=== PATIENT | male | born 1935 | race Caucasian/White ===

== ENCOUNTER 2017-08-12 14:07 | Emergency (ER) | payer MEDICARE, SELFPAY ==
[2017-08-12 14:07] VITALS: BP 151/83; PULSE 57; RESP 18; TEMP 36.5; O2SAT 100; BMI 24.4
[2017-08-12 14:20] VITALS: BP 122/84; PULSE 67; RESP 16; O2SAT 100
--- NOTE | 2017-08-12 14:23 | EKG12_ITS ---
Test Reason : SOB Blood Pressure : / mmHG Vent. Rate : 056 BPM Atrial Rate : 056 BPM P-R Int : 210 ms QRS Dur : 110 ms QT Int : 436 ms P-R-T Axes : 041 015 030 degrees QTc Int : 420 ms Sinus bradycardia with 1st degree A-V block Inferior infarct , age undetermined Abnormal ECG Confirmed by AGUSTIN RIGGS, YENNY ([id number]), website/blog editor NIKKO POPE ([id number]) on 08/15/2017 1:21:00 PM Referred By: Yenny Jamison Confirmed By:YENNY JAMISON MD
[2017-08-12 14:45] LABS: Absolute Lymphocyte Count 2.41 X10^3/ul (0.83-4.51); Absolute Neutrophil Count 4.1 X10^3/uL (2.0-7.7); Basophil# 0.03 X10^3/uL; Basophil% 0.4 % (0-1); Eosinophil# 0.06 X10^3/uL; Eosinophils% 0.8 % (0-5); Hematocrit 40.7 % (40-54); Hemoglobin 14.4 g/dl (13.0-16.5); Lymphocyte # 2.41 X10^3/ul (4.0); Lymphocyte % 33.8 % (19-41); Mean Corp Hgb Conc 35.4 g/gl (32-36); Mean Corpuscular Hgb 30.6 pg (27.0-32.0); Mean Corpuscular Volume 86.6 fL (80-94); Mean Platelet Vol. 10.8 fl (6.2-12.0); Monocyte# 0.57 X10^3/uL; Neutrophil # 4.05 X10^3/uL (2.7-7.7); Neutrophil % 56.9 % (47-70); POSITIVE COUNT NO; POSITIVE DIFFERENTIAL NO; POSITIVE MORPHOLOGY NO; Platelet Count 190 K/mm3 (150-450); RBC Distribution Width CV 12.8 % (11.6-14.6); RBC Distribution Width SD 40.8 fl (35.1-43.9); White Blood Count 7.1 K/mm3 (4.4-11.0)
[2017-08-12 15:04] LABS: Anion Gap 8 (5-15); BUN 16 mg/dL (7-18); BUN/Creat Ratio 14.4 RATIO (10-20); Calcium,Total 8.5 mg/dL (8.5-10.1); Chloride 104 mmol/L (98-107); Creatinine, Serum 1.11 mg/dL (0.70-1.30); EST Glomerular Filtration Rate 68 mL/min (>60); Est Glom Filt Rate - Afr Amer 82 mL/min (>60); Estimated Creatinine Clearance 60.98 ml/min; Glucose 112 mg/dL (74-106); Potassium 3.5 mmol/L (3.5-5.1); Sodium Level 140 mmol/L (136-145)
--- NOTE | 2017-08-12 15:36 | ED.VISSUMM ---
- ER Visit Summary Date of Service: 08/12/17 Chief Complaint: Shortness of breath, weakness, palpitations and lightheadedness History of Present Illness: The patient is a 81 M was recently admitted for similar symptoms and found to have dehydration. He presently has no symptoms. He had no other symptoms other than what his chief complaint was. He denied fever, chills night sweats. He denied change in vision, blurred vision or double vision. He denies loss of vision. He denied runny nose, postnasal drainage, sore throat or earache. He denied chest pain or discomfort. He denied cough, dyspnea on exertion, orthopnea or PND. He denied abdominal pain, vomiting, diarrhea or black or maroon stool. He denies any urologic symptoms. He denied myalgias arthralgias back pain. He denied headache, paresthesia, anesthesia motor weeks. He denies any allergic problems. Denies problems with bleeding or bruising easily. He is on no anticoagulant. Physical Examination: Vital signs micromelic blood pressure 141/83 and heart rate is 57. He has history of bradycardia. He is a thin gentleman. He appears in no distress. Insert HEENT exam Heart is regular without murmur, gallop or rub. S1 and S2 are normal. Lungs are clear to auscultation with good movement of air bilaterally. Abdomen is soft and nontender. There is no guarding or peritoneal findings. There is no palpable pulsatile mass. There is no abdominal bruit. Spencer sign is negative. Negative Rovsing sign. There is no evidence of inguinal or umbilical hernia. There is no asymmetry, swelling, discoloration, leg vein distention, palpable cords or tenderness along the distribution of the deep venous system. Patient is alert and oriented ?3. Motor is 5 over 5. Sensory is intact. DTRs are symmetric with no clonus or Babinski sign. Cranial 2 through 12 are intact. Cerebellar testing is normal. Test Results: EKG revealed a sinus bradycardia rate 57 with first-degree AV block. CBC and BMP are unremarkable. Emergency Department Course and Treatment: Weight is vague symptoms EKG and CBC and BMP were obtained assessing for anemia, cardiac dysrhythmia or ischemia, electrolyte abnormality. Treatment Plan: Patient was informed no cause was found. states no one finds a cause. Disposition: Discharged home with Impression: 1. Intermittent dyspnea and lightheadedness of unknown etiology 2. History of hypothyroidism status post thyroidectomy 3. History of hypertension This note was generated with [employer] dictation software. It may contain incorrect words, spelling, and punctuation that were not noted in review of the chart prior to signing ED Disposition - Plan for ED Patient: Disposition: Home or Assisted Living Chief Complaint: Shortness of Breath Instructions: ED Stress React Referrals: Juan Hairston MD [Primary Care Provider] - As Needed
[2017-08-12 16:04] VITALS: BP 141/91; PULSE 67; RESP 18; O2SAT 95
== END 2017-08-12 16:05 | disposition home or self-care (01) ==
PROVIDERS: Emergency Provider Emergency Medicine; Family Provider Family Medicine; PCP Family Medicine
DX: R06.00 Dyspnea, unspecified (principal); R42 Dizziness and giddiness; E89.0 Postprocedural hypothyroidism; I10 Essential (primary) hypertension; F41.9 Anxiety disorder, unspecified; R00.1 Bradycardia, unspecified; I44.0 Atrioventricular block, first degree; I48.91 Unspecified atrial fibrillation; Z86.73 Personal history of transient ischemic attack (TIA), and cerebral infarction without residual deficits; Z79.01 Long term (current) use of anticoagulants; Z79.899 Other long term (current) drug therapy
CPT/HCPCS: 80048; 85025; 93005; 99284; A4216

== ENCOUNTER 2017-09-01 06:15 | Day surgery (SDC) | payer MEDICARE, SELFPAY ==
[2017-09-01] VITALS (7 sets, daily range): BP systolic 107–147; BP diastolic 60–75; PULSE 51–56; RESP 16; TEMP 36.2–36.6; O2SAT 95–100; BMI 24.8
--- NOTE | 2017-09-01 | COLBX_PTH ---
PATIENT: LEO ROMAN LOC: EN U#:[id number] AGE/SX: 81/M ROOM: RE09/01/[address]: Dr. Cesar Johnson MD : [id number] BED: DIS: 09/01/2017 SPEC #: [id number] RECD: 09/01/17 13:34 STATUS: NIKKI ESTHER #: [id number] FABIAN: 09/01/17 00:[address]: Cesar Johnson DEPT: SURGICAL PATHOLOGY RECD BY: Benjamín Rhodes ENTERED: 09/01/17 13:42 SP TYPE: COLON BX OTHR DR: Dr. Juan Hairston MD Tissues: Rectum, NOS Procedures: Surgery Specimen Level IV HEADER OPERATION: Colonoscopy PRE-OP DIAGNOSIS: History colon polyps TISSUE SUBMITTED: Rectal polyp biopsy MICROSCOPIC DIAGNOSIS Rectal polyp, biopsy: Tubular adenoma. SJ:adonis 09/04/17 MICROSCOPIC DESCRIPTION Slides are reviewed. GROSS DESCRIPTION Received in fixative is one container labeled with the patient's name and designated rectal polyp biopsy. The specimen consists of one irregular fragment of light lazar soft tissue that measures 0.4 x 0.3 x 0.1 cm. The specimen is totally submitted in one cassette. / SJ:adonis 09/01/17 TC:1 CPT: 29473
--- NOTE | 2017-09-01 08:13 | PCM.OPRPT ---
Problem List (1) Personal history of colonic polyps Status: Acute Report of Operation Date of Procedure: 09/01/17 Pre-Operative Diagnosis: Personal history of colon polyps Post-Operative Diagnosis: 5 mm sessile polyp of the rectum Surgery/Procedure Performed:: Colonoscopy with cold forcep biopsy/polypectomy Description of Surgical Findings:: Timeout and informed consent was obtained. 81-year-old gent was taken to the endoscopy suite. He was placed in a left lateral decubitus position. Throughout the procedure he received a total of 75 mg of Demerol and 3.5 mg of Versed is intravenous sedation. Digital rectal exam performed. Normal anal tone. 2+ smooth prostate. No mass lesions. Flexible colonoscope with the amplified device was inserted advanced quite readily through the colon. Patient has a rather elongated colon. Transabdominal pressure was required to get the scope to go to the cecum. The cecum ileocecal valve area was nicely achieved. Bowel prep was good. The scope was retroflexed within the ascending colon without abnormality identified. Then the scope was carefully withdrawn from the ascending transverse descending and sigmoid colon. Within the rectum and a 5 mm sessile polyp was identified. Cold forceps were used to sample and eradicate this lesion. Scope was retroflexed hemorrhoidal changes noted. No mass lesions. Excess fluid and air was aspirated free. The procedure was completed with the patient tolerating it well. Impression Diminutive sessile polyp of the rectum. The patient will be notified of pathology results as they become available. Previous colonoscopy was September 29, 2011. Next colonoscopy anticipated in 5 years pending pathology. Cc: Dr. Juan Hairston Medications were given at 0745. Scope was inserted 0747. The cecum was reached at 0754. The procedure was completed at 0807. Cesar Johnson M.D., F.A.C.S. Type of Anesthesia:: IV Sedation
== END 2017-09-01 09:05 | disposition home or self-care (01) ==
LOC: EN 06:22 → AC 06:51
PROVIDERS: Family Provider Family Medicine; PCP Family Medicine; Visit Provider Surgery
PROC: 0DJD8ZZ Inspection of Lower Intestinal Tract, Via Natural or Artificial Opening Endoscopic (ICD-10-PCS; CPT 45378; principal; 2017-09-01 07:25)
DX: D12.8 Benign neoplasm of rectum (principal); Q43.8 Other specified congenital malformations of intestine; K64.9 Unspecified hemorrhoids; I10 Essential (primary) hypertension; I48.2 Chronic atrial fibrillation; E03.9 Hypothyroidism, unspecified; R00.1 Bradycardia, unspecified; C61 Malignant neoplasm of prostate; Z86.010 Personal history of colon polyps; Z79.01 Long term (current) use of anticoagulants; Z79.899 Other long term (current) drug therapy; Z86.73 Personal history of transient ischemic attack (TIA), and cerebral infarction without residual deficits
CPT/HCPCS: 45380; 88305; 99152; 99153; J7120

== ENCOUNTER → 2017-09-04 08:07 | Outpatient (CLI) | payer MEDICARE, SELFPAY ==
--- NOTE | 2017-09-04 08:25 | RAD_ITS ---
STUDY: CONTRAST UPPER GI SERIES AND SMALL BOWEL FOLLOW-THROUGH EXAMINATION. REASON FOR EXAM: Male, 81 years old. Intermittent chest pain and shortness of breath. FLUOROSCOPY TIME (if supplied): (0:55) minutes/seconds TECHNIQUE: The patient ingested barium. Multiple images of the esophagus stomach and duodenum were obtained. Following this, a small bowel follow-through examination was obtained. COMPARISON: None. FINDINGS: The esophagus is unremarkable. There is no evidence of esophageal obstruction. No mass lesion is seen. No evidence of gastroesophageal reflux. The stomach and duodenum are unremarkable. There is no evidence of ulceration. A small bowel follow-through examination was then obtained. Normal transit. No evidence of intrinsic or extrinsic small bowel disease. The terminal ileum is unremarkable. RAD/Upper GI/w Small Bowel IMPRESSION: Unremarkable examination. Electronically Signed: Iain De Santiago MD at 15:13 EDT Tel [phone], Service support ,
== END ==
PROVIDERS: Family Provider Family Medicine; PCP Family Medicine; Visit Provider Family Medicine
DX: R13.10 Dysphagia, unspecified (principal)
CPT/HCPCS: 74249

== ENCOUNTER → 2017-09-07 08:42 | Outpatient (CLI) | payer MEDICARE, SELFPAY ==
[2017-09-07 10:18] LABS: Cholesterol 158 mg/dL (200); High Density Lipoprotein 45 mg/dL; PSA,Total- Diagnostic < 0.01 ng/mL (0.0-4.0); Thyroid Stim Hormone (TSH) 0.21 uIU/mL (0.358-3.74); Triglycerides 89 mg/dL; Very Low Density Lipoprotein 18 mg/dL (5-40)
== END ==
PROVIDERS: Family Provider Family Medicine; PCP Family Medicine; Visit Provider Family Medicine
DX: E03.9 Hypothyroidism, unspecified (principal); I48.91 Unspecified atrial fibrillation; Z85.46 Personal history of malignant neoplasm of prostate
CPT/HCPCS: 36415; 80061; 84153; 84443

== ENCOUNTER → 2017-09-25 07:36 | Outpatient (CLI) | payer MEDICARE, SELFPAY ==
--- NOTE | 2017-09-25 14:41 | PFT ---
INTRODUCTION: The patient is a 81-year-old male currently under the care of Dr. Hairston the presents for pulmonary function testing secondary to a diagnosis of shortness of breath. Respiratory therapy reports good patient effort and reports no other concerns. Bronchodilators were used during testing. INTERPRETATION: Forced expiration spirometry demonstrates no evidence of a large airways obstructive ventilatory defect. There was no significant response to aerosolized bronchodilators, based upon strict ATS criteria. Spirograms are of fair quality and plateau gradually indicating slow emptying of the lungs. Body plethysmography was performed and reveals lung volumes to be within normal limits. Diffusing capacity by single breath CO is also within normal limits. IMPRESSION: These pulmonary function studies are essentially within normal limits. There are no previous pulmonary function studies available for comparison.
== END ==
PROVIDERS: Family Provider Family Medicine; PCP Family Medicine; Visit Provider Family Medicine
DX: R06.02 Shortness of breath (principal)
CPT/HCPCS: 94060; 94726; 94729

== ENCOUNTER → 2018-02-22 14:58 | Outpatient (CLI) | payer MEDICARE, SELFPAY ==
[2018-02-22 18:22] LABS: Absolute Lymphocyte Count 1.42 X10^3/ul (0.83-4.51); Basophil# 0.02 X10^3/uL; Basophil% 0.3 % (0-1); Eosinophil# 0.08 X10^3/uL; Eosinophils% 1.3 % (0-5); Lymphocyte # 1.42 X10^3/ul (4.0); Lymphocyte % 23.2 % (19-41); Mean Corp Hgb Conc 35.1 g/gl (32-36); Mean Corpuscular Hgb 31.2 pg (27.0-32.0); Mean Corpuscular Volume 88.7 fL (80-94); Mean Platelet Vol. 10.8 fl (6.2-12.0); Monocyte# 0.61 X10^3/uL; Neutrophil # 3.99 X10^3/uL (2.7-7.7); Neutrophil % 65.2 % (47-70); Platelet Count 186 K/mm3 (150-450); RBC Distribution Width CV 12.9 % (11.6-14.6); RBC Distribution Width SD 41.1 fl (35.1-43.9); Red Blood Count 4.17 M/mm3 (4.6-6.2); White Blood Count 6.1 K/mm3 (4.4-11.0)
[2018-02-22 18:37] LABS: Anion Gap 6 (5-15); BUN 12 mg/dL (7-18); Calcium,Total 8.6 mg/dL (8.5-10.1); Chloride 103 mmol/L (98-107); Creatinine, Serum 1.09 mg/dL (0.70-1.30); EST Glomerular Filtration Rate 69 mL/min (>60); Est Glom Filt Rate - Afr Amer 84 mL/min (>60); Free T3 3.4 pg/mL (2.18-3.98); Glucose 81 mg/dL (74-106); Sodium Level 137 mmol/L (136-145); Thyroid Stim Hormone (TSH) 0.21 uIU/mL (0.358-3.74)
[2018-02-22 18:51] LABS: POSITIVE COUNT NO; POSITIVE DIFFERENTIAL NO; POSITIVE MORPHOLOGY NO
== END ==
PROVIDERS: Family Provider Family Medicine; PCP Family Medicine; Referring Provider Family Medicine; Visit Provider Family Medicine
DX: E03.9 Hypothyroidism, unspecified (principal); R06.02 Shortness of breath
CPT/HCPCS: 36415; 80048; 84439; 84443; 84481; 85025

== ENCOUNTER → 2018-12-07 | Outpatient (CLI) | payer MEDICARE, SELFPAY ==
[2018-09-25 07:39] VITALS: BMI 25.0
[2018-12-07 14:17] LABS: Microalbumin,Random Urine < 5.0 mg/L (NO RANGE EST.)
[2018-12-07 14:40] LABS: Anion Gap 7 (5-15); BUN 14 mg/dL (7-18); BUN/Creat Ratio 14.1 RATIO (10-20); Calcium,Total 8.3 mg/dL (8.5-10.1); Chloride 103 mmol/L (98-107); Creatinine, Serum 0.99 mg/dL (0.70-1.30); EST Glomerular Filtration Rate 77 mL/min (>60); Est Glom Filt Rate - Afr Amer 93 mL/min (>60); Ferritin 97 ng/mL (26-388); Glucose 91 mg/dL (74-106); PSA,Total- Diagnostic < 0.01 ng/mL (0.0-4.0); Potassium 3.8 mmol/L (3.5-5.1); Sodium Level 137 mmol/L (136-145); Thyroid Stim Hormone (TSH) 0.13 uIU/mL (0.358-3.74)
[2018-12-07 15:36] LABS: Absolute Lymphocyte Count 1.81 X10^3/uL (0.83-4.51); Absolute Neutrophil Count 3.5 X10^3/uL (2.0-7.7); Basophil# 0.03 X10^3/uL; Basophil% 0.5 % (0-1); Eosinophil# 0.05 X10^3/uL; Eosinophils% 0.8 % (0-5); Hematocrit 37.5 % (40-54); Hemoglobin 13.1 g/dL (13.0-16.5); Lymphocyte # 1.81 X10^3/ul (4.0); Lymphocyte % 30.5 % (19-41); Mean Corp Hgb Conc 34.9 g/dL (32-36); Mean Corpuscular Hgb 30.5 pg (27.0-32.0); Mean Corpuscular Volume 87.2 fL (80-94); Mean Platelet Vol. 11.2 fl (6.2-12.0); Monocyte# 0.52 X10^3/uL; Monocyte% 8.8 % (0-10); NRBC Flagged by Analyzer 0 % (0-5); Neutrophil % 59.1 % (47-70); Platelet Count 164 K/mm3 (150-450); RBC Distribution Width CV 12.9 % (11.6-14.6); RBC Distribution Width SD 40.4 fl (35.1-43.9); White Blood Count 5.9 K/mm3 (4.4-11.0)
== END | disposition home or self-care (01) ==
PROVIDERS: Family Provider Family Medicine; PCP Family Medicine; Referring Provider Family Medicine; Visit Provider Family Medicine
DX: E03.9 Hypothyroidism, unspecified (principal); I48.91 Unspecified atrial fibrillation; I10 Essential (primary) hypertension; Z85.46 Personal history of malignant neoplasm of prostate
CPT/HCPCS: 36415; 80048; 82043; 82570; 82728; 84153; 84443; 85025

== ENCOUNTER → 2019-04-22 09:41 | Outpatient (CLI) | payer MEDICARE, SELFPAY ==
[2018-09-25 07:39] VITALS: BMI 25.0
[2019-04-22 12:41] LABS: Anion Gap 8 (5-15); BUN 13 mg/dL (7-18); BUN/Creat Ratio 11.3 RATIO (10-20); Calcium,Total 8.6 mg/dL (8.5-10.1); Chloride 104 mmol/L (98-107); Creatinine, Serum 1.15 mg/dL (0.70-1.30); EST Glomerular Filtration Rate 65 mL/min (>60); Est Glom Filt Rate - Afr Amer 78 mL/min (>60); Glucose 93 mg/dL (74-106); Sodium Level 137 mmol/L (136-145); T4 Free Direct 1.02 ng/dL (0.76-1.46); Thyroid Stim Hormone (TSH) 1.71 uIU/mL (0.358-3.74)
== END ==
PROVIDERS: Family Provider Family Medicine; PCP Family Medicine; Referring Provider Family Medicine; Visit Provider Family Medicine
DX: E03.9 Hypothyroidism, unspecified (principal); I10 Essential (primary) hypertension
CPT/HCPCS: 36415; 80048; 84439; 84443

== ENCOUNTER → 2019-12-24 08:01 | Outpatient (CLI) | payer MEDICARE, SELFPAY ==
[2018-09-25 07:39] VITALS: BMI 25.0
[2019-12-24 09:59] LABS: Absolute Lymphocyte Count 2.29 X10^3/uL (0.83-4.51); Absolute Neutrophil Count 3.5 X10^3/uL (2.0-7.7); Basophil# 0.04 X10^3/uL; Basophil% 0.6 % (0-1); Eosinophil# 0.07 X10^3/uL; Eosinophils% 1.1 % (0-5); Hematocrit 40.9 % (40-54); Hemoglobin 14.4 g/dL (13.0-16.5); Lymphocyte # 2.29 X10^3/ul (4.0); Lymphocyte % 35.5 % (19-41); Mean Corp Hgb Conc 35.2 g/dL (32-36); Mean Corpuscular Hgb 31.4 pg (27.0-32.0); Mean Corpuscular Volume 89.1 fL (80-94); Mean Platelet Vol. 11.6 fl (6.2-12.0); Monocyte# 0.58 X10^3/uL; NRBC Flagged by Analyzer 0 % (0-5); Neutrophil # 3.46 X10^3/uL (2.7-7.7); Neutrophil % 53.6 % (47-70); Platelet Count 166 K/mm3 (150-450); RBC Distribution Width CV 12.7 % (11.6-14.6); RBC Distribution Width SD 40.8 fl (35.1-43.9); Red Blood Count 4.59 M/mm3 (4.6-6.2); White Blood Count 6.5 K/mm3 (4.4-11.0)
[2019-12-24 10:18] LABS: Anion Gap 4 (5-15); BUN 15 mg/dL (7-18); BUN/Creat Ratio 14.2 RATIO (10-20); Calcium,Total 8.6 mg/dL (8.5-10.1); Chloride 104 mmol/L (98-107); Creatinine, Serum 1.06 mg/dL (0.70-1.30); EST Glomerular Filtration Rate 71 mL/min (>60); Est Glom Filt Rate - Afr Amer 86 mL/min (>60); Glucose 92 mg/dL (74-106); PSA,Total- Diagnostic < 0.01 ng/mL (0.0-4.0); Potassium 3.9 mmol/L (3.5-5.1); Sodium Level 136 mmol/L (136-145)
[2019-12-24 10:23] LABS: Microalbumin,Random Urine 9.6 mg/L (NO RANGE EST.); Microalbumin:Creatinine Ratio 5.5 mg/g CRE (<30 mg/g CRE)
[2019-12-24 10:59] LABS: Cholesterol 150 mg/dL (200); High Density Lipoprotein 38 mg/dL; Triglycerides 106 mg/dL; Very Low Density Lipoprotein 21 mg/dL (5-40)
== END ==
PROVIDERS: PCP Family Medicine; Referring Provider Family Medicine; Visit Provider Family Medicine
DX: I10 Essential (primary) hypertension (principal); Z85.46 Personal history of malignant neoplasm of prostate; E03.9 Hypothyroidism, unspecified; I48.91 Unspecified atrial fibrillation
CPT/HCPCS: 36415; 80048; 80061; 82043; 82570; 84153; 84443; 85025

== ENCOUNTER → 2020-03-19 14:10 | Outpatient (CLI) | payer MEDICARE, SELFPAY ==
[2020-01-10 10:41] VITALS: BMI 24.7
[2020-03-19 18:05] LABS: T4 Free Direct 1.26 ng/dL (0.76-1.46)
== END ==
PROVIDERS: PCP Family Medicine; Referring Provider Family Medicine; Visit Provider Family Medicine
DX: E03.9 Hypothyroidism, unspecified (principal)
CPT/HCPCS: 36415; 84439; 84443

== ENCOUNTER → 2020-12-01 07:40 | Outpatient (CLI) | payer MEDICARE, SELFPAY ==
[2020-11-19 11:27] VITALS: BMI 24.7
[2020-12-01 10:24] LABS: Absolute Lymphocyte Count 2.11 X10^3/uL (0.83-4.51); Absolute Neutrophil Count 3.1 X10^3/uL (2.0-7.7); Basophil# 0.04 X10^3/uL; Basophil% 0.7 % (0-1); Eosinophil# 0.07 X10^3/uL; Eosinophils% 1.2 % (0-5); Hematocrit 38.9 % (40-54); Lymphocyte # 2.11 X10^3/ul (0.83-4.51); Lymphocyte % 35.5 % (19-41); Mean Corpuscular Volume 86.3 fL (80-94); Mean Platelet Vol. 11.4 fl (6.2-12.0); Monocyte% 10.1 % (0-10); NRBC Flagged by Analyzer 0 % (0-5); Neutrophil % 52.2 % (47-70); Platelet Count 176 K/mm3 (150-450); RBC Distribution Width CV 12.6 % (11.6-14.6); RBC Distribution Width SD 39.5 fl (35.1-43.9); Red Blood Count 4.51 M/mm3 (4.6-6.2); White Blood Count 5.9 K/mm3 (4.4-11.0)
[2020-12-01 11:07] LABS: Microalbumin,Random Urine 8.4 mg/L (NO RANGE EST.); Microalbumin:Creatinine Ratio 10.4 mg/g CRE (<30 mg/g CRE)
[2020-12-01 11:09] LABS: ALB/GLOB Ratio 1.2 RATIO (0.9-2.4); AST(SGOT) 23 U/L (15-37); Alanine Aminotransfer ALT/SGPT 35 U/L (16-61); Albumin, Serum 3.9 g/dL (3.2-5.0); Alkaline Phosphatase 69 U/L (45-117); Anion Gap 6 (5-15); BUN 13 mg/dL (7-18); BUN/Creat Ratio 13.1 RATIO (10-20); Calcium,Total 8.7 mg/dL (8.5-10.1); Chloride 95 mmol/L (98-107); Cholesterol 148 mg/dL (200); Creatinine, Serum 0.99 mg/dL (0.70-1.30); EST Glomerular Filtration Rate 76 mL/min (>60); Est Glom Filt Rate - Afr Amer 92 mL/min (>60); Globulin 3.3 g/dL (2.2-4.2); Glucose 90 mg/dL (74-106); High Density Lipoprotein 44 mg/dL; Potassium 3.4 mmol/L (3.5-5.1); Protein, Total 7.2 g/dL (6.4-8.2); Sodium Level 129 mmol/L (136-145); T4 Free Direct 1.11 ng/dL (0.76-1.46); Triglycerides 125 mg/dL; Very Low Density Lipoprotein 25 mg/dL (5-40)
== END ==
PROVIDERS: PCP Family Medicine; Referring Provider Family Medicine; Visit Provider Family Medicine
DX: I10 Essential (primary) hypertension (principal); E03.9 Hypothyroidism, unspecified
CPT/HCPCS: 36415; 80053; 80061; 82043; 82570; 84439; 84443; 85025

== ENCOUNTER → 2021-03-04 09:04 | Outpatient (CLI) | payer MEDICARE, SELFPAY ==
[2021-03-04 11:36] LABS: Anion Gap 9 (5-15); BUN 11 mg/dL (7-18); BUN/Creat Ratio 11.1 RATIO (10-20); Calcium,Total 8.3 mg/dL (8.5-10.1); Chloride 104 mmol/L (98-107); Creatinine, Serum 0.99 mg/dL (0.70-1.30); EST Glomerular Filtration Rate 77 mL/min (>60); Est Glom Filt Rate - Afr Amer 93 mL/min (>60); Glucose 77 mg/dL (74-106); PSA,Total - Annual Screen < 0.01 ng/mL (0.00-4.00); Potassium 3.4 mmol/L (3.5-5.1); Sodium Level 139 mmol/L (136-145); T4 Free Direct 1.02 ng/dL (0.76-1.46); Thyroid Stim Hormone (TSH) 0.88 uIU/mL (0.358-3.74)
== END ==
PROVIDERS: PCP Family Medicine; Referring Provider Family Medicine; Visit Provider Family Medicine
DX: E03.9 Hypothyroidism, unspecified (principal); Z12.5 Encounter for screening for malignant neoplasm of prostate
CPT/HCPCS: 36415; 80048; 84153; 84439; 84443; G0103

== ENCOUNTER 2021-04-24 09:09 | Emergency (ER) | payer MEDICARE, SELFPAY ==
[2021-04-24 09:09] VITALS: BP 141/91; PULSE 60; RESP 14; TEMP 36.1; O2SAT 97; BMI 24.5
--- NOTE | 2021-04-24 09:25 | EX.ED.DYSGE1 ---
HPI History of Present Illness Chief Complaint: Constipation Informant: patient Onset/Context/Timing Onset: Days (3) Context: Gradual Onset Timing: Continuous Quality: constipated Location: rectum Current Severity: Moderate Maximum Severity: Moderate Worsened by: nothing Relieved by: nothing - tried gloved finger, suppository Associated Symptoms Associated Symptoms: none Narrative Narrative: Last bowel movement 3 days ago patient has a hard stool in the rectal vault and he is able to feel it and unable to get it out and go although he feels the need to. He is on Xarelto, no recent bleeding. He has had no perianal or rectal pain. No abdominal pain, nausea, vomiting. 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 No recent diet changes that he can recall would be related to this. No history of any abdominal surgeries. [facility] Medical History (Updated 04/24/21 @ 12:[address] Titus Thompson MD) Bradycardia Essential (primary) hypertension Hypothyroidism Nonrheumatic aortic (valve) insufficiency Orthostatic syncope Palpitations Paroxysmal atrial fibrillation Personal history of colonic polyps Prostate cancer TIA (transient ischemic attack) Home Medications levothyroxine 150 mcg capsule 100 mcg PO DAILY 09/25/18 [History Last Taken Unknown] losartan 100 mg tablet 100 mg PO DAILY #90 tab 11/19/20 [Rx Last Taken Unknown] rivaroxaban 20 mg tablet 20 mg PO DAILY #90 tab 11/19/20 [Rx Last Taken Unknown] Allergy/AdvReac Type Severity Reaction Status Date / Time amlodipine [From [facility]] AdvReac ankle edema Verified 04/24/21 09:12 Family History Brother Colon cancer Hypertension Father Hypertension Cancer leukemia Mother Hypertension Brother Hypertension Cancer lung cancer Sister Breast cancer Sister Cancer ovarian cancer Surgical History History of colonoscopy History of prostatectomy History of thyroidectomy Social History Smoking Status: Never smoker alcohol intake: never substance use type: does not use caffeine: Yes Type: coffee what type of physical activity do you participate in: walking frequency: daily duration: 30-45 minutes/day seatbelt use: always do you feel safe at home: Yes ROS ROS ED Constitutional Constitutional ED: Denies chills or fever(s) Eyes Eyes: Denies change in vision or diplopia ENT ENT ED: Denies rhinorrhea or sore throat Cardiovascular Cardiovascular: Denies chest pain or palpitations Respiratory/Chest Respiratory/Chest: Denies cough or dyspnea Gastrointestinal Gastrointestinal: Reports as per HPI and constipation; Denies abdominal pain, diarrhea, nausea, rectal bleeding or vomiting Genitourinary Genitourinary ED: Denies dysuria or hematuria Musculoskeletal Musculoskeletal: Denies back pain or neck pain Integumentary Denies abscess or rash Neurologic Neurologic: Denies headache(s), paresthesias or weakness Psychiatric Psychiatric: Denies anxiety or suicidal thoughts EXAM Physical Exam Const Vital Signs: 04/24/21 09:09 Temperature 97.0 F L Temperature Source Temporal Pulse Rate 60 Respiratory Rate 14 Blood Pressure 141/91 H Blood Pressure Mean 107 Pulse Ox 97 Oxygen Delivery Method Room Air Positive well nourished and well developed General Appearance ED: well developed and NAD HEENT Reports moist mucous membranes normocephalic and atraumatic Eyes PERRL and EOMs intact bilaterally Neck full ROM and supple Resp normal respiratory effort and clear to auscultation bilaterally Cardio regular rate, regular rhythm and no murmurs GI non-tender and non-distended Auscultation: normoactive bowel sounds Palpation: soft Rectal Exam: visual inspection normal, fecal impaction and other Other Details: No tenderness. Palpable hard stool in the rectal vault by the tip of the finger, able to swoop the end of my finger around it. Back/Spine no CVA tenderness General Back: other FROM Extremity normal to inspection General Extremety ED: Negative for edema, pulses abnormal or tenderness General Extremity: Negative for edema or pulses abnormal Neuro oriented x3, CN's II-XII intact bilaterally, no sensory deficits noted and gait normal Sensorium / Orientation: awake and alert Motor Exam: strength 5/5 throughout Skin no rashes or lesions noted and no wounds MDM MDM MDM Narrative Medical decision making narrative: I attempted to manually disimpact the patient, however all he could do would loosen up the hard stool that was there, was not able to did get out with my fingers. I gave the patient a fleets enema after we discussed options, he had a small productive bowel movement, and later declined a soapsuds enema and felt better enough to go home. Recommend MiraLAX and/your magnesium citrate. Discharge Plan Triage Chief Complaint: Constipation ED Provider: Titus Thompson Dx/Rx/DC Orders Clinical Impression: Constipation Instructions: ED Constipation (Adult) Prescriptions: No Action levothyroxine 150 mcg capsule 150 mcg capsule 100 mcg PO DAILY RF: 0 losartan 100 mg tablet 100 mg PO DAILY Qty: 90 RF: 4 rivaroxaban 20 mg tablet 20 mg PO DAILY Qty: 90 RF: 3 Primary Care Provider: Juan Hairston Referrals: Juan Hairston MD [Primary Care Provider] - 3-5 Days if not improving Activity Restrictions/Additional Instructions: If you are still having issues you may do a; flush with magnesium citrate, half of the bottle which is 150 cc, followed by plenty of fluids. Alternatively you may do a couple capfuls of MiraLAX dissolved in a glass or 2 of water and states that with several glasses of fluid, and then do 1 capful of MiraLAX dissolved daily in order to keep your stool soft. Disposition Disposition: Home, Self Care
[2021-04-24] MEDS: Fleet Enema 1 ML RC (10:21)
[2021-04-24 12:17] VITALS: BP 122/59; PULSE 62; RESP 16; O2SAT 98
== END 2021-04-24 12:18 | disposition home or self-care (01) ==
PROVIDERS: Emergency Provider Emergency Medicine; PCP Family Medicine
DX: K59.00 Constipation, unspecified (principal); I10 Essential (primary) hypertension; I35.1 Nonrheumatic aortic (valve) insufficiency; E03.9 Hypothyroidism, unspecified; I48.0 Paroxysmal atrial fibrillation; Z85.46 Personal history of malignant neoplasm of prostate; Z86.73 Personal history of transient ischemic attack (TIA), and cerebral infarction without residual deficits; Z86.010 Personal history of colon polyps; Z79.01 Long term (current) use of anticoagulants; Z79.899 Other long term (current) drug therapy
CPT/HCPCS: 99282

== ENCOUNTER → 2021-05-06 14:58 | Outpatient (CLI) | payer MEDICARE, SELFPAY ==
--- NOTE | 2021-05-06 15:02 | RAD_ITS ---
STUDY: X-RAY - ABDOMEN/PELVIS REASON FOR EXAM: Male, 85 years old. Abdominal pain, distention TECHNIQUE: 3 AP films COMPARISON: None. FINDINGS: Normal visualized lung bases. There is an abundance of fecal material throughout the colon. There is no demonstrated free abdominal air. The visualized liver, spleen and kidneys are grossly normal in size and morphology. Normal soft tissue structures. Normal visualized osseous structures. Multiple surgical clips in the pelvis likely from previous cystectomy RAD/Abdomen Single View IMPRESSION: No acute findings, retained stool Electronically Signed: James Gatica MD at 16:56 EST , Service support ,
== END ==
PROVIDERS: PCP Family Medicine; Referring Provider Family Medicine; Visit Provider Family Medicine
DX: K59.00 Constipation, unspecified (principal)
CPT/HCPCS: 74018

== ENCOUNTER → 2021-09-14 | Outpatient (CLI) | payer MEDICARE, SELFPAY ==
[2021-09-14 12:33] LABS: AST(SGOT) 15 U/L (15-37); Alanine Aminotransfer ALT/SGPT 20 U/L (16-61); Albumin, Serum 3.6 g/dL (3.2-5.0); Alkaline Phosphatase 68 U/L (45-117); Anion Gap 4 (5-15); BUN 15 mg/dL (7-18); BUN/Creat Ratio 14.6 RATIO (10-20); Calcium,Total 8.5 mg/dL (8.5-10.1); Chloride 105 mmol/L (98-107); Creatinine, Serum 1.03 mg/dL (0.70-1.30); EST Glomerular Filtration Rate 73 mL/min (>60); Est Glom Filt Rate - Afr Amer 89 mL/min (>60); Globulin 3.5 g/dL (2.2-4.2); Glucose 79 mg/dL (74-106); Magnesium 2.2 mg/dL (1.6-2.6); Potassium 3.9 mmol/L (3.5-5.1); Protein, Total 7.1 g/dL (6.4-8.2); Sodium Level 137 mmol/L (136-145); Thyroid Stim Hormone (TSH) 0.18 uIU/mL (0.358-3.74)
== END | disposition home or self-care (01) ==
LOC: MTLAB 09:36
PROVIDERS: PCP Family Medicine; Referring Provider Family Medicine; Visit Provider Family Medicine
DX: I10 Essential (primary) hypertension (principal); I48.91 Unspecified atrial fibrillation; E03.9 Hypothyroidism, unspecified
CPT/HCPCS: 36415; 80053; 83735; 84439; 84443

== ENCOUNTER → 2021-10-20 | Outpatient (CLI) | payer MEDICARE, SELFPAY | END | disposition home or self-care (01) | LOC: PSN 08:20 | PROVIDERS: PCP Family Medicine; Referring Provider Physician Assistant Medical; Visit Provider Physician Assistant Medical | DX: I48.0 Paroxysmal atrial fibrillation (principal); R01.1 Cardiac murmur, unspecified | CPT/HCPCS: 93225; 93226 ==

== ENCOUNTER → 2021-11-09 | Outpatient (CLI) | payer MEDICARE, SELFPAY ==
--- NOTE | 2021-11-09 12:43 | ECHOD_ITS ---
Reason For Study: ATRIAL FIB-FLUTTER Procedure This was a 2D Doppler, Color Flow transthoracic echocardiogram. Exam performed in department. Left Ventricle Normal LV size. Left ventricular systolic function is normal. The estimated ejection fraction is 60 %. Stage 1 diastolic dysfunction. No regional wall motion abnormalities noted. Right Ventricle Normal RV size. Normal systolic function. Atria Normal left atrium. Normal right atrium. Mitral Valve Normal mitral valve. Tricuspid Valve Normal tricuspid valve. Aortic Valve Trisinus/trileaflet aortic valve. Mild (1+) aortic valve insufficiency. Pulmonic Valve Normal pulmonic valve. Great Vessels Normal aortic root. The pulmonary artery is normal size. Normal inferior vena cava. Pericardium/Pleural No pericardial effusion. MMode/2D Measurements & Calculations RVDd: 3.6 cm Ao root diam: 3.3 cm LAV(MOD-bp): 52.0 ml LAV(MOD-bp) Indexed: 25.4 ml/m2 LAV(MOD-sp2): 53.2 ml LAV(MOD-sp4): 47.5 ml SV(MOD-sp4): 100.0 ml SV(sp4-el): 108.2 ml LVAd ap4: 40.5 cm2 LVLd ap4: 9.4 cm EDV(MOD-sp4): 139.1 ml EDV(sp4-el): 148.1 ml LVAs ap4: 19.2 cm2 LVLs ap4: 7.8 cm ESV(MOD-sp4): 39.1 ml ESV(sp4-el): 39.9 ml EF(MOD-sp4): 71.9 % EF(sp4-el): 73.1 % LA A4 area: 18.7 cm2 LA dimension(2D): 3.1 cm RA A4 area: 15.8 cm2 Time Measurements MV dec time: 0.38 sec Doppler Measurements & Calculations MV E max lg: 51.7 cm/sec Lat Peak E' Lg: 10.4 cm/sec Med Peak E' Lg: 5.6 cm/sec MV A max lg: 92.8 cm/sec E/E' lat: 5.0 E/E' med: 9.3 MV E/A: 0.56 Ao V2 max: 161.5 cm/sec AI max lg: 491.0 cm/sec LV V1 max: 152.8 cm/sec Ao max P.4 mmHg AI max P.4 mmHg LV V1 max P.3 mmHg AI dec slope: 238.9 cm/sec2 AI P1/2t: 601.9 msec PA V2 max: 113.4 cm/sec TR max lg: 221.1 cm/sec TR max P.6 mmHg ECHO/Echo Complete Interpretation Summary Normal LV size. Left ventricular systolic function is normal. The estimated ejection fraction is 60 %. Mild (1+) aortic valve insufficiency. Stage 1 diastolic dysfunction. Ordering Physician: Faustina Rudolph/Navid Jamison Referring Physician: FILI RODARTE Performed By: Vandana Cullen RDCS
== END | disposition home or self-care (01) ==
PROVIDERS: PCP Family Medicine; Referring Provider Physician Assistant Medical; Visit Provider Physician Assistant Medical
DX: I48.0 Paroxysmal atrial fibrillation (principal); R01.1 Cardiac murmur, unspecified
CPT/HCPCS: 93306

== ENCOUNTER → 2021-11-12 | Outpatient (CLI) | payer MEDICARE, SELFPAY ==
[2021-11-12 10:29] LABS: T4 Free Direct 0.86 ng/dL (0.76-1.46); Thyroid Stim Hormone (TSH) 5.74 uIU/mL (0.358-3.74)
== END | disposition home or self-care (01) ==
PROVIDERS: PCP Family Medicine; Referring Provider Family Medicine; Visit Provider Family Medicine
DX: E03.9 Hypothyroidism, unspecified (principal)
CPT/HCPCS: 36415; 84439; 84443

== ENCOUNTER → 2022-02-08 | Outpatient (CLI) | payer MEDICARE, SELFPAY ==
[2022-02-08 18:46] LABS: T4 Free Direct 0.93 ng/dL (0.76-1.46); Thyroid Stim Hormone (TSH) 3.83 uIU/mL (0.358-3.74)
== END | disposition home or self-care (01) ==
LOC: MTLAB 14:35
PROVIDERS: PCP Family Medicine; Referring Provider Family Medicine; Visit Provider Family Medicine
DX: E03.9 Hypothyroidism, unspecified (principal)
CPT/HCPCS: 36415; 84439; 84443

== ENCOUNTER 2022-04-08 08:21 | Outpatient (CLI) | payer MEDICARE, SELFPAY ==
[2022-04-08 10:36] LABS: PSA,Total - Annual Screen < 0.01 ng/mL (0.00-4.00)
[2022-04-08 12:37] LABS: T4 Free Direct 1.03 ng/dL (0.76-1.46); Thyroid Stim Hormone (TSH) 1.73 uIU/mL (0.358-3.74)
== END 2022-04-08 23:59 | disposition home or self-care (01) ==
PROVIDERS: Nurse Practitioner Family; PCP Family Medicine; Referring Provider Family Medicine; Visit Provider Family Medicine
DX: E03.9 Hypothyroidism, unspecified (principal); Z85.46 Personal history of malignant neoplasm of prostate; Z12.5 Encounter for screening for malignant neoplasm of prostate
CPT/HCPCS: 36415; 84153; 84439; 84443; G0103

== ENCOUNTER → 2022-09-09 | Outpatient (CLI) | payer MEDICARE, SELFPAY ==
[2022-09-09 12:45] LABS: Microalbumin,Random Urine 6.2 mg/L (NO RANGE EST.)
[2022-09-09 12:47] LABS: ALB/GLOB Ratio 1.1 RATIO (0.9-2.4); AST(SGOT) 19 U/L (15-37); Alanine Aminotransfer ALT/SGPT 17 U/L (16-61); Albumin, Serum 3.6 g/dL (3.2-5.0); Alkaline Phosphatase 68 U/L (45-117); Anion Gap 4 (5-15); BUN 15 mg/dL (7-18); BUN/Creat Ratio 13.5 RATIO (10-20); Calcium,Total 8.7 mg/dL (8.5-10.1); Chloride 105 mmol/L (98-107); Creatinine, Serum 1.11 mg/dL (0.70-1.30); EST Glomerular Filtration Rate 67 mL/min (>60); Est Glom Filt Rate - Afr Amer 81 mL/min (>60); Free T3 2.8 pg/mL (2.18-3.98); Globulin 3.4 g/dL (2.2-4.2); Glucose 88 mg/dL (74-106); Magnesium 2.2 mg/dL (1.6-2.6); Potassium 3.9 mmol/L (3.5-5.1); Sodium Level 134 mmol/L (136-145); T4 Free Direct 1.18 ng/dL (0.76-1.46); Thyroid Stim Hormone (TSH) 0.32 uIU/mL (0.358-3.74)
== END | disposition home or self-care (01) ==
LOC: MFPLAB 11:24
PROVIDERS: PCP Family Medicine; Visit Provider Family Medicine
DX: I48.91 Unspecified atrial fibrillation (principal); E03.9 Hypothyroidism, unspecified; I10 Essential (primary) hypertension
CPT/HCPCS: 36415; 80053; 82043; 83735; 84439; 84443; 84481

== ENCOUNTER 2022-10-08 02:14 | Emergency (ER) | payer MEDICARE, SELFPAY ==
[2022-10-08 02:14] VITALS: BP 192/83; PULSE 50; RESP 15; TEMP 36.2; O2SAT 99; BMI 25.3
--- NOTE | 2022-10-08 02:23 | EKG12_ITS ---
Test Reason : DYSRHYTHMIA Blood Pressure : / mmHG Vent. Rate : 049 BPM Atrial Rate : 049 BPM P-R Int : 224 ms QRS Dur : 148 ms QT Int : 476 ms P-R-T Axes : 044 041 005 degrees QTc Int : 429 ms Sinus bradycardia with 1st degree A-V block Right bundle branch block Inferior infarct , age undetermined Abnormal ECG Confirmed by AGUSTIN RIGGS, YENNY ([id number]), editorial project manager SARA GALINDO ([id number]) on 10/10/2022 11:20:38 AM Referred By: ALAYNA Confirmed By:YENNY VELEZ MD
--- NOTE | 2022-10-08 02:33 | EX.ED.DYSGE1 ---
HPI History of Present Illness Chief Complaint: Complaint Informant: patient Narrative Narrative: Patient presents with hematuria. Patient states that yesterday about 24 hours ago his urine was a little bit pink. He is did have some dysuria with this. But he feels like he is emptying. He does not feel distended. He is not having pain. No fevers chills nausea or vomiting. He came in this morning because when he urinated his urine was more just red blood. No clots. He still feels like he is able to urinate. He has no bleeding from any other areas. Patient is on Xarelto for history of atrial fibrillation. He was just started on metoprolol recently. I noted his heart rate is slow but he has no symptoms of this. He has also had prior prostatectomy a long time ago. This was for prostate cancer. He is not actively seeing a urologist at this time. [facility] Medical History (Updated 10/08/22 @ 03:[address] Raymundo Myles MD) Bradycardia Essential (primary) hypertension Hypothyroidism Nonrheumatic aortic (valve) insufficiency Orthostatic syncope Palpitations Paroxysmal atrial fibrillation Personal history of colonic polyps Prostate cancer TIA (transient ischemic attack) Home Medications diltiazem HCl 30 mg tablet 30 mg PO ONCE PRN palpitations 10/11/21 [History Last Taken Unknown] losartan 100 mg tablet 100 mg PO DAILY #90 tabs 11/18/21 [Rx Last Taken Unknown] rivaroxaban 20 mg tablet 20 mg PO DAILY #90 tabs 12/01/21 [Rx Last Taken Unknown] levothyroxine 125 mcg tablet 125 mcg PO DAILY 12/27/21 [History Last Taken Unknown] cephalexin 250 mg capsule 250 mg PO Q6 #40 CAPSULES 10/08/22 [Rx Last Taken Unknown] Allergy/AdvReac Type Severity Reaction Status Date / Time amlodipine [From Norvasc] AdvReac ankle edema Verified 10/08/22 02:18 Family History Brother Colon cancer Hypertension Father Hypertension Cancer leukemia Mother Hypertension Brother Hypertension Cancer lung cancer Sister Breast cancer Sister Cancer ovarian cancer Surgical History History of colonoscopy History of prostatectomy History of thyroidectomy Social History Smoking Status: Never smoker alcohol intake: never substance use type: does not use caffeine: Yes Type: coffee what type of physical activity do you participate in: walking frequency: daily duration: 30-45 minutes/day seatbelt use: always do you feel safe at home: Yes ROS ROS ED ROS Narrative A complete review of systems was performed and is negative except as documented in the history of present illness. Some specific details below. Constitutional: No recent fevers or chills. No malaise. EYE: No subconjunctival hemorrhage. ENT: No difficulty swallowing. No swelling. No pain. CV: No chest pain or palpitations. Although his heart rate slow he does not feel this or feel ill from this. Respiratory: No dyspnea. No hemoptysis. No difficulty taking breaths. GI: No nausea vomiting diarrhea or blood in the stool. Able to eat and drink normally. : Please see history of present illness Musculoskeletal: No recent trauma. No pains. Skin: No rash. Nondiaphoretic. No abnormal bruising or bleeding. Neuro: No weakness or numbness. Endocrine: No polyuria or polydipsia. EXAM Physical Exam Narrative Exam Narrative: CONSTITUTIONAL: Patient is nontoxic in appearance. The patient looks comfortable. HEENT: No notable trauma. Mucous membranes moist. No intraoral petechiae or dental bleeding EYES: No conjunctival injection. No proptosis. CARDIOVASCULAR: Mildly bradycardic rate. It sounds like his rhythm is regular despite the history of intermittent A-fib. No notable murmur. No JVD. RESPIRATORY: No respiratory distress. Breathing is unlabored. No wheezes. No rhonchi. No rales. No pain with a deep breath. GASTROINTESTINAL: Not distended. Bowel sounds are normal. No tenderness. No guarding. No rebound. No palpable mass or bladder. No bruit. GENITOURINARY: No tenderness or fullness noted over the bladder. No CVA tenderness. MUSCULOSKELETAL: Atraumatic. No peripheral edema. NEUROLOGICAL: Patient is alert and appropriate. SKIN: No noted rashes. No diaphoresis. No pallor petechiae or purpura. PSYCHIATRIC: Patient is calm. Mood is appropriate. Const Vital Signs: 10/08/22 02:14 10/08/22 03:44 10/08/22 04:17 Temperature 97.2 F L Temperature Source Tympanic Pulse Rate 50 L 40 L 47 L Respiratory Rate 15 24 H 13 Blood Pressure 192/83 H 70/43 L 119/79 Blood Pressure Mean 119 52 92 Pulse Ox 99 97 99 Oxygen Delivery Method Room Air Room Air Room Air MDM MDM MDM Narrative Medical decision making narrative: Patient CBC shows minimal anemia at 12.4. Platelets are normal. Electrolytes show no acute abnormality other than minimal drop with calcium at 8.4. INR and PTT are mildly elevated as could be expected on Xarelto although these are not followed for treatment. Urine is greater than 100 red cells and white cells. It is turbid. He does have increased leukocyte Estrace. He also has 4+ bacteria. With this urine and the 4+ bacteria and his dysuria we will treat for potential UTI and send cultures. Although his white count is normal it is higher than his baseline. Patient states he is very prone to fainting. We placed the catheter and got decompression. After this he got a little lightheaded. He got mild diaphoresis on his forehead and dropped his pressure slightly. He is being given IV fluids and being observed. He is not having chest pain or dyspnea. Of note the urine that is coming out of the [place] now is actually already clearer than what we sent down to the lab. But we have not started irrigation. Patient blood pressures come up to 125/74. He is got a slight shake intermittently. But he states he has had all this happen before. No focal deficit. No chest pain shortness of breath. No diaphoresis now. Urine is looking better with just initiation of irrigation. Patient would like to go home now. But we are still running antibiotics. No sign of reaction. I would like to see if we get his urine a little bit clearer first. Patient's urine is really coming out clear. He would like to go home. We discussed leaving the catheter in versus taking it out. He does not have a prostate and he did not have urinary retention. Therefore I think he is less likely to need the catheter. We explained that he can have a blood clot blocked the catheter or he can have a blood clot block exit to the bladder. In either case he would have to come back. He would prefer having the catheter out which is a reasonable option. Although he has some risks of strokes and we discussed this, we will have him hold Xarelto for couple days because acutely this bleeding is likely higher problem for him. And he is currently not in atrial fibrillation. We will have him follow-up with urology. We discussed reasons to return that include pain, trouble urinating, fevers confusion or any other concerns Lab Data Attestation: I reviewed the patient's lab results. Labs: Laboratory Results - last 24 hr 10/08/22 10/08/22 10/08/22 02:40 02:40 02:40 WBC 10.0 RBC 3.96 L Hgb 12.4 L Hct 36.3 L MCV 91.7 MCH 31.3 MCHC 34.2 RDW Std Deviation 43.0 RDW Coeff of [place] 13.0 Plt Count 185 MPV 10.6 Immature Gran % (Auto) 0.400 Neut % (Auto) 72.2 H Lymph % (Auto) 18.7 L Victoria % (Auto) 7.5 Eos % (Auto) 0.8 Baso % (Auto) 0.4 Absolute Neuts (auto) 7.2 Absolute Lymphs (auto) 1.88 Nucleated RBC % 0 PT 20.1 H INR 1.7 APTT 39.2 H Sodium 137 Potassium 3.7 Chloride 103 Carbon Dioxide 28.0 Anion Gap 6 BUN 17 Creatinine 1.15 Estim Creat Clear Calc 52.48 Est GFR (MDRD) Af Amer 78 Est GFR (MDRD) Non-Af 64 BUN/Creatinine Ratio 14.8 Glucose 95 Calcium 8.4 L Urine Color Urine Clarity Urine pH Ur Specific [place] Urine Protein Urine Glucose (UA) Urine Ketones Urine Occult Blood Urine Nitrite Urine Bilirubin Urine Urobilinogen Ur Leukocyte Esterase Urine RBC Urine WBC Ur Squamous Epith Cells Urine Bacteria Urine Mucus 10/08/22 02:40 WBC RBC Hgb Hct MCV MCH MCHC RDW Std Deviation RDW Coeff of [place] Plt Count MPV Immature Gran % (Auto) Neut % (Auto) Lymph % (Auto) Victoria % (Auto) Eos % (Auto) Baso % (Auto) Absolute Neuts (auto) Absolute Lymphs (auto) Nucleated RBC % PT INR APTT Sodium Potassium Chloride Carbon Dioxide Anion Gap BUN Creatinine Estim Creat Clear Calc Est GFR (MDRD) Af Amer Est GFR (MDRD) Non-Af BUN/Creatinine Ratio Glucose Calcium Urine Color Red Urine Clarity Turbid Urine pH 7.0 Ur Specific [place] 1.010 Urine Protein 500 H Urine Glucose (UA) Normal Urine Ketones 5 H Urine Occult Blood 250 H Urine Nitrite Negative Urine Bilirubin Negative Urine Urobilinogen Normal Ur Leukocyte Esterase 100 H Urine RBC > 100 SEEN Urine WBC >100 SEEN Ur Squamous Epith Cells 0 SEEN Urine Bacteria 4+ Urine Mucus 0 SEEN EKG Initial EKG: Comments: My independent interpretation the patient's EKG done for bradycardia and history of atrial fibrillation shows sinus bradycardia with first-degree AV block. Overall rate of 49. No ventricular ectopy. Right bundle branch block with secondary ST changes but no sign of acute infarct or ischemia noted. NV interval, QRS duration are both long. QTc is normal. Discharge Plan Triage Chief Complaint: Complaint ED Provider: Raymundo Myles Dx/Rx/DC Orders Clinical Impression: Hematuria, Urinary tract infection, Coagulopathy Instructions: Urinary Tract Infections in Men, ED Hematuria Prescriptions: New cephalexin [cephalexin] 250 mg capsule 250 mg PO Q6 Qty: 40 0RF No Action diltiazem HCl 30 mg tablet 30 mg PO ONCE PRN (Reason: palpitations) levothyroxine 125 mcg tablet 125 mcg PO DAILY losartan 100 mg tablet 100 mg PO DAILY Qty: 90 4RF rivaroxaban 20 mg tablet 20 mg PO DAILY Qty: 90 3RF Primary Care Provider: Juan Hairston Referrals: Juan Hairston MD [Primary Care Provider] - Nnamdi Sellers MD [Med Staff - Active Staff] - As soon as possible Disposition Disposition: Home, Self Care
[2022-10-08 02:51] LABS: Mucous, Urine 0 SEEN /hpf (<or=2+); Squamous Epithelial Cells - UA 0 SEEN /hpf (0-5)
[2022-10-08 02:52] LABS: Absolute Lymphocyte Count 1.88 X10^3/uL (0.83-4.51); Absolute Neutrophil Count 7.2 X10^3/uL (2.0-7.7); Basophil# 0.04 X10^3/uL; Basophil% 0.4 % (0-1); Eosinophil# 0.08 X10^3/uL; Eosinophils% 0.8 % (0-5); Hematocrit 36.3 % (40-54); Hemoglobin 12.4 g/dL (13.0-16.5); Lymphocyte # 1.88 X10^3/ul (0.83-4.51); Lymphocyte % 18.7 % (19-41); Mean Corp Hgb Conc 34.2 g/dL (32-36); Mean Corpuscular Hgb 31.3 pg (27.0-32.0); Mean Corpuscular Volume 91.7 fL (80-94); Mean Platelet Vol. 10.6 fl (6.2-12.0); Monocyte# 0.75 X10^3/uL; Monocyte% 7.5 % (0-10); NRBC Flagged by Analyzer 0 % (0-5); Neutrophil # 7.24 X10^3/uL (2.7-7.7); Neutrophil % 72.2 % (47-70); Platelet Count 185 K/mm3 (150-450); Red Blood Count 3.96 M/mm3 (4.6-6.2)
[2022-10-08 02:54] LABS: Color, Urine Red (Yellow); Glucose, Dipstick Normal (Normal); Ketone-Dipstick 5 mg/dl (Negative); Leukocyte Esterase-Dipstick 100 /ul (Negative); Nitrite-Dipstick Negative (Negative); Occult Blood-Urine 250 /ul (Negative); Protein-Dipstick 500 mg/dl (Negative); Urine Bilirubin Dipstick Negative (Negative); Urine Clarity Turbid (Clear); Urine Urobilinogen Normal (Normal)
[2022-10-08 03:04] LABS: Bacteria 4+ /hpf (None Seen); Red Blood Cells-Urine > 100 SEEN /hpf (0-5); White Blood Cells >100 SEEN /hpf (0-5)
[2022-10-08 03:07] LABS: Anion Gap 6 (5-15); BUN 17 mg/dL (7-18); BUN/Creat Ratio 14.8 RATIO (10-20); Calcium,Total 8.4 mg/dL (8.5-10.1); Chloride 103 mmol/L (98-107); Creatinine, Serum 1.15 mg/dL (0.70-1.30); EST Glomerular Filtration Rate 64 mL/min (>60); Est Glom Filt Rate - Afr Amer 78 mL/min (>60); Estimated Creatinine Clearance 52.48 ml/min; Glucose 95 mg/dL (74-106); Potassium 3.7 mmol/L (3.5-5.1); Sodium Level 137 mmol/L (136-145)
[2022-10-08 03:26] LABS: International Normalized Ratio 1.7; Prothrombin Time (Protime)PT. 20.1 SECONDS (11.7-14.9)
[2022-10-08 03:27] LABS: Partial Thromboplast Time 39.2 Seconds (24.1-36.2)
[2022-10-08 03:44] VITALS: BP 70/43; PULSE 40; RESP 24; O2SAT 97
[2022-10-08] MEDS: Ceftriaxone 1 GM/50 ML BAG IV (03:48)
[2022-10-08 04:17] VITALS: BP 119/79; PULSE 47; RESP 13; O2SAT 99
[2022-10-08 06:00] VITALS: BP 143/71; PULSE 54; RESP 18; O2SAT 98
[2022-10-08 06:21] VITALS: BP 143/71; PULSE 55; RESP 15; O2SAT 98
== END 2022-10-08 06:39 | disposition home or self-care (01) ==
PROVIDERS: Emergency Provider Emergency Medicine; PCP Family Medicine; Visit Provider Emergency Medicine
DX: N39.0 Urinary tract infection, site not specified (principal); I48.0 Paroxysmal atrial fibrillation; D68.9 Coagulation defect, unspecified; I10 Essential (primary) hypertension; Z79.01 Long term (current) use of anticoagulants; Z90.79 Acquired absence of other genital organ(s); Z85.46 Personal history of malignant neoplasm of prostate; R00.2 Palpitations; Z79.899 Other long term (current) drug therapy; E03.9 Hypothyroidism, unspecified; Z86.73 Personal history of transient ischemic attack (TIA), and cerebral infarction without residual deficits; R31.9 Hematuria, unspecified
CPT/HCPCS: 51702; 80048; 81001; 85025; 85610; 85730; 87077; 87086; 87088; 87186; 93005; 96365; 99283; J7040; A4216

== ENCOUNTER → 2022-11-23 | Outpatient (CLI) | payer MEDICARE, SELFPAY ==
--- NOTE | 2022-11-23 08:16 | CT_ITS ---
STUDY: CT ABDOMEN AND PELVIS WITH AND WITHOUT CONTRAST REASON FOR EXAM: Male, 87 years old. GROSS HEMATURIA. Prior prostatectomy for prostate cancer. RADIATION DOSAGE (If Supplied By Facility): CTDIvol = ( 15.40 ) mGy, DLP = ( 2025.47 ) mGycm TECHNIQUE: Transaxial images were obtained from the dome of the diaphragm to the symphysis pubis without oral contrast. IV 100mL Isovue-300 was administered. Sagittal and coronal images were reconstructed. Individualized dose optimization techniques were used for this CT. COMPARISON: None. FINDINGS: Increased markings at the lung bases suggestive of either dependent atelectasis and/or mild scarring. The visualized portions of the heart are within normal limits. There is a 1.7 cm by 1.4 cm cyst in the anterior aspect of the right lobe of the liver. A subcentimeter cyst is seen adjacent to this. There is also evidence of a subcentimeter cyst in the peripheral lateral aspect of the midportion of the right lobe of the liver. Normal gallbladder and extrahepatic biliary system. There are multiple benign calcified granulomata of the spleen. Normal pancreas. Normal bilateral adrenal glands. 8 mm cyst in the anterior midportion of the right kidney. Normal left kidney. Normal visualized stomach. Normal small intestine. Moderate amount of fecal material is seen in the colon. The appendix is visualized and appears normal. There is scattered atherosclerotic calcification of the abdominal aorta, without a demonstrated aneurysm. Normal inferior vena cava. Normal retroperitoneum. The urinary bladder is only partially filled. The patient is status post prostatectomy. Normal abdominal wall. Normal osseous structures. CT/CT Abd/Pelvis W/WO Contrast IMPRESSION: Status post prostatectomy. Small hepatic cysts. Electronically Signed: Iain De Santiago MD at 15:46 EDT ,
[2022-11-23 09:10] LABS: CREATININE FINGERSTICK < 0.9 mg/dL (0.70-1.30); EGFR FINGERSTICK > 60.0000 mL/min (>60)
[2022-11-23 18:20] LABS: T4 Free Direct 0.96 ng/dL (0.76-1.46); Thyroid Stim Hormone (TSH) 1.72 uIU/mL (0.358-3.74)
== END | disposition home or self-care (01) ==
PROVIDERS: PCP Family Medicine; Referring Provider Urology; Visit Provider Urology
DX: R31.0 Gross hematuria (principal); E03.9 Hypothyroidism, unspecified
CPT/HCPCS: 36415; 74178; 84439; 84443; Q9967

== ENCOUNTER → 2023-03-03 | Outpatient (CLI) | payer MEDICARE, SELFPAY ==
[2023-03-03 12:52] LABS: T4 Free Direct 1.02 ng/dL (0.76-1.46); Thyroid Stim Hormone (TSH) 3.02 uIU/mL (0.358-3.74)
== END | disposition home or self-care (01) ==
LOC: MFPLAB 10:16
PROVIDERS: PCP Family Medicine; Visit Provider Family Medicine
DX: E03.9 Hypothyroidism, unspecified (principal); R31.9 Hematuria, unspecified
CPT/HCPCS: 36415; 84439; 84443; 87077; 87086; 87088; 87186

== ENCOUNTER 2023-09-07 13:53 | Emergency (ER) | payer MEDICARE, SELFPAY ==
[2023-09-07] VITALS (9 sets, daily range): BP systolic 147–185; BP diastolic 84–97; PULSE 49–59; RESP 14–16; TEMP 36.1–36.4; O2SAT 97–99; BMI 25.0
--- NOTE | 2023-09-07 14:26 | CT_ITS ---
STUDY: CT BRAIN WITHOUT CONTRAST REASON FOR EXAM: Male, 87 years old. Dizziness RADIATION DOSAGE (If Supplied By Facility): CTDIvol = ( 44.99 ) mGy, DLP = ( 880.47 ) mGycm TECHNIQUE: Transaxial CT imaging of the brain was performed without administration of intravenous contrast material. Individualized dose optimization techniques were used for this CT. COMPARISON: Comparison is made with prior study dated February 14, 2017. FINDINGS: Normal soft tissue structures. Normal calvarium. There is mild cerebral atrophy with widening of the extra-axial spaces and ventricular dilatation. There are areas of decreased attenuation within the white matter tracts of the supratentorial brain, consistent with microvascular disease changes. Normal basal ganglia and thalami. Normal brainstem. Normal cerebellum. There is no intracranial hemorrhage. There are no findings of an acute ischemic infarction. Atherosclerotic calcification of the cavernous portions of the internal carotid arteries bilaterally. There is dolichoectasia of the basilar tip Normal visualized paranasal sinuses. CT/Brain/Head without Contrast IMPRESSION: Chronic involutional changes of the brain. Electronically Signed: Iain De Santiago MD at 14:54 EDT ,
--- NOTE | 2023-09-07 14:26 | EKG12_ITS ---
Test Reason : SOB Blood Pressure : / mmHG Vent. 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
--- NOTE | 2023-09-07 14:26 | EX.ED.DYSGE1 ---
HPI <Sofia Zuñiga RN - Last Filed: 09/07/23 16:24> History of Present Illness Chief Complaint: Shortness of Breath Detail of Chief Complaint: Shortness of breath and hypertension Onset/Context/Timing Context: Gradual Onset Current Severity: Mild Maximum Severity: Mild Narrative Narrative: Patient is a 87-year-old male with past medical history significant for bradycardia, hypertension, hypothyroidism, nonrheumatic aortic valve insufficiency, orthostatic syncope, and paroxysmal A-fib who presents to the ED with his for shortness of breath with exertion and hypertension. Patient reports he has been short of breath for quite a while although it has gotten worse over the past few weeks since traveling home from [place]. He does report he is able to walk approximately 1 mile prior to becoming short of breath he reports hypertension for the past few days. He also reports dizziness, head pressure, and intermittent blurred vision in the lateral right eye. He was seen by Dr. Hairston earlier this week and placed on digoxin. He reports taking a dose on Monday and today. He did not take any digoxin yesterday as he was busy. He does report he had similar symptoms last week for which she had his drive him to the ER. Symptoms resolved before coming into the ER and patient decided to leave without being seen. Patient is currently on Xarelto and taking as prescribed. Patient denies prior history of DVT and PE. He denies recent hospitalizations. Prior similar symptoms: No Recent Illness/Hospitalization: No PFSH <Sofia Zuñiga RN - Last Filed: 09/07/23 16:24> [facility] Medical History (Updated 09/07/23 @ 16:21 by Sofia Zuñiga RN) Bradycardia Essential (primary) hypertension Hypothyroidism Nonrheumatic aortic (valve) insufficiency Orthostatic syncope Palpitations Paroxysmal atrial fibrillation Personal history of colonic polyps Prostate cancer TIA (transient ischemic attack) Home Medications diltiazem HCl 30 mg tablet 30 mg PO ONCE PRN palpitations 10/11/21 [History Last Taken Unknown] rivaroxaban 20 mg tablet 20 mg PO DAILY #90 tabs 12/01/21 [Rx Last Taken Unknown] levothyroxine 125 mcg tablet 125 mcg PO DAILY 12/27/21 [History Last Taken Unknown] cephalexin 250 mg capsule 250 mg PO Q6 #40 CAPSULES 10/08/22 [Rx Last Taken Unknown] losartan 100 mg tablet 100 mg PO DAILY #90 tabs 11/17/22 [Rx Last Taken Unknown] amlodipine 5 mg tablet 5 mg PO DAILY #30 tabs 09/07/23 [Rx Last Taken Unknown] Allergy/AdvReac Type Severity Reaction Status Date / Time amlodipine [From [facility]] AdvReac ankle edema Verified 09/07/23 13:58 Family History Brother Colon cancer Hypertension Father Hypertension Cancer leukemia Mother Hypertension Brother Hypertension Cancer lung cancer Sister Breast cancer Sister Cancer ovarian cancer Surgical History History of colonoscopy History of prostatectomy History of thyroidectomy Social History Smoking Status: Never smoker alcohol intake: never substance use type: does not use caffeine: Yes Type: coffee what type of physical activity do you participate in: walking frequency: daily duration: 30-45 minutes/day seatbelt use: always do you feel safe at home: Yes ROS <Sofia Zuñiga RN - Last Filed: 09/07/23 16:24> ROS ED Constitutional Constitutional ED: Denies chills, fever(s) or sweats Eyes Eyes: Reports blurry vision right (Intermittent right lateral) ENT ENT ED: Denies ear pain or rhinorrhea Cardiovascular Cardiovascular: Denies chest pain, orthopnea, palpitations or racing heartbeat Respiratory/Chest Respiratory/Chest: Reports dyspnea on exertion; Denies cough or orthopnea Gastrointestinal Gastrointestinal: Denies abdominal pain, diarrhea, nausea or vomiting Genitourinary Genitourinary ED: Denies dysuria, hematuria or urinary frequency Musculoskeletal Musculoskeletal: Denies arthralgias or myalgias Integumentary Denies rash Neurologic Neurologic: Reports other Details: Head pressure ; Denies headache(s) Hematologic/Lymphatic Hematologic/Lymphatic: Reports systems reviewed and no addt'l complaints, except as documented EXAM <Sofia Zuñiga RN - Last Filed: 09/07/23 16:24> Physical Exam Narrative Exam Narrative: Patient is awake, alert, talkative, good historian. Const Vital Signs: 09/07/23 13:55 09/07/23 13:53 09/07/23 13:53 Temperature 96.9 F L Temperature Source Temporal Pulse Rate 57 L 59 L Respiratory Rate 16 14 Respiratory Effort Short of Breath Respiratory Depth Normal Respiratory Pattern Normal Blood Pressure 150/86 H 183/97 H Blood Pressure Mean 107 125 Pulse Ox 98 97 Oxygen Delivery Method Room Air Room Air Room Air 09/07/23 14:53 09/07/23 15:00 09/07/23 15:25 Temperature Temperature Source Pulse Rate 55 L 51 L 54 L Respiratory Rate 16 16 14 Respiratory Effort Respiratory Depth Respiratory Pattern Blood Pressure 185/89 H 164/84 H 175/85 H Blood Pressure Mean 121 110 110 Pulse Ox 98 97 97 Oxygen Delivery Method Room Air Room Air 09/07/23 15:30 09/07/23 15:45 09/07/23 16:00 Temperature Temperature Source Pulse Rate 50 L 49 L 54 L Respiratory Rate 16 15 16 Respiratory Effort Respiratory Depth Respiratory Pattern Blood Pressure 164/84 H 182/84 H 179/85 H Blood Pressure Mean 108 114 111 Pulse Ox 97 99 97 Oxygen Delivery Method Room Air Room Air Positive well nourished and well developed General Appearance ED: well developed and NAD HEENT Reports moist mucous membranes Eyes PERRL and EOMs intact bilaterally Neck no JVD Chest Wall inspection of chest normal and palpation of chest normal Resp normal respiratory effort and clear to auscultation bilaterally Auscultation: Negative for rales, rhonchi or wheezes Cardio regular rate, regular rhythm, S1 normal heart sound and S2 normal heart sound GI normal to inspection, nondistended, normoactive bowel sounds and non-tender Palpation: soft Extremity normal to inspection General Extremety ED: Negative for edema General Extremity: Negative for edema Neuro oriented x3 Sensorium / Orientation: alert Motor Exam: strength 5/5 throughout Psych mental status grossly normal Skin no rashes or lesions noted, no wounds and skin turgor normal <Dr. Saida Ochoa MD - Last Filed: 09/07/23 16:36> Physical Exam Const Vital Signs: 09/07/23 13:55 09/07/23 13:53 09/07/23 13:53 Temperature 96.9 F L Temperature Source Temporal Pulse Rate 57 L 59 L Respiratory Rate 16 14 Respiratory Effort Short of Breath Respiratory Depth Normal Respiratory Pattern Normal Blood Pressure 150/86 H 183/97 H Blood Pressure Mean 107 125 Pulse Ox 98 97 Oxygen Delivery Method Room Air Room Air Room Air 09/07/23 14:53 04/18/24 15:00 09/07/23 15:25 Temperature Temperature Source Pulse Rate 55 L 51 L 54 L Respiratory Rate 16 16 14 Respiratory Effort Respiratory Depth Respiratory Pattern Blood Pressure 185/89 H 164/84 H 175/85 H Blood Pressure Mean 121 110 110 Pulse Ox 98 97 97 Oxygen Delivery Method Room Air Room Air 09/07/23 15:30 09/07/23 15:45 09/07/23 16:00 Temperature Temperature Source Pulse Rate 50 L 49 L 54 L Respiratory Rate 16 15 16 Respiratory Effort Respiratory Depth Respiratory Pattern Blood Pressure 164/84 H 182/84 H 179/85 H Blood Pressure Mean 108 114 111 Pulse Ox 97 99 97 Oxygen Delivery Method Room Air Room Air MDM <Sofia Zuñiga RN - Last Filed: 09/07/23 16:24> MDM MDM Narrative Medical decision making narrative: Patient placed on security monitor. IV line initiated. Labwork obtained to evaluate for leukocytosis, anemia, and electrolyte derangement. EKG obtained to evaluate for cardiac arrhythmia/ischemia. Urinalysis obtained to evaluate for infection/hematuria. CT head obtained to evaluate weight for acute intracranial process. History & Record Review Discussion w/independent historian: Patient and Significant other Lab Data Attestation: I reviewed the patient's lab results. Labs: Laboratory Results - last 24 hr 09/07/23 09/07/23 14:10 15:22 WBC 7.0 RBC 4.00 L Hgb 12.3 L Hct 35.5 L MCV 88.8 MCH 30.8 MCHC 34.6 RDW Std Deviation 43.1 RDW Coeff of Lasha[place] 13.2 Plt Count 190 MPV 11.5 Immature Gran % (Auto) 0.100 Neut % (Auto) 58.6 Lymph % (Auto) 31.4 [place] % (Auto) 8.3 Eos % (Auto) 0.7 Baso % (Auto) 0.9 Absolute Neuts (auto) 4.1 Absolute Lymphs (auto) 2.18 Nucleated RBC % 0 Sodium 134 L Potassium 3.8 Chloride 103 Carbon Dioxide 27.0 Anion Gap 4 L BUN 17 Creatinine 1.15 Estim Creat Clear Calc 51.55 Est GFR (MDRD) Af Amer 78 Est GFR (MDRD) Non-Af 64 BUN/Creatinine Ratio 14.8 Glucose 105 Calcium 8.4 L Urine Color Yellow Urine Clarity Clear Urine pH 7.0 Ur Specific Ackley 1.010 Urine Protein Negative Urine Glucose (UA) Normal Urine Ketones Negative Urine Occult Blood 10 H Urine Nitrite Negative Urine Bilirubin Negative Urine Urobilinogen Normal Ur Leukocyte Esterase Negative Urine RBC 0 SEEN Urine WBC 0 SEEN Ur Squamous Epith Cells 0 SEEN Urine Bacteria 0 SEEN Urine Mucus 0 SEEN Radiography Diagnostic Testing: Clinical Impression(s) from Imaging Studies Brain CT 09/07/23 14:26 IMPRESSION: Chronic involutional changes of the brain. Electronically Signed: Iain De Santiago MD at 14:54 EDT , EKG Initial EKG: Attestation: I personally reviewed and interpreted this EKG as follows: Interpretation: Sinus Bradycardia Comments: Sinus bradycardia with right bundle janusz block with heart rate 57. No dysrhythmia or ischemia noted. Management Discussion w/another healthcare provider: Other (Dr. Ochoa, ED provider) Treatment and Re-Evaluation :: Lab work and imaging reviewed. CBC shows normal white blood cell count 7.0, neutrophils 58.6%, hemoglobin 12.3, platelets 198. Chemistry shows sodium 134, potassium 3.8, BUN 17, creatinine 1.15, glucose 105. Urinalysis is negative for protein, negative for nitrates, negative for bacteria. EKG shows sinus bradycardia with right bundle janusz block. No ischemia or dysrhythmia noted. CT of the brain shows chronic involutional changes. No intracranial hemorrhage or acute ischemic infarct. Dr. Ochoa spoke with Dr. Juan Hairston who recommended patient be started on amlodipine [address] Hairston would also like patient to continue with his losartan and digoxin. Upon reevaluation, patient awake and alert with at bedside. No acute distress noted. Lab work and imaging reviewed with patient. Discussed starting on amlodipine 5 mg daily and taking 100 mg of losartan instead of 150 mg. Patient will also follow-up with Dr. Hairston in 1 to 2 weeks. Patient agreeable to plan and patient to be discharged. <Dr. Saida Ochoa MD - Last Filed: 09/07/23 16:36> [facility] Lab Data Labs: Laboratory Results - last 24 hr 09/07/23 09/07/23 14:10 15:22 WBC 7.0 RBC 4.00 L Hgb 12.3 L Hct 35.5 L MCV 88.8 MCH 30.8 MCHC 34.6 RDW Std Deviation 43.1 RDW Coeff of Lashaun 13.2 Plt Count 190 MPV 11.5 Immature Gran % (Auto) 0.100 Neut % (Auto) 58.6 Lymph % (Auto) 31.4 [place] % (Auto) 8.3 Eos % (Auto) 0.7 Baso % (Auto) 0.9 Absolute Neuts (auto) 4.1 Absolute Lymphs (auto) 2.18 Nucleated RBC % 0 Sodium 134 L Potassium 3.8 Chloride 103 Carbon Dioxide 27.0 Anion Gap 4 L BUN 17 Creatinine 1.15 Estim Creat Clear Calc 51.55 Est GFR (MDRD) Af Amer 78 Est GFR (MDRD) Non-Af 64 BUN/Creatinine Ratio 14.8 Glucose 105 Calcium 8.4 L Urine Color Yellow Urine Clarity Clear Urine pH 7.0 Ur Specific Ackley 1.010 Urine Protein Negative Urine Glucose (UA) Normal Urine Ketones Negative Urine Occult Blood 10 H Urine Nitrite Negative Urine Bilirubin Negative Urine Urobilinogen Normal Ur Leukocyte Esterase Negative Urine RBC 0 SEEN Urine WBC 0 SEEN Ur Squamous Epith Cells 0 SEEN Urine Bacteria 0 SEEN Urine Mucus 0 SEEN Radiography Diagnostic Testing: Clinical Impression(s) from Imaging Studies Brain CT 09/07/23 14:26 IMPRESSION: Chronic involutional changes of the brain. Electronically Signed: Iain De Santiago MD at 14:54 EDT , Treatment and Re-Evaluation :: Lab work and imaging reviewed. CBC shows normal white blood cell count 7.0, neutrophils 58.6%, hemoglobin 12.3, platelets 198. Chemistry shows sodium 134, potassium 3.8, BUN 17, creatinine 1.15, glucose 105. Urinalysis is negative for protein, negative for nitrates, negative for bacteria. EKG shows sinus bradycardia with right bundle janusz block. No ischemia or dysrhythmia noted. CT of the brain shows chronic involutional changes. No intracranial hemorrhage or acute ischemic infarct. Dr. Ochoa spoke with Dr. Juan Hairston who recommended patient be started on amlodipine [address] Hairston would also like patient to continue with his losartan and digoxin. Upon reevaluation, patient awake and alert with at bedside. No acute distress noted. Lab work and imaging reviewed with patient. Discussed starting on amlodipine 5 mg daily and taking 100 mg of losartan instead of 150 mg. Patient will also follow-up with Dr. Hairston in 1 to 2 weeks. Patient agreeable to plan and patient to be discharged. Patient seen and evaluated with XI student. I personally interviewed and examined the patient. I was involved in all aspects of patient's orders, interpretation of results, and treatment. Patient presents secondary to shortness of breath and hypertension. He states that he has been short of breath for quite some time, but has been worse over the past several weeks since getting home from [place]. He does not have any chest pain but does have intermittent palpitations with a history of paroxysmal A-fib. He is on Xarelto. Patient states that he has been getting pressure in his head and he saw his PCP several days ago for this. He was told it was because his blood pressure has been too high. He was just started on digoxin 3 days ago. He admits to taking only 2 of the last 3 days. He was doing yard work today and felt well. He states he came inside and sat down and felt the pressure sensation in his head again. He checked his blood pressure and his systolic pressure was in the 180s so he presents for evaluation. Patient sitting upright in bed no acute distress. Alert and talkative. Head and neck examination unremarkable. Heart is bradycardic and regular. Lung sounds are clear. Abdomen is soft and nontender. Neuro exam is normal. EKG is sinus bradycardia with a right bundle branch block. CBC reveals a white count of 7.0 with normal differential. Hemoglobin is 12.3. Chemistry studies reveal a BUN of 17 and a creatinine 1.15. Glucose is 105. Urinalysis is unremarkable with no protein noted in the urine. CT scan of the head obtained and reveals no acute findings. Sitting at rest systolic pressure came down to 150 but then went back up to 164 systolic. I did speak with patient's primary care physician, Dr. Juan Hairston. He asked that the patient remain on digoxin and his losartan, but add 5 mg of amlodipine daily. This prescription will be sent to the pharmacy for him. He is to follow-up with Dr. Hairston in 1 to 2 weeks and keep a journal of his blood pressure readings. Discharge Plan Triage Chief Complaint: Shortness of Breath ED Provider: Saida Ochoa Dx/Rx/DC Orders Clinical Impression: Hypertension, History of bradycardia, History of atrial fibrillation Instructions: ED Hypertension, Established Prescriptions: New amlodipine 5 mg tablet 5 mg PO DAILY Qty: 30 0RF No Action diltiazem HCl 30 mg tablet 30 mg PO ONCE PRN (Reason: palpitations) levothyroxine 125 mcg tablet 125 mcg PO DAILY cephalexin [cephalexin] 250 mg capsule 250 mg PO Q6 Qty: 40 0RF rivaroxaban 20 mg tablet 20 mg PO DAILY Qty: 90 3RF losartan 100 mg tablet 100 mg PO DAILY Qty: 90 4RF Primary Care Provider: Juan Hairston Referrals: Juan Hairston MD [Primary Care Provider] - Activity Restrictions/Additional Instructions: Your lab work and CAT scan were normal. Start amlodipine 5 mg daily. Continue losartan and digoxin. Monitor your blood pressure at home and keep a log to take to your next appointment with Dr. Hairston. Follow-up with Dr. Hairston in 1 to 2 weeks. Return to ED for worsening or concerning symptoms. Disposition Disposition: Home, Self Care
[2023-09-07 14:46] LABS: Absolute Lymphocyte Count 2.18 X10^3/uL (0.83-4.51); Absolute Neutrophil Count 4.1 X10^3/uL (2.0-7.7); Basophil# 0.06 X10^3/uL; Basophil% 0.9 % (0-1); Eosinophil# 0.05 X10^3/uL; Eosinophils% 0.7 % (0-5); Hematocrit 35.5 % (40-54); Hemoglobin 12.3 g/dL (13.0-16.5); Lymphocyte # 2.18 X10^3/ul (0.83-4.51); Lymphocyte % 31.4 % (19-41); Mean Corp Hgb Conc 34.6 g/dL (32-36); Mean Corpuscular Hgb 30.8 pg (27.0-32.0); Mean Corpuscular Volume 88.8 fL (80-94); Mean Platelet Vol. 11.5 fl (6.2-12.0); Monocyte# 0.58 X10^3/uL; Monocyte% 8.3 % (0-10); NRBC Flagged by Analyzer 0 % (0-5); Neutrophil # 4.07 X10^3/uL (2.7-7.7); Neutrophil % 58.6 % (47-70); Platelet Count 190 K/mm3 (150-450); RBC Distribution Width CV 13.2 % (11.6-14.6); RBC Distribution Width SD 43.1 fl (35.1-43.9)
[2023-09-07 15:00] LABS: Anion Gap 4 (5-15); BUN 17 mg/dL (7-18); BUN/Creat Ratio 14.8 RATIO (10-20); Calcium,Total 8.4 mg/dL (8.5-10.1); Chloride 103 mmol/L (98-107); Creatinine, Serum 1.15 mg/dL (0.70-1.30); EST Glomerular Filtration Rate 64 mL/min (>60); Est Glom Filt Rate - Afr Amer 78 mL/min (>60); Estimated Creatinine Clearance 51.55 ml/min; Glucose 105 mg/dL (74-106); Potassium 3.8 mmol/L (3.5-5.1); Sodium Level 134 mmol/L (136-145)
[2023-09-07 15:28] LABS: Bacteria 0 SEEN /hpf (None Seen); Mucous, Urine 0 SEEN /hpf (<or=2+); Red Blood Cells-Urine 0 SEEN /hpf (0-5); Squamous Epithelial Cells - UA 0 SEEN /hpf (0-5); White Blood Cells 0 SEEN /hpf (0-5)
[2023-09-07 15:30] LABS: Color, Urine Yellow (Yellow); Glucose, Dipstick Normal (Normal); Ketone-Dipstick Negative (Negative); Leukocyte Esterase-Dipstick Negative /ul (Negative); Nitrite-Dipstick Negative (Negative); Occult Blood-Urine 10 /ul (Negative); Protein-Dipstick Negative (Negative); Urine Bilirubin Dipstick Negative (Negative); Urine Clarity Clear (Clear); Urine Urobilinogen Normal (Normal)
== END 2023-09-07 16:53 | disposition home or self-care (01) ==
PROVIDERS: Emergency Provider Emergency Medicine; PCP Family Medicine; Visit Provider Emergency Medicine
DX: R06.02 Shortness of breath (principal); I48.0 Paroxysmal atrial fibrillation; I10 Essential (primary) hypertension; Z79.01 Long term (current) use of anticoagulants; Z86.73 Personal history of transient ischemic attack (TIA), and cerebral infarction without residual deficits; Z85.46 Personal history of malignant neoplasm of prostate; Z79.899 Other long term (current) drug therapy; E03.9 Hypothyroidism, unspecified; Z90.79 Acquired absence of other genital organ(s); R00.1 Bradycardia, unspecified
CPT/HCPCS: 70450; 80048; 81001; 85025; 93005; 99284; A4216

== ENCOUNTER → 2023-09-15 | Outpatient (CLI) | payer MEDICARE, SELFPAY ==
[2023-09-15 13:05] LABS: AST(SGOT) 16 U/L (15-37); Alanine Aminotransfer ALT/SGPT 15 U/L (16-61); Albumin, Serum 3.7 g/dL (3.2-5.0); Alkaline Phosphatase 95 U/L (45-117); Anion Gap 5 (5-15); BUN 19 mg/dL (7-18); BUN/Creat Ratio 15.7 RATIO (10-20); Calcium,Total 8.9 mg/dL (8.5-10.1); Chloride 102 mmol/L (98-107); Creatinine, Serum 1.21 mg/dL (0.70-1.30); EST Glomerular Filtration Rate 61 mL/min (>60); Est Glom Filt Rate - Afr Amer 73 mL/min (>60); Globulin 3.6 g/dL (2.2-4.2); Glucose 103 mg/dL (74-106); Potassium 4.2 mmol/L (3.5-5.1); Protein, Total 7.3 g/dL (6.4-8.2); Sodium Level 136 mmol/L (136-145); T4 Free Direct 1.03 ng/dL (0.76-1.46)
== END | disposition home or self-care (01) ==
LOC: MTLAB 10:13
PROVIDERS: PCP Family Medicine; Referring Provider Family Medicine; Visit Provider Family Medicine
DX: I48.91 Unspecified atrial fibrillation (principal); E03.9 Hypothyroidism, unspecified; I10 Essential (primary) hypertension
CPT/HCPCS: 36415; 80053; 80162; 84439; 84443

== ENCOUNTER → 2024-01-24 | Outpatient (CLI) | payer MEDICARE, SELFPAY | END | disposition home or self-care (01) | LOC: LABSPEC 15:53 | PROVIDERS: PCP Family Medicine; Visit Provider Family Medicine | DX: R39.9 Unspecified symptoms and signs involving the genitourinary system (principal) | CPT/HCPCS: 87086; 87088; 87186 ==

== ENCOUNTER → 2024-02-15 | Outpatient (CLI) | payer MEDICARE, SELFPAY ==
[2023-10-09 05:51] VITALS: BP 166/79; PULSE 52; RESP 16; TEMP 36.1; O2SAT 100; BMI 24.3
--- NOTE | 2023-10-09 05:55 | HP.PCM_ITS ---
History and Physical Date of Admission: 10/09/23 Visit Reasons: C-SCOPE Chief Complaint: c-scope Conference Interpreter Required: No Is patient in pain?: No Allergies amlodipine [From [facility]] Adverse Reaction (Verified 09/11/23 13:21) ankle edema Medications rivaroxaban 20 mg tablet 20 mg PO DAILY #90 tabs 12/01/21 [Rx Confirmed 12/27/21] levothyroxine 125 mcg tablet 125 mcg PO DAILY 12/27/21 [History Confirmed 09/11/23] losartan 100 mg tablet 100 mg PO DAILY #90 tabs 11/17/22 [Rx Confirmed 09/11/23] amlodipine 5 mg tablet 5 mg PO DAILY #30 tabs 09/07/23 [Rx Confirmed 09/11/23] digoxin 125 mcg (0.125 mg) tablet 125 mcg PO QDAY 09/11/23 [History Confirmed 09/11/23] docusate sodium 100 mg capsule (Colace) 100 mg PO BID 09/11/23 [History Confirmed 09/11/23] PFSH Medical History Bradycardia Essential (primary) hypertension Hypothyroidism Nonrheumatic aortic (valve) insufficiency Orthostatic syncope Palpitations Paroxysmal atrial fibrillation Personal history of colonic polyps Prostate cancer TIA (transient ischemic attack) Surgical History History of colonoscopy History of prostatectomy History of thyroidectomy Family History Brother Colon cancer HypertensionFather Hypertension Cancer leukemiaMother HypertensionBrother Hypertension Cancer lung cancerSister Breast cancerSister Cancer ovarian cancer Social History Smoking Status: Never smoker alcohol intake: never substance use type: does not use caffeine: Yes Type: coffee what type of physical activity do you participate in: walking frequency: daily duration: 30-45 minutes/day seatbelt use: always do you feel safe at home: Yes HPI HPI HPI: 87-year-old gentleman returns to discuss potential for follow-up colonoscopy. I have assisted him previously September 01, 2017 because he has a personal history of colon polyps. I performed a colonoscopy with a cold forcep polypectomy of a 5 mm polyp of the rectum. Pathology demonstrated tubular adenoma. The patient had a previous tubulovillous adenoma in 2004. He has a family history of 2 brothers who had colon cancer as well as his father. Mom's other medical history is atrial fibrillation and history of TIA and among his other medications he is on rivaroxaban. The patient has not noticed any bright red blood per rectum or melena. No abdominal pain. He does remain active. He does enjoy walking the path up at [place]. He states recently has had slightly more palpitations. Also has had some hypertension was seen in the emergency room last week. Otherwise however he enjoys very good health. He reminisces about [facility] General General: Yes fatigue; No weight change, appetite, colon cancer, breast cancer or weakness HEENT HEENT: No difficulty swallowing, eye injury, eye surgery, swollen glands or hoarseness Endo Endocrine: Yes thyroid disease and thyroid cancer; No diabetes mellitus, Hair loss, heat intolerance or cold intolerance Skin Skin: No rash or changing moles Breast Breast: No left breast lump, right breast lump, nipple discharge, breast pain, abnormal mammogram, abnormal US or breast enlargement Musc Musculoskeletal: No back problems, arthritis, rheumatoid arthritis, gout or joint pain Cardio Cardiovascular: Yes murmur, heart disease, atrial fibrillation and high blood pressure; No pacemaker, heart attack, heart stent, palpitations, shortness of breat with exertion or chest pain Psych Psychiatric: No depression, anxiety or hearing voices Resp Respiratory: Yes shortness of breath, No sleep apnea, No cough, No COPD, No asthma, No emphysema and No wheezing Gastro Gastrointestinal: No abdominal pain, No nausea or vomiting, No diarrhea, No constipation, No blood in stool, No acid reflux, No hemorrhoids, No ulcers, No gallbladder problem and No black,tarry stools Lucien Hematologic: Yes blood thinners, No blood disorders, No bleeding, No anemia and Yes blood clots Neuro Neurologic: No system reviewed and no additional complaints, except as documented, No as per HPI, No abnormal gait, No abnormal hearing, No abnormal movements, No abnormal speech, No behavioral changes, No burning sensations, No confusion, No convulsions, No disequilibrium, No dizziness, No localized weaknes s, No frequent falls, No headache(s), No lack of coordination, No loss of vision, No memory loss, No numbness, No other visual disturbances, No radicular pain, No restless legs, No sensory deficit, No syncope, No tingling, No tremor(s), No weakness and No other Exam Const General: cooperative, healthy appearing, comfortable and no acute distress Orientation: alert and awake [facility] Head: normal to inspection Eyes General: appearance normal, both eyes and all related structures Neck Neck: normal visual inspection Chest Chest palpation & inspection: normal inspection of the chest Resp Effort & Inspection: normal respiratory effort Auscultation: clear to auscultation bilaterally Cardio Rate: regular rate Rhythm: regular rhythm GI Palpation: soft and no hepatosplenomegaly Musc Cervical Spine: normal cervical lordosis Skin General: no rashes or lesions noted Neuro General: patient alert, patient awake and patient oriented x3 Extrem General: no calf tenderness Psych Appearance: grossly normal Assessment and Plan Assessment and Plan (1) Personal history of colonic polyps: Status: Acute Plan: 87-year-old gentleman who is enjoying a very high quality of life. I do believe that the risk-benefit ratio particularly in light of his personal history of colon polyps and a remote history of tubulovillous adenoma and his family history of colon cancer warrants a follow-up colonoscopy. As noted August 2017 was his most recent 1. We have discussed technique benefit risk complications alternatives. We will have him hold his rivaroxaban for 2 days preprocedure. The patient does have an upcoming appointment with Dr. Juan Hairston regarding his palpitations and medication changes and hypertension. We will push the scheduling of his colonoscopy out for approximately 4 weeks allowing for medical evaluation and clearance. Patient's had an opportunity to ask and have questions answered. I appreciate the ongoing option of assisting with the surgical care. On today's presentation for colonoscopy the patient still noted to have non see- through stools. We will initiate enemas. Copy: Dr. Juan Johnson M.D., F.A.C.S
[2023-10-09] MEDS: Lactated Ringers 1,000 ML 15 ML IV (06:00)
--- NOTE | 2023-10-09 06:35 | NURSING ---
THIS RN WENT TO CHECK ON PATIENT IN BATHROOM AFTER ENEMA, PT WAS ON TOILET, PALE, SLOW TO RESPOND, AND DIAPHORETIC. PT ASSISTED INTO WHEELCHAIR AND PLACED BACK IN BED. VITAL SIGNS BP 112/52, HR 45, O2 98%. AFTER PLACED IN BED, PATIENTS COLOR IS BACK TO NORMAL AND CONVERSING. DR BUSBY MADE AWARE.
[2023-10-09 07:53] VITALS: BP 148/77; PULSE 50
== END | disposition home or self-care (01) ==
PROVIDERS: PCP Family Medicine; Referring Provider Family Medicine; Visit Provider Surgery
DX: Z12.11 Encounter for screening for malignant neoplasm of colon (principal); I48.0 Paroxysmal atrial fibrillation; Z86.010 Personal history of colon polyps; I10 Essential (primary) hypertension; E03.9 Hypothyroidism, unspecified; Z79.899 Other long term (current) drug therapy; Z79.890 Hormone replacement therapy; Z80.0 Family history of malignant neoplasm of digestive organs; Z79.01 Long term (current) use of anticoagulants; R06.02 Shortness of breath; Z53.09 Procedure and treatment not carried out because of other contraindication; R55 Syncope and collapse
CPT/HCPCS: G0105; J7120; J2405

== ENCOUNTER 2024-03-27 08:30 | Outpatient (RCR) | payer MEDICARE, SELFPAY ==
--- NOTE | 2024-02-27 09:28 | HP.PTEVAL_ITS ---
Patient's Visit Information Visit Information Visit Information: LEO ROMAN is a 88 year old M referred to Physical Therapy by Dr. Juan Hairston MD with a diagnosis of CERVICALGIA. Date of Evaluation: 02/27/24 Physical Therapist: Umer Islas PT, Cert MDT, OCS Visit Plan Frequency: 2x /Week Duration: 4 Weeks Plan: PT INTERVENTIONS Subjective Subjective: This 88 y/o male present to physical therapy with cervical pain. Patient has had cervical stiffness for ~ [address] ramirez PT. Patient has decline in posture with forward . Aggravated stress. Alleviating factors rest. Patient had no imaging. Patient denies dizziness /nausea/tinnitus. Patient sleeping good. Patient denies paresthesia/tingling. Patient has no trauma. Patient condition affects QOL and function. Patient goals decrease symptoms . SOCAIL: VOCATION: retired Objective Objective: POSTURE: mild forward posture mod thoracic kyphosis NEURO: denies paresthesia/tingling ,reflexes C5-6-7 1/3 BUE: AROM FLE MMT: BUE grossly 4/5 ,shoulders 4-/5 CERVICAL ROM: flexion min loss ,extension mod loss ,rotation mod loss ,lateral flexion mod loss Special Tests C/S Radiculapathy - Left Upper limb tension test: Negative C/S Radiculapathy - Right Upper limb tension test: Negative C/S Radiculapathy - Left Spurlings: Negative C/S Radiculapathy - Right Spurlings: Negative C/S Radiculapathy - Left Cervical distraction: Negative C/S Radiculapathy - Right Cervical distraction: Negative C/S Radiculapathy - Left Relief test: Negative C/S Radiculapathy - Right Relief test: Negative Sharp Wilmer: Negative Vertebral Artery Test: Negative Alar Ligament Test: Negative Balance/Special Test Scores Oswestry Neck Score: 10 Goals Goal 1:: Patient to be I with HEP for cervical spine Goal Time Frame: 4-6 Weeks Goal 2:: Patient to improve cervical ROM for function of recovery to drive Goal Time Frame: 4-6 Weeks Goal 3:: Patient to demonstrate 50% improvement with less pain and improved function Goal Time Frame: 4-6 Weeks Goal 4:: Patient to improve neck oswestry score by 5 points to improve function. Goal Time Frame: 4-6 Weeks Rehabilitation Potential Physical Therapy Diagnosis: This patient has stiffness in neck with decrease cervical ROM ,decrease posture thus benefit from PT Rehabilitation Potential: Good Anticipated Interventions Patient/Client Instruction: Educate patient on: Condition and Plan of Care For the Purpose of:: To decrease pain, To increase ROM, To improve muscle performance and motor function, To improve ability to perform ADL's, To increase tolerance to activity/condition/position, To improve ability of physical actions for home/community/work/leisure, To improve health of tissue, To decrease soft tissue restriction, To increase flexibility/ROM and To improve tolerance to ADL's Therapeutic Exercise to Include: Strength training, Postural training, Flexibilty training and Active ROM For the Purpose of:: To decrease pain, To increase ROM, To improve muscle performance and motor function, To improve ability to perform ADL's, To increase tolerance to activity/condition/position, To improve ability of physical actions for home/community/work/leisure, To improve health of tissue, To decrease soft tissue restriction and To increase flexibility/ROM Text: Thank you for the opportunity to evaluate your patient. For Medicare and Medicare HMO plans, please review the plan of care and approve it. It will need to be FAXED BACK to us at [phone] for Medicare purposes. For Medicare only, by signing this I certify the plan of care. Please let me know if there are questions or concerns regarding this plan of care. Physician Signature: Date:
--- NOTE | 2024-03-06 09:23 | HP.PTEVAL ---
Patient's Visit Information Visit Information Visit Information: LEO ROMAN is a 88 year old M referred to Physical Therapy by Dr. Juan Hairston MD with a diagnosis of CERVICALGIA. Date of Evaluation: 02/27/24 Physical Therapist: Umer Islas PT, Cert MDT, OCS Visit Plan Frequency: 2x /Week Duration: 4 Weeks Plan: PT INTERVENTIONS POSTURAL EX'S ,CERVICAL ROM ,FLEXABILITY AND STRENGTHENING Subjective Subjective: This 88 y/o male present to physical therapy with cervical pain. Patient has had cervical stiffness for ~ [address] ramirez PT. Patient has decline in posture with forward . Aggravated stress. Alleviating factors rest. Patient had no imaging. Patient denies dizziness /nausea/tinnitus. Patient sleeping good. Patient denies paresthesia/tingling. Patient has no trauma. Patient condition affects QOL and function. Patient goals decrease symptoms . SOCAIL: VOCATION: retired Objective Objective: POSTURE: mild forward posture mod thoracic kyphosis NEURO: denies paresthesia/tingling ,reflexes C5-6-7 1/3 BUE: AROM FLE MMT: BUE grossly 4/5 ,shoulders 4-/5 CERVICAL ROM: flexion min loss ,extension mod loss ,rotation mod loss ,lateral flexion mod loss Special Tests C/S Radiculapathy - Left Upper limb tension test: Negative C/S Radiculapathy - Right Upper limb tension test: Negative C/S Radiculapathy - Left Spurlings: Negative C/S Radiculapathy - Right Spurlings: Negative C/S Radiculapathy - Left Cervical distraction: Negative C/S Radiculapathy - Right Cervical distraction: Negative C/S Radiculapathy - Left Relief test: Negative C/S Radiculapathy - Right Relief test: Negative Sharp Wilmer: Negative Vertebral Artery Test: Negative Alar Ligament Test: Negative Balance/Special Test Scores Oswestry Neck Score: 10 Goals Goal 1:: Patient to be I with HEP for cervical spine Goal Time Frame: 4-6 Weeks Goal 2:: Patient to improve cervical ROM for function of recovery to drive Goal Time Frame: 4-6 Weeks Goal 3:: Patient to demonstrate 50% improvement with less pain and improved function Goal Time Frame: 4-6 Weeks Goal 4:: Patient to improve neck oswestry score by 5 points to improve function. Goal Time Frame: 4-6 Weeks Rehabilitation Potential Physical Therapy Diagnosis: This patient has stiffness in neck with decrease cervical ROM ,decrease posture thus benefit from PT Rehabilitation Potential: Good Anticipated Interventions Patient/Client Instruction: Educate patient on: Condition and Plan of Care For the Purpose of:: To decrease pain, To increase ROM, To improve muscle performance and motor function, To improve ability to perform ADL's, To increase tolerance to activity/condition/position, To improve ability of physical actions for home/community/work/leisure, To improve health of tissue, To decrease soft tissue restriction, To increase flexibility/ROM and To improve tolerance to ADL's Therapeutic Exercise to Include: Strength training, Postural training, Flexibilty training and Active ROM For the Purpose of:: To decrease pain, To increase ROM, To improve muscle performance and motor function, To improve ability to perform ADL's, To increase tolerance to activity/condition/position, To improve ability of physical actions for home/community/work/leisure, To improve health of tissue, To decrease soft tissue restriction and To increase flexibility/ROM Text: Thank you for the opportunity to evaluate your patient. For Medicare and Medicare HMO plans, please review the plan of care and approve it. It will need to be FAXED BACK to us at [phone] for Medicare purposes. For Medicare only, by signing this I certify the plan of care. Please let me know if there are questions or concerns regarding this plan of care. Physician Signature: Date:
--- NOTE | 2024-03-27 08:56 | HP.PTDCSUM_ITS ---
Discharge Summary D/C summary: It has been my pleasure to treat LEO ROMAN referred by Dr. Juan Hairston MD, with the diagnosis of CERVICALGIA for a total of 8 visit(s). Discharge Date: 03/27/24 Please see the following information for a summary of their discharge status. Subjective Subjective: Patient doing well ,patient has more mpbility Overall Improvement % Improvement: 80 Objective Objective/Function: pOSTURE: mild forward posture mod thoracic kyphosis NEURO: denies paresthesia/tingling ,reflexes C5-6-7 1/3 BUE: AROM FLE MMT: BUE grossly 4/5 ,shoulders 4-/5 CERVICAL ROM: flexion min loss ,extension mod loss ,rotation mod loss ,lateral flexion mod loss Goals Goal 1:: Patient to be I with HEP for cervical spine Goal Progress: Goal Met Goal 2:: Patient to improve cervical ROM for function of recovery to drive Goal Progress: Goal Met Goal 3:: Patient to demonstrate 50% improvement with less pain and improved function Goal Progress: Goal Met Goal 4:: Patient to improve neck oswestry score by 5 points to improve function. Goal Progress: Goal Met Plan Plan: D/C D/C Information Discharge Comments: HEP d/c sentence: If there are questions or concerns regarding this patient's physical therapy, raiza pérez feel free to call me at [phone]. Thank you for the referral of this patient. Sincerely, Umer Islas, PT, Cert MDT, OCS Balance/Gait/Functional tests Balance/Special Test Scores Oswestry Neck Score: 3 Improvement % Improvement: 80
== END 2024-03-27 10:44 | disposition home or self-care (01) ==
LOC: PT 08:30
PROVIDERS: PCP Family Medicine; Visit Provider Family Medicine
DX: M54.2 Cervicalgia (principal)
CPT/HCPCS: 97110; 97162; 97530

== ENCOUNTER → 2024-12-19 | Outpatient (CLI) | payer MEDICARE, SELFPAY ==
[2024-12-19 10:24] LABS: Hematocrit 33.9 % (40-54); Hemoglobin 11.3 g/dL (13.0-16.5); Immature Granulocytes Count 0.020 X10^3/uL (0.0-0.0); Mean Corp Hgb Conc 33.3 g/dL (32-36); Mean Corpuscular Volume 89.4 fL (80-94); Mean Platelet Vol. 12.3 fl (6.2-12.0); NRBC Flagged by Analyzer 0 % (0-5); Platelet Count 225 K/mm3 (150-450); RBC Distribution Width CV 14.6 % (11.6-14.6); RBC Distribution Width SD 46.9 fl (35.1-43.9); Red Blood Count 3.79 M/mm3 (4.6-6.2); White Blood Count 6.4 K/mm3 (4.4-11.0)
[2024-12-19 11:13] LABS: Anion Gap 10 (5-15); BUN 16 mg/dL (4-19); BUN/Creat Ratio 15.1 RATIO (10-20); Calcium,Total 9.1 mg/dL (7.6-11.0); Carbon Dioxide 25.4 mmol/L (21.0-32.0); Chloride 100 mmol/L (98-108); Glucose 93 mg/dL (70-99); Potassium 3.9 mmol/L (3.3-5.1)
== END | disposition home or self-care (01) ==
LOC: MTLAB 07:52
PROVIDERS: PCP Family Medicine; Referring Provider Family Medicine; Visit Provider Family Medicine
DX: I48.91 Unspecified atrial fibrillation (principal); R63.4 Abnormal weight loss
CPT/HCPCS: 36415; 80048; 80162; 84443; 85025

== ENCOUNTER → 2025-02-19 | Outpatient (CLI) | payer MEDICARE, SELFPAY ==
[2025-02-19 11:59] LABS: Mucous, Urine 0 SEEN /hpf (<or=2+); Squamous Epithelial Cells - UA 0 SEEN /hpf (0-5)
[2025-02-19 16:15] LABS: AST(SGOT) 18 U/L (<=37); Alanine Aminotransfer ALT/SGPT 10 U/L (<=46); Albumin, Serum 3.8 g/dL (3.4-4.8); Alkaline Phosphatase 97 U/L (40-129); Anion Gap 12 (5-15); BUN 17 mg/dL (4-19); BUN/Creat Ratio 17.8 RATIO (10-20); Calcium,Total 8.8 mg/dL (7.6-11.0); Carbon Dioxide 23.4 mmol/L (21.0-32.0); Chloride 101 mmol/L (98-108); Globulin 2.6 g/dL (2.2-4.2); Glucose 76 mg/dL (70-99); Potassium 4.0 mmol/L (3.3-5.1)
[2025-02-19 16:52] LABS: Hematocrit 34.1 % (40-54); Hemoglobin 11.2 g/dL (13.0-16.5); Immature Granulocytes Count 0.070 X10^3/uL (0.0-0.0); Mean Corp Hgb Conc 32.8 g/dL (32-36); Mean Corpuscular Volume 90.0 fL (80-94); Mean Platelet Vol. 11.3 fl (6.2-12.0); NRBC Flagged by Analyzer 0 % (0-5); Platelet Count 250 K/mm3 (150-450); RBC Distribution Width CV 14.6 % (11.6-14.6); RBC Distribution Width SD 48.5 fl (35.1-43.9); Red Blood Count 3.79 M/mm3 (4.6-6.2); White Blood Count 9.2 K/mm3 (4.4-11.0)
[2025-02-19 21:28] LABS: Color, Urine Yellow (Yellow); Glucose, Dipstick Normal (Normal); Ketone-Dipstick Negative (Negative); Leukocyte Esterase-Dipstick Negative /ul (Negative); Nitrite-Dipstick Negative (Negative); Occult Blood-Urine 150 /ul (Negative); Protein-Dipstick 30 mg/dl (Negative); Specific Gravity, Urine 1.010 (1.002-1.030); Urine Bilirubin Dipstick Negative (Negative)
[2025-02-19 23:30] LABS: Red Blood Cells-Urine 0-5 SEEN /hpf (0-5)
== END | disposition home or self-care (01) ==
LOC: MFPLAB 11:50
PROVIDERS: PCP Family Medicine; Visit Provider Family Medicine
DX: I48.91 Unspecified atrial fibrillation (principal); E03.9 Hypothyroidism, unspecified
CPT/HCPCS: 36415; 80053; 80162; 81001; 84439; 84443; 85025; 85652

== ENCOUNTER 2025-02-21 03:35 | Emergency (ER) | payer MEDICARE, SELFPAY ==
[2025-02-21 03:36] VITALS: BP 137/88; PULSE 92; RESP 18; TEMP 36.6; O2SAT 99; BMI 22.2
[2025-02-21 03:55] LABS: Hematocrit 33.0 % (40-54); Hemoglobin 10.9 g/dL (13.0-16.5); Immature Granulocytes Count 0.050 X10^3/uL (0.0-0.0); Mean Corp Hgb Conc 33.0 g/dL (32-36); Mean Corpuscular Volume 88.9 fL (80-94); Mean Platelet Vol. 11.0 fl (6.2-12.0); NRBC Flagged by Analyzer 0 % (0-5); Platelet Count 259 K/mm3 (150-450); RBC Distribution Width CV 14.5 % (11.6-14.6); RBC Distribution Width SD 46.2 fl (35.1-43.9); Red Blood Count 3.71 M/mm3 (4.6-6.2); White Blood Count 8.8 K/mm3 (4.4-11.0)
--- NOTE | 2025-02-21 03:56 | CT_ITS ---
PROCEDURE: BRAIN/HEAD WITHOUT CONTRAST 02/21/2025 REASON FOR EXAM: CONFUSION TECHNIQUE: Procedure Code: CTBR Modality: CT Procedure: BRAIN/HEAD WITHOUT CONTRAST Coronal and Sagittal reconstruction series were provided. One or more dose reduction techniques were used (e.g., Automated exposure control, adjustment of the mA and/or kV according to patient size, use of iterative reconstruction technique. RADIATION DOSE SUMMARY: CTDI Vol 44.99 mGy DLP :846.73 mGycm COMPARISON: 07-Sep-2023 FINDINGS: Accentuated bilateral cerebral periventricular deep white matter hypodensities denoting hypoperfusion with bilateral cerebral periventricular and subcortical hypodense foci and patches. Marshall-white matter differentiation is maintained. Normal CT appearance of the posterior fossa structures. No intracerebral or extra axial hemorrhage. Dilated ventricular system, cortical sulci and extra-axial CSF spaces. No definite calvarial fractures. No midline shifts or deformity. The osseous structures in the skull base are unremarkable. Paranasal sinuses are unremarkable. Vascular atheromatous calcifications. CT/Brain/Head without Contrast IMPRESSION: No acute cerebrovascular abnormalities. If clinical symptoms persist, further e valuation with MRI may be considered as clinically warranted. No intra or extra-axial acute hemorrhage. 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 Stable. Reading [facility]
--- OUTSIDE RECORDS SUMMARY | 2025-02-21 03:57 | XMS RPT_ITS | CCD ---
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 Juan Hairston Primary Care Provider [phone] Juan Hairston Referring Provider [phone] Klaudia CABRERA PA Faustina Cameron Attending Provider Dr. Navid Jamison Attending Provider Dr. Juan Hairston Primary Care Provider [phone] Juan Hairston Referring Provider [phone] Klaudia CABRERA, PA Faustina Cameron Attending Provider Dr. Juan Hairston Primary Care Provider [phone] Juan Hairston Referring Provider [phone] Klaudia CABRERA, DEBORAH Cameron Attending Provider Dr. Juan Hairston Primary Care Provider [phone] Juan Hairston Referring Provider [phone] Dr. Cesar Johnson Attending Provider Dr. Juan Hairston MD Primary Care Provider Dr. Juan Hairston MD Attending Provider Dr. Juan Hairston MD Referring Provider Gregorio Back Attending Unavailable Juan Hairston Primary Care Unavailable Cesar Johnson Attending Unavailable Juan Hairston Referring Unavailable Juan Hairston Primary Care Unavailable Juan Hairston Attending Unavailable Juan Hairston Primary Care Unavailable Juan Hairston Attending Unavailable Juan Hairston Referring Unavailable Juan Hairston Primary Care Unavailable Allergies Allergy Classification Reported Allergen(s) Allergy Type Date of Onset Reaction(s) Facility (1 source) amLODIPine Drug Allergy 08-28-2015 ankle edema [facility] Work Phone: (2 sources) NKDA; Translations: [NKDA] propensity to adverse reactions 04-09-2013 [place] [facility] Work Phone: (11 sources) amLODIPine Drug Allergy 04-24-2021 ankle edema [facility] Medications Current Medications Medication Drug Class(es) Dates Sig (Normalized) Sig (Original) amLODIPine 5 mg oral tablet (3 sources) Dihydropyridine Calcium Channel Ramesh Start: 09-07-2023 take 1 tablet by mouth once daily Amlodipine 5 mg tablet Active 5 mg PO DAILY 30 0 September 07, 2023 12:00am digoxin 0.125 mg oral tablet (2 sources) Cardiac Glycoside Start: 09-11-2023 take 1 tablet by mouth once daily Digoxin 125 mcg (0.125 mg) tablet Active 125 ug PO daily September 11, 2023 12:00am docusate sodium 100 mg oral capsule (2 sources) Start: 09-11-2023 take 1 capsule by mouth twice daily as needed for constipation Docusate Sodium (Colace) 100 mg capsule Active 100 mg PO TWICE A DAY as needed for constipation September 11, 2023 12:00am levothyroxine sodium 0.137 mg oral tablet (20 sources) l-Thyroxine Start: 10-04-2023 take 1 tablet by mouth every other day Levothyroxine 137 mcg tablet Active 137 ug PO EVERY OTHER DAY October 04, 2023 12:00am Start: 12-27-2021 take 1 tablet by hallie th once daily Levothyroxine 125 mcg tablet Active 125 ug PO .COMPLEX December 27, 2021 12:00am 125 mcg orally ON EVEN DAYS; Start: 09-25-2018 End: 12-27-2021 Levothyroxine 150 mcg capsul e Discontinued 100 ug PO DAILY September 25, 2018 12:00am December 27, 2021 10:28am Start: 09-05-2013 End: 09-25-2018 take 1 tablet by mouth once daily Levothyroxine 50 MCG tablet Discontinued 50 ug PO DAILY March 09, 2014 12:00am September 25, 2018 10:19am Start: 09-05-2013 take 1 tablet by hallie th once daily LEVOTHYROXINE SODIUM 150 MCG TABS One tablet by mouth daily LEVOTHYROXINE SODIUM [id number] Navid Jamison MD Start: 10-26-2011 SYNTHROID 175 MCG TABS LEVOTHYROXINE SODIUM [id number] Janie Washburn RN LEVOTHYROXINE SO DIUM (SYNTHROID ORAL) Take by mouth. 0 Active Comment on above: Take by mouth. Completed/Discontinued Medications Medication Drug Class(es) Dates Sig (Normalized) Sig (Original) aspirin 81 mg oral tablet (3 sources) Nonsteroidal Anti-inflammatory Drug Start: 10-26-2011 End: 09-05-2013 take 1 tablet by mouth once daily ASPIRIN 81 MG TABS One tablet by mouth daily ASPIRIN [id number] Navid Jamison MD Comment on above: Take 81 mg by mouth. BLOOD PRESSURE TEST KIT (BLOOD PRESSURE MISC) (1 source) BLOOD PRESSURE T EST KIT (BLOOD PRESSURE MISC) cephalexin 250 mg oral capsule (5 sources) Cephalosporin Antibacterial Start: 10-08-2022 End: 09-11-2023 take 1 capsule by mouth every six hours Cephalexin 250 mg capsule Discontinued 250 mg PO EVERY 6 HOURS 40 0 October 08, 2022 12:00am September 11, 2023 1:21pm chlorthalidone 25 mg oral tablet (2 sources) Thiazide-like Diuretic Start: 10-26-2011 End: 04-09-2013 take 0.5 tablet by mouth once daily CHLORTHALIDONE 25 MG TABS One-half tablet by mouth daily CHLORTHALIDONE [id number] Navid Jamison MD COENZYME Q10 (4 sources) Start: 07-09-2013 take 1 tablet by mouth once daily CO Q-10 100 MG CAPS One tablet by mouth daily COENZYME Q10 [id number] Navid Jamison MD Start: 07-09-2013 End: 09-05-2013 take 1 tablet by mouth once daily CO Q-10 100 MG CAPS One tablet by mouth daily COENZYME Q10 [id number] Navid Jamison MD Start: 10-26-2011 End: 2011 take 1 tablet by mouth once daily CO Q-10 100 MG CAPS One tablet by mouth daily COENZYME Q10 [id number] Navid Jamison MD Start: 10-26-2011 take 1 tablet by hallie once daily CO Q-10 100 MG CAPS One tablet by mouth daily COENZYME Q10 [id number] Janie Washburn RN dilTIAZem hydrochloride 30 mg oral tablet (20 sources) Calcium Channel Ramesh Start: 10-11-2021 End: 09-11-2023 take 1 tablet by mouth once as needed Diltiazem Hcl 30 mg tablet Discontinued 30 mg PO ONCE as needed for palpitations October 11, 2021 10:06am September 11, 2023 1:21pm Start: 10-11-2021 End: 10-11-2021 take 0.5 tablet by mouth once as needed Diltiazem Hcl 30 mg tablet Discontinued 30 mg PO ONCE October 11, 2021 12:00am October 11, 2021 10:07am take 1/2 tab as needed ibuprofen 200 mg oral tablet (2 sources) Nonsteroidal Anti-inflammatory Drug Start: 2011 End: 08-28-2015 IBUPROFEN 200 MG TABS as needed IBUPROFEN [id number] Navid Jamison MD lisinopril 20 mg oral tablet (2 sources) Angiotensin Converting Enzyme Inhibitor Start: 04-09-2013 End: 07-09-2013 take 1 tablet by mouth once daily LISINOPRIL 20 MG TABS One tablet by mouth daily LISINOPRIL [id number] Navid Jamison MD losartan potassium 100 mg oral tablet (20 sources) Angiotensin 2 Receptor Ramesh Start: 09-25-2018 End: 11-17-2022 take 1 tablet by mouth once daily Losartan 100 mg tablet Discontinued 100 mg PO DAILY 90 4 November 18, 2021 8:32am November 17, 2022 10:34am Start: 07-09-2013 End: 09-25-2018 take 1 tablet by mouth once daily Losartan 50 MG tablet Discontinued 50 mg PO DAILY February 14, 2017 12:00am September 25, 2018 10:20am Start: 07-09-2013 take 1 tablet by hallie once daily LOSARTAN POTASSIUM 100 MG TABS One tablet by mouth daily LOSARTAN POTASSIUM [id number] Navid Jamison MD melatonin 3 mg oral tablet (2 sources) Start: 10-26-2011 End: 2011 take 1 tablet by mouth at bedtime as needed MELATONIN 3 MG TABS One tablet by mouth at bedtime. As needed MELATONIN [id number] Navid Jamison MD metoprolol tartrate 50 mg oral tablet (2 sources) beta-Adrenergic Ramesh Start: 10-26-2011 End: 2011 take 0.5 tablet by mouth twice daily LOPRESSOR 50 MG TABS 1/2 tablet by mouth twice daily METOPROLOL TARTRATE [id number] Janie Washburn RN rivaroxaban 20 mg oral tablet (20 sources) Factor Xa Inhibitor Start: 04-09-2013 End: 12-01-2021 take 1 tablet by mouth once daily Rivaroxaban 20 mg tablet Discontinued 20 mg PO DAILY 90 3 July 23, 2019 6:48pm January 10, 2020 10:45am Problems Active Problems Problem Classification Problem Date Documented Da te Episodic/Chronic Cancer of prostate (12 sources) Malignant tumor of prostate; Translations: [Malignant neoplasm of prostate] 09-01-2017 Chronic Cardiac dysrhythmias (20 sources) Paroxysmal atrial fibrillation; Translations: [Atrial fibrillation] Onset: 04-09-2013 08-27-2015 Chronic Cardiac dysrhythmias (20 sources) Palpitations; Translations: [Palpitations] Onset: 10-26-2011 10-26-2011 Episodic Coagulation and hemorrhagic disorders (5 sources) Blood coagulation disorder; Translations: [Coagulation defect, unspecified] 10-16-2022 Chronic Essential hypertension (20 sources) Hypertensive disorder; Translations: [Essential hypertension] Onset: 04-09-2013 04-09-2013 Chronic Fluid and electrolyte disorders (12 sources) Dehydration; Translations: [Dehydration] 09-13-2018 Episodic Heart valve disorders (14 sources) Nonrheumatic aortic (valve) insufficiency; Translations: [Aortic valve disorder] Onset: 04-09-2013 08-27-2015 Chronic Heart valve disorders (4 sources) Cardiac murmur, unspecified; Translations: [Undiagnosed cardiac murmurs] Episodic Other and unspecified benign neoplasm (2 sources) History of polyp of colon; Translations: [Personal history of colonic polyps] 09-11-2023 Episodic Other circulatory disease (12 sources) Syncope due to orthostatic hypotension; Translations: [Orthostatic hypotension] 09-13-2018 Episodic Other circulatory disease (3 sources) H/O: atrial fibrillation; Translations: [Personal history of other diseases of the circulatory system] 09-07-2023 Episodic Other gastrointestinal disorders (12 sources) Constipation; Translations: [Constipation, unspecified] 05-02-2021 Episodic Residual codes; unclassified (3 sources) History of bradycardia; Translations: [Personal history of other specified conditions] 09-07-2023 Episodic Syncope (12 sources) Near syncope; Translations: [Syncope and collapse] 09-13-2018 Episodic Transient cerebral ischemia (12 sources) Cerebral ischemia; Translations: [Transient cerebral ischemic attack, unspecified] 09-13-2018 Chronic Urinary tract infections (5 sources) Urinary tract infectious disease; Translations: [Urinary tract infection, site not specified] 10-16-2022 Episodic Past or Other Problems Problem Classification Problem Date Documented Date Episodic/Chronic Conditions associated with dizziness or vertigo (2 sources) Dizziness; Translations: [Dizziness and giddiness] Onset: 08-28-2015 03-25-2016 Episodic Genitourinary symptoms and ill-defined conditions (6 sources) Blood in urine; Translations: [Hematuria, unspecified] Onset: 02-13-2024 10-16-2022 Episodic Other and unspecified benign neoplasm (2 sources) Personal history of colonic polyps; Translations: [Personal history of colonic polyps] Onset: 03-18-2024 09-11-2023 Episodic Residual codes; unclassified (1 source) Family history of malignant neoplasm of gastrointestinal tract; Translations: [Family history of malignant neoplasm of digestive organs] Onset: 08-04-2011 08-04-2011 Episodic Unclassified (1 source) Body mass index (BMI) 26.0-26.9, adult; Translations: [Body mass index (BMI) 26.0-26.9, adult] Onset: 07-09-2013 07-09-2013 Episodic Results Test Name Value Interpretation Reference Range Facility Absolute lymphocyte countOrd ered By: Juan Hairston on 12-19-2024 Lymphocytes Auto (Unsp spec) [#/Vol] 1.51 10*3/uL 0.83-4.51 [facility] Absolute neutrophil countOrd ered By: Juan Hairston on 12-19-2024 Neutrophils (Bld) [#/Vol] 4.2 10*3/uL 2.0-7.7 [facility] Anion gap in Serum or Plasma Ordered By: Juan Hairston on 12-19-2024 Anion gap [Moles/Vol] 10 mmol/L 5- [facility] Automated lymphocyte count a s percentage of total leukocytesOrdered By: Juan Hairston on 12-19-2024 Lymphocytes/100 WBC Auto (Unsp spec) 23.7 % [facility] BUN/creatinine ratioOrdered By: Juan Hairston on 12-19-2024 Urea nitrogen/Creatinine [Mass ratio] 15.1 mg/mg - [facility] Basic Metabolic Profile (BMP )on 12-19-2024 BUN/CRE 15.1 RATIO Normal 03-10 [facility] Comment on above: Order Comment: Order Date: 12/17/24 Order Info: 0667-1 - BMP Order Info: 301-3 - TSH DigoxinDigoxin level Performed By: #### L 500.2500, L100.0100, L501.9520 #### [facility] [address] [place], [address] Calcium [Mass/Vol] 9.1 mg/dL Normal 7.6-11.0 [facility] Comment on above: Order Comment: Order Date: 12/17/24 Order Info: 0667-1 - BMP Order Info: 3016-3 - TSH DigoxinDigoxin level Performed By: #### L 500.2500, L100.0100, [id number] #### [facility] [address] [place], [address] Chloride [Moles/Vol] 100 mmol/L Normal 98-108 [facility] Comment on above: Order Comment: Order Date: 12/17/24 Order Info: 0667-1 - BMP Order Info: 3016-3 - TSH DigoxinDigoxin level Performed By: #### L 500.2500, L100.0100, [id number] #### [facility] [address] [place], [address] CO2 [Moles/Vol] 25.4 mmol/L Normal 21.0-32.0 [facility] Comment on above: Order Comment: Order Date: 12/17/24 Order Info: 0667-1 - BMP Order Info: 3016-3 - TSH DigoxinDigoxin level Performed By: #### L 500.2500, L100.0100, [id number] #### [facility] [address] [place], [address] Creatinine [Mass/Vol] 1.05 mg/dL Normal 0.70-1.20 [facility] Comment on above: Order Comment: Order Date: 12/17/24 Order Info: 0667-1 - BMP Order Info: 3013 - TSH DigoxinDigoxin level Performed By: #### L 500.2500, L100.0100, [id number] #### [facility] [address] [place], [address] GAP 10 Normal 5-15 [facility] Comment on above: Order Comment: Order Date: 12/17/24 Order Info: 0667-1 - [facility] Order Info: 3013 - TSH DigoxinDigoxin level Performed By: #### L 500.2500, L100.0100, [id number] #### [facility] [address] [place], [address] GFR/1.73 sq M.predicted among non-blacks MDRD (S/P/Bld) [Vol rate/Area] 69 mL/min/{1.73_m2} Normal >60 [facility] Comment on above: Order Comment: Order Date: 12/17/24 Order Info: 0667-1 - BMP Order Info: 3016-3 - TSH DigoxinDigoxin level Result Comment: mL/m in/1.73m2 CKD-EPI Creatinine Equation (2020) Performed By: #### L 500.2500, L100.0100, [id number] #### [facility] [address] [place], [address] Glucose [Mass/Vol] 93 mg/dL Normal 70-99 [facility] Comment on above: Order Comment: Order Date: 12/17/24 Order Info: 0667-1 - BMP Order Info: 3016-3 - TSH DigoxinDigoxin level Performed By: #### L 500.2500, L100.0100, [id number] #### [facility] [address] [place], [address] Potassium [Moles/Vol] 3.9 mmol/L Normal 3.3-5.1 [facility] Comment on above: Order Comment: Order Date: 12/17/24 Order Info: 0667-1 - BMP Order Info: 3016-3 - TSH DigoxinDigoxin level Performed By: #### L 500.2500, L100.0100, [id number] #### [facility] [address] [place], [address] Sodium [Moles/Vol] 136 mmol/L Normal 133-145 [facility] Comment on above: Order Comment: Order Date: 12/17/24 Order Info: 0667-1 - BMP Order Info: 3016-3 - TSH DigoxinDigoxin level Performed By: #### L 500.2500, L100.0100, [id number] #### [facility] [address] [place], [address] Urea nitrogen [Mass/Vol] 16 mg/dL Normal 4-19 [facility] Comment on above: Order Comment: Order Date: 12/17/24 Order Info: 0667-1 - BMP Order Info: 3016-3 - TSH DigoxinDigoxin level Performed By: #### L 500.2500, L100.0100, [id number] #### [facility] [address] [place], [address] Basophil percentageOrdered B y: Juan Hairston on 12-19-2024 Basophils/100 WBC (Bld) 0.5 % 0-1 [facility] CBC W/Diff, Automatedon 07-3 -2024 Absolute Lymph 1.51 X10 3/uL Normal 0.83-4.51 [facility] Comment on above: Order Comment: Order Date: 12/17/24 Order Info: 018-1 - CBCD Performed By: #### L 500.2500, L100.0100, [id number] #### [facility] [address] [place], [address] Absolute Neut 4.2 X10 3/uL Normal 2.0-7.7 [facility] Comment on above: Order Comment: Order Date: 12/17/24 Order Info: 018- - CBCD Performed By: #### L 500.2500, L100.0100, [id number] #### [facility] [address] [place], [address] Basophils/100 WBC (Bld) 0.5 % Normal 0-1 [facility] Comment on above: Order Comment: Order Date: 12/17/24 Order Info: 018- - CBCD Performed By: #### L 500.2500, L100.0100, [id number] #### [facility] [address] [place], [address] Eosinophils/100 WBC (Bld) 1.3 % Normal 0-5 [facility] Comment on above: Order Comment: Order Date: 12/17/24 Order Info: 018- - CBCD Performed By: #### L 500.2500, L100.0100, [id number] #### [facility] [address] [place], [address] Erythrocyte distribution width (RBC) [Ratio] 14.6 % Normal 11.6-14.6 [facility] Comment on above: Order Comment: Order Date: 12/17/24 Order Info: 018- - CBCD Performed By: #### L 500.2500, L100.0100, [id number] #### [facility] [address] [place], [address] Hematocrit (Bld) [Volume fraction] 33.9 % Low 40-54 [facility] Comment on above: Order Comment: Order Date: 12/17/24 Order Info: 0184-1 - CBCD Performed By: #### L 500.2500, L100.0100, [id number] #### [facility] [address] [place], [address] Hemoglobin (Bld) [Mass/Vol] 11.3 g/dL Low 13.0-16.5 [facility] Comment on above: Order Comment: Order Date: 12/17/24 Order Info: 0184- - CBCD Performed By: #### L 500.2500, L100.0100, [id number] #### [facility] [address] [place], [address] IG% 0.300 Normal 0.0-0.9 [facility] Comment on above: Order Comment: Order Date: 12/17/24 Order Info: 0184- - CBCD Result Comment: IG% - Immature Granulocytes (promyelocytes, myelocytes and metamyelocytes) > 1% indicates that a LEFT SHIFT is Present. Performed By: #### L 500.2500, L100.0100, [id number] #### [facility] [address] [place], [address] Lymphocytes/100 WBC (Bld) 23.7 % Normal 19-41 [facility] Comment on above: Order Comment: Order Date: 12/17/24 Order Info: 0184- - CBCD Performed By: #### L 500.2500, L100.0100, [id number] #### [facility] [address] [place], [address] MCH (RBC) [Entitic mass] 29.8 pg Normal 27.0-32.0 [facility] Comment on above: Order Comment: Order Date: 12/17/24 Order Info: 0184-1 - CBCD Performed By: #### L 500.2500, L100.0100, [id number] #### [facility] [address] [place], [address] MCHC (RBC) [Mass/Vol] 33.3 g/dL Normal 32-36 [facility] Comment on above: Order Comment: Order Date: 12/17/24 Order Info: 0184-1 - CBCD Performed By: #### L 500.2500, L100.0100, [id number] #### [facility] [address] [place], [address] MCV (RBC) [Entitic vol] 89.4 fL Normal 80-94 [facility] Comment on above: Order Comment: Order Date: 12/17/24 Order Info: 018- - CBCD Performed By: #### L 500.2500, L100.0100, [id number] #### [facility] [address] [place], [address] Monocytes/100 WBC (Bld) 9.1 % Normal 0-10 [facility] Comment on above: Order Comment: Order Date: 12/17/24 Order Info: 018- - CBCD Performed By: #### L 500.2500, L100.0100, [id number] #### [facility] [address] [place], [address] Neutrophils/100 WBC (Bld) 65.1 % Normal 47-70 [facility] Comment on above: Order Comment: Order Date: 12/17/24 Order Info: 0184-1 - CBCD Performed By: #### L 500.2500, L100.0100, [id number] #### [facility] [address] [place], [address] Nucleated RBC (Bld) [#/Vol] 0 10*3/uL Normal 0-5 [facility] Comment on above: Order Comment: Order Date: 12/17/24 Order Info: 0184-1 - CBCD Performed By: #### L 500.2500, L100.0100, [id number] #### [facility] [address] [place], [address] Platelet mean volume (Bld) [Entitic vol] 12.3 fL High 6.2-12.0 [facility] Comment on above: Order Comment: Order Date: 12/17/24 Order Info: 0184-1 - CBCD Performed By: #### L 500.2500, L100.0100, [id number] #### [facility] [address] [place], [address] Platelets (Bld) [#/Vol] 225 10*3/uL Normal 150-450 [facility] Comment on above: Order Comment: Order Date: 12/17/24 Order Info: 0184-1 - CBCD Performed By: #### L 500.2500, L100.0100, [id number] #### [facility] [address] [place], [address] RBC (Bld) [#/Vol] 3.79 10*6/uL Low 4.6-6.2 [facility] Comment on above: Order Comment: Order Date: 12/17/24 Order Info: 0184-1 - CBCD Performed By: #### L 500.2500, L100.0100, [id number] #### [facility] [address] [place], [address] RDW SD 46.9 fl High 35.1-43.9 [facility] Comment on above: Order Comment: Order Date: 12/17/24 Order Info: 0184-1 - CBCD Performed By: #### L 500.2500, L100.0100, [id number] #### [facility] [address] [place], [address] WBC (Bld) [#/Vol] 6.4 10*3/uL Normal 4.4-11.0 [facility] Comment on above: Order Comment: Order Date: 12/17/24 Order Info: 0184-1 - CBCD Performed By: #### L 500.2500, L100.0100, [id number] #### [facility] [address] [place], [place], [id number] Carbon dioxide, total [Moles /volume] in Central venous bloodOrdered By: Juan Hairston on 12-19-2024 CO2 [Moles/Vol] 25.4 mmol/L 21.0-32.0 [facility] Chloride assayOrdered By: Enrique Hairston on 12-19-2024 Chloride [Moles/Vol] 100 mmol/L 98-108 [facility] Digoxin Levelon 12-19-2024 DIG 0.67 ng/mL Normal 0.00-2.00 [facility] Comment on above: Order Comment: ORDER ABLE Performed By: #### L 501.7510 #### [facility] [address] [place], [place], [id number] Eosinophil percentageOrdered By: Juan Hairston on 12-19-2024 Eosinophils/100 WBC (Bld) 1.3 % 0-5 [facility] Erythrocyte distribution wid th ratioOrdered By: Juan Hairston on 12-19-2024 Erythrocyte distribution width (RBC) [Ratio] 14.6 % 11.6-14.6 [facility] Erythrocyte distribution wid th standard deviationOrdered By: Juan Hairston on 12-19-2024 Erythrocyte distribution width (RBC) [Ratio] 46.9 fl High 35.1-43.9 [facility] Glomerular filtration rate ( GFR) estimation/1.73 sq m using serum, plasma, or whole bOrdered By: Juan Hairston on 12-19-2024 GFR/1.73 sq M.predicted among non-blacks MDRD (S/P/Bld) [Vol rate/Area] 69 mL/min/{1.73_m2} >60 [facility] Comment on above: mL/min/1.73m2 CKD-EP I Creatinine Equation (2020) Hematocrit Auto (Bld) [Volum e fraction]Ordered By: Juan Hairston on 12-19-2024 Hematocrit (Bld) [Volume fraction] 33.9 % Low 40-54 [facility] Hemoglobin measurementOrdere d By: Juan Hairston on 12-19-2024 Hemoglobin (Bld) [Mass/Vol] 11.3 g/dL Low 13.0-16.5 [facility] Immature granulocytes/100 WB C Auto (Bld)Ordered By: Juan Hairston on 12-19-2024 Immature granulocytes/100 WBC (Bld) 0.300 % 0.0-0.9 [facility] Comment on above: IG% - Immature Granu locytes (promyelocytes, myelocytes and metamyelocytes) > 1% indicates that a LEFT SHIFT is Present. MCV (mean corpuscular volume ) determinationOrdered By: Juan Hairston on 12-19-2024 MCV (RBC) [Entitic vol] 89.4 fL 80-94 [facility] Mean corpuscular hemoglobin (MCH) determinationOrdered By: Juan Hairston on 12-19-2024 MCH (RBC) [Entitic mass] 29.8 pg 27.0-32.0 [facility] Mean corpuscular hemoglobin concentration (MCHC) determinationOrdered By: Juan Hairston on 12-19-2024 MCHC (RBC) [Mass/Vol] 33.3 g/dL 32-36 [facility] [place] Mean platelet volume determi nationOrdered By: Juan Hairston on 12-19-2024 Platelet mean volume (Bld) [Entitic vol] 12.3 fL High 6.2-12.0 [facility] Monocyte percentageOrdered B y: Juan Hairston on 12-19-2024 Monocytes/100 WBC (Bld) 9.1 % 0-10 [facility] Neutrophil percentageOrdered By: Juan Hairston on 12-19-2024 Neutrophils/100 WBC (Bld) 65.1 % 47-70 [facility] Nucleated red blood cell per centageOrdered By: Juan Hairston on 12-19-2024 Nucleated RBC/100 WBC (Bld) [Ratio] 0 % 0-5 [facility] Platelet countOrdered By: Enrique Hairston on 12-19-2024 Platelets (Bld) [#/Vol] 225 10*3/uL 150-450 [facility] Potassium measurement (mass/ volume)Ordered By: Juan Hairston on 12-19-2024 Potassium (Unsp spec) [Mass/Vol] 3.9 mmol/L 3.3-5.1 [facility] RBC Auto (Bld) [#/Vol]Ordere d By: Juan Hairston on 12-19-2024 RBC (Bld) [#/Vol] 3.79 10*6/uL Low 4.6-6.2 [facility] Serum creatinine measurement (mass/volume)Ordered By: Juan Hairston on 12-19-2024 Creatinine [Mass/Vol] 1.05 mg/dL 0.70-1.20 [facility] Serum glucose measurement (m ass/volume)Ordered By: Juan Hairston on 12-19-2024 Glucose [Mass/Vol] 93 mg/dL 70-99 [facility] Serum or plasma calcium mago urement (mass/volume)Ordered By: Juan Hairston on 12-19-2024 Calcium [Mass/Vol] 9.1 mg/dL 7.6-11.0 [facility] Serum or plasma digoxin mago urement (mass/volume)Ordered By: Juan Hairston on 12-19-2024 Digoxin [Mass/Vol] 0.67 ng/mL 0.00-2.00 [facility] Serum or plasma urea nitroge n measurement (mass/volume)Ordered By: Juan Hairston on 12-19-2024 Urea nitrogen [Mass/Vol] 16 mg/dL 4-19 [facility] Sodium levelOrdered By: Juan Hairston on 12-19-2024 Sodium [Moles/Vol] 136 mmol/L 133-145 [facility] TSH DL <= 0.005 mIU/L QnOrde red By: Juan Hairston on 12-19-2024 TSH Qn 0.092 uIU/mL Low 0.300-4.200 [facility] Thyroid Stim Hormone (TSH)on 12-19-2024 TSH 0.092 uIU/mL Low 0.300-4.200 [facility] Comment on above: Order Comment: Order Date: 12/17/24 Order Info: [id number] - BMP Order Info: [id number] - TSH Performed By: #### L 500.2500, L100.0100, L501.9520 #### [facility] Laboratory [address] [place], [place], [address] White blood cell (WBC) count Ordered By: Juan Hairston on 12-19-2024 WBC (Bld) [#/Vol] 6.4 10*3/uL 4.4-11.0 [facility] PT D/C Summary (1)on 024 PT D/C Summary (1) [facility] Physical Therapy [facility] [address] [place] [address] / REHABILITATION SERVICES DISCHARGE SUMMARY MR#: [id number] Acct: [id number] Name: LEO ROMAN Rep #: [id number] : 1935 88 From: Umer Islas PT, Cert. T, OCS Referring Dr.: Dr. Juan Hairston MD Status: REG R CR Insurance: [facility] [employer] Discharge Summary D/C summary: It has been my pleasure to treat LEO ROMAN referred by Dr. Juan Hairston MD, with the diagnosis of CERVICALGIA for a total of 8 visit(s). Discharge Date: 03/27/24 Please see the following information for a summary of their discharge status. Subjective Subjective: Patient doing well ,patient has more mpbility Overall Improvement % Improvement: 80 Objective Objective/Function : pOSTURE: mild forward posture mod thoracic kyphosis NEURO: denies paresthesia/tingli ng ,reflexes C5-6-7 1/3 BUE: AROM FLE MMT: BUE grossly 4/5 ,shoulders 4-/5 CERVICAL ROM: flexion min loss ,extension mod loss ,rotation mod loss ,lateral flexion mod loss Goals Goal 1:: Patient to be I with HEP for cervical spine Goal Progress: Goal Met Goal 2:: Patient to improve cervical ROM for function of recovery to drive Goal Progress: Goal Met Goal 3:: Patient to demonstrate 50% improvement with less pain and improved function Goal Progress: Goal Met Goal 4:: Patient to improve neck oswestry score by 5 points to improve function. Goal Progress: Goal Met Plan Plan: D/C D/C Information Discharge Comments: HEP d/c sentence: If there are questions or concerns regarding this patient's physical therapy, please feel free to call me at [phone]. Thank you for the referral of this patient. Sincerely, Umer Islas PT, Srinivasa RIGGST, OCS Balance/Gait/Funct ional tests Balance/Special Test Scores Oswestry Neck Score: 3 Improvement % Improvement: 80 03/27/24 1032 CC: Dr. Juan Hairston MD JLDinah Signed Normal [facility] Inital Evaluation (1) - PTon 03-06-2024 Inital Evaluation (1) - PT [facility] Physical Therapy [facility] [address] [place] [address] / REHABILITATION SERVICES INITIAL EVALUATION MR#: [id number] Acct: [id number] Name: LEO ROMAN Rep #: [id number] : 1935 88 From: Srinivasa Contreras PT. T, OCS Referring Dr.: Dr. Juan Hairston MD Status: REG R CR Insurance: [facility] [employer] Patient's Visit Information Visit Information Visit Information: LEO ROMAN is a 88 year old M referred to Physical Therapy by Dr. Juan Hairston MD with a diagnosis of CERVICALGIA. Date of Evaluation: 02/27/24 Physical Therapist: Umer Islas PT, Srinivasa RIGGST, OCS Visit Plan Frequency: 2x /Week Duration: 4 Weeks Plan: PT INTERVENTIONS POSTURAL EX'S ,CERVICAL ROM ,FLEXABILITY AND STRENGTHENING Subjective Subjective: This 88 y/o male present to physical therapy with cervical pain. Patient has had cervical stiffness for [address] ashley MCLEOD. Patient has decline in posture with forward . Aggravated stress. Alleviating factors rest. Patient had no imaging. Patient denies dizziness /nausea/tinnitus. Patient sleeping good. Patient denies paresthesia/tingli ng. Patient has no trauma. Patient condition affects QOL and function. Patient goals decrease symptoms . SOCAIL: VOCATION: retired Objective Objective: POSTURE: mild forward posture mod thoracic kyphosis NEURO: denies paresthesia/tingli ng ,reflexes C5-6-7 1/3 BUE: AROM FLE MMT: BUE grossly 4/5 ,shoulders 4-/5 CERVICAL ROM: flexion min loss ,extension mod loss ,rotation mod loss ,lateral flexion mod loss Special Tests C/S Radiculapathy - Left Upper limb tension test: Negative C/S Radiculapathy - Right Upper limb tension test: Negative C/S Radiculapathy - Left Spurlings: Negative C/S Radiculapathy - Right Spurlings: Negative C/S Radiculapathy - Left Cervical distraction: Negative C/S Radiculapathy - Right Cervical distraction: Negative C/S Radiculapathy - Left Relief test: Negative C/S Radiculapathy - Right Relief test: Negative Sharp Wilmer: Negative Vertebral Artery Test: Negative Alar Ligament Test: Negative Balance/Special Test Scores Oswestry Neck Score: 10 Goals Goal 1:: Patient to be I with HEP for cervical spine Goal Time Frame: 4-6 Weeks Goal 2:: Patient to improve cervical ROM for function of recovery to drive Goal Time Frame: 4-6 Weeks Goal 3:: Patient to demonstrate 50% improvement with less pain and improved function Goal Time Frame: 4-6 Weeks Goal 4:: Patient to improve neck oswestry score by 5 points to improve function. Goal Time Frame: 4-6 Weeks Rehabilitation Potential Physical Therapy Diagnosis: This patient has stiffness in neck with decrease cervical ROM ,decrease posture thus benefit from PT Rehabilitation Potential: Good Anticipated Interventions Patient/Client Instruction: Educate patient on: Condition and Plan of Care For the Purpose of:: To decrease pain, To increase ROM, To improve muscle performance and motor function, To improve ability to perform ADL's, To increase tolerance to activity/condition /position, To improve ability of physical actions for home/community/wor k/leisure, To improve health of tissue, To decrease soft tissue restriction, To increase flexibility/ROM and To improve tolerance to ADL's Therapeutic Exercise to Include: Strength training, Postural training, Flexibilty training and Active ROM For the Purpose of:: To decrease pain, To increase ROM, To improve muscle performance and motor function, To improve ability to perform ADL's, To increase tolerance to activity/condition /position, To improve ability of physical actions for home/community/wor k/leisure, To improve health of tissue, To decrease soft tissue restriction and To increase flexibility/ROM Text: Thank you for the opportunity to evaluate your patient. For Medicare and Medicare HMO plans, please review the plan of care and approve it. It will need to be FAXED BACK to us at [phone] for Medicare purposes. For Medicare only, by signing this I certify the plan of care. Please let me know if there are questions or concerns regarding this plan of care. Physician Signature: Date: ____ 03/06/24 0925 CC: Dr. Juan Hairston MD JLA Signed Normal [facility] Inital Evaluation (1) - PTon 02-27-2024 Inital Evaluation (1) - PT [facility] Physical Therapy [facility] [address] [place] [address] [address] [place] [address] / REHABILITATION SERVICES INITIAL EVALUATION MR#: [id number] Acct: [id number] Name: LEO ROMAN Rep #: [id number] : 1935 88 From: Srinivasa Contreras PT. T, OCS Referring Dr.: Dr. Juan Hairston MD Status: REG R CR Insurance: [employer] [facility] Patient's Visit Information Visit Information Visit Information: LEO ROMAN is a 88 year old M referred to Physical Therapy by Dr. Juan Hairston MD with a diagnosis of CERVICALGIA. Date of Evaluation: 02/27/24 Physical Therapist: Umer Islas PT, Cert T, OCS Visit Plan Frequency: 2x /Week Duration: 4 Weeks Plan: PT INTERVENTIONS Subjective Subjective: This 88 y/o male present to physical therapy with cervical pain. Patient has had cervical stiffness for [address] ashley MCLEOD. Patient has decline in posture with forward . Aggravated stress. Alleviating factors rest. Patient had no imaging. Patient denies dizziness /nausea/tinnitus. Patient sleeping good. Patient denies paresthesia/tingli ng. Patient has no trauma. Patient condition affects QOL and function. Patient goals decrease symptoms . SOCAIL: VOCATION: retired Objective Objective: POSTURE: mild forward posture mod thoracic kyphosis NEURO: denies paresthesia/tingli ng ,reflexes C5-6-7 1/3 BUE: AROM FLE MMT: BUE grossly 4/5 ,shoulders 4-/5 CERVICAL ROM: flexion min loss ,extension mod loss ,rotation mod loss ,lateral flexion mod loss Special Tests C/S Radiculapathy - Left Upper limb tension test: Negative C/S Radiculapathy - Right Upper limb tension test: Negative C/S Radiculapathy - Left Spurlings: Negative C/S Radiculapathy - Right Spurlings: Negative C/S Radiculapathy - Left Cervical distraction: Negative C/S Radiculapathy - Right Cervical distraction: Negative C/S Radiculapathy - Left Relief test: Negative C/S Radiculapathy - Right Relief test: Negative Sharp Wilmer: Negative Vertebral Artery Test: Negative Alar Ligament Test: Negative Balance/Special Test Scores Oswestry Neck Score: 10 Goals Goal 1:: Patient to be I with HEP for cervical spine Goal Time Frame: 4-6 Weeks Goal 2:: Patient to improve cervical ROM for function of recovery to drive Goal Time Frame: 4-6 Weeks Goal 3:: Patient to demonstrate 50% improvement with less pain and improved function Goal Time Frame: 4-6 Weeks Goal 4:: Patient to improve neck oswestry score by 5 points to improve function. Goal Time Frame: 4-6 Weeks Rehabilitation Potential Physical Therapy Diagnosis: This patient has stiffness in neck with decrease cervical ROM ,decrease posture thus benefit from PT Rehabilitation Potential: Good Anticipated Interventions Patient/Client Instruction: Educate patient on: Condition and Plan of Care For the Purpose of:: To decrease pain, To increase ROM, To improve muscle performance and motor function, To improve ability to perform ADL's, To increase tolerance to activity/condition /position, To improve ability of physical actions for home/community/wor k/leisure, To improve health of tissue, To decrease soft tissue restriction, To increase flexibility/ROM and To improve tolerance to ADL's Therapeutic Exercise to Include: Strength training, Postural training, Flexibilty training and Active ROM For the Purpose of:: To decrease pain, To increase ROM, To improve muscle performance and motor function, To improve ability to perform ADL's, To increase tolerance to activity/condition /position, To improve ability of physical actions for home/community/wor k/leisure, To improve health of tissue, To decrease soft tissue restriction and To increase flexibility/ROM Text: Thank you for the opportunity to evaluate your patient. For Medicare and Medicare HMO plans, please review the plan of care and approve it. It will need to be FAXED BACK to us at [phone] for Medicare purposes. For Medicare only, by signing this I certify the plan of care. Please let me know if there are questions or concerns regarding this plan of care. Physician Signature: Date: ____ 02/27/24 1604 CC: Dr. Juan Hairston MD THELMA Signed Normal [facility] Urine Cultureon 01-26-2024 [facility] Presumptive E. coli [place] Count >100,000 Presumptive E. coli: REACTION Ampicillin Islt CORY 8 S Ampicillin+Sulbac Islt CORY <=2 S ceFAZolin Islt CORY <=4 S Cefepime Islt CORY <=0.12 S cefTRIAXone Islt CORY <=0.25 S Ciprofloxacin Islt CORY <=0.25 S Ertapenem Islt CORY <=0.12 S B-Lactamase Extended Susc Islt NEG Gentamicin Islt CORY <=1 S Imipenem Islt CORY <=0.25 S levoFLOXacin Islt CORY <=0.12 S Nitrofurantoin Islt CORY <=16 S Pip+Tazo Islt CORY <=4 S Tobramycin Islt CORY <=1 S TMP SMX Islt CORY <=20 S Normal [facility] Comment on above: Performed By: #### M 100.1764 #### [facility] [address] [place], [address] Basophil percentageOrdered B y: Juan Hairston on 09-15-2023 Bilirubin [Mass/Vol] 0.50 mg/dL 0.20-1.00 [facility] Comment on above: For patients on eltr ombopag therapy, use of Dimension [place] TBIL is not recommended. Chloride [Moles/Vol] 102 mmol/L 98-107 [facility] Glucose [Mass/Vol] 103 mg/dL 74-106 [facility] Comment on above: Fasting Glucose resu lt from 100 to 125 mg/dL suggests IMPAIRED HOMEOSTASIS per A.D.A. criteria. Potassium [Moles/Vol] 4.2 mmol/L 3.5-5.1 [facility] Protein [Mass/Vol] 7.3 g/dL 6.4-8.2 [facility] Sodium [Moles/Vol] 136 mmol/L 136-145 [facility] - Chemistry and C hemistry - challengeOrdered By: Juan Hairston on 09-15-2023 Albumin/Globulin [Mass ratio] 1.0 {ratio} 0.9-2.4 [facility] ALP [Catalytic activity/Vol] 95 U/L 45-117 [facility] ALT [Catalytic activity/Vol] 15 U/L 16-61 [facility] CO2 [Moles/Vol] 29.0 mmol/L 21.0-32.0 [facility] Globulin (S) [Mass/Vol] 3.6 g/dL 2.2-4.2 [facility] Urea nitrogen/Creatinine [Mass ratio] 15.7 mg/mg 10-20 [facility] No Panel InformationOrdered By: Juan Hairston on 09-15-2023 Digoxin Level 0.40 ng/mL 0.80-2.00 [facility] Estimated GFR (MDRD) Amer 73 mL/min >60 [facility] Comment on above: GFR Calc Estimated GFR (MDRD) Non-Af Amer 61 mL/min >60 [facility] Comment on above: Non- GFR Calc Serum or plasma calcium mago urement (mass/volume)Ordered By: Juan Hairston on 09-15-2023 Calcium [Mass/Vol] 8.9 mg/dL 8.5-10.1 [facility] Serum or plasma creatinine m easurement (mass/volume)Ordered By: Juan Hairston on 09-15-2023 Creatinine [Mass/Vol] 1.21 mg/dL 0.70-1.30 [facility] Comment on above: The validity of the calculated GFR & GFRAA in patients over 70 years has not been determined. Clinical correlation is essential. Serum or plasma thyroid stim ulating hormone (TSH) measurement (units/volume)Ordered By: Juan Hairston on 09-15-2023 TSH Qn 3.00 uIU/mL 0.358-3.74 [facility] Serum or plasma urea nitroge n measurement (mass/volume)Ordered By: Juan Hairston on 09-15-2023 Urea nitrogen [Mass/Vol] 19 mg/dL 7-18 [facility] Thin prep Papanicolaou smear with manual screeningOrdered By: Juan Hairston on 09-15-2023 Thin prep Papanicolaou smear with manual screening 3.7 g/dL 3.2-5.0 [facility] Thin prep Papanicolaou smear with manual screening 16 U/L 15-37 [facility] Thin prep Papanicolaou smear with manual screening 5 5-15 [facility] Thin prep Papanicolaou smear with manual screening 1.03 ng/dL 0.76-1.46 [facility] Absolute lymphocyte countOrd ered By: Saida Ochoa on 09-07-2023 Lymphocytes Auto (Unsp spec) [#/Vol] 2.18 10*3/uL 0.83-4.51 [facility] Automated lymphocyte count a s percentage of total leukocytesOrdered By: Saida Ochoa on 09-07-2023 Lymphocytes/100 WBC Auto (Unsp spec) 31.4 % 19-41 [facility] Basophil percentageOrdered B y: Saida Ochoa on 09-07-2023 Basophil percentage 0 SEEN /hpf 0-5 [facility] Basophils/100 WBC (Bld) 0.9 % 0-1 [facility] Chloride [Moles/Vol] 103 mmol/L 98-107 [facility] Eosinophils/100 WBC (Bld) 0.7 % 0-5 [facility] Glucose [Mass/Vol] 105 mg/dL 74-106 [facility] Comment on above: Fasting Glucose resu lt from 100 to 125 mg/dL suggests IMPAIRED HOMEOSTASIS per A.D.A. criteria. Hemoglobin (Bld) [Mass/Vol] 12.3 g/dL 13.0-16.5 [facility] Monocytes/100 WBC (Bld) 8.3 % 0-10 [facility] Neutrophils (Bld) [#/Vol] 4.1 10*3/uL 2.0-7.7 [facility] Neutrophils/100 WBC (Bld) 58.6 % 47-70 [facility] Potassium [Moles/Vol] 3.8 mmol/L 3.5-5.1 [facility] Sodium [Moles/Vol] 134 mmol/L 136-145 [facility] WBC (Bld) [#/Vol] 7.0 10*3/uL 4.4-11.0 [facility] Bilirubin Test strip Ql (U)O rdered By: Saida Ochoa on 09-07-2023 Bilirubin Ql (U) Negative Negative [facility] Determination of erythrocyte mean corpuscular volume (MCV)Ordered By: Saida Ochoa on 09-07-2023 MCV (RBC) [Entitic vol] 88.8 fL 80-94 [facility] Erythrocyte distribution wid th ratioOrdered By: Saida Ochoa on 09-07-2023 Erythrocyte distribution width (RBC) [Ratio] 13.2 % 11.6-14.6 [facility] Erythrocyte distribution wid th standard deviationOrdered By: Saida Ochoa on 09-07-2023 Erythrocyte distribution width (RBC) [Entitic vol] 43.1 fL 35.1-43.9 [facility] Hematocrit Auto (Bld) [Volum e fraction]Ordered By: Saida Ochoa on 09-07-2023 Hematocrit (Bld) [Volume fraction] 35.5 % 40-54 [facility] Immature granulocytes/100 WB C Auto (Bld)Ordered By: Saida Ochoa on 09-07-2023 Immature granulocytes/100 WBC (Bld) 0.100 % 0.0-0.9 [facility] Comment on above: IG% - Immature Granu locytes (promyelocytes, myelocytes and metamyelocytes) > 1% indicates that a LEFT SHIFT is Present. Ketones Test strip Ql (U)Ord ered By: Saida Ochoa on 09-07-2023 Ketones Ql (U) Negative Negative [facility] - Chemistry and C hemistry - challengeOrdered By: Saida Ochoa on 09-07-2023 CO2 [Moles/Vol] 27.0 mmol/L 21.0-32.0 [facility] Urea nitrogen/Creatinine [Mass ratio] 14.8 mg/mg 10-20 [facility] Laboratory - Hematology and Cell countsOrdered By: Saida Ochoa on 09-07-2023 MCH (RBC) [Entitic mass] 30.8 pg 27.0-32.0 [facility] MCHC (RBC) [Mass/Vol] 34.6 g/dL 32-36 [facility] Nucleated RBC/100 WBC (Bld) [Ratio] 0 % 0-5 [facility] Platelet mean volume (Bld) [Entitic vol] 11.5 fL 6.2-12.0 [facility] Platelets (Bld) [#/Vol] 190 10*3/uL 150-450 [facility] Mucus LM Ql (Urine sed)Order ed By: Saida Ochoa on 09-07-2023 Mucus Ql (Urine sed) 0 SEEN /hpf [facility] Nitrite Test strip Ql (U)Ord ered By: Saida Ochoa on 09-07-2023 Nitrite Ql (U) Negative Negative [facility] No Panel InformationOrdered By: Saida Ochoa on 09-07-2023 Urine RBC 0 SEEN /hpf 0-5 [facility] Estimated Creatinine Clearance Calc 51.55 ml/min [facility] Estimated GFR (MDRD) Amer 78 mL/min >60 [facility] Comment on above: GFR Calc Estimated GFR (MDRD) Non-Af Amer 64 mL/min >60 [facility] Comment on above: Non- GFR Calc Protein Test strip Ql (U)Ord ered By: Saida Ochoa on 09-07-2023 Protein Ql (U) Negative Negative [facility] RBC Auto (Bld) [#/Vol]Ordere d By: Saida Ochoa on 09-07-2023 RBC (Bld) [#/Vol] 4.00 10*6/uL 4.6-6.2 [facility] Serum or plasma calcium mago urement (mass/volume)Ordered By: Saida Ochoa on 09-07-2023 Calcium [Mass/Vol] 8.4 mg/dL 8.5-10.1 [facility] Serum or plasma creatinine m easurement (mass/volume)Ordered By: Saida Ochoa on 09-07-2023 Creatinine [Mass/Vol] 1.15 mg/dL 0.70-1.30 [facility] Comment on above: The validity of the calculated GFR & GFRAA in patients over 70 years has not been determined. Clinical correlation is essential. Serum or plasma urea nitroge n measurement (mass/volume)Ordered By: Saida Ochoa on 09-07-2023 Urea nitrogen [Mass/Vol] 17 mg/dL 7- [facility] Squamous epithelial cells de tection in urine sediment by light microscopyOrdered By: Saida Ochoa on 09-07-2023 Epithelial cells.squamous LM Ql (Urine sed) 0 SEEN /hpf 0-5 [facility] Thin prep Papanicolaou smear with manual screeningOrdered By: Saida Ochoa on 09-07-2023 Thin prep Papanicolaou smear with manual screening 4 5-15 [facility] Urine blood detectionOrdered By: Saida Ochoa on 09-07-2023 RBC Ql (U) 10 /ul Negative [facility] Urine clarityOrdered By: Kaylan Ochoa on 09-07-2023 Clarity (U) Clear Clear [facility] Urine color determinationOrd ered By: Saida Ochoa on 09-07-2023 Color (U) Yellow Yellow [facility] Urine glucose detectionOrder ed By: Saida Ochoa on 09-07-2023 Glucose Ql (U) Normal mg/dl Normal [facility] Urine leukocyte esterase det ection by dipstickOrdered By: Saida Ochoa on 09-07-2023 Leukocyte esterase Test strip Ql (U) Negative Negative [facility] Urine pHOrdered By: Saida Ochoa on 09-07-2023 pH (U) 7.0 [pH] 5.0 - 8.0 [facility] Urine sediment bacteria coun t by microscopy (number/high power field)Ordered By: Saida Ochoa on 09-07-2023 Bacteria LM.HPF (Urine sed) [#/Area] 0 /[HPF] None Seen [facility] Urine specific gravity measu rementOrdered By: Saida Ochoa on 09-07-2023 Specific gravity (U) [Rel density] 1.010 1.002-1.030 [facility] Urine urobilinogen measureme ntOrdered By: Saida Ochoa on 09-07-2023 Urobilinogen Ql (U) Normal mg/dl Normal [facility] Culture, urineOrdered By: Aaron Hayes on 03-03-2023 Bacteria identified Cx Nom (U) Escherichia coli [facility] - Chemistry and C hemistry - challengeOrdered By: Juan Hairston on 03-03-2023 Free T4 [Mass/Vol] 1.02 ng/dL 0.76-1.46 [facility] No Panel InformationOrdered By: Juan Hairston on 03-03-2023 Thyroid Stimulating Hormone (TSH) 3.02 uIU/mL 0.358-3.74 [facility] Basophil percentageOrdered B y: Nnamdi Sellers on 11-23-2022 Basophil percentage < 0.9 mg/dL 0.70-1.30 [facility] - Chemistry and C hemistry - challengeOrdered By: Juan Hairston on 11-23-2022 Free T4 [Mass/Vol] 0.96 ng/dL 0.76-1.46 [facility] No Panel InformationOrdered By: Juan Hairston on 11-23-2022 Thyroid Stimulating Hormone (TSH) 1.72 uIU/mL 0.358-3.74 [facility] No Panel InformationOrdered By: Nnamdi Sellers on 11-23-2022 Bedside Estimated GFR (eGFR) > 60.0000 mL/min >60 [facility] Absolute lymphocyte countOrd ered By: Raymundo Myles on 10-08-2022 Lymphocytes Auto (Unsp spec) [#/Vol] 1.88 10*3/uL 0.83-4.51 [facility] Basophil percentageOrdered B y: Raymundo Myles on 10-08-2022 Basophil percentage >100 SEEN /hpf 0-5 [facility] Basophils/100 WBC (Bld) 0.4 % 0-1 [facility] Chloride [Moles/Vol] 103 mmol/L 98-107 [facility] Eosinophils/100 WBC (Bld) 0.8 % 0-5 [facility] Glucose [Mass/Vol] 95 mg/dL 74-106 [facility] Neutrophils (Bld) [#/Vol] 7.2 10*3/uL 2.0-7.7 [facility] Neutrophils/100 WBC (Bld) 72.2 % 47-70 [facility] Potassium [Moles/Vol] 3.7 mmol/L 3.5-5.1 [facility] Sodium [Moles/Vol] 137 mmol/L 136-145 [facility] WBC (Bld) [#/Vol] 10.0 10*3/uL 4.4-11.0 [facility] Bilirubin Test strip Ql (U)O rdered By: Raymundo Myles on 10-08-2022 Bilirubin Ql (U) Negative Negative [facility] Blood erythrocytes count (nu mber/volume)Ordered By: Raymundo Myles on 10-08-2022 RBC (Bld) [#/Vol] 3.96 10*6/uL 4.6-6.2 [facility] Blood hemoglobin measurement (mass/volume)Ordered By: Raymundo Myles on 10-08-2022 Hemoglobin (Bld) [Mass/Vol] 12.4 g/dL 13.0-16.5 [facility] Blood lymphocytes/100 leukoc ytesOrdered By: Raymundo Myles on 10-08-2022 Lymphocytes/100 WBC (Bld) 18.7 % 19-41 [facility] Blood monocytes/100 leukocyt esOrdered By: Raymundo Myles on 10-08-2022 Monocytes/100 WBC (Bld) 7.5 % 0-10 [facility] Blood platelet mean volumeOr dered By: Raymundo Myles on 10-08-2022 Platelet mean volume (Bld) [Entitic vol] 10.6 fL 6.2-12.0 [facility] Culture, urineOrdered By: Ralph Omer on 10-08-2022 Bacteria identified Cx Nom (U) Klebsiella pneumoniae sp pneum [facility] Determination of erythrocyte mean corpuscular volume (MCV)Ordered By: Raymundo Myles on 10-08-2022 MCV (RBC) [Entitic vol] 91.7 fL 80-94 [facility] Hematocrit Auto (Bld) [Volum e fraction]Ordered By: Raymundo Myles on 10-08-2022 Hematocrit (Bld) [Volume fraction] 36.3 % 40-54 [facility] INR in Blood by Coagulation assayOrdered By: Raymundo Myles on 10-08-2022 INR Coag (Bld) [Relative time] 1.7 {INR} [facility] Ketones Test strip Ql (U)Ord ered By: Raymundo Myles on 10-08-2022 Ketones Ql (U) 5 mg/dl Negative [facility] Laboratory - Chemistry and C hemistry - challengeOrdered By: Raymundo Myles on 10-08-2022 CO2 [Moles/Vol] 28.0 mmol/L 21.0-32.0 [facility] Urea nitrogen/Creatinine [Mass ratio] 14.8 mg/mg 10- [facility] Laboratory - CoagulationOrde red By: Raymundo Myles on 10-08-2022 aPTT Coag (Bld) [Time] 39.2 s 24.1-36.2 [facility] PT Coag (PPP) [Time] 20.1 s 11.7-14.9 [facility] Laboratory - Hematology and Cell countsOrdered By: Raymundo Myles on 10-08-2022 Erythrocyte distribution width (RBC) [Entitic vol] 43.0 fL 35.1-43.9 [facility] Erythrocyte distribution width (RBC) [Ratio] 13.0 % 11.6-14.6 [facility] Immature granulocytes/100 WBC (Bld) 0.400 % 0.0-0.9 [facility] Comment on above: IG% - Immature Granu locytes (promyelocytes, myelocytes and metamyelocytes) > 1% indicates that a LEFT SHIFT is Present. MCH (RBC) [Entitic mass] 31.3 pg 27.0-32.0 [facility] Nucleated RBC/100 WBC (Bld) [Ratio] 0 % 0-5 [facility] MCHC Auto (RBC) [Mass/Vol]Or dered By: Raymundo Myles on 10-08-2022 MCHC (RBC) [Mass/Vol] 34.2 g/dL 32-36 [facility] Mucus LM Ql (Urine sed)Order ed By: Raymundo Myles on 10-08-2022 Mucus Ql (Urine sed) 0 SEEN /hpf [facility] Nitrite Test strip Ql (U)Ord ered By: Raymundo Myles on 10-08-2022 Nitrite Ql (U) Negative Negative [facility] No Panel InformationOrdered By: Raymundo Myles on 10-08-2022 Estimated Creatinine Clearance Calc 52.48 ml/min [facility] Estimated GFR (MDRD) Amer 78 mL/min >60 [facility] Comment on above: GFR Calc Estimated GFR (MDRD) Non-Af Amer 64 mL/min >60 [facility] Comment on above: Non- GFR Calc Platelets bldOrdered By: Rito Myles on 10-08-2022 Platelets (Bld) [#/Vol] 185 10*3/uL 150-450 [facility] Protein Test strip Ql (U)Ord ered By: Raymundo Myles on 10-08-2022 Protein Ql (U) 500 mg/dl Negative [facility] Serum or plasma calcium mago urement (mass/volume)Ordered By: Raymundo Myles on 10-08-2022 Calcium [Mass/Vol] 8.4 mg/dL 8.5-10.1 [facility] Serum or plasma creatinine m easurement (mass/volume)Ordered By: Raymundo Myles on 10-08-2022 Creatinine [Mass/Vol] 1.15 mg/dL 0.70-1.30 [facility] Comment on above: The validity of the calculated GFR & GFRAA in patients over 70 years has not been determined. Clinical correlation is essential. Serum or plasma urea nitroge n measurement (mass/volume)Ordered By: Raymundo Myles on 10-08-2022 Urea nitrogen [Mass/Vol] 17 mg/dL 7-18 [facility] Squamous epithelial cells de tection in urine sediment by light microscopyOrdered By: Raymundo Myles on 10-08-2022 Epithelial cells.squamous LM Ql (Urine sed) 0 SEEN /hpf 0-5 [facility] Thin prep Papanicolaou smear with manual screeningOrdered By: Raymundo Myles on 10-08-2022 Thin prep Papanicolaou smear with manual screening 6 5-15 [facility] Urine blood detectionOrdered By: Raymundo Myles on 10-08-2022 RBC Ql (U) 250 /ul Negative [facility] RBC Ql (U) > 100 SEEN /hpf 0-5 [facility] Comment on above: Microscopic field is filled. Other elements may be obscured. Urine clarityOrdered By: Rito Myles on 10-08-2022 Clarity (U) Turbid Clear [facility] Urine color determinationOrd ered By: Raymundo Myles on 10-08-2022 Color (U) Red Yellow [facility] Urine glucose detectionOrder ed By: Raymundo Myles on 10-08-2022 Glucose Ql (U) Normal mg/dl Normal [facility] Urine leukocyte esterase det ection by dipstickOrdered By: Raymundo Myles on 10-08-2022 Leukocyte esterase Test strip Ql (U) 100 /ul Negative [facility] Urine pHOrdered By: Raymundo lechuga on 10-08-2022 pH (U) 7.0 [pH] 5.0 - 8.0 [facility] Urine sediment bacteria coun t by microscopy (number/high power field)Ordered By: Raymundo yMles on 10-08-2022 Bacteria LM.HPF (Urine sed) [#/Area] 4 /[HPF] None Seen [facility] Urine specific gravity measu rementOrdered By: Raymundo Myles on 10-08-2022 Specific gravity (U) [Rel density] 1.010 1.002-1.030 [facility] Urobilinogen Auto test strip Ql (U)Ordered By: Raymundo Myles on 10-08-2022 Urobilinogen Ql (U) Normal mg/dl Normal [facility] Basophil percentageOrdered B y: Dr. Hairston on 09-09-2022 Bilirubin [Mass/Vol] 0.50 mg/dL 0.20-1.00 [facility] Comment on above: For patients on eltr ombopag therapy, use of Dimension [place] TBIL is not recommended. Chloride [Moles/Vol] 105 mmol/L 98-107 [facility] Glucose [Mass/Vol] 88 mg/dL 74-106 [facility] Potassium [Moles/Vol] 3.9 mmol/L 3.5-5.1 [facility] Protein [Mass/Vol] 7.0 g/dL 6.4-8.2 [facility] Sodium [Moles/Vol] 134 mmol/L 136-145 [facility] Laboratory - Chemistry and C hemistry - challengeOrdered By: Dr. Hairston on 09-09-2022 ALP [Catalytic activity/Vol] 68 U/L 45-117 [facility] ALT [Catalytic activity/Vol] 17 U/L 16-61 [facility] CO2 [Moles/Vol] 25.0 mmol/L 21.0-32.0 [facility] Free T4 [Mass/Vol] 1.18 ng/dL 0.76-1.46 [facility] Globulin (S) [Mass/Vol] 3.4 g/dL 2.2-4.2 [facility] Magnesium [Mass/Vol] 2.2 mg/dL 1.6-2.6 [facility] Urea nitrogen/Creatinine [Mass ratio] 13.5 mg/mg 10-20 [facility] No Panel InformationOrdered By: Dr. Hairston on 09-09-2022 Estimated GFR (MDRD) Amer 81 mL/min >60 [facility] Comment on above: GFR Calc Estimated GFR (MDRD) Non-Af Amer 67 mL/min >60 [facility] Comment on above: Non- GFR Calc Free Triiodothyronine (T3) pg/dL 2.8 pg/mL 2.18-3.98 [facility] Thyroid Stimulating Hormone (TSH) 0.32 uIU/mL 0.358-3.74 [facility] Serum or plasma albumin mago urement (mass/volume)Ordered By: Dr. Hairston on 09-09-2022 Albumin [Mass/Vol] 3.6 g/dL 3.2-5.0 [facility] Serum or plasma albumin/glob ulin mass ratioOrdered By: Dr. Hairston on 09-09-2022 Albumin/Globulin [Mass ratio] 1.1 {ratio} 0.9-2.4 [facility] Serum or plasma calcium mago urement (mass/volume)Ordered By: Dr. Hairston on 09-09-2022 Calcium [Mass/Vol] 8.7 mg/dL 8.5-10.1 [facility] Serum or plasma creatinine m easurement (mass/volume)Ordered By: Dr. Hairston on 09-09-2022 Creatinine [Mass/Vol] 1.11 mg/dL 0.70-1.30 [facility] Comment on above: The validity of the calculated GFR & GFRAA in patients over 70 years has not been determined. Clinical correlation is essential. Serum or plasma urea nitroge n measurement (mass/volume)Ordered By: Dr. Hairston on 09-09-2022 Urea nitrogen [Mass/Vol] 15 mg/dL 7-18 [facility] Thin prep Papanicolaou smear with manual screeningOrdered By: Dr. Hairston on 09-09-2022 Thin prep Papanicolaou smear with manual screening 19 U/L 15-37 [facility] Thin prep Papanicolaou smear with manual screening 4 5-15 [facility] Thin prep Papanicolaou smear with manual screening 6.2 mg/L NO RANGE EST. [facility] Laboratory - Chemistry and C hemistry - challengeon 04-08-2022 Free T4 [Mass/Vol] 1.03 ng/dL 0.76-1.46 [facility] Work Phone: No Panel Informationon 04-08 Prostate Specific Antigen Screen < 0.01 ng/mL 0.00-4.00 [facility] Work Phone: Comment on above: This test was perfor med using the TPSA assay method for [employer] [employer] chemistry system. Values obtained with differentassay methods cannot be used interchangably.When changing PSA assays in the course of monitoring apatient, additional sequential testing should be carriedout to confirm baseline values. Thyroid Stimulating Hormone (TSH) 1.73 uIU/mL 0.358-3.74 [facility] Work Phone: Laboratory - Chemistry and C hemistry - challengeon 02-08-2022 Free T4 [Mass/Vol] 0.93 ng/dL 0.76-1.46 [facility] Work Phone: No Panel Informationon 02-08 Thyroid Stimulating Hormone (TSH) 3.83 uIU/mL 0.358-3.74 [facility] Work Phone: Laboratory - Chemistry and C hemistry - challengeon 11-12-2021 Free T4 [Mass/Vol] 0.86 ng/dL 0.76-1.46 [facility] Work Phone: No Panel Informationon 11-12 Thyroid Stimulating Hormone (TSH) 5.74 uIU/mL 0.358-3.74 [facility] Work Phone: Basophil percentageon 2021 Bilirubin [Mass/Vol] 0.70 mg/dL 0.20-1.00 [facility] Work Phone: Comment on above: For patients on eltr ombopag therapy, use of Dimension [place] TBIL is not recommended. Chloride [Moles/Vol] 105 mmol/L 98-107 [facility] Work Phone: Glucose [Mass/Vol] 79 mg/dL 74-106 [facility] Work Phone: Potassium [Moles/Vol] 3.9 mmol/L 3.5-5.1 [facility] Work Phone: [phone] Protein [Mass/Vol] 7.1 g/dL 6.4-8.2 [facility] Work Phone: Sodium [Moles/Vol] 137 mmol/L 136-145 [facility] Work Phone: [phone] Laboratory - Chemistry and C hemistry - challengeon 09-14-2021 ALP [Catalytic activity/Vol] 68 U/L 45-117 [facility] Work Phone: ALT [Catalytic activity/Vol] 20 U/L 16-61 [facility] Work Phone: CO2 [Moles/Vol] 28.0 mmol/L 21.0-32.0 [facility] Work Phone: Free T4 [Mass/Vol] 1.20 ng/dL 0.76-1.46 [facility] Work Phone: Globulin (S) [Mass/Vol] 3.5 g/dL 2.2-4.2 [facility] Work Phone: Magnesium [Mass/Vol] 2.2 mg/dL 1.6-2.6 [facility] Work Phone: Urea nitrogen/Creatinine [Mass ratio] 14.6 mg/mg 10-20 [facility] Work Phone: No Panel Informationon 09-14 Estimated GFR (MDRD) Amer 89 mL/min >60 [facility] Work Phone: Comment on above: GFR Calc Estimated GFR (MDRD) Non-Af Amer 73 mL/min >60 [facility] Work Phone: Comment on above: Non- GFR Calc Thyroid Stimulating Hormone (TSH) 0.18 uIU/mL 0.358-3.74 [facility] Work Phone: Serum or plasma albumin mago urement (mass/volume)on 09-14-2021 Albumin [Mass/Vol] 3.6 g/dL 3.2-5.0 [facility] Work Phone: Serum or plasma albumin/glob ulin mass ratioon 09-14-2021 Albumin/Globulin [Mass ratio] 1.0 {ratio} 0.9-2.4 [facility] Work Phone: Serum or plasma calcium mago urement (mass/volume)on 09-14-2021 Calcium [Mass/Vol] 8.5 mg/dL 8.5-10.1 [facility] Work Phone: Serum or plasma creatinine m easurement (mass/volume)on 09-14-2021 Creatinine [Mass/Vol] 1.03 mg/dL 0.70-1.30 [facility] Work Phone: Comment on above: The validity of the calculated GFR & GFRAA in patients over 70 years has not been determined. Clinical correlation is essential. 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 03-24-2017 Left ventricular Ejection fraction 65 % Invalid Interpretation Code [employer] [facility]: Office Visiton 04-01-2016 Documentation of current medications (procedure) Done Invalid Interpretation Code [employer]: [phone] Tobacco use CPHS Never smoker Invalid Interpretation Code [employer] Work Phone: [phone] Replaced Document: [place] E CG Observationson 08-28-2015 EKG QRS axis 2 deg Invalid Interpretation Code [employer] [facility]: [phone] Interpretation Sinus Bradycardia WITHIN NORMAL LIMITS Invalid Interpretation Code [employer] [facility]: [phone] P Weems 29 deg Invalid Interpretation Code [employer] Phone: [phone] WV Interval 192 ms Invalid Interpretation Code [employer] Phone: [phone] Pulse (Heart Rate) 56 /min Invalid Interpretation Code [employer] [facility]: [phone] QRS Duration 100 ms Invalid Interpretation Code [employer] Phone: [phone] QT Interval new path ms Invalid Interpretation Code [employer] Phone: [phone] QTc Weinberg 411 ms Invalid Interpretation Code [employer] Phone: [phone] T Weems 27 deg Invalid Interpretation Code [employer] Phone: [phone] Lab Report: CBC W/Diff, Auto matedon 09-04-2014 Absolute Neut 3.1 X10 3/UL Invalid Interpretation Code 2.0-7.7 [employer] Phone: [phone] Basophils/100 WBC Auto (Bld) 0.3 % Invalid Interpretation Code 0-1 [employer] Work Phone: [phone] Eosinophils/100 leukocytes 1.2 % Invalid Interpretation Code 0-5 [employer] Phone: [phone] Erythrocytes (RBC) 4.56 10*6/uL Critically low 4.6-6.2 [employer] Phone: [phone] Hematocrit (HCT) 40.6 % Invalid Interpretation Code 40-54 [employer] Phone: [phone] Hemoglobin mass conc (Bld) 13.9 g/dL Invalid Interpretation Code 13.0-16.5 [employer] Phone: [phone] Lymphocytes 2.10 X10 3/UL Invalid Interpretation Code 0.83-4.51 [employer] Phone: [phone] Lymphocytes/100 leukocytes 36.1 % Invalid Interpretation Code 19-41 [employer] Phone: [phone] MCH 30.5 pg Invalid Interpretation Code 27.0-32.0 [employer] Phone: [phone] MCHC mass conc (RBC) 34.2 G/GL Invalid Interpretation Code 32-36 [employer] Phone: [phone] MCV 89.0 fL Invalid Interpretation Code 80-94 [employer] Phone: [phone] Monocytes/100 leukocytes 8.4 % Invalid Interpretation Code 0-10 [employer] Phone: [phone] Neutrophils/100 WBC Auto (Bld) 53.8 % Invalid Interpretation Code 47-70 [employer] Phone: [phone] Platelets 186 10*3/mm3 Invalid Interpretation Code 150-450 [employer] Phone: [phone] PMV by Bev 11.1 fL Invalid Interpretation Code 6.2-12.0 [employer] Phone: [phone] WBC (Leukocytes) 5.8 10*3/uL Invalid Interpretation Code 4.4-11.0 [employer] Phone: [phone] Office Visiton 09-04-2014 cardiac risk group B Invalid Interpretation Code [employer] Phone: [phone] Dietary management education, guidance, and counseling (procedure) yes Invalid Interpretation Code [employer] Phone: [phone] General cardiovascular disease 10Y risk [#] Grant 33 % Invalid Interpretation Code [employer] Phone: [phone] Lab Report: BMP - copyon Calcium 8.4 mg/dL Low 8.5-10.1 [facility] [facility] Work Phone: [phone] Chloride 104 mmol/L Normal 98-107 [facility] [employer] Work Phone: [phone] Creatinine 1.1 mg/dL Normal 0.8-1.3 [facility] [employer] Work Phone: [phone] Glucose mass conc 85 mg/dL Normal 70-110 [place] [employer] Work Phone: [phone] Potassium molar conc 3.9 mmol/L Normal 3.5-5.1 [employer] Work Phone: [phone] Sodium 137 mmol/L Normal 136-145 [employer] Work Phone: [phone] Urea nitrogen 16 mg/dL Normal 7-18 [place] [employer] Work Phone: [phone] Lab Report: MG - copyon 03-22 Magnesium 1.8 mg/dL Normal 1.8-2.4 [facility] Work Phone: [phone]) Lab Report: MIACRE- copyon 1 06-08-2012 Urine, creatinine 66.2 mg/dL Normal NO RANGE EST. [employer] [employer] Work Phone: [phone] Lab Report: TSH - copyon Thyroid stimulating hormone (TSH) 0.60 u[iU]/mL Normal 0.358-3.74 [facility] Work Phone: [phone] Lab Reporton 08-18-2011 Anion gap 8 mmol/L Invalid Interpretation Code [employer] Work Phone: [phone] BUN/Creatinine Ratio 13.6 mg/mg Invalid Interpretation Code [employer] Work Phone: [phone] CO2 28.0 mmol/L Invalid Interpretation Code [employer] Work Phone: [phone] Lab Reporton 01-25-2011 Cholesterol 171 mg/dL Invalid Interpretation Code [facility] Work Phone: [phone] HDL Cholesterol 30 mg/dL Invalid Interpretation Code [facility] Work Phone: [phone] LDL Cholesterol 109 mg/dL Invalid Interpretation Code [employer] Work Phone: Triglyceride 161 mg/dL Invalid Interpretation Code [facility] Work Phone: [phone] very low density lipoproteins 32 mg/dL Invalid Interpretation Code [facility] Work Phone: [phone] Lab Reporton 01-24-2011 basophils as percent of blood leukocytes, manual count 0.5 % Invalid Interpretation Code [facility] Work Phone: [phone] eosinophils as percent of blood leukocytes, manual count 1.5 % Invalid Interpretation Code [facility] Work Phone: [phone] neutrophils, band form as percent of blood leukocytes, manual count 67.2 % Invalid Interpretation Code [facility] Work Phone: [phone] Vital Signs Date Time Vital Sign Value Performing Clinician [facility] 09-11-2023 13:20-0400 Body height 182.[address] Juan Hairston Work Phone: [facility] 09-11-2023 13:20-0400 Body mass index (BMI) [Ratio] 24.8 kg/m2 Dr. Juan Hairston Work Phone: [facility] 09-11-2023 13:20-0400 Body weight [address] Juan Hairston Work Phone: [facility] 09-11-2023 13:20-0400 Diastolic blood pressure 83 mm[Hg] Dr. Juan Hairston Work Phone: [facility] 09-11-2023 13:20-0400 Heart rate 63 /min Dr. Juan Hairston Work Phone: [facility] 09-11-2023 13:20-0400 Respiratory rate 16 /min Dr. Juan Hairston Work Phone: [facility] 09-11-2023 13:20-0400 Systolic blood pressure 143 mm[Hg] Dr. Juan Hairston Work Phone: [facility] 09-07-2023 16:52-0400 Body temperature 97.6 [degF] [facility] 09-07-2023 16:52-0400 Diastolic blood pressure 86 mm[Hg] [facility] 09-07-2023 16:52-0400 Heart rate 54 /min [facility] 09-07-2023 16:52-0400 Respiratory rate 14 /min [facility] 09-07-2023 16:52-0400 SaO2% (BldA) [Mass fraction] 99 % [facility] 09-07-2023 16:52-0400 Systolic blood pressure 147 mm[Hg] [facility] 09-07-2023 13:55-0400 Body height 182.88 cm [facility] 09-07-2023 13:55-0400 Body mass index (BMI) [Ratio] 25 kg/m2 [facility] 09-07-2023 13:55-0400 Body weight 83.63 kg [facility] 10-08-2022 06:21-0400 Diastolic blood pressure 71 mm[Hg] [facility] 10-08-2022 06:21-0400 Heart rate 55 /min [facility] 10-08-2022 06:21-0400 Respiratory rate 15 /min [facility] 10-08-2022 06:21-0400 SaO2% (BldA) [Mass fraction] 98 % [facility] 10-08-2022 06:21-0400 Systolic blood pressure 143 mm[Hg] [facility] 10-08-2022 02:14-0400 Body height 182.88 cm [facility] 10-08-2022 02:14-0400 Body mass index (BMI) [Ratio] 25.3 kg/m2 [facility] 10-08-2022 02:14-0400 Body temperature 97.2 [degF] [facility] 10-08-2022 02:14-0400 Body weight 84.7 kg [facility] 12-27-2021 10:17-0400 Body height 182.[address] Juan Hairston Work Phone: [facility] Work Phone: 12-27-2021 10:17-0400 Body mass index (BMI) [Ratio] 25.2 kg/m2 Dr. Juan Hairston Work Phone: [facility] Work Phone: 12-27-2021 10:17-0400 Body weight 84.[address] Juan Hairston Work Phone: [facility] Work Phone: 12-27-2021 10:17-0400 Diastolic blood pressure 72 mm[Hg] Dr. Juan Hairston Work Phone: [facility] Work Phone: 12-27-2021 10:17-0400 Heart rate 58 /min Dr. Juan Hairston Work Phone: [facility] Work Phone: 12-27-2021 10:17-0400 Respiratory rate 16 /min Dr. Juan Hairston Work Phone: [facility] Work Phone: 12-27-2021 10:17-0400 Systolic blood pressure 138 mm[Hg] Dr. Juan Hairston Work Phone: [facility] Work Phone: 10-11-2021 09:43-0400 Body height 182.[address] Juan Hairston Work Phone: [facility] Work Phone: 10-11-2021 09:43-0400 Body mass index (BMI) [Ratio] 25.2 kg/m2 Dr. Juan Hairston Work Phone: [facility] Work Phone: 10-11-2021 09:43-0400 Body weight 84.[address] Juan Hairston Work Phone: [facility] Work Phone: 10-11-2021 09:43-0400 Diastolic blood pressure 75 mm[Hg] Dr. Juan Hairston Work Phone: [facility] Work Phone: 10-11-2021 09:43-0400 Heart rate 61 /min Dr. Juan Hairston Work Phone: [facility] Work Phone: 10-11-2021 09:43-0400 Respiratory rate 18 /min Dr. Juan Hairston Work Phone: [facility] Work Phone: 10-11-2021 09:43-0400 SaO2% (BldA) [Mass fraction] 97 % Dr. Juan Hairston Work Phone: [facility] Work Phone: 10-11-2021 09:43-0400 Systolic blood pressure 137 mm[Hg] Dr. Juan Hairston Work Phone: [facility] Work Phone: 10-11-2021 09:43-0400 Body height 182.[address] Juan Hairston Work Phone: [facility] Work Phone: 10-11-2021 09:43-0400 Body mass index (BMI) [Ratio] 25.2 kg/m2 Dr. Juan Hairston Work Phone: [facility] Work Phone: 10-11-2021 09:43-0400 Body weight 84.[address] Juan Hairston Work Phone: [facility] Work Phone: 10-11-2021 09:43-0400 Diastolic blood pressure 75 mm[Hg] Dr. Juan Hairston Work Phone: [facility] Work Phone: 10-11-2021 09:43-0400 Heart rate 61 /min Dr. Juan Hairston Work Phone: [facility] Work Phone: 10-11-2021 09:43-0400 Respiratory rate 18 /min Dr. Juan Hairston Work Phone: [facility] Work Phone: 10-11-2021 09:43-0400 SaO2% (BldA) [Mass fraction] 97 % Dr. uJan Hairston Work Phone: [facility] Work Phone: 10-11-2021 09:43-0400 Systolic blood pressure 137 mm[Hg] Dr. Juan Hairston Work Phone: [facility] Work Phone: 04-01-2016 14:33-0500 BMI (Body Mass Index) 24.27 kg/m2 [facility] Work Phone: 04-01-2016 14:33-0500 BP Diastolic 80 mm[Hg] Faustina Vaz RN [facility] Work Phone: 04-01-2016 14:33-0500 BP Systolic 140 mm[Hg] Faustina Vaz RN [facility] Work Phone: 04-01-2016 14:33-0500 BSA (Body Surface Area) 2.08 m2 Faustina Vaz RN [facility] Work Phone: 04-01-2016 14:33-0500 Height 185.42 cm Faustina Vaz RN [facility] Work Phone: 04-01-2016 14:33-0500 Pulse (Heart Rate) 58 /min [facility] Work Phone: 04-01-2016 14:33-0500 Respiratory Rate 16 /min [facility] Work Phone: 04-01-2016 14:33-0500 Weight 83.46 kg Faustina Vaz RN [facility] Work Phone: Encounters Encounter Date Encounter Type Care Provider Facility Start: 12-19-2024 End: 12-19-[address] Juan Hairston MD Work Phone: -[facility] Start: 12-19-2024 End: 12-19-[address] Juan Hairston MD -[facility] Work Phone: Start: 12-19-2024 End: 12-19-2024 ambulatory Juan Hairston Facility:[facility] Start: 03-27-2024 End: 03-27-2024 ambulatory Juan Hairston Facility:[facility] Start: 02-15-2024 End: 02-15-2024 ambulatory Cesar Johnson Facility:[facility] Start: 01-24-2024 End: 01-24-2024 ambulatory Gregorio Back Facility:[facility] Start: 09-15-2023 End: 09-15-[address] Juan Hairston Work Phone: [facility] Work Phone: Start: 09-15-2023 End: 09-15-[address] Juan Hairston Work Phone: [facility] Work Phone: Start: 09-11-2023 End: 09-11-[address] Juan Hairston Work Phone: [facility] Work Phone: Start: 09-07-2023 End: 09-07-2023 Emergency department patient visit [facility] Work Phone: Start: 03-03-2023 End: 03-03-2023 ambulatory [facility] Work Phone: Start: 03-03-2023 End: 03-03-2023 Patient encounter procedure [facility] Start: 11-23-2022 End: 11-23-2022 ambulatory [facility] Work Phone: Start: 11-23-2022 End: 11-23-2022 Patient encounter procedure [facility] Work Phone: Start: 10-08-2022 End: 10-08-2022 Emergency department patient visit [facility]Emergency Department Work Phone: Start: 09-09-2022 End: 09-09-2022 ambulatory [facility] Work Phone: Start: 09-09-2022 End: 09-09-2022 Patient encounter procedure [facility] Start: 04-08-2022 End: 04-08-[address] Juan Hairston Work Phone: [facility] Work Phone: Start: 04-08-2022 End: 04-08-[address] Juan Hairston Work Phone: [facility] Start: 02-08-2022 End: 02-08-[address] Juan Hairston Work Phone: [facility] Work Phone: Start: 02-08-2022 End: 02-08-[address] Juan Hairston Work Phone: [facility] Start: 12-27-2021 End: 12-27-[address] Juan Hairston Work Phone: [facility] Start: 11-12-2021 End: 11-12-[address] Juan Hairston Work Phone: [facility] Start: 11-09-2021 Non-patient / Non-visit Dr. Enrique Hairston Work Phone: [facility] Start: 11-09-2021 End: 11-09-[address] Juan Hairston Work Phone: [facility]-Cardiovascular Services Start: 10-20-2021 End: 10-20-[address] Juan Hairston Work Phone: [facility]-Pulmonary Services/Neurology Start: 10-11-2021 End: 10-11-[address] Juan Hairston Work Phone: [facility] Start: 09-14-2021 End: 09-14-2021 Patient encounter procedure [facility] Start: 10-22-2015 End: 10-22-2015 Telephone encounter Jerrica HAQ Work Phone: Audiology Comment on above: Patient Update Procedures Date Procedure Procedure Detail Performing Clinician Start: 09-07-2023 CT of head without contrast Start: 03-03-2023 Urine culture Start: 11-23-2022 Computed tomography of abdomen and pelvis with contrast Start: 10-08-2022 Urine culture Start: 04-01-2016 End: 04-01-2016 BRANDON Jamison MD Start: 04-01-2016 End: 04-01-2016 Follow Up Appt 6 months Nisha Fu Start: 08-28-2015 End: 08-28-2015 BRANDON Jamison MD Start: 08-28-2015 End: 08-28-2015 Ecg routine ecg w/least 12 lds w/i&r Navid Jamison MD Start: 08-28-2015 End: 08-28-2015 Follow Up Appt 6 months Nisha Fu Start: 09-04-2014 End: 09-04-2014 *CBC with Differential Navid Jamison MD Start: 09-04-2014 End: 09-05-2014 Documentation of current medications Navid Jamison MD Start: 03-18-2014 End: 03-18-2014 BRANDON Jamison MD Start: 03-18-2014 End: 03-24-2014 Obdulia Jamison MD Start: 03-18-2014 End: 03-18-2014 Follow Up Appt 6 months Nisha Fu Start: 09-05-2013 End: 09-12-2013 Ambulatory BP Monitor 24 HR Navid Chavis i, MD Start: 09-05-2013 End: 09-05-2013 BRANDON Jamison MD Start: 09-05-2013 End: 09-05-2013 Follow Up Appt 6 months Nisha Fu Start: 07-09-2013 End: 07-09-2013 BRANDON Jamison MD Start: 07-09-2013 End: 07-09-2013 Follow Up Appt 6 months Nisha Fu Start: 04-09-2013 End: 05-16-2013 24 hour holter monitor Navid Jamison MD Start: 04-09-2013 End: 04-09-2013 BRANDON Jamison MD Start: 04-09-2013 End: 04-09-2013 Ecg routine ecg w/least 12 lds w/i&r Navid Jamison MD Start: 04-09-2013 End: 04-12-2013 Echocardiography Navid Jamison MD Start: 04-09-2013 End: 04-09-2013 Follow Up Appt 3 months Nisha Fu Start: 01-31-2012 End: 01-31-2012 Follow Up Appt 1 year Navid Jamison MD Start: 2011 End: 11-15-2011 24 hour holter monitor Navid Jamison MD Start: 2011 End: 2011 Follow Up Appt 3 months Nisha Fu Start: 2011 End: 11-08-2011 Stress Echocardiogram (treadmill) Navid Jamison MD Plan of Treatment Date Care Activity Detail Author Start: 09-07-2023 [facility] Start: 10-08-2022 Removal of urinary catheter [facility] Start: 01-20-2021 Influenza vaccination INFLUENZA (Season Ended) Wesley Jennings karen Start: 03-28-2017 End: 03-28-2017 Appointment Appointment [facility] Work Phone: Start: 04-01-2016 End: 04-01-2016 [employer] Work Phone: Start: 04-01-2016 End: 04-01-2016 Follow Up Appt 6 months Follow Up Appt 6 months [facility] Work Phone: Start: 08-28-2015 End: 08-28-2015 Carotid duplex Carotid duplex [facility] Work Phone: Start: 08-28-2015 End: 08-28-2015 ROUGE PRESSER R[employer] PR[employer]ER [facility] Work Phone: Start: 08-28-2015 End: 08-28-2015 Ecg routine ecg w/least 12 lds w/i&r EKG (In office) [facility] Work Phone: Start: 08-28-2015 End: 08-28-2015 Follow Up Appt 6 months Follow Up Appt 6 months [facility] Work Phone: Start: 09-04-2014 End: 09-04-2014 *CBC with Differential *CBC with Differential [facility] Work Phone: Start: 09-04-2014 End: 09-04-2014 ROUGE PRESSER ROUGE PRESSER [facility] Work Phone: Start: 09-04-2014 End: 09-04-2014 Follow Up Appt 1 year Follow Up Appt 1 year [facility] Work Phone: Start: 03-18-2014 End: 03-18-2014 ROUGE PRESSER ROUGE PRESSER [facility] Work Phone: Start: 03-18-2014 End: 03-18-2014 Echocardiography Echocardiogram (complete) [facility] Work Phone: Start: 03-18-2014 End: 03-18-2014 Follow Up Appt 6 months Follow Up Appt 6 months [facility] Work Phone: Start: 09-05-2013 End: 09-05-2013 Ambulatory BP Monitor 24 HR Ambulatory BP Monitor 24 HR [facility] Work Phone: Start: 09-05-2013 End: 09-05-2013 ROUGE PRESSER R[employer] PR[employer]ER [facility] Work Phone: Start: 09-05-2013 End: 09-05-2013 Follow Up Appt 6 months Follow Up Appt 6 months [facility] Work Phone: Start: 07-09-2013 End: 07-09-2013 ROUGE PRESSER R[employer]GE PRESSER [facility] Work Phone: Start: 07-09-2013 End: 07-09-2013 Follow Up Appt 6 months Follow Up Appt 6 months [facility] Work Phone: Start: 04-09-2013 End: 04-09-2013 24 hour holter monitor 24 hour holter monitor [facility] Work Phone: Start: 04-09-2013 End: 04-09-2013 ROUGE PRESSER R[employer] PR[employer]ER [facility] Work Phone: Start: 04-09-2013 End: 04-09-2013 Ecg routine ecg w/least 12 lds w/i&r EKG (In office) [facility] Work Phone: Start: 04-09-2013 End: 04-09-2013 Echocardiography Echocardiogram (complete) [facility] Work Phone: Start: 04-09-2013 End: 04-09-2013 Follow Up Appt 3 months Follow Up Appt 3 months [facility] Work Phone: Start: 01-31-2012 End: 01-31-2012 Follow Up Appt 1 year Follow Up Appt 1 year [facility] Work Phone: Start: 2011 End: 2011 24 hour holter monitor 24 hour holter monitor [facility] Work Phone: Start: 2011 End: 2011 Follow Up Appt 3 months Follow Up Appt 3 months [facility] Work Phone: Start: 2011 End: 2011 Stress Echocardiogram (treadmill) Stress Echocardiogram (treadmill) [facility] Work Phone: Start: 2002 ADVANCE DIRECTIVE DISCUSSION ADVANCE DIRECTIVE DISCUSSION [facility] Start: 2002 PNEUMOVAX AGE 65 AND OVER WITH 5YR LOOKBACK (#1) PNEUMOVAX AGE 65 AND OVER WITH 5YR LOOKBACK (#1) [facility] Start: 10-29-1987 SHINGRIX VACCINE (1 of 2) SHINGRIX VACCINE (1 of 2) [facility] Start: 1982 DIABETES SCREEN DIABETES SCREEN [facility] Start: 1956 Urine microalbumin profile DTAP,TDAP,TD (1 - Tdap) [facility] Colonoscopy [facility] Patient Education [facility] Work Phone: Patient referral [facility] Work Phone: Payers Date Payer Category Payer Self-pay [id number] 2023 Private Health Insurance [id number] 2015 Medicare [employer] MEDICARE MELVI CHOICE PPO [id number] 2015-2018 PPO [id number] 2014 Medicare [id number] Unknown [id number] Unknown [id number] Unknown [id number] Unknown [id number] Social History Date Type Detail Facility Start: 09-29-2011 [facility] Start: 09-29-2011 Alcohol intake Current drinke r of alcohol (finding) [facility] Start: 1935 Sex Assigned At Not on file [facility] Start: 04-24-2021 End: 09-07-2023 Tobacco smoking status ORIS Unknown if ever smoked [facility] Start: 11-19-2020 None [facility] Start: 11-19-2020 Non-smoker [facility] Start: 1935 Sex Assigned At Male [facility] Start: 10-04-2023 Tobacco smoking stat [facility] Never smoked tobacco (finding) [facility] Discharge instructions 09-07-2023 Note Date & Type Note Facility 09-07-2023 Hospital Discharg e instructions Additional Instructions Your lab work and CAT scan were normal. Start amlodipine 5 mg daily. Continue losartan and digoxin. Monitor your blood pressure at home and keep a log to take to your next appointment with Dr. Hairston. Follow-up with Dr. Hairston in 1 to 2 weeks. Return to ED for worsening or concerning symptoms. [facility] Work Phone: Note 10-22-2015 Telephone Encounter - Kristi Burger - 10/22/2015 9:52 AM EDT Note Date & Type Note Facility 10-22-2015 Miscellaneous Notes Patient calling to let you know that he is rethinking his options and is looking at [employer] hearing aids. He has cancelled his appointment until he rethinks his options. He is asking if you have any input on the [employer] hearing aids he would appreciate you calling him at [phone]. Thank you documented in this encounter [facility] Evaluation note Note Date & Type Note Facility Evaluation note No assessment information availa ble [facility] Work Phone: Evaluation note Note Date & Type Note Facility Evaluation note Diagnosis Onset Date Essential (primary) hypertension chronic Paroxysmal atrial fibrillation chronic [facility] Work Phone: Evaluation note Note Date & Type Note Facility Evaluation note Diagnosis Onset Date Essential (primary) hypertension chronic Paroxysmal atrial fibrillation chronic Cardiac murmur noneactive [facility] Work Phone: Evaluation note Note Date & Type Note Facility Evaluation note Diagnosis Onset Date Personal history of colonic polyps acute [facility] Work Phone: Reason for referral (narrative) Note Date & Type Note Facility Reason for referral (narrative) No reason for referral information available [facility] Work Phone: Advance Directives No Advanced Directives Records FoundDocuments on File Type Date 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 Advance Directive(s) 10/03/2011 4:33 PM Advance Directive Response Recorded Date/ Time Living Will No April 24 10:26am Power of Wood Lathe Operator No April 24, 2021 10:26am Advance Directive Response Recorded Date/ Time Living Will No April 24 9:26am Power of Wood Lathe Operator No April 24, 2021 9:26am Advance Directive Response Recorded Date/ Time Name of Medical Power of Wood Lathe Operator NICHOLE TELLEZ October 08, 2022 2:17am Living Will Yes October 08, 2022 2 :17am Power of Wood Lathe Operator Yes October 08, 2022 2:17am Advance Directive Response Recorded Date/ Time Living Will Yes October 08, 2022 2 :17am Power of Wood Lathe Operator Yes October 08, 2022 2:17am Advance Directive Response Recorded Date/ Time Living Will No September 07, 2023 1:53pm Power of Wood Lathe Operator No September 06 1:53pm Chief Complaint and Reason for Visit Chief Complaint EORDER Chief Complaint EORDER 6-9 M FU/WE RS FROM ROUGE PRESSER 4/7 MURMUR Reason for Visit Essential (primary) hypertension Paroxysmal atrial fibrillation Chief Complaint EORDER 6-9 M FU/WE RS FROM ROUGE PRESSER 4/7 MURMUR AFIB E ORDER Reason for Visit Essential (primary) hypertension Paroxysmal atrial fibrillation Cardiac murmur Chief Complaint MURMUR AFIB E ORDER 3 M FU EORDER Reason for Visit Essential (primary) hypertension Paroxysmal atrial fibrillation Cardiac murmur Chief Complaint 3 M FU EORDER EORDERS- THYROID-CAYDEN/ PSA-LANEY Reason for Visit Essential (primary) hypertension Paroxysmal atrial fibrillation Cardiac murmur Chief Complaint hematuria GROSS HEMATURIA Chief Complaint GROSS HEMATURIA Chief Complaint sob Chief Complaint sob C-SCOPE Reason for Visit Personal history of colonic polyps Family History No Family History Records Found Relationship Condition Age at Onset Recorded Date/T lorena brother Malignant neoplasm of colon Unknown Hypertension Unknown father Hypertension Unknown Malignant neoplasm Unknown mother Hypertension Unknown brother Hypertension Unknown sister Malignant neoplasm of breast Unknown sister Malignant neoplasm Unknown Summary Purpose Additional Source Comments Source Comments (unrecognize d section and content) In the event this informatio n is protected by the Federal Confidentiality of Alcohol and Drug Abuse Patient Records regulations: The Federal rules restrict any use of the information to criminally investigate or prosecute any alcohol or drug abuse patient.[facility] Reason for Visit (unrecogniz ed section and content) Reason Onset Date Comments Patient Update 10/22/2015 Goals (unrecognized section and content) Goals may be documented in a n alternate sectionGoals may be documented in an alternate sectionGoals may be documented in an alternate sectionGoals may be documented in an alternate sectionGoals may be documented in an alternate sectionGoals may be documented in an alternate sectionGoals may be documented in an alternate sectionGoals may be documented in an alternate sectionGoals may be documented in an alternate sectionGoals may be documented in an alternate sectionGoals may be documented in an alternate sectionGoals may be documented in an alternate section Care Teams (unrecognized sec tion and content) Team Status: Active Member Role Status Dates Dr. Juan Hairston MD Family Provider Active Dr. Juan Hairston MD Primary Care Provider Active Team Status: Inactive Member Role Status Dates Dr. Juan Hairston MD Primary Care Provider, Attending Alesia orellana Active Team Status: Inactive Member Role Status Dates Dr. Juan Hairston MD Primary Care Provider Active Dr. Raymundo Myles MD Attending Provider, Emergency Provider Active Team Status: Inactive Member Role Status Dates Dr. Juan Hairston MD Primary Care Provider, Other Provi delmi Active Dr. Nnamdi Sellers MD Attending Provider, Referr ing Provider Active Team Status: Inactive Member Role Status Dates Dr. Juan Hairston MD Primary Care Provider Active Nell Hayes MD Attending Provider Active Team Status: Inactive Member Role Status Dates Dr. Juan Hairston MD Primary Care Provider Active Dr. Saida Ochoa MD Emergency Provider Active Team Status: Inactive Member Role Status Dates Dr. Juan Hairston MD Primary Care Provider, Referring P rovider Active Dr. eCsar Johnson MD Attending Provider Active Team Status: Inactive Member Role Status Dates Dr. Juan Hairston MD Primary Care Provide r, Attending Provider, Referring Provider Active Team Status: Inactive Member Role Status Dates Dr. Juan Hairston MD Primary Care Provider Active Dr. Saida Ochoa MD Attending Provider, Emergency Provider Active Team Status: Active Member Role/Relationship Status Dates Dr. Juan Hairston MD Family Provider Active Dr. Juan Hairston MD Primary Care Provider Active Team Status: Inactive Member Role/Relationship Status Dates Dr. Juan Hairston MD Primary Care Provider Active Start: December 19, 2024 End: December 19, 2024 Dr. Juan Hairston MD Attending Provider Active St art: December 19, 2024 End: December 19, 2024 Dr. Juan Hairston MD Referring Provider Active St art: December 19, 2024 End: December 19, 2024 (unrecognized sect ion and content) No Status Records Found INFORMATION SOURCE (unrecogn ized section and content) DATE CREATED AUTHOR 01/06/2025 [facility] FOR RECORDS PERTAINING TO PATIENTS WHO ARE OR HAVE BEEN ENROLLED IN A CHEMICAL DEPENDENCY/SUBSTANCEABUSE PROGRAM, SOME INFORMATION MAY BE OMITTED. This clinical summary was aggregated from multiple sources. Caution should be exercised in using it in the provision of clinical care. This summary normalizes information from multiple sources, and as a consequence, information in this document may materially change the coding, format and clinical context of patient data. In addition, data may be omitted in some cases. CLINICAL DECISIONS SHOULD BE BASED ON THE PRIMARY CLINICAL RECORDS. [employer] provides no warranty or guarantee of the accuracy or completeness of information in this document.
[2025-02-21 04:16] LABS: Mucous, Urine 0 SEEN /hpf (<or=2+); Red Blood Cells-Urine 0 SEEN /hpf (0-5); Squamous Epithelial Cells - UA 0 SEEN /hpf (0-5)
[2025-02-21 04:17] LABS: Color, Urine Yellow (Yellow); Glucose, Dipstick Normal (Normal); Ketone-Dipstick Negative (Negative); Leukocyte Esterase-Dipstick Negative /ul (Negative); Nitrite-Dipstick Negative (Negative); Occult Blood-Urine 150 /ul (Negative); Protein-Dipstick 15 mg/dl (Negative); Specific Gravity, Urine 1.010 (1.002-1.030); Urine Bilirubin Dipstick Negative (Negative)
[2025-02-21 04:22] LABS: AST(SGOT) 19 U/L (<=37); Alanine Aminotransfer ALT/SGPT 10 U/L (<=46); Albumin, Serum 4.0 g/dL (3.4-4.8); Alkaline Phosphatase 104 U/L (40-129); Anion Gap 12 (5-15); BUN 19 mg/dL (4-19); BUN/Creat Ratio 20.4 RATIO (10-20); Bilirubin, Direct 0.14 mg/dL (0.00-0.30); Calcium,Total 8.8 mg/dL (7.6-11.0); Carbon Dioxide 23.9 mmol/L (21.0-32.0); Chloride 100 mmol/L (98-108); Estimated Creatinine Clearance 58.26 ml/min (50-250); Globulin 2.6 g/dL (2.2-4.2); Glucose 156 mg/dL (70-99); Magnesium 2.0 mg/dL (1.5-2.2); Potassium 3.9 mmol/L (3.3-5.1)
[2025-02-21 04:42] LABS: Ammonia 13.8 umol/L (16-60)
--- NOTE | 2025-02-21 05:16 | EX.ED.DYSGE1 ---
HPI History of Present Illness Chief Complaint: Confusion Informant: patient Narrative Narrative: Patient is an 89-year-old male with past medical history of hypertension hypothyroidism and paroxysmal atrial fibrillation currently on Xarelto. He states he was up this morning and just did not feel right. He states he felt confused. He states that he did not notice any focal extremity weakness or slurred speech but reports he just felt off which concerned him for potential stroke as he does have a history of atrial fibrillation and therefore he comes in for evaluation [facility] Medical History (Updated 02/25/25 @ 02:[address] Satnam Roberts, DO) Wears hearing aid Wears dentures Wears glasses Cancer Thyroid disease Bladder disease Non-smoker History of echocardiogram Cardiology follow-up encounter Hypothyroidism Essential (primary) hypertension Personal history of colonic polyps Nonrheumatic aortic (valve) insufficiency Paroxysmal atrial fibrillation Palpitations Orthostatic syncope Bradycardia TIA (transient ischemic attack) Prostate cancer Home Medications ?Medication ?Instructions ?Recorded ?Last Taken ?Type rivaroxaban 20 mg tablet 20 mg PO DAILY #90 tabs 12/01/21 Unknown Rx levothyroxine 125 mcg tablet 125 mcg PO .COMPLEX 12/27/21 10/09/23 05:00 History losartan 100 mg tablet 100 mg PO DAILY #90 tabs 11/17/22 10/09/23 05:00 Rx amlodipine 5 mg tablet 5 mg PO DAILY #30 tabs 09/07/23 10/09/23 05:00 Rx digoxin 125 mcg (0.125 mg) tablet 125 mcg PO QDAY 09/11/23 10/09/23 05:00 History docusate sodium 100 mg capsule 100 mg PO BID PRN constipation 09/11/23 Unknown History (Colace) levothyroxine 137 mcg tablet 137 mcg PO QODAY 10/04/23 10/09/23 05:00 History Allergy/AdvReac Type Severity Reaction Status Date / Time No Known Allergies Allergy Verified 02/21/25 03:36 Family History Brother Colon cancer Hypertension Father Hypertension Cancer leukemia Mother Hypertension Brother Hypertension Cancer lung cancer Sister Breast cancer Sister Cancer ovarian cancer Surgical History History of colonoscopy History of prostatectomy History of thyroidectomy Social History (Reviewed 09/11/23 @ 13:20 by Narcisa Maxwell Smoking Status: Never smoker alcohol intake: never substance use type: does not use caffeine: Yes Type: coffee what type of physical activity do you participate in: walking frequency: daily duration: 30-45 minutes/day seatbelt use: always do you feel safe at home: Yes ROS ROS ED Constitutional Constitutional ED: Denies chills or fever(s) Eyes Eyes: Denies blurry vision or change in vision ENT ENT ED: Denies sore throat Cardiovascular Cardiovascular: Denies chest pain, palpitations or racing heartbeat Respiratory/Chest Respiratory/Chest: Denies cough or dyspnea Gastrointestinal Gastrointestinal: Denies abdominal pain, diarrhea, nausea or vomiting Genitourinary Genitourinary ED: Denies dysuria Musculoskeletal Musculoskeletal: Denies myalgias Integumentary Denies rash Neurologic Neurologic: Reports other Details: Positive confusion ; Denies headache(s), paresthesias or weakness Hematologic/Lymphatic Hematologic/Lymphatic: Reports easy bleeding and easy bruising EXAM Physical Exam Const Vital Signs: 02/21/25 03:36 Temperature 97.8 F Temperature Source Oral Pulse Rate 92 Respiratory Rate 18 Blood Pressure 137/88 H Blood Pressure Mean 104 Pulse Ox 99 Oxygen Delivery Method Room Air Positive well nourished and well developed General Appearance ED: well developed; Negative for pallor HEENT HEENT Narrative: Normocephalic atraumatic No tongue or lip swelling no oral lesions no airway edema or compromise; no secondary findings in the posterior pharynx to suggest infection No tongue or cheek biting is just seizure activity Eyes PERRL and EOMs intact bilaterally General Eye ED: Negative for scleral icterus Neck supple Neck Narrative: No nuchal rigidity or meningeal signs noted Resp normal respiratory effort and clear to auscultation bilaterally Cardio regular rate and regular rhythm Rate: other Other Details: Radial and carotid pulses are equal and symmetric GI normal to inspection, nondistended, normoactive bowel sounds, non-tender, non-distended and no masses GI Narrative: No voluntary guarding or rigidity or pulsatile mass Auscultation: normoactive bowel sounds Palpation: soft Extremity normal to inspection Extremity Narrative: Negative Homans' sign bilaterally Neuro oriented x3, CN's II-XII intact bilaterally and no sensory deficits noted Neuro Narrative: GCS of 15 Cranial nerves II through XII are grossly intact without focal neurologic deficit No pronator drift no dysmetria no truncal ataxia NIH stroke scale score of 0 Sensorium / Orientation: alert Motor Exam: strength 5/5 throughout Psych mental status grossly normal Skin no rashes or lesions noted General Skin Exam: Negative for jaundice or pallor MDM MDM MDM Narrative Medical decision making narrative: Patient arrived to the ER slightly hypertensive but overall stable vitals. He reported feeling just confused but cannot elaborate on this. In the ER he is awake and alert to person place and time he does not have any focal neurologic deficit with an NIH stroke scale score of 0. In order to assess for potential cause of his confusion I did elect to check basic labs for potential acute kidney injury electrolyte abnormality hyperammonemia thyroid dysfunction or UTI. I also performed a CT of the brain to ensure there is no sign of large vessel occlusion or spontaneous bleed as he is on Xarelto. The workup revealed no clinically significant findings. On reevaluation he remains awake alert and oriented to person place and time with no focal neurologic deficit and NIH stroke scale score of 0. Therefore at this time his vitals are stable and overall workup is negative and he has had a stroke scale score of 0 I do not feel the need for further workup or admission especially as he is on anticoagulation already. Therefore the patient is otherwise safe for discharge and can follow-up with his family doctor for further evaluation History & Record Review Discussion w/independent historian: Patient Lab Data Attestation: I reviewed the patient's lab results. Labs: Laboratory Results - last 24 hr 02/21/25 02/21/25 03:36 04:03 WBC 8.8 RBC 3.71 L Hgb 10.9 L Hct 33.0 L MCV 88.9 MCH 29.4 MCHC 33.0 RDW Std Deviation 46.2 H RDW Coeff of [place] 14.5 Plt Count 259 MPV 11.0 Immature Gran % (Auto) 0.600 Neut % (Auto) 63.3 Lymph % (Auto) 25.0 [place] % (Auto) 9.3 Eos % (Auto) 1.3 Baso % (Auto) 0.5 Absolute Neuts (auto) 5.6 Absolute Lymphs (auto) 2.20 Nucleated RBC % 0 Sodium 136 Potassium 3.9 Chloride 100 Carbon Dioxide 23.9 Anion Gap 12 BUN 19 Creatinine 0.94 Estim Creat Clear Calc 58.26 Est GFR (MDRD) Non-Af 78 BUN/Creatinine Ratio 20.4 H Glucose 156 H Calcium 8.8 Magnesium 2.0 Total Bilirubin 0.28 Direct Bilirubin 0.14 AST 19 ALT 10 Alkaline Phosphatase 104 Ammonia 13.8 L Total Protein 6.5 Albumin 4.0 Globulin 2.6 TSH 0.837 Urine Color Yellow Urine Clarity Clear Urine pH 6.5 Ur Specific [place] 1.010 Urine Protein 15 H Urine Glucose (UA) Normal Urine Ketones Negative Urine Occult Blood 150 H Urine Nitrite Negative Urine Bilirubin Negative Urine Urobilinogen Normal Ur Leukocyte Esterase Negative Urine RBC 0 SEEN Urine WBC 0 SEEN Ur Squamous Epith Cells 0 SEEN Urine Bacteria 0 SEEN Urine Mucus 0 SEEN Digoxin 0.55 Radiography Diagnostic Testing: Clinical Impression(s) from Imaging Studies Brain CT 02/21/25 03:56 IMPRESSION: No acute cerebrovascular abnormalities. If clinical symptoms persist, further evaluation with MRI may be considered as clinically warranted. No intra or extra-axial acute hemorrhage. Bilateral cerebral microvascular ischemic changes with brain involutional changes. Stable. Reading Location: [place] [id number] Discharge Plan Triage Chief Complaint: Confusion ED Provider: Satnam Roberts Dx/Rx/DC Orders Clinical Impression: Confusional state, Paroxysmal atrial fibrillation, Current use of nursing home anticoagulation, Essential (primary) hypertension, Hypothyroidism Instructions: ED Confusion Prescriptions: No Action levothyroxine 125 mcg tablet 125 mcg PO .COMPLEX Rx Instructions: 125 mcg orally ON EVEN DAYS; docusate sodium [Colace] 100 mg capsule 100 mg PO BID PRN (Reason: constipation) digoxin 125 mcg (0.125 mg) tablet 125 mcg PO QDAY amlodipine 5 mg tablet 5 mg PO DAILY Qty: 30 0RF levothyroxine 137 mcg tablet 137 mcg PO QODAY rivaroxaban 20 mg tablet 20 mg PO DAILY Qty: 90 3RF Patient Comments: LAST DOSE 10/06/23 losartan 100 mg tablet 100 mg PO DAILY Qty: 90 4RF Primary Care Provider: Juan Hairston Referrals: Juan Hairston MD [Primary Care Provider, Family Practice] Activity Restrictions/Additional Instructions: Your workup today revealed no sign of infection or stroke changes or clinically significant lab abnormalities. Please follow-up with your family doctor to discuss if your chronic medications could be leading to your symptoms and return to the ER should you have any further concerns Print Language: Yi Disposition Disposition: Home, Self Care Discharge Date/Time: 02/21/25 05:29
[2025-02-21 05:29] VITALS: BP 123/81; PULSE 85; RESP 19; TEMP 36.6; O2SAT 97
== END 2025-02-21 05:29 | disposition home or self-care (01) ==
PROVIDERS: Emergency Provider Emergency Medicine; PCP Family Medicine; Visit Provider Emergency Medicine
DX: R41.0 Disorientation, unspecified (principal); I48.0 Paroxysmal atrial fibrillation; E89.0 Postprocedural hypothyroidism; I10 Essential (primary) hypertension; Z79.01 Long term (current) use of anticoagulants; Z79.890 Hormone replacement therapy; Z79.899 Other long term (current) drug therapy; Z86.73 Personal history of transient ischemic attack (TIA), and cerebral infarction without residual deficits
CPT/HCPCS: 70450; 80048; 80076; 80162; 81001; 82140; 82962; 83735; 84443; 85025; 99282; A4216

== ENCOUNTER 2025-03-09 17:42 | Emergency (ER) | payer MEDICARE, SELFPAY ==
[2025-03-09 17:43] VITALS: BP 139/90; PULSE 96; RESP 18; TEMP 36.8; O2SAT 100; BMI 23.3
[2025-03-09 18:42] VITALS: BP 149/89; PULSE 90; O2SAT 99
--- NOTE | 2025-03-09 18:59 | RAD_ITS ---
PROCEDURE: CHEST PA AND LATERAL 03/09/2025 REASON FOR EXAM: ALOC TECHNIQUE: Procedure Code: RADCXR Modality: DX Procedure: CHEST PA AND LATERAL FINDINGS: The heart is normal in size. The lungs are clear. No acute osseous abnormalities. RAD/Chest PA and Lateral IMPRESSION: NO ACUTE FINDINGS. Reading Location: [id number]
--- NOTE | 2025-03-09 18:59 | EKG12_ITS ---
Test Reason : DYSRHYTHMIA Blood Pressure : */* mmHG Vent. 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
--- NOTE | 2025-03-09 18:59 | CT_ITS ---
PROCEDURE: CT BRAIN/HEAD WITHOUT CONTRAST 03/09/2025 REASON FOR EXAM: CONFUSION TECHNIQUE: Procedure Code: CTBR Modality: CT Procedure: BRAIN/HEAD WITHOUT CONTRAST Coronal and Sagittal reconstruction series were provided. One or more dose reduction techniques were used (e.g., Automated exposure control, adjustment of the mA and/or kV according to patient size, use of iterative reconstruction technique. RADIATION DOSE SUMMARY: CTDlvol: 44.99 mGy DLP: 897.35 mGycm COMPARISON: 02/21/2025 FINDINGS: No acute intracranial hemorrhage, extra-axial collection, mass effect or evidence of acute infarct. 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 Absent [place] ocular lenses. Intact skull base and calvarium. Clear paranasal sinuses and mastoid air cells. CT/Brain/Head without Contrast IMPRESSION: No acute intracranial abnormality. Moderate parenchymal volume loss and chronic microangiopathic changes. Reading Location: [id number]
[2025-03-09 19:00] VITALS: BP 143/113; PULSE 91; O2SAT 98
--- NOTE | 2025-03-09 19:01 | EX.ED.DYSGE1 ---
HPI History of Present Illness Chief Complaint: Confusion Informant: patient, spouse/S.O. and family (Daughter at bedside.) Onset/Context/Timing Onset: Weeks Context: Gradual Onset Timing: Continuous Current Severity: Mild Maximum Severity: Mild Narrative Narrative: 89-year-old male history of hypertension, hypothyroidism prior thyroid resection due to thyroid cancer, A-fib and prior prostatectomy due to prostate cancer. On Xarelto due to the A-fib. Patient is here with his , daughter and granddaughter. They state over the last month he has had worsening confusion worse over the last week. Has also had increased thirst. Is tired all the time. No recent falls or head injury. He has had some weight loss. He denies any vomiting or diarrhea. Denies any fever or chills. He denies any headache or abdominal pain. He denies any dysuria. Prior similar symptoms: Yes Recent Illness/Hospitalization: No PFSH PFS Medical History Wears hearing aid Wears dentures Wears glasses Cancer Thyroid disease Bladder disease Non-smoker History of echocardiogram Cardiology follow-up encounter Hypothyroidism Essential (primary) hypertension Personal history of colonic polyps Nonrheumatic aortic (valve) insufficiency Paroxysmal atrial fibrillation Palpitations Orthostatic syncope Bradycardia TIA (transient ischemic attack) Prostate cancer Home Medications ?Medication ?Instructions ?Recorded ?Last Taken ?Type rivaroxaban 20 mg tablet 20 mg PO DAILY #90 tabs 12/01/21 Unknown Rx levothyroxine 125 mcg tablet 125 mcg PO .COMPLEX 12/27/21 10/09/23 05:00 History losartan 100 mg tablet 100 mg PO DAILY #90 tabs 11/17/22 10/09/23 05:00 Rx amlodipine 5 mg tablet 5 mg PO DAILY #30 tabs 09/07/23 10/09/23 05:00 Rx digoxin 125 mcg (0.125 mg) tablet 125 mcg PO QDAY 09/11/23 10/09/23 05:00 History docusate sodium 100 mg capsule 100 mg PO BID PRN constipation 09/11/23 Unknown History (Colace) levothyroxine 137 mcg tablet 137 mcg PO QODAY 10/04/23 10/09/23 05:00 History Allergy/AdvReac Type Severity Reaction Status Date / Time No Known Allergies Allergy Verified 03/09/25 17:43 Family History Brother Colon cancer Hypertension Father Hypertension Cancer leukemia Mother Hypertension Brother Hypertension Cancer lung cancer Sister Breast cancer Sister Cancer ovarian cancer Surgical History History of colonoscopy History of prostatectomy History of thyroidectomy Social History Smoking Status: Never smoker alcohol intake: never substance use type: does not use caffeine: Yes Type: coffee what type of physical activity do you participate in: walking frequency: daily duration: 30-45 minutes/day seatbelt use: always do you feel safe at home: Yes ROS ROS ED ROS Narrative No recent illness. Constitutional Constitutional ED: Denies chills or fever(s) Eyes Eyes: Denies blurry vision ENT ENT ED: Denies ear pain Cardiovascular Cardiovascular: Denies chest pain Respiratory/Chest Respiratory/Chest: Denies cough or dyspnea Gastrointestinal Gastrointestinal: Denies abdominal pain Genitourinary Genitourinary ED: Denies dysuria or hematuria Musculoskeletal Musculoskeletal: Denies arthralgias or back pain Integumentary Denies abscess or Abrasions Neurologic Neurologic: Denies headache(s) Psychiatric Psychiatric: Denies anxiety or depression Endocrine Endocrinology: Denies cold intolerance Hematologic/Lymphatic Hematologic/Lymphatic: Reports none Allergic/Immunologic Allergic/Immunologic ED: Denies mouth swelling, tongue swelling or urticaria EXAM Physical Exam Narrative Exam Narrative: Well-appearing 89-year-old male. Vital signs stable afebrile. No acute distress. Pulse ox 100% on room air no signs hypoxia. Multiple family members present. H EENT exam pupils round react light. Moist mucous membranes. Neck nontender no JVD. No lymphadenopathy. Lungs clear to auscultation bilaterally. Heart A-fib rate about 95. Chest wall ribs nontender. Abdomen soft nontender. Pelvic girdle intact. Moving all 4 extremities. Trace edema both ankles. Calves nontender no cords. Normal dorsi plantarflexion. Normal fiction and nonfiction author strength. Neurologically is awake and alert. Answering questions following commands. NIH score 0. He knows the day of the week, month and year. He knows where he is at. Const Vital Signs: 03/09/25 17:43 03/09/25 18:42 03/09/25 19:00 Temperature 98.3 F Temperature Source Temporal Pulse Rate 96 90 91 Respiratory Rate 18 Blood Pressure 139/90 H 149/89 H 143/113 H Blood Pressure Mean 106 109 123 Pulse Ox 100 99 98 Oxygen Delivery Method Room Air Room Air Room Air 03/09/25 20:00 03/09/25 21:00 03/09/25 21:22 Temperature 98.3 F Temperature Source Pulse Rate 88 90 90 Respiratory Rate 18 Blood Pressure 143/83 H 143/83 H 143/83 H Blood Pressure Mean 103 103 103 Pulse Ox 97 98 98 Oxygen Delivery Method Room Air Room Air Positive well nourished and well developed; Negative for obese, cachectic, contractures or unkempt General Appearance ED: well developed and NAD; Negative for unkempt, cachectic, contractures, cyanotic, diaphoretic or pallor Nutritional Appearance: Negative for cachectic or obese HEENT Reports moist mucous membranes Negative for trauma or tenderness Eyes PERRL and EOMs intact bilaterally Neck no lymphadenopathy, supple and no JVD Chest Wall inspection of chest normal and palpation of chest normal Resp normal respiratory effort and clear to auscultation bilaterally Cardio regular rate, regular rhythm, S1 normal heart sound, S2 normal heart sound and no murmurs GI normal to inspection, nondistended, normoactive bowel sounds, non-tender, non-distended and no masses Auscultation: normoactive bowel sounds Palpation: soft; Negative for tender, guarding or rebound tenderness present Back/Spine no CVA tenderness General Back: Negative for CVA tenderness Cervical Spine: Negative for cervical spine tenderness Thoracic Spine / Upper Back: Negative for thoracic spinal tenderness or paraspinal muscle tenderness Lumbar Spine / Lower Back: Negative for lumbar spinal tenderness Extremity normal to inspection General Extremety ED: Negative for edema or tenderness General Extremity: Negative for edema Neuro oriented x3, CN's II-XII intact bilaterally and no sensory deficits noted Sensorium / Orientation: alert Motor Exam: strength 5/5 throughout; Negative for general weakness or strength abnormal Psych mental status grossly normal Appearance: Negative for unkempt Attitude: No agitated Mood & Affect: Negative for depressed, anxious or tearful Skin no rashes or lesions noted, no wounds and skin turgor normal General Skin Exam: elasticity normal; Negative for jaundice or pallor Lesions: No lesion noted Rashes: No rashes noted Trauma: Negative for abrasion Wounds: Negative for wounds noted MDM MDM MDM Narrative Medical decision making narrative: 89-year-old male with decline of his mental status over the last month the last week. Exam benign. Screening labs, CAT scan and x-rays will be obtained. He is also not taking his medications right so we will recheck his thyroid level because he has hypothyroidism. Repeat exam patient is doing well at around 9:20 PM. We had a lengthy discussion myself the patient and his his daughter and granddaughter. About his labs. The follow-up appointment to see his primary care physician Dr. Juan Hairston on Monday. They need to follow-up and recheck his sodium level which I explained to the family. An outpatient further evaluation for possible dementia. Other than his sodium being slightly low tonight at 128 there is no other significant abnormalities. History & Record Review Discussion w/independent historian: Patient and Family Additional record(s) reviewed:: Prior inpatient record, Prior outpatient record, Prior ED visit and Prior labs Lab Data Attestation: I reviewed the patient's lab results. Lab results narrative: CBC shows a white count of 10 H&H 10.8 and 32 Electrolytes show a sodium 128. Gap of 12. BUN and creatinine are 15 and 0.8 UA negative. Digoxin level 0.6. TSH 1.04 Chest x-ray chronic changes. CT brain chronic changes. Labs: Laboratory Results - last 24 hr 03/09/25 03/09/25 19:18 19:26 WBC 10.3 RBC 3.72 L Hgb 10.8 L Hct 32.0 L MCV 86.0 MCH 29.0 MCHC 33.8 RDW Std Deviation 43.7 RDW Coeff of [place] 14.0 Plt Count 342 MPV 10.0 Immature Gran % (Auto) 0.600 Neut % (Auto) 73.6 H Lymph % (Auto) 17.2 L [place] % (Auto) 7.7 Eos % (Auto) 0.6 Baso % (Auto) 0.3 Absolute Neuts (auto) 7.6 Absolute Lymphs (auto) 1.78 Nucleated RBC % 0 Sodium 128 L Potassium 4.0 Chloride 93 L Carbon Dioxide 23.8 Anion Gap 12 BUN 15 Creatinine 0.85 Estim Creat Clear Calc 67.20 Est GFR (MDRD) Non-Af 84 BUN/Creatinine Ratio 17.8 Glucose 119 H Calcium 8.8 Total Bilirubin 0.33 AST 16 ALT 11 Alkaline Phosphatase 114 Total Protein 6.7 Albumin 4.0 Globulin 2.7 Albumin/Globulin Ratio 1.5 TSH 1.040 Urine Color Yellow Urine Clarity Clear Urine pH 7.0 Ur Specific [place] 1.010 Urine Protein 15 H Urine Glucose (UA) Normal Urine Ketones Negative Urine Occult Blood 150 H Urine Nitrite Negative Urine Bilirubin Negative Urine Urobilinogen Normal Ur Leukocyte Esterase Negative Urine RBC 25-50 SEEN Urine WBC 0-5 SEEN Ur Squamous Epith Cells 0-5 SEEN Urine Bacteria 0 SEEN Urine Mucus 0 SEEN Digoxin 0.63 Radiography Chest X-Ray - ED: 2 View, Read by ED Physician, Read by Radiologist, Heart, Lungs, Mediastinum, Bony Structures, No Acute Disease and Chronic Changes Diagnostic Testing: Clinical Impression(s) from Imaging Studies Brain CT 03/09/25 18:59 IMPRESSION: No acute intracranial abnormality. Moderate parenchymal volume loss and chronic microangiopathic changes. Reading Location: [facility] Chest X-Ray 03/09/25 18:59 IMPRESSION: NO ACUTE FINDINGS. Reading Location: [address] Chest x-ray, 2 views, turbid by myself and the radiologist shows chronic changes no acute process. Normal cardiac silhouette. No pneumonia. Rhythm Strip Rhythm Strip: A-fib Rate: 82 Ectopy: None EKG Initial EKG: Attestation: I personally reviewed and interpreted this EKG as follows: Interpretation: Atrial Fibrillation and RBBB Comments: A-fib rate 82 no acute signs of MD or ischemia. Discharge Plan Triage Chief Complaint: Confusion ED Provider: Lorenzo Rivera Dx/Rx/DC Orders Clinical Impression: Acute confusion, Acute hyponatremia, History of atrial fibrillation, History of hypertension, History of thyroid disease Instructions: ED Hyponatremia Prescriptions: No Action levothyroxine 125 mcg tablet 125 mcg PO .COMPLEX Rx Instructions: 125 mcg orally ON EVEN DAYS; docusate sodium [Colace] 100 mg capsule 100 mg PO BID PRN (Reason: constipation) digoxin 125 mcg (0.125 mg) tablet 125 mcg PO QDAY amlodipine 5 mg tablet 5 mg PO DAILY Qty: 30 0RF levothyroxine 137 mcg tablet 137 mcg PO QODAY rivaroxaban 20 mg tablet 20 mg PO DAILY Qty: 90 3RF Patient Comments: LAST DOSE 10/06/23 losartan 100 mg tablet 100 mg PO DAILY Qty: 90 4RF Primary Care Provider: Juan Hairston Referrals: Juan Hairston MD [Primary Care Provider, [facility]] - Keep Yvette appointment Activity Restrictions/Additional Instructions: Keep your scheduled appointment with Dr. Juan Hairston. Most of your labs, chest x-ray and CAT scan look good tonight. Your sodium was a little low at 128. Add some salt to your food. When you follow-up with your appointment with Dr. Hairston have them recheck your sodium level this week. Print Language: Kyrgyz Disposition Disposition: Home, Self Care Discharge Date/Time: 03/09/25 21:26
--- OUTSIDE RECORDS SUMMARY | 2025-03-09 19:12 | XMS RPT_ITS | CCD ---
Author Organization [facility] Care Team Providers Care Med Spec Name Role Phone Milind YIN, Faustina De La Garza Unavailable Juan Hairston Primary Care Provider Dr. Juan Hairston Primary Care Provider Dr. Juan Hairston Referring Provider Klaudia CABRERA PA Faustina Cameron Attending Provider Dr. Navid Jamison Attending Provider Dr. Juan Hairston Primary Care Provider [phone] Juan Hairston Referring Provider Klaudia CABRERA, PA Faustina Cameron Attending Provider Dr. Juan Hairston Primary Care Provider Dr. Juan Hairston Referring Provider DEBORAH Pal Attending Provider Dr. Juan Hairston Primary Care Provider [phone] Juan Hairston Referring Provider Dr. Cesar Johnson Attending Provider Dr. Juan Hairston MD Primary Care Provider Dr. Juan Hairston MD Attending Provider [phone] Juan Hairston MD Referring Provider [phone] Juan Hairston MD Primary Care Physician Dr. Juan Hairston MD Attending Physician [phone] Satnam Roberts DO Emergency Department Physic roxana Juan Hairston Primary Care Unavailable Juan Hairston Attending Unavailable Juan Hairston Referring Unavailable Juan Hairston Primary Care Unavailable Satnam Roberts Attending Unavailable Juan Hairston Primary Care Unavailable Juan Hairston Attending Unavailable Juan Hairston Primary Care Unavailable Juan Hairston Attending Unavailable Allergies Allergy Classification Reported Allergen(s) Allergy Type Date of Onset Reaction(s) Facility (1 source) amLODIPine Drug Allergy 08-28-2015 ankle edema [facility] Work Phone: (2 sources) NKDA; Translations: [NKDA] propensity to adverse reactions 04-09-2013 [facility] [employer] [facility] Work Phone: (11 sources) amLODIPine Drug Allergy 04-24-2021 ankle edema [facility] Medications Current Medications Medication Drug Class(es) Dates Sig (Normalized) Sig (Original) amLODIPine 5 mg oral tablet (4 sources) Dihydropyridine Calcium Channel Ramesh Start: 09-07-2023 take 1 tablet by mouth once daily digoxin 0.125 mg oral tablet (3 sources) Cardiac Glycoside Start: 09-11-2023 take 1 tablet by mouth once daily docusate sodium 100 mg oral capsule (3 sources) Start: 09-11-2023 take 1 capsule by mouth twice daily as needed for constipation levothyroxine sodium 0.137 mg oral tablet (20 sources) l-Thyroxine Start: 10-04-2023 take 1 tablet by mouth every other day Start: 12-27-2021 take 1 tablet by hallie th once daily Start: 09-25-2018 End: 12-27-2021 Levothyroxine 150 mcg [...] One tablet by mouth daily LEVOTHYROXINE SODIUM [id number] Navid Jaimson MD Start: 10-26-2011 SYNTHROID 175 MCG TABS LEVOTHYROXINE SODIUM [id number] Janie Washburn RN LEVOTHYROXINE SO DIUM (SYNTHROID ORAL) Take by mouth. 0 Active Comment on above: Take by mouth. Completed/Discontinued Medications Medication Drug Class(es) Dates Sig (Normalized) Sig (Original) aspirin 81 mg oral tablet (3 sources) Nonsteroidal Anti-inflammatory Drug Start: 10-26-2011 End: 09-05-2013 take 1 tablet by mouth once daily ASPIRIN 81 MG TABS One tablet by mouth daily ASPIRIN [id number] Navid Jamison MD Comment on above: Take 81 mg by mouth. BLOOD PRESSURE TEST KIT (BLOOD PRESSURE MISC) (1 source) BLOOD PRESSURE T EST KIT (BLOOD PRESSURE MISC) cephalexin 250 mg oral capsule (6 sources) Cephalosporin Antibacterial Start: 10-08-2022 End: 09-11-2023 [...] TABS One-half tablet by mouth daily CHLORTHALIDONE [id number] Navid Jamison MD COENZYME Q10 (4 sources) Start: 07-09-2013 take 1 tablet by mouth once daily CO Q-10 100 MG CAPS One tablet by mouth daily COENZYME Q10 [id number] Navid Jmaison MD Start: 07-09-2013 End: 09-05-2013 take 1 tablet by mouth once daily CO Q-10 100 MG CAPS One tablet by mouth daily COENZYME Q10 [id number] Navid Jamison MD Start: 10-26-2011 End: 2011 take 1 tablet by mouth once daily CO Q-10 100 MG CAPS One tablet by mouth daily COENZYME Q10 [id number] Navid Jamison MD Start: 10-26-2011 take 1 tablet by hallie once daily CO Q-10 100 MG CAPS One tablet by mouth daily COENZYME Q10 [id number] Janie Washburn RN dilTIAZem hydrochloride 30 mg [...] IBUPROFEN 200 MG TABS as needed IBUPROFEN [id number] Navid Jamison MD lisinopril 20 mg oral tablet (2 sources) Angiotensin Converting Enzyme Inhibitor Start: 04-09-2013 End: 07-09-2013 take 1 tablet by mouth once daily LISINOPRIL 20 MG TABS One tablet by mouth daily LISINOPRIL [id number] Navid Jamison MD losartan potassium 100 mg [...] Start: 07-09-2013 take 1 tablet by hallie th once daily LOSARTAN POTASSIUM 100 MG TABS One tablet by mouth daily LOSARTAN POTASSIUM [id number] Navid Jamison MD melatonin 3 mg oral tablet (2 sources) Start: 10-26-2011 End: 2011 take 1 tablet by mouth at bedtime as needed MELATONIN 3 MG TABS One tablet by mouth at bedtime. As needed MELATONIN [id number] Navid Jamison MD metoprolol tartrate 50 mg oral tablet (2 sources) beta-Adrenergic Ramesh Start: 10-26-2011 End: 2011 take 0.5 tablet by mouth twice daily LOPRESSOR 50 MG TABS 1/2 tablet by mouth twice daily METOPROLOL TARTRATE [id number] Janie Washburn RN rivaroxaban 20 mg oral tablet (20 sources) Factor Xa Inhibitor Start: 04-09-2013 End: 12-01-2021 take 1 tablet by mouth once daily Rivaroxaban 20 mg tablet Discontinued 20 mg PO DAILY 90 July 23, 2019 6:48pm January 10, 2020 10:45am Problems Active Problems Problem Classification Problem Date Documented Da te Episodic/Chronic Cancer of prostate (13 sources) Malignant tumor of prostate; Translations: [Malignant neoplasm of prostate] 09-01-2017 Chronic Cardiac dysrhythmias (20 sources) Paroxysmal atrial fibrillation; Translations: [Atrial fibrillation] Onset: 04-09-2013 08-27-2015 Chronic Cardiac dysrhythmias (20 sources) Palpitations; Translations: [Palpitations] Onset: 10-26-2011 10-26-2011 Episodic Coagulation and hemorrhagic disorders (6 sources) Blood coagulation disorder; Translations: [Coagulation defect, unspecified] 10-16-2022 Chronic Essential hypertension (20 sources) Hypertensive disorder; Translations: [Essential hypertension] Onset: 04-09-2013 04-09-2013 Chronic Fluid and electrolyte disorders (13 sources) Dehydration; Translations: [Dehydration] 09-13-2018 Episodic Genitourinary symptoms and ill-defined conditions (6 sources) Blood in urine; Translations: [Hematuria, unspecified] 10-16-2022 Episodic Heart valve disorders (15 sources) Nonrheumatic aortic (valve) insufficiency; Translations: [Aortic valve disorder] Onset: 04-09-2013 08-27-2015 Chronic Heart valve disorders (4 sources) Cardiac murmur, unspecified; Translations: [Undiagnosed cardiac murmurs] Episodic Miscellaneous mental health disorders (1 source) Confusional state; 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 Other and unspecified benign neoplasm (3 sources) History of polyp of colon; Translations: [Personal history of colonic polyps] 09-11-2023 Episodic Other and unspecified benign neoplasm (1 source) Personal history of colonic polyps; Translations: [Personal history of colonic polyps] 09-11-2023 Episodic Other circulatory disease (13 sources) Syncope due to orthostatic hypotension; Translations: [Orthostatic hypotension] 09-13-2018 Episodic Other circulatory disease (4 sources) H/O: atrial fibrillation; Translations: [Personal history of other diseases of the circulatory system] 09-07-2023 Episodic Other gastrointestinal disorders (13 sources) Constipation; Translations: [Constipation, unspecified] 05-02-2021 Episodic Residual codes; unclassified (4 sources) History of bradycardia; Translations: [Personal history of other specified conditions] 09-07-2023 Episodic Residual codes; unclassified (1 source) Disorientation, unspecified; Translations: [Disorientation, unspecified] Onset: 03-05-2025 Episodic Syncope (13 sources) Near syncope; Translations: [Syncope and collapse] 09-13-2018 Episodic Transient cerebral ischemia (13 sources) Cerebral ischemia; Translations: [Transient cerebral ischemic attack, unspecified] 09-13-2018 Chronic Urinary tract infections (6 sources) Urinary tract infectious disease; Translations: [Urinary tract infection, site not specified] 10-16-2022 Episodic Past or Other Problems Problem Classification Problem Date Documented Date Episodic/Chronic Conditions associated with dizziness or vertigo (2 sources) Dizziness; Translations: [Dizziness and giddiness] Onset: 08-28-2015 03-25-2016 Episodic Residual codes; unclassified (1 source) Family history of malignant neoplasm of gastrointestinal tract; Translations: [Family history of malignant neoplasm of digestive organs] Onset: 08-04-2011 08-04-2011 Episodic Unclassified (1 source) Body mass index (BMI) 26.0-26.9, adult; Translations: [Body mass index (BMI) 26.0-26.9, adult] Onset: 07-09-2013 07-09-2013 Episodic Results Test Name Value Interpretation Reference Range Facility Absolute lymphocyte countOrd ered By: Satnam Roberts on 02-21-2025 Lymphocytes Auto (Unsp spec) [#/Vol] 2.20 10*3/uL 0.83-4.51 [facility] Absolute neutrophil countOrd ered By: Satnam Roberts on 02-21-2025 Neutrophils (Bld) [#/Vol] 5.6 10*3/uL 2.0-7.7 [facility] Ammoniaon 02-21-2025 Ammonia (P) [Moles/Vol] 13.8 umol/L Low 16-60 [facility] Comment on above: Performed By: #### L 503.5510, L501.9520, L500.3400, L500.2500, L501.7510, L501.5200, L100.0100 ####[facility] [address] [place], [address] Anion gap in Serum or Plasma Ordered By: Satnam Roberts on 02-21-2025 Anion gap [Moles/Vol] 12 mmol/L 5-15 [facility] Automated lymphocyte count a s percentage of total leukocytesOrdered By: Satnam Roberts on 02-21-2025 Lymphocytes/100 WBC Auto (Unsp spec) 25.0 % 19-41 [facility] BUN/creatinine ratioOrdered By: Satnam Roberts on 02-21-2025 Urea nitrogen/Creatinine [Mass ratio] 20.4 mg/mg High 03-10 [facility] Basic Metabolic Profile (BMP )on 02-21-2025 BUN/CRE 20.4 RATIO High 03-10 [facility] Comment on above: Performed By: #### L 503.5510, L501.9520, L500.3400, L500.2500, L501.7510, L501.5200, L100.0100 ####[facility] [address] [place], [address] Calcium [Mass/Vol] 8.8 mg/dL Normal 7.6-11.0 [facility] Comment on above: Performed By: #### L 503.5510, L501.9520, L500.3400, L500.2500, L501.7510, L501.5200, L100.0100 ####[facility] [address] [place], [address] Chloride [Moles/Vol] 100 mmol/L Normal 98-108 [facility] Comment on above: Performed By: #### L 503.5510, L501.9520, L500.3400, L500.2500, L501.7510, L501.5200, L100.0100 ####[facility] [address] [place], [address] CO2 [Moles/Vol] 23.9 mmol/L Normal 21.0-32.0 [facility] Comment on above: Performed By: #### L 503.5510, L501.9520, L500.3400, L500.2500, L501.7510, L501.5200, L100.0100 ####[facility] [address] [place], [address] Creatinine [Mass/Vol] 0.94 mg/dL Normal 0.70-1.20 [facility] Comment on above: Performed By: #### L 503.5510, L501.9520, L500.3400, L500.2500, L501.7510, L501.5200, L100.0100 ####[facility] [address] [place], [address] ECRCL 58.26 ml/min Normal 50-250 [facility] Comment on above: Performed By: #### L 503.5510, L501.9520, L500.3400, L500.2500, L501.7510, L501.5200, L100.0100 ####[facility] [address] [place], [address] GAP 12 Normal 5-15 [facility] Comment on above: Performed By: #### L 503.5510, L501.9520, L500.3400, L500.2500, L501.7510, L501.5200, L100.0100 ####[facility] [address] [place], [address] GFR/1.73 sq M.predicted among non-blacks MDRD (S/P/Bld) [Vol rate/Area] 78 mL/min/{1.73_m2} Normal >60 [facility] Comment on above: Result Comment: mL/m in/1.73m2 CKD-EPI Creatinine Equation (2020) Performed By: #### L 503.5510, L501.9520, L500.3400, L500.2500, L501.7510, L501.5200, L100.0100 ####[facility] [address] [place], [address] Glucose [Mass/Vol] 156 mg/dL High 70-99 [facility] Comment on above: Performed By: #### L 503.5510, L501.9520, L500.3400, L500.2500, L501.7510, L501.5200, L100.0100 ####[facility] [address] [place], [address] Potassium [Moles/Vol] 3.9 mmol/L Normal 3.3-5.1 [facility] Comment on above: Performed By: #### L 503.5510, L501.9520, L500.3400, L500.2500, L501.7510, L501.5200, L100.0100 ####[facility] [address] [place], [address] Sodium [Moles/Vol] 136 mmol/L Normal 133-145 [facility] Comment on above: Performed By: #### L 503.5510, L501.9520, L500.3400, L500.2500, L501.7510, L501.5200, L100.0100 ####[facility] [address] [place], [address] Urea nitrogen [Mass/Vol] 19 mg/dL Normal 4-19 [facility] Comment on above: Performed By: #### L 503.5510, L501.9520, L500.3400, L500.2500, L501.7510, L501.5200, L100.0100 ####[facility] [address] [place], [place], [id number] Basophil percentageOrdered B y: Satnam Roberts on 02-21-2025 Basophils/100 WBC (Bld) 0.5 % 0-1 [facility] Bedside Glucoseon 02-21-2025 FINGERSTICK GLU 147 mg/dL High 74-106 [facility] Comment on above: Result Comment: AMISHA SCHNEIDER OF PATIENT CARE PER NURSING PROTOCOL Performed By: #### L 501.080 ####[facility] [address] [facility] [place], [place], [id number] Bilirubin Test strip Ql (U)O rdered By: Satnam Roberts on 02-21-2025 Bilirubin Ql (U) Negative Negative [facility] Bilirubin directOrdered By: Satnam Roberts on 02-21-2025 Bilirubin.direct [Mass/Vol] 0.14 mg/dL 0.00-0.30 [facility] Bilirubin, totalOrdered By: Satnam Roberts on 02-21-2025 Bilirubin [Mass/Vol] 0.28 mg/dL 0.00-1.30 [facility] Brain/Head without Contrasto n 02-21-2025 Brain/Head without Contrast [facility] Imaging Services [address] [place], [place] [id number] Brain/Head without Contrast MR#: [id number] Acct: [id number] Name: LEO ROMAN Rep #: [id number] : 1935 M 89 From: Jarvis burnette MD PCP: Dr. Juan Hairston MD Status: [facility] ER Study: Brain/Head without Contrast Date of Exam: 08/13 Exam# [id number] Ordering Dr: Satnam Roberts DO PROCEDURE: BRAIN/HEAD WITHOUT CONTRAST 02/21/2025 REASON FOR EXAM: CONFUSION TECHNIQUE: Procedure Code: CTBR Modality: CT Procedure: BRAIN/HEAD WITHOUT CONTRAST Coronal and Sagittal reconstruction series were provided. One or more dose reduction techniques were used (e.g., Automated exposure control, adjustment of the mA and/or kV according to patient size, use of iterative reconstruction technique. RADIATION DOSE SUMMARY: CTDI Vol 44.99 mGy DLP :846.73 mGycm COMPARISON: 07-Sep-2023 FINDINGS: Accentuated bilateral cerebral periventricular deep white matter hypodensities denoting hypoperfusion with bilateral cerebral periventricular and subcortical hypodense foci and patches. Marshall-white matter differentiation is maintained. Normal CT appearance of the posterior fossa structures. No intracerebral or extra axial hemorrhage. Dilated ventricular system, cortical sulci and extra-axial CSF spaces. No definite calvarial fractures. No midline shifts or deformity. The osseous structures in the skull base are unremarkable. Paranasal sinuses are unremarkable. Vascular atheromatous calcifications. CT/Brain/Head without Contrast IMPRESSION: No acute cerebrovascular abnormalities. If clinical symptoms persist, further evaluation with MRI may be considered as clinically warranted. No intra or extra-axial acute hemorrhage. Bilateral cerebral microvascular ischemic changes with brain involutional changes. Stable. Reading Location: [place] [address] CC: Dr. Juan Hairston MD; Satnam Roberts DO Sole Stitcher Hand: Signed Normal [facility] CBC W/Diff, Automatedon 10-0 Absolute Lymph 2.20 X10 3/uL Normal 0.83-4.51 [facility] Comment on above: Performed By: #### L 503.5510, L501.9520, L500.3400, L500.2500, L501.7510, L501.5200, L100.0100 ####[facility] [address] [place], [address] Absolute Neut 5.6 X10 3/uL Normal 2.0-7.7 [facility] Comment on above: Performed By: #### L 503.5510, L501.9520, L500.3400, L500.2500, L501.7510, L501.5200, L100.0100 ####[facility] [address] [place], [address] Basophils/100 WBC (Bld) 0.5 % Normal 0-1 [facility] Comment on above: Performed By: #### L 503.5510, L501.9520, L500.3400, L500.2500, L501.7510, L501.5200, L100.0100 ####[facility] [address] [place], [address] Eosinophils/100 WBC (Bld) 1.3 % Normal 0-5 [facility] Comment on above: Performed By: #### L 503.5510, L501.9520, L500.3400, L500.2500, L501.7510, L501.5200, L100.0100 ####[facility] [address] [place], [address] Erythrocyte distribution width (RBC) [Ratio] 14.5 % Normal 11.6-14.6 [facility] Comment on above: Performed By: #### L 503.5510, L501.9520, L500.3400, L500.2500, L501.7510, L501.5200, L100.0100 ####[facility] [address] [place], [address] Hematocrit (Bld) [Volume fraction] 33.0 % Low 40-54 [facility] Comment on above: Performed By: #### L 503.5510, L501.9520, L500.3400, L500.2500, L501.7510, L501.5200, L100.0100 ####[facility] [address] [place], [address] Hemoglobin (Bld) [Mass/Vol] 10.9 g/dL Low 13.0-16.5 [facility] Comment on above: Performed By: #### L 503.5510, L501.9520, L500.3400, L500.2500, L501.7510, L501.5200, L100.0100 ####[facility] [address] [place], [address] IG% 0.600 Normal 0.0-0.9 [facility] Comment on above: Result Comment: IG% - Immature Granulocytes (promyelocytes, myelocytes and metamyelocytes) > 1% indicates that a LEFT SHIFT is Present. Performed By: #### L 503.5510, L501.9520, L500.3400, L500.2500, L501.7510, L501.5200, L100.0100 ####[facility] [address] [place], [address] Lymphocytes/100 WBC (Bld) 25.0 % Normal 19-41 [facility] Comment on above: Performed By: #### L 503.5510, L501.9520, L500.3400, L500.2500, L501.7510, L501.5200, L100.0100 ####[facility] [address] [place], [address] MCH (RBC) [Entitic mass] 29.4 pg Normal 27.0-32.0 [facility] Comment on above: Performed By: #### L 503.5510, L501.9520, L500.3400, L500.2500, L501.7510, L501.5200, L100.0100 ####[facility] [address] [place], [address] MCHC (RBC) [Mass/Vol] 33.0 g/dL Normal 32-36 [facility] Comment on above: Performed By: #### L 503.5510, L501.9520, L500.3400, L500.2500, L501.7510, L501.5200, L100.0100 ####[facility] [address] [place], [address] MCV (RBC) [Entitic vol] 88.9 fL Normal 80-94 [facility] Comment on above: Performed By: #### L 503.5510, L501.9520, L500.3400, L500.2500, L501.7510, L501.5200, L100.0100 ####[facility] [address] [place], [address] Monocytes/100 WBC (Bld) 9.3 % Normal 0-10 [facility] Comment on above: Performed By: #### L 503.5510, L501.9520, L500.3400, L500.2500, L501.7510, L501.5200, L100.0100 ####[facility] [address] [place], [address] Neutrophils/100 WBC (Bld) 63.3 % Normal 47-70 [facility] Comment on above: Performed By: #### L 503.5510, L501.9520, L500.3400, L500.2500, L501.7510, L501.5200, L100.0100 ####[facility] [address] [place], [address] Nucleated RBC (Bld) [#/Vol] 0 10*3/uL Normal 0-5 [facility] Comment on above: Performed By: #### L 503.5510, L501.9520, L500.3400, L500.2500, L501.7510, L501.5200, L100.0100 ####[facility] [address] [place], [address] Platelet mean volume (Bld) [Entitic vol] 11.0 fL Normal 6.2-12.0 [facility] Comment on above: Performed By: #### L 503.5510, L501.9520, L500.3400, L500.2500, L501.7510, L501.5200, L100.0100 ####[facility] [address] [place], [address] Platelets (Bld) [#/Vol] 259 10*3/uL Normal 150-450 [facility] Comment on above: Performed By: #### L 503.5510, L501.9520, L500.3400, L500.2500, L501.7510, L501.5200, L100.0100 ####[facility] [address] [place], [address] RBC (Bld) [#/Vol] 3.71 10*6/uL Low 4.6-6.2 [facility] Comment on above: Performed By: #### L 503.5510, L501.9520, L500.3400, L500.2500, L501.7510, L501.5200, L100.0100 ####[facility] [address] [place], [address] RDW SD 46.2 fl High 35.1-43.9 [facility] Comment on above: Performed By: #### L 503.5510, L501.9520, L500.3400, L500.2500, L501.7510, L501.5200, L100.0100 ####[facility] [address] [place], [address] WBC (Bld) [#/Vol] 8.8 10*3/uL Normal 4.4-11.0 [facility] Comment on above: Performed By: #### L 503.5510, L501.9520, L500.3400, L500.2500, L501.7510, L501.5200, L100.0100 ####[facility] [address] [place], [address] Carbon dioxide, total [Moles /volume] in Central venous bloodOrdered By: Satnam Roberts on 02-21-2025 CO2 [Moles/Vol] 23.9 mmol/L 21.0-32.0 [facility] Chloride assayOrdered By: Chyna Roberts on 02-21-2025 Chloride [Moles/Vol] 100 mmol/L 98-108 [facility] Digoxin Levelon 10-03-2025 DIG 0.55 ng/mL Normal 0.00-2.00 [facility] Comment on above: Performed By: #### L 503.5510, L501.9520, L500.3400, L500.2500, L501.7510, L501.5200, L100.0100 ####[facility] [address] [place], [address] Emergency Department Summary on 02-21-2025 Emergency Department Summary [facility] Medical Records Department [address] [place] [address] Emergency Department Summary 02/21/25 MR#: [id number] Acct: [id number] Name: LEO ROMAN Rep #: [id number] : 1935 89 From: Satnam Roberts DO PCP: Dr. Juan Hairston MD Status:DEP ER Location: ED HPI History of Present Illness Chief Complaint: Confusion Informant: patient Narrative Narrative: Patient is an 89-year-old male with past medical history of hypertension hypothyroidism and paroxysmal atrial fibrillation currently on Xarelto. He states he was up this morning and just did not feel right. He states he felt confused. He states that he did not notice any focal extremity weakness or slurred speech but reports he just felt off which concerned him for potential stroke as he does have a history of atrial fibrillation and therefore he comes in for evaluation [facility] Medical History (Updated 02/25/25 @ 02:[address] Satnam Roberts DO) Wears hearing aid Wears dentures Wears glasses Cancer Thyroid disease Bladder disease Non-smoker History of echocardiogram Cardiology follow-up encounter Hypothyroidism Essential (primary) hypertension Personal history of colonic polyps Nonrheumatic aortic (valve) insufficiency Paroxysmal atrial fibrillation Palpitations Orthostatic syncope Bradycardia TIA (transient ischemic attack) Prostate cancer Home Medications ???Medication ???Instructions ???Recorded ???Last Taken ???Type rivaroxaban 20 mg tablet 20 mg PO DAILY #90 tabs 12/01/21 U nknown Rx levothyroxine 125 mcg tablet 125 mcg PO .COMPLEX 12/27/2110/08 05:00 History losartan 100 mg tablet 100 mg PO DAILY #90 tabs 11/17/22 10/09/23 05:00 Rx amlodipine 5 mg tablet 5 mg PO DAILY #30 tabs 09/07/23 05:00 Rx digoxin 125 mcg (0.125 mg) tablet 125 mcg PO QDAY 09/11/23 10/09/23 05:00 History docusate sodium 100 mg capsule 100 mg PO BID PRN constipation Unknown History (Colace) levothyroxine 137 mcg tablet 137 mcg PO QODAY 10/04/23 10/09/23 05:00 History Allergy/AdvReac Type Severity Reaction Status Date / Time No Known Allergies Allergy Verified 02/21/25 03:36 Family History Brother Colon cancer Hypertension Father Hypertension Cancer leukemia Mother Hypertension Brother Hypertension Cancer lung cancer Sister Breast cancer Sister Cancer ovarian cancer Surgical History History of colonoscopy History of prostatectomy History of thyroidectomy Social History Smoking Status: Never smoker alcohol intake: never substance use type: does not use caffeine: Yes Type: coffee what type of physical activity do you participate in: walking frequency: daily duration: 30-45 minutes/day seatbelt use: always do you feel safe at home: Yes ROS ROS ED Constitutional Constitutional ED: Denies chills or fever(s) Eyes Eyes: Denies blurry vision or change in vision ENT ENT ED: Denies sore throat Cardiovascular Cardiovascular: Denies chest pain, palpitations or racing heartbeat Respiratory/Chest Respiratory/Chest: Denies cough or dyspnea Gastrointestinal Gastrointestinal: Denies abdominal pain, diarrhea, nausea or vomiting Genitourinary Genitourinary ED: Denies dysuria Musculoskeletal Musculoskeletal: Denies myalgias Integumentary Denies rash Neurologic Neurologic: Reports other Details: Positive confusion ; Denies headache(s), paresthesias or weakness Hematologic/Lymphati c Hematologic/Lymphati c: Reports easy bleeding and easy bruising EXAM Physical Exam Const Vital Signs: 02/21/25 03:36 Temperature 97.8 F Temperature Source Oral Pulse Rate 92 Respiratory Rate 18 Blood Pressure 137/88 H Blood Pressure Mean 104 Pulse Ox 99 Oxygen Delivery Method Room Air Positive well nourished and well developed General Appearance ED: well developed; Negative for pallor HEENT HEENT Narrative: Normocephalic atraumatic No tongue or lip swelling no oral lesions no airway edema or compromise; no secondary findings in the posterior pharynx to suggest infection No tongue or cheek biting is just seizure activity Eyes PERRL and EOMs intact bilaterally General Eye ED: Negative for scleral icterus Neck supple Neck Narrative: No nuchal rigidity or meningeal signs noted Resp normal respiratory effort and clear to auscultation bilaterally Cardio regular rate and regular rhythm Rate: other Other Details: Radial and carotid pulses are equal and symmetric GI normal to inspection, nondistended, normoactive bowel sounds, non-tender, non-distended and no masses GI (more content not included)... Normal [facility] Eosinophil percentageOrdered By: Satnam Roberts on 02-21-2025 Eosinophils/100 WBC (Bld) 1.3 % 0-5 [facility] Erythrocyte distribution wid th ratioOrdered By: Satnam Roberts on 02-21-2025 Erythrocyte distribution width (RBC) [Ratio] 14.5 % 11.6-14.6 [facility] Erythrocyte distribution wid th standard deviationOrdered By: Satnam Roberts on 02-21-2025 Erythrocyte distribution width (RBC) [Ratio] 46.2 fl High 35.1-43.9 [facility] Glomerular filtration rate ( GFR) estimation/1.73 sq m using serum, plasma, or whole bOrdered By: Satnam Roberts on 02-21-2025 GFR/1.73 sq M.predicted among non-blacks MDRD (S/P/Bld) [Vol rate/Area] 78 mL/min/{1.73_m2} >60 [facility] Comment on above: mL/min/1.73m2 CKD-EP I Creatinine Equation (2020) Hematocrit Auto (Bld) [Volum e fraction]Ordered By: Satnam Roberts on 02-21-2025 Hematocrit (Bld) [Volume fraction] 33.0 % Low 40-54 [facility] Hemoglobin measurementOrdere d By: Satnam Roberts on 02-21-2025 Hemoglobin (Bld) [Mass/Vol] 10.9 g/dL Low 13.0-16.5 [facility] Immature granulocytes/100 WB C Auto (Bld)Ordered By: Satnam Roberts on 02-21-2025 Immature granulocytes/100 WBC (Bld) 0.600 % 0.0-0.9 [facility] Comment on above: IG% - Immature Granu locytes (promyelocytes, myelocytes and metamyelocytes) > 1% indicates that a LEFT SHIFT is Present. Ketones Test strip Ql (U)Ord ered By: Satnam Roberts on 02-21-2025 Ketones Ql (U) Negative Negative [facility] - Chemistry and C hemistry - challengeOrdered By: Satnam Roberts on 02-21-2025 AST [Catalytic activity/Vol] 19 U/L <38 [facility] Liver Profileon 02-21-2025 Albumin [Mass/Vol] 4.0 g/dL Normal 3.4-4.8 [facility] Comment on above: Performed By: #### L 503.5510, L501.9520, L500.3400, L500.2500, L501.7510, L501.5200, L100.0100 ####[facility] [address] [place], [address] ALK PHOS 104 U/L Normal 40-129 [facility] Comment on above: Performed By: #### L 503.5510, L501.9520, L500.3400, L500.2500, L501.7510, L501.5200, L100.0100 ####[facility] [address] [place], [address] ALT [Catalytic activity/Vol] 10 U/L Normal <=46 [facility] Comment on above: Performed By: #### L 503.5510, L501.9520, L500.3400, L500.2500, L501.7510, L501.5200, L100.0100 ####[facility] [address] [place], [address] AST [Catalytic activity/Vol] 19 U/L Normal <=37 [facility] Comment on above: Performed By: #### L 503.5510, L501.9520, L500.3400, L500.2500, L501.7510, L501.5200, L100.0100 ####[facility] [address] [place], [address] Bilirubin [Mass/Vol] 0.28 mg/dL Normal 0.00-1.30 [facility] Comment on above: Performed By: #### L 503.5510, L501.9520, L500.3400, L500.2500, L501.7510, L501.5200, L100.0100 ####[facility] [address] [place], [address] Bilirubin.direct [Mass/Vol] 0.14 mg/dL Normal 0.00-0.30 [facility] Comment on above: Performed By: #### L 503.5510, L501.9520, L500.3400, L500.2500, L501.7510, L501.5200, L100.0100 ####[facility] [address] [place], [address] Globulin (S) [Mass/Vol] 2.6 g/dL Normal 2.2-4.2 [facility] Comment on above: Performed By: #### L 503.5510, L501.9520, L500.3400, L500.2500, L501.7510, L501.5200, L100.0100 ####[facility] [address] [place], [address] T PROT 6.5 g/dL Normal 5.9-8.4 [facility] Comment on above: Performed By: #### L 503.5510, L501.9520, L500.3400, L500.2500, L501.7510, L501.5200, L100.0100 ####[facility] [address] [place], [address] MCV (mean corpuscular volume ) determinationOrdered By: Satnam Roberts on 02-21-2025 MCV (RBC) [Entitic vol] 88.9 fL 80-94 [facility] Magnesiumon 02-21-2025 Magnesium [Mass/Vol] 2.0 mg/dL Normal 1.5-2.2 [facility] Comment on above: Performed By: #### L 503.5510, L501.9520, L500.3400, L500.2500, L501.7510, L501.5200, L100.0100 ####[facility] [address] [place], [address] Magnesium measurement (mass/ volume)Ordered By: Satnam Roberts on 02-21-2025 Magnesium (Unsp spec) [Mass/Vol] 2.0 mg/dL 1.5-2.2 [facility] Mean corpuscular hemoglobin (MCH) determinationOrdered By: Satnam Roberts on 02-21-2025 MCH (RBC) [Entitic mass] 29.4 pg 27.0-32.0 [facility] Mean corpuscular hemoglobin concentration (MCHC) determinationOrdered By: Satnam Roberts on 02-21-2025 MCHC (RBC) [Mass/Vol] 33.0 g/dL 32-36 [facility] Mean platelet volume determi nationOrdered By: Satnam Roberts on 02-21-2025 Platelet mean volume (Bld) [Entitic vol] 11.0 fL 6.2-12.0 [facility] Microscopic analysis of urin e for red blood cells (RBC)Ordered By: Satnam Roberts on 02-21-2025 Microscopic analysis of urine for red blood cells (RBC) 0 SEEN /hpf 0-5 [facility] Monocyte percentageOrdered B y: Satnam Roberts on 02-21-2025 Monocytes/100 WBC (Bld) 9.3 % 0-10 [facility] Mucus LM Ql (Urine sed)Order ed By: Satnam Roberts on 02-21-2025 Mucus Ql (Urine sed) 0 SEEN /hpf [facility] Neutrophil percentageOrdered By: Satnam Roberts on 02-21-2025 Neutrophils/100 WBC (Bld) 63.3 % 47-70 [facility] Nitrite Test strip Ql (U)Ord ered By: Satnam Roberts on 02-21-2025 Nitrite Ql (U) Negative Negative [facility] Nucleated red blood cell per centageOrdered By: Satnam Roberts on 02-21-2025 Nucleated RBC/100 WBC (Bld) [Ratio] 0 % 0-5 [facility] Platelet countOrdered By: Chyna Roberts on 02-21-2025 Platelets (Bld) [#/Vol] 259 10*3/uL 150-450 [facility] Potassium measurement (mass/ volume)Ordered By: Satnam Roberts on 02-21-2025 Potassium (Unsp spec) [Mass/Vol] 3.9 mmol/L 3.3-5.1 [facility] Protein Test strip Ql (U)Ord ered By: Satnam Roberts on 02-21-2025 Protein Ql (U) 15 mg/dl High Negative [facility] RBC Auto (Bld) [#/Vol]Ordere d By: Satnam Roberts on 02-21-2025 RBC (Bld) [#/Vol] 3.71 10*6/uL Low 4.6-6.2 [facility] Serum creatinine measurement (mass/volume)Ordered By: Satnam Roberts on 02-21-2025 Creatinine [Mass/Vol] 0.94 mg/dL 0.70-1.20 [facility] Serum globulin measurementOr dered By: Satnam Roberts on 02-21-2025 Globulin (S) [Mass/Vol] 2.6 g/dL 2.2-4.2 [facility] Serum glucose measurement (m ass/volume)Ordered By: Satnam Roberts on 02-21-2025 Glucose [Mass/Vol] 156 mg/dL High 70-99 [facility] Serum or plasma alanine kay otransferase (ALT) measurementOrdered By: Satnam Roberts on 02-21-2025 ALT [Catalytic activity/Vol] 10 U/L <47 [facility] Serum or plasma albumin mago urement (mass/volume)Ordered By: Satnam Roberts on 02-21-2025 Albumin [Mass/Vol] 4.0 g/dL 3.4-4.8 [facility] Serum or plasma alkaline enrike sphatase measurementOrdered By: Satnam Roberts on 02-21-2025 ALP [Catalytic activity/Vol] 104 U/L 40-129 [facility] Serum or plasma calcium mago urement (mass/volume)Ordered By: Satnam Roberts on 02-21-2025 Calcium [Mass/Vol] 8.8 mg/dL 7.6-11.0 [facility] Serum or plasma digoxin mago urement (mass/volume)Ordered By: Satnam Roberts on 02-21-2025 Digoxin [Mass/Vol] 0.55 ng/mL 0.00-2.00 [facility] Serum or plasma urea nitroge n measurement (mass/volume)Ordered By: Satnam Roberts on 02-21-2025 Urea nitrogen [Mass/Vol] 19 mg/dL 4-19 [facility] Sodium levelOrdered By: Ralph Roberts on 02-21-2025 Sodium [Moles/Vol] 136 mmol/L 133-145 [facility] Squamous epithelial cells de tection in urine sediment by light microscopyOrdered By: Satnam Roberts on 02-21-2025 Epithelial cells.squamous LM Ql (Urine sed) 0 SEEN /hpf 0-5 [facility] TSH DL <= 0.005 mIU/L QnOrde red By: Satnam Roberts on 02-21-2025 TSH Qn 0.837 uIU/mL 0.300-4.200 [facility] Thyroid Stim Hormone (TSH)on 02-21-2025 TSH 0.837 uIU/mL Normal 0.300-4.200 [facility] Comment on above: Performed By: #### L 503.5510, L501.9520, L500.3400, L500.2500, L501.7510, L501.5200, L100.0100 ####[facility] [address] [place], [place], [id number] Total proteinOrdered By: Lul Roberts on 02-21-2025 Protein [Mass/Vol] 6.5 g/dL 5.9-8.4 [facility] Urinalysis, Completeon 02-21 BACTERIA 0 SEEN Normal None Seen [facility] Comment on above: Order Comment: ALFREDO CTOR TO SPECIFY Performed By: #### L 400.0001 #### [facility] [address] [place], [address] EPI,SQUAMOUS 0 SEEN Normal 0-5 [facility] Comment on above: Order Comment: ALFREDO CTOR TO SPECIFY Performed By: #### L 400.0001 #### [facility] [address] [place], [address] Mucus Ql (Urine sed) 0 SEEN Normal [facility] Comment on above: Order Comment: ALFREDO CTOR TO SPECIFY Performed By: #### L 400.0001 #### [facility] [address] [place], [address] RBC 0 SEEN Normal 0-5 [facility] Comment on above: Order Comment: ALFREDO CTOR TO SPECIFY Performed By: #### L 400.0001 #### [facility] [address] [place], [address] WBC 0 SEEN Normal 0-5 [facility] Comment on above: Order Comment: ALFREDO CTOR TO SPECIFY Performed By: #### L 400.0001 #### [facility] [address] [place], [address] Urine clarityOrdered By: Llu Roberts on 02-21-2025 Clarity (U) Clear Clear [facility] Urine color determinationOrd ered By: Satnam Roberts on 02-21-2025 Color (U) Yellow Yellow [facility] Urine glucose detectionOrder ed By: Satnam Roberts on 02-21-2025 Glucose Ql (U) Normal mg/dl Normal [facility] Urine leukocyte esterase det ection by dipstickOrdered By: Satnam Roberts on 02-21-2025 Leukocyte esterase Test strip Ql (U) Negative Negative [facility] Urine pHOrdered By: Satnam ayoub on 02-21-2025 pH (U) 6.5 [pH] 5.0 - 8.0 [facility] Urine sediment bacteria coun t by microscopy (number/high power field)Ordered By: Satnam Roberts on 02-21-2025 Bacteria LM.HPF (Urine sed) [#/Area] 0 /[HPF] None Seen [facility] Urine specific gravity measu rementOrdered By: Satnam Roberts on 02-21-2025 Specific gravity (U) [Rel density] 1.010 1.002-1.030 [facility] Urine urobilinogen measureme ntOrdered By: Satnam Roberts on 02-21-2025 Urobilinogen Ql (U) Normal mg/dl Normal [facility] Venous blood ammonia measure mentOrdered By: Satnam Roberts on 02-21-2025 Ammonia (P) [Moles/Vol] 13.8 umol/L Low 16-60 [facility] White blood cell (WBC) count Ordered By: Satnam Roberts on 02-21-2025 WBC (Bld) [#/Vol] 8.8 10*3/uL 4.4-11.0 [facility] White blood cell countOrdere d By: Satnam Roberts on 02-21-2025 White blood cell count 0 SEEN /hpf 0-5 [facility] Absolute lymphocyte countOrd ered By: Juan Hairston on 02-19-2025 Lymphocytes Auto (Unsp spec) [#/Vol] 1.64 10*3/uL 0.83-4.51 [facility] Absolute neutrophil countOrd ered By: Juan Hairston on 02-19-2025 Neutrophils (Bld) [#/Vol] 6.6 10*3/uL 2.0-7.7 [facility] Anion gap in Serum or Plasma Ordered By: Juan Hairston on 02-19-2025 Anion gap [Moles/Vol] 12 mmol/L 5-15 [facility] Automated lymphocyte count a s percentage of total leukocytesOrdered By: Juan Hairston on 02-19-2025 Lymphocytes/100 WBC Auto (Unsp spec) 17.9 % Low 19-41 [facility] BUN/creatinine ratioOrdered By: Juan Hairston on 02-19-2025 Urea nitrogen/Creatinine [Mass ratio] 17.8 mg/mg 10-20 [facility] Basophil percentageOrdered B y: Juan Hairston on 02-19-2025 Basophils/100 WBC (Bld) 0.3 % 0-1 [facility] Bilirubin Test strip Ql (U)O rdered By: Juan Hairston on 02-19-2025 Bilirubin Ql (U) Negative Negative [facility] Bilirubin, totalOrdered By: Juanlita Hairston on 02-19-2025 Bilirubin [Mass/Vol] 0.35 mg/dL 0.00-1.30 [facility] CBC W/Diff, Automatedon 10-0 Absolute Lymph 1.64 X10 3/uL Normal 0.83-4.51 [facility] Comment on above: Order Comment: PER Emily GUTHRIE COMMENT-ESR Order Date: 02/18/25 Order Info: 0184-1 - CBCD Performed By: #### L 500.4050, L501.7510, L400.0001, L100.0100 #### [facility] [address] [place], [address] Absolute Neut 6.6 X10 3/uL Normal 2.0-7.7 [facility] Comment on above: Order Comment: PER Emily GUTHRIE COMMENT-ESR Order Date: 02/18/25 Order Info: 0184-1 - CBCD Performed By: #### L 500.4050, L501.7510, L400.0001, L100.0100 #### [facility] [address] [place], [address] Basophils/100 WBC (Bld) 0.3 % Normal 0-1 [facility] Comment on above: Order Comment: PER Emily TORRESERАНДРЕЙ COMMENT-ESR Order Date: 02/18/25 Order Info: 0184-1 - CBCD Performed By: #### L 500.4050, L501.7510, L400.0001, L100.0100 #### [facility] [address] [place], [address] Eosinophils/100 WBC (Bld) 0.3 % Normal 0-5 [facility] Comment on above: Order Comment: PER Emily GUTHRIE COMMENT-ESR Order Date: 02/18/25 Order Info: 0184-1 - CBCD Performed By: #### L 500.4050, L501.7510, L400.0001, L100.0100 #### [facility] [address] [place], [address] Erythrocyte distribution width (RBC) [Ratio] 14.6 % Normal 11.6-14.6 [facility] Comment on above: Order Comment: PER Emily TORRESERАНДРЕЙ COMMENT-ESR Order Date: 02/18/25 Order Info: [id number] - CBCD Performed By: #### L 500.4050, L501.7510, L400.0001, L100.0100 #### [facility] [address] [place], [address] Hematocrit (Bld) [Volume fraction] 34.1 % Low 40-54 [facility] Comment on above: Order Comment: PER Emily GUTHRIE COMMENT-ESR Order Date: 02/18/25 Order Info: 0184 - CBCD Performed By: #### L 500.4050, L501.7510, L400.0001, L100.0100 #### [facility] [address] [place], [address] Hemoglobin (Bld) [Mass/Vol] 11.2 g/dL Low 13.0-16.5 [facility] Comment on above: Order Comment: PER Emily GUTHRIE COMMENT-ESR Order Date: 02/18/25 Order Info: 0184- - CBCD Performed By: #### L 500.4050, L501.7510, L400.0001, L100.0100 #### [facility] [address] [place], [address] IG% 0.800 Normal 0.0-0.9 [facility] Comment on above: Order Comment: PER Emily GUTHRIE COMMENT-ESR Order Date: 02/18/25 Order Info: 0184- - CBCD Result Comment: IG% - Immature Granulocytes (promyelocytes, myelocytes and metamyelocytes) > 1% indicates that a LEFT SHIFT is Present. Performed By: #### L 500.4050, L501.7510, L400.0001, L100.0100 #### [facility] [address] [place], [address] Lymphocytes/100 WBC (Bld) 17.9 % Low 19-41 [facility] Comment on above: Order Comment: PER I NTERАНДРЕЙ COMMENT-ESR Order Date: 02/18/25 Order Info: 0184-1 - CBCD Performed By: #### L 500.4050, L501.7510, L400.0001, L100.0100 #### [facility] [address] [place], [address] MCH (RBC) [Entitic mass] 29.6 pg Normal 27.0-32.0 [facility] Comment on above: Order Comment: PER I BRIANERАНДРЕЙ COMMENT-ESR Order Date: 02/18/25 Order Info: 0184-1 - CBCD Performed By: #### L 500.4050, L501.7510, L400.0001, L100.0100 #### [facility] [address] [place], [address] MCHC (RBC) [Mass/Vol] 32.8 g/dL Normal 32-36 [facility] Comment on above: Order Comment: PER I BRIANERАНДРЕЙ COMMENT-ESR Order Date: 02/18/25 Order Info: 0184-1 - CBCD Performed By: #### L 500.4050, L501.7510, L400.0001, L100.0100 #### [facility] [address] [place], [address] MCV (RBC) [Entitic vol] 90.0 fL Normal 80-94 [facility] Comment on above: Order Comment: PER I NTERFASILVESTRE COMMENT-ESR Order Date: 02/18/25 Order Info: 0184-1 - CBCD Performed By: #### L 500.4050, L501.7510, L400.0001, L100.0100 #### [facility] [address] [place], [address] Monocytes/100 WBC (Bld) 8.3 % Normal 0-10 [facility] Comment on above: Order Comment: PER Emily GUTHRIE COMMENT-ESR Order Date: 02/18/25 Order Info: 0184-1 - CBCD Performed By: #### L 500.4050, L501.7510, L400.0001, L100.0100 #### [facility] [address] [place], [address] Neutrophils/100 WBC (Bld) 72.4 % High 47-70 [facility] Comment on above: Order Comment: PER Emily GUTHRIE COMMENT-ESR Order Date: 02/18/25 Order Info: 0184- - CBCD Performed By: #### L 500.4050, L501.7510, L400.0001, L100.0100 #### [facility] [address] [place], [address] Nucleated RBC (Bld) [#/Vol] 0 10*3/uL Normal 0-5 [facility] Comment on above: Order Comment: PER Emily GUTHRIE COMMENT-ESR Order Date: 02/18/25 Order Info: 0184- - CBCD Performed By: #### L 500.4050, L501.7510, L400.0001, L100.0100 #### [facility] [address] [place], [address] Platelet mean volume (Bld) [Entitic vol] 11.3 fL Normal 6.2-12.0 [facility] Comment on above: Order Comment: PER Emily GUTHRIE COMMENT-ESR Order Date: 02/18/25 Order Info: 0184- - CBCD Performed By: #### L 500.4050, L501.7510, L400.0001, L100.0100 #### [facility] [address] [place], [address] Platelets (Bld) [#/Vol] 250 10*3/uL Normal 150-450 [facility] Comment on above: Order Comment: PER Emily GUTHRIE COMMENT-ESR Order Date: 02/18/25 Order Info: 0184-1 - CBCD Performed By: #### L 500.4050, L501.7510, L400.0001, L100.0100 #### [facility] [address] [place], [address] RBC (Bld) [#/Vol] 3.79 10*6/uL Low 4.6-6.2 [facility] Comment on above: Order Comment: KIT GUTHRIE COMMENT-ESR Order Date: 02/18/25 Order Info: 0184-1 - CBCD Performed By: #### L 500.4050, L501.7510, L400.0001, L100.0100 #### [facility] [address] [place], [address] RDW SD 48.5 fl High 35.1-43.9 [facility] Comment on above: Order Comment: KIT GUTHRIE COMMENT-ESR Order Date: 02/18/25 Order Info: 0184-1 - CBCD Performed By: #### L 500.4050, L501.7510, L400.0001, L100.0100 #### [facility] [address] [place], [address] WBC (Bld) [#/Vol] 9.2 10*3/uL Normal 4.4-11.0 [facility] Comment on above: Order Comment: KIT GUTHRIE COMMENT-ESR Order Date: 02/18/25 Order Info: 0184-1 - CBCD Performed By: #### L 500.4050, L501.7510, L400.0001, L100.0100 #### [facility] [address] [place], [address] Carbon dioxide, total [Moles /volume] in Central venous bloodOrdered By: Juan Hairston on 02-19-2025 CO2 [Moles/Vol] 23.4 mmol/L 21.0-32.0 [facility] Chloride assayOrdered By: Enrique Hairston on 02-19-2025 Chloride [Moles/Vol] 101 mmol/L 98-108 [facility] Comprehensive Metabolic Prof ilon 02-19-2025 Albumin [Mass/Vol] 3.8 g/dL Normal 3.4-4.8 [facility] Comment on above: Order Comment: KIT TORRESERАНДРЕЙ COMMENT-ESR Order Date: 02/18/25 Order Info: [id number] - CMP Order Info: 3015-3 - TSH Order Date: 12/20/24 Order Info: 3024-7 - T4F Performed By: #### L 500.4050, L501.7510, L400.0001, L100.0100 #### [facility] [address] [place], [place], [id number] Albumin/Globulin [Mass ratio] 1.5 {ratio} Normal 0.9-2.4 [facility] Comment on above: Order Comment: KIT GUTHRIE COMMENT-ESR Order Date: 02/18/25 Order Info: [id number] - CMP Order Info: [id number] - TSH Order Date: 12/20/24 Order Info: 3024-7 - T4F Performed By: #### L 500.4050, L501.7510, L400.0001, L100.0100 #### [facility] [address] [place], [address] ALK PHOS 97 U/L Normal 40-129 [facility] Comment on above: Order Comment: KIT TORRESERАНДРЕЙ COMMENT-ESR Order Date: 02/18/25 Order Info: [id number] - CMP Order Info: 3015-3 - TSH Order Date: 12/20/24 Order Info: 3024-7 - T4F Performed By: #### L 500.4050, L501.7510, L400.0001, L100.0100 #### [facility] [address] [place], [address] ALT [Catalytic activity/Vol] 10 U/L Normal <=46 [facility] Comment on above: Order Comment: PER Emily GUTHRIE COMMENT-ESR Order Date: 02/18/25 Order Info: [id number] - CMP Order Info: 3015-3 - TSH Order Date: 12/20/24 Order Info: 3024-7 - T4F Performed By: #### L 500.4050, L501.7510, L400.0001, L100.0100 #### [facility] [address] [place], [address] AST [Catalytic activity/Vol] 18 U/L Normal <=37 [facility] Comment on above: Order Comment: PER Emily GUTHRIE COMMENT-ESR Order Date: 02/18/25 Order Info: 07-1 - CMP Order Info: [id number] - TSH Order Date: 12/20/24 Order Info: 3024-7 - T4F Performed By: #### L 500.4050, L501.7510, L400.0001, L100.0100 #### [facility] [address] [place], [address] Bilirubin [Mass/Vol] 0.35 mg/dL Normal 0.00-1.30 [facility] Comment on above: Order Comment: KIT GUTHRIE COMMENT-ESR Order Date: 02/18/25 Order Info: [id number] - CMP Order Info: 3 - TSH Order Date: 12/20/24 Order Info: 3024-7 - T4F Performed By: #### L 500.4050, L501.7510, L400.0001, L100.0100 #### [facility] [address] [place], [address] BUN/CRE 17.8 RATIO Normal 10-20 [facility] Comment on above: Order Comment: KIT GUTHRIE COMMENT-ESR Order Date: 02/18/25 Order Info: [id number] - CMP Order Info: 3 - TSH Order Date: 12/20/24 Order Info: 3024-7 - T4F Performed By: #### L 500.4050, L501.7510, L400.0001, L100.0100 #### [facility] [address] [place], [address] Calcium [Mass/Vol] 8.8 mg/dL Normal 7.6-11.0 [facility] Comment on above: Order Comment: PER Emily GUTHRIE COMMENT-ESR Order Date: 02/18/25 Order Info: [id number] - CMP Order Info: 3015-3 - TSH Order Date: 12/20/24 Order Info: 3024-7 - T4F Performed By: #### L 500.4050, L501.7510, L400.0001, L100.0100 #### [facility] [address] [place], [address] Chloride [Moles/Vol] 101 mmol/L Normal 98-108 [facility] Comment on above: Order Comment: KIT GUTHRIE COMMENT-ESR Order Date: 02/18/25 Order Info: [id number] - CMP Order Info: 3 - TSH Order Date: 12/20/24 Order Info: 3024-7 - T4F Performed By: #### L 500.4050, L501.7510, L400.0001, L100.0100 #### [facility] [address] [place], [address] CO2 [Moles/Vol] 23.4 mmol/L Normal 21.0-32.0 [facility] Comment on above: Order Comment: KIT GUTHRIE COMMENT-ESR Order Date: 02/18/25 Order Info: [id number] - CMP Order Info: 301-3 - TSH Order Date: 12/20/24 Order Info: 3024-7 - T4F Performed By: #### L 500.4050, L501.7510, L400.0001, L100.0100 #### [facility] [address] [place], [address] Creatinine [Mass/Vol] 0.94 mg/dL Normal 0.70-1.20 [facility] Comment on above: Order Comment: PER Emily GUTHRIE COMMENT-ESR Order Date: 02/18/25 Order Info: 0786-1 - CMP Order Info: 3016-3 - TSH Order Date: 12/20/24 Order Info: 3024-7 - T4F Performed By: #### L [id number], L501.7510, L400.0001, L100.0100 #### [facility] [address] [place], [address] GAP 12 Normal 5-15 [facility] Comment on above: Order Comment: PER Emily GUTHRIE COMMENT-ESR Order Date: 02/18/25 Order Info: 0786-1 - CMP Order Info: 3015-07 - TSH Order Date: 12/20/24 Order Info: 3024-7 - T4F Performed By: #### L [id number], L501.7510, L400.0001, L100.0100 #### [facility] [address] [place], [address] GFR/1.73 sq M.predicted among non-blacks MDRD (S/P/Bld) [Vol rate/Area] 78 mL/min/{1.73_m2} Normal >60 [facility] Comment on above: Order Comment: KIT GUTHRIE COMMENT-ESR Order Date: 02/18/25 Order Info: 0786-1 - CMP Order Info: 30110-22 - TSH Order Date: 12/20/24 Order Info: 3024-7 - T4F Result Comment: mL/m in/1.73m2 CKD-EPI Creatinine Equation (2020) Performed By: #### L 500.4050, L501.7510, L400.0001, L100.0100 #### [facility] [address] [place], [address] Globulin (S) [Mass/Vol] 2.6 g/dL Normal 2.2-4.2 [facility] Comment on above: Order Comment: PER I NTERFACE COMMENT-ESR Order Date: 02/18/25 Order Info: 0786-1 - CMP Order Info: 3015-3 - TSH Order Date: 12/20/24 Order Info: 3024-7 - T4F Performed By: #### L 500.4050, L501.7510, L400.0001, L100.0100 #### [facility] [address] [place], [address] Glucose [Mass/Vol] 76 mg/dL Normal 70-99 [facility] Comment on above: Order Comment: PER Emily TORRESERАНДРЕЙ COMMENT-ESR Order Date: 02/18/25 Order Info: 785-1 - CMP Order Info: 3015-3 - TSH Order Date: 12/20/24 Order Info: 3024-7 - T4F Performed By: #### L 500.4050, L501.7510, L400.0001, L100.0100 #### [facility] [address] [place], [address] Potassium [Moles/Vol] 4.0 mmol/L Normal 3.3-5.1 [facility] Comment on above: Order Comment: PER Emily GUTHRIE COMMENT-ESR Order Date: 02/18/25 Order Info: 0786-1 - CMP Order Info: 3015-3 - TSH Order Date: 12/20/24 Order Info: 3024-7 - T4F Performed By: #### L 500.4050, L501.7510, L400.0001, L100.0100 #### [facility] [address] [place], [address] Sodium [Moles/Vol] 136 mmol/L Normal 133-145 [facility] Comment on above: Order Comment: KIT GUTHRIE COMMENT-ESR Order Date: 02/18/25 Order Info: 0786-1 - CMP Order Info: 3015-3 - TSH Order Date: 12/20/24 Order Info: 3024-7 - T4F Performed By: #### L 500.4050, L501.7510, L400.0001, L100.0100 #### [facility] [address] [place], [address] T PROT 6.4 g/dL Normal 5.9-8.4 [facility] Comment on above: Order Comment: PER Emily GUTHRIE COMMENT-ESR Order Date: 02/18/25 Order Info: 0786-1 - CMP Order Info: 3016-3 - TSH Order Date: 12/20/24 Order Info: 3024-7 - T4F Performed By: #### L 500.4050, L501.7510, L400.0001, L100.0100 #### [facility] [address] [place], [address] Urea nitrogen [Mass/Vol] 17 mg/dL Normal 4-19 [facility] Comment on above: Order Comment: PER Emily GUTHRIE COMMENT-ESR Order Date: 02/18/25 Order Info: 0786-1 - CMP Order Info: 3016-3 - TSH Order Date: 12/20/24 Order Info: 3024-7 - T4F Performed By: #### L 500.4050, L501.7510, L400.0001, L100.0100 #### [facility] [address] [place], [address] Digoxin Levelon 02-19-2025 DIG 0.94 ng/mL Normal 0.00-2.00 [facility] Comment on above: Order Comment: PER Emily GUTHRIE COMMENT-ESR Order Date: 02/18/25 Order Info: [id number] - DIG Performed By: #### L 500.4050, L501.7510, L400.0001, L100.0100 #### [facility] [address] [place], [address] Eosinophil percentageOrdered By: Juan Hairston on 02-19-2025 Eosinophils/100 WBC (Bld) 0.3 % 0-5 [facility] Erythrocyte Sed Rateon 02-19 SED RATE 9 mm/hr Normal 0-20 [facility] Comment on above: Order Comment: PER I NTERFACE COMMENT-ESR Order Date: 02/18/25 Order Info: 0184-1 - CBCD Performed By: #### L 101.9900 #### [facility] [address] [place], [address] Erythrocyte distribution wid th ratioOrdered By: Juan Hairston on 02-19-2025 Erythrocyte distribution width (RBC) [Ratio] 14.6 % 11.6-14.6 [facility] Erythrocyte distribution wid th standard deviationOrdered By: Juan Hairston on 02-19-2025 Erythrocyte distribution width (RBC) [Ratio] 48.5 fl High 35.1-43.9 [facility] Erythrocyte sedimentation ra teOrdered By: Juan Hairston on 02-19-2025 ESR (Bld) [Velocity] 9 mm/h 0-20 [facility] Glomerular filtration rate ( GFR) estimation/1.73 sq m using serum, plasma, or whole bOrdered By: Juan Hairston on 02-19-2025 GFR/1.73 sq M.predicted among non-blacks MDRD (S/P/Bld) [Vol rate/Area] 78 mL/min/{1.73_m2} >60 [facility] Comment on above: mL/min/1.73m2 CKD-EP I Creatinine Equation (2020) Hematocrit Auto (Bld) [Volum e fraction]Ordered By: Juan Hairston on 02-19-2025 Hematocrit (Bld) [Volume fraction] 34.1 % Low 40-54 [facility] Hemoglobin measurementOrdere d By: Juan Hairston on 02-19-2025 Hemoglobin (Bld) [Mass/Vol] 11.2 g/dL Low 13.0-16.5 [facility] Immature granulocytes/100 WB C Auto (Bld)Ordered By: Juan Hairston on 02-19-2025 Immature granulocytes/100 WBC (Bld) 0.800 % 0.0-0.9 [facility] Comment on above: IG% - Immature Granu locytes (promyelocytes, myelocytes and metamyelocytes) > 1% indicates that a LEFT SHIFT is Present. Ketones Test strip Ql (U)Ord ered By: Juan Hairston on 02-19-2025 Ketones Ql (U) Negative Negative [facility] - Chemistry and C hemistry - challengeOrdered By: Juan Hairston on 02-19-2025 AST [Catalytic activity/Vol] 18 U/L <38 [facility] MCV (mean corpuscular volume ) determinationOrdered By: Juan Hairston on 02-19-2025 MCV (RBC) [Entitic vol] 90.0 fL 80-94 [facility] Mean corpuscular hemoglobin (MCH) determinationOrdered By: Juan Hairston on 02-19-2025 MCH (RBC) [Entitic mass] 29.6 pg 27.0-32.0 [facility] Mean corpuscular hemoglobin concentration (MCHC) determinationOrdered By: Juan Hairston on 02-19-2025 MCHC (RBC) [Mass/Vol] 32.8 g/dL 32-36 [facility] Mean platelet volume determi nationOrdered By: Juan Hairston on 02-19-2025 Platelet mean volume (Bld) [Entitic vol] 11.3 fL 6.2-12.0 [facility] Microscopic analysis of urin e for red blood cells (RBC)Ordered By: Juan Hairston on 02-19-2025 Microscopic analysis of urine for red blood cells (RBC) 0-5 SEEN /hpf 0-5 [facility] Comment on above: Previous reported re sult: 0 SEEN /hpfEdited by: VERNON on 02/19/25:2330 AMENDED REPORT 02/19/25 2330 RBC-UA previously reported as: 0 SEEN /hpf Monocyte percentageOrdered B y: Juan Hairston on 02-19-2025 Monocytes/100 WBC (Bld) 8.3 % 0-10 [facility] Mucus LM Ql (Urine sed)Order ed By: Juan Hairston on 02-19-2025 Mucus Ql (Urine sed) 0 SEEN /hpf [facility] Neutrophil percentageOrdered By: Juan Hairston on 02-19-2025 Neutrophils/100 WBC (Bld) 72.4 % High 47-70 [facility] Nitrite Test strip Ql (U)Ord ered By: Juan Hairston on 02-19-2025 Nitrite Ql (U) Negative Negative [facility] Nucleated red blood cell per centageOrdered By: Juan Hairston on 02-19-2025 Nucleated RBC/100 WBC (Bld) [Ratio] 0 % 0-5 [facility] Platelet countOrdered By: Enrique Hairston on 02-19-2025 Platelets (Bld) [#/Vol] 250 10*3/uL 150-450 [facility] Potassium measurement (mass/ volume)Ordered By: Juan Hairston on 02-19-2025 Potassium (Unsp spec) [Mass/Vol] 4.0 mmol/L 3.3-5.1 [facility] Protein Test strip Ql (U)Ord ered By: Juan Hairston on 02-19-2025 Protein Ql (U) 30 mg/dl High Negative [facility] RBC Auto (Bld) [#/Vol]Ordere d By: Juan Hairston on 02-19-2025 RBC (Bld) [#/Vol] 3.79 10*6/uL Low 4.6-6.2 [facility] Serum creatinine measurement (mass/volume)Ordered By: Juan Hairston on 02-19-2025 Creatinine [Mass/Vol] 0.94 mg/dL 0.70-1.20 [facility] Serum globulin measurementOr dered By: Juan Hairston on 02-19-2025 Globulin (S) [Mass/Vol] 2.6 g/dL 2.2-4.2 [facility] Serum glucose measurement (m ass/volume)Ordered By: Juan Hairston on 02-19-2025 Glucose [Mass/Vol] 76 mg/dL 70-99 [facility] Serum or plasma alanine kay otransferase (ALT) measurementOrdered By: Juan Hairston on 02-19-2025 ALT [Catalytic activity/Vol] 10 U/L <47 [facility] Serum or plasma albumin mago urement (mass/volume)Ordered By: Juan Hairston on 02-19-2025 Albumin [Mass/Vol] 3.8 g/dL 3.4-4.8 [facility] Serum or plasma albumin/glob ulin mass ratioOrdered By: Juan Hairston on 02-19-2025 Albumin/Globulin [Mass ratio] 1.5 {ratio} 0.9-2.4 [facility] Serum or plasma alkaline enrike sphatase measurementOrdered By: Juan Hairston on 02-19-2025 ALP [Catalytic activity/Vol] 97 U/L 40-129 [facility] Serum or plasma calcium mago urement (mass/volume)Ordered By: Juan Hairston on 02-19-2025 Calcium [Mass/Vol] 8.8 mg/dL 7.6-11.0 [facility] Serum or plasma digoxin mago urement (mass/volume)Ordered By: Juan Hairston on 02-19-2025 Digoxin [Mass/Vol] 0.94 ng/mL 0.00-2.00 [facility] Serum or plasma urea nitroge n measurement (mass/volume)Ordered By: Juan Hairston on 02-19-2025 Urea nitrogen [Mass/Vol] 17 mg/dL 4-19 [facility] Sodium levelOrdered By: Juan Hairston on 02-19-2025 Sodium [Moles/Vol] 136 mmol/L 133-145 [facility] Squamous epithelial cells de tection in urine sediment by light microscopyOrdered By: Juan Hairston on 02-19-2025 Epithelial cells.squamous LM Ql (Urine sed) 0 SEEN /hpf 0-5 [facility] T4 Free Directon 02-19-2025 T4 FREE DIRECT 1.40 ng/dL Normal 0.76-1.46 [facility] Comment on above: Order Comment: KIT GUTHRIE COMMENT-ESROrder Date: 02/18/25Order Info: 0786-1 - CMPOrder Info: 3016-3 - TSHOrder Date: 12/20/24Order Info: 3024-7 - T4F Performed By: #### L 506.0400 ####[facility] [address] [place], [address] T4 freeOrdered By: Juan mitchell on 02-19-2025 Free T4 [Mass/Vol] 1.40 ng/dL 0.76-1.46 [facility] TSH DL <= 0.005 mIU/L QnOrde red By: Juan Hairston on 02-19-2025 TSH Qn 0.386 uIU/mL 0.300-4.200 [facility] Thyroid Stim Hormone (TSH)on 02-19-2025 TSH 0.386 uIU/mL Normal 0.300-4.200 [facility] Comment on above: Order Comment: PER I NTERFACE COMMENT-ESR Order Date: 02/18/25 Order Info: 0786-1 - CMP Order Info: 3016-3 - TSH Order Date: 12/20/24 Order Info: 3024-7 - T4F Performed By: #### L 501.9520 #### [facility] [address] [place], [place], [address] Total proteinOrdered By: Monique Hairston on 02-19-2025 Protein [Mass/Vol] 6.4 g/dL 5.9-8.4 [facility] Urinalysis, Completeon 02-19 BACTERIA 1+ /hpf Normal None Seen [facility] Comment on above: Order Comment: Order Date: 02/18/25 Order Info: [id number] - [employer]ING [employer]PENTER TO SPECIFY Result Comment: AMENDED REPORT 02/19/252329 BACTERIA previously reported as: 3+ /hpf Performed By: #### L 500.4050, L501.7510, L400.0001, L100.0100 #### [facility] [address] [place], [place], [address] RBC 0-5 SEEN Normal 0-5 [facility] Comment on above: Order Comment: Order Date: 02/18/25 Order Info: [id number] - UAC [employer]IDENT[employer]ING [employer]PENTER TO SPECIFY Result Comment: AMENDED REPORT 02/19/252329 RBC-UA previously reported as: 0 SEEN /hpf Performed By: #### L 500.4050, L501.7510, L400.0001, L100.0100 #### [facility] [address] [place], [place], [address] Urine clarityOrdered By: Monique Hairston on 02-19-2025 Clarity (U) Clear Clear [facility] Urine color determinationOrd ered By: Juan Hairston on 02-19-2025 Color (U) Yellow Yellow [facility] Urine glucose detectionOrder ed By: Juan Hairston on 02-19-2025 Glucose Ql (U) Normal mg/dl Normal [facility] Urine leukocyte esterase det ection by dipstickOrdered By: Juan Hairston on 02-19-2025 Leukocyte esterase Test strip Ql (U) Negative Negative [facility] Urine pHOrdered By: Juan aragon on 02-19-2025 pH (U) 6.5 [pH] 5.0 - 8.0 [facility] Urine sediment bacteria coun t by microscopy (number/high power field)Ordered By: Juan Hairston on 02-19-2025 Bacteria LM.HPF (Urine sed) [#/Area] 1 /[HPF] None Seen [facility] Comment on above: Previous reported re sult: 3+ /hpfEdited by: VERNON on 02/19/25:2330 AMENDED REPORT 02/19/252329 BACTERIA previously reported as: 3+ /hpf Urine specific gravity measu rementOrdered By: Juan Hairston on 02-19-2025 Specific gravity (U) [Rel density] 1.010 1.002-1.030 [facility] Urine urobilinogen measureme ntOrdered By: Juan Hairston on 02-19-2025 Urobilinogen Ql (U) 1 mg/dl High Normal [facility] White blood cell (WBC) count Ordered By: Juan Hairston on 02-19-2025 WBC (Bld) [#/Vol] 9.2 10*3/uL 4.4-11.0 [facility] White blood cell countOrdere d By: Juan Hairston on 02-19-2025 White blood cell count 0 SEEN /hpf 0-5 [facility] Absolute lymphocyte countOrd ered By: Juan Hairston on 12-19-2024 Lymphocytes Auto (Unsp spec) [#/Vol] 1.51 10*3/uL 0.83-4.51 [facility] Absolute neutrophil countOrd ered By: Juan Hairston on 12-19-2024 Neutrophils (Bld) [#/Vol] 4.2 10*3/uL 2.0-7.7 [facility] Anion gap in Serum or Plasma Ordered By: Juan Hairston on 12-19-2024 Anion gap [Moles/Vol] 10 mmol/L 5-15 [facility] Automated lymphocyte count a s percentage of total leukocytesOrdered By: Juan Hairston on 12-19-2024 Lymphocytes/100 WBC Auto (Unsp spec) 23.7 % - [facility] BUN/creatinine ratioOrdered By: Juan Hairston on 12-19-2024 Urea nitrogen/Creatinine [Mass ratio] 15.1 mg/mg 10- [facility] Basic Metabolic Profile (BMP )on 12-19-2024 BUN/CRE 15.1 RATIO Normal - [facility] Comment on above: Order Comment: Order Date: 12/17/24Order Info: 666-05 - BMPOrder Info: 3016-3 - TSHDigoxinDigoxin level Performed By: #### L 500.2500, L100.0100, L501.9520 ####[facility] [address] [place], [address] Calcium [Mass/Vol] 9.1 mg/dL Normal 7.6-11.0 [facility] Comment on above: Order Comment: Order Date: 12/17/24Order Info: 666-05 - BMPOrder Info: 3016-3 - TSHDigoxinDigoxin level Performed By: #### L 500.2500, L100.0100, L501.9520 ####[facility] [address] [place], [address] Chloride [Moles/Vol] 100 mmol/L Normal 98-108 [facility] Comment on above: Order Comment: Order Date: 12/17/24Order Info: 666-05 - BMPOrder Info: 3016-3 - TSHDigoxinDigoxin level Performed By: #### L 500.2500, L100.0100, L501.9520 ####[facility] [address] [place], [address] CO2 [Moles/Vol] 25.4 mmol/L Normal 21.0-32.0 [facility] Comment on above: Order Comment: Order Date: 12/17/24Order Info: 666-05 - BMPOrder Info: 3016-3 - TSHDigoxinDigoxin level Performed By: #### L 500.2500, L100.0100, L501.9520 ####[facility] [address] [place], [address] Creatinine [Mass/Vol] 1.05 mg/dL Normal 0.70-1.20 [facility] Comment on above: Order Comment: Order Date: 12/17/24Order Info: 06- - BMPOrder Info: 3016-3 - TSHDigoxinDigoxin level Performed By: #### L 500.2500, L100.0100, L501.9520 ####[facility] [address] [place], [address] GAP 10 Normal 5-15 [facility] Comment on above: Order Comment: Order Date: 12/17/24Order Info: 06- - BMPOrder Info: 3016-3 - TSHDigoxinDigoxin level Performed By: #### L 500.2500, L100.0100, L501.9520 ####[facility] [address] [place], [address] GFR/1.73 sq M.predicted among non-blacks MDRD (S/P/Bld) [Vol rate/Area] 69 mL/min/{1.73_m2} Normal >60 [facility] Comment on above: Order Comment: Order Date: 12/17/24Order Info: 06 - BMPOrder Info: 3016-3 - TSHDigoxinDigoxin level Result Comment: mL/m in/1.73m2 CKD-EPI Creatinine Equation (2020) Performed By: #### L 500.2500, L100.0100, L501.9520 ####[facility] [address] [place], [address] Glucose [Mass/Vol] 93 mg/dL Normal 70-99 [facility] Comment on above: Order Comment: Order Date: 12/17/24Order Info: 0667-1 - BMPOrder Info: 3016-3 - TSHDigoxinDigoxin level Performed By: #### L 500.2500, L100.0100, L501.9520 ####[facility] [address] [place], [address] Potassium [Moles/Vol] 3.9 mmol/L Normal 3.3-5.1 [facility] Comment on above: Order Comment: Order Date: 12/17/24Order Info: 06 - BMPOrder Info: 3016-3 - TSHDigoxinDigoxin level Performed By: #### L 500.2500, L100.0100, L501.9520 ####[facility] [address] [place], [address] Sodium [Moles/Vol] 136 mmol/L Normal 133-145 [facility] Comment on above: Order Comment: Order Date: 12/17/24Order Info: 06 - BMPOrder Info: 3 - TSHDigoxinDigoxin level Performed By: #### L 500.2500, L100.0100, L501.9520 ####[facility] [address] [place], [address] Urea nitrogen [Mass/Vol] 16 mg/dL Normal 4-19 [facility] Comment on above: Order Comment: Order Date: 12/17/24Order Info: 0667-1 - BMPOrder Info: 3016-3 - TSHDigoxinDigoxin level Performed By: #### L 500.2500, L100.0100, L501.9520 ####[facility] [address] [place], [address] Basophil percentageOrdered B y: Juan Hairston on 12-19-2024 Basophils/100 WBC (Bld) 0.5 % 0-1 [facility] CBC W/Diff, Automatedon 11-21 Absolute Lymph 1.51 X10 3/uL Normal 0.83-4.51 [facility] Comment on above: Order Comment: Order Date: 12/17/24Order Info: 0184-1 - CBCD Performed By: #### L 500.2500, L100.0100, L501.9520 ####[facility] [address] [place], [address] Absolute Neut 4.2 X10 3/uL Normal 2.0-7.7 [facility] Comment on above: Order Comment: Order Date: 12/17/24Order Info: 0184-1 - CBCD Performed By: #### L 500.2500, L100.0100, L501.9520 ####[facility] [address] [place], [address] Basophils/100 WBC (Bld) 0.5 % Normal 0-1 [facility] Comment on above: Order Comment: Order Date: 12/17/24Order Info: 0184-1 - CBCD Performed By: #### L 500.2500, L100.0100, L501.9520 ####[facility] [address] [place], [address] Eosinophils/100 WBC (Bld) 1.3 % Normal 0-5 [facility] Comment on above: Order Comment: Order Date: 12/17/24Order Info: 0184-1 - CBCD Performed By: #### L 500.2500, L100.0100, L501.9520 ####[facility] [address] [place], [address] Erythrocyte distribution width (RBC) [Ratio] 14.6 % Normal 11.6-14.6 [facility] Comment on above: Order Comment: Order Date: 12/17/24Order Info: 0184-1 - CBCD Performed By: #### L 500.2500, L100.0100, L501.9520 ####[facility] [address] [place], [address] Hematocrit (Bld) [Volume fraction] 33.9 % Low 40-54 [facility] Comment on above: Order Comment: Order Date: 12/17/24Order Info: 0184-1 - CBCD Performed By: #### L 500.2500, L100.0100, L501.9520 ####[facility] [address] [place], [address] Hemoglobin (Bld) [Mass/Vol] 11.3 g/dL Low 13.0-16.5 [facility] Comment on above: Order Comment: Order Date: 12/17/24Order Info: 018- - CBCD Performed By: #### L 500.2500, L100.0100, L501.9520 ####[facility] [address] [place], [address] IG% 0.300 Normal 0.0-0.9 [facility] Comment on above: Order Comment: Order Date: 12/17/24Order Info: 018- - CBCD Result Comment: IG% - Immature Granulocytes (promyelocytes, myelocytes and metamyelocytes) > 1% indicates that a LEFT SHIFT is Present. Performed By: #### L 500.2500, L100.0100, L501.9520 ####[facility] [address] [place], [address] Lymphocytes/100 WBC (Bld) 23.7 % Normal 19-41 [facility] Comment on above: Order Comment: Order Date: 12/17/24Order Info: 018- - CBCD Performed By: #### L 500.2500, L100.0100, L501.9520 ####[facility] [address] [place], [address] MCH (RBC) [Entitic mass] 29.8 pg Normal 27.0-32.0 [facility] Comment on above: Order Comment: Order Date: 12/17/24Order Info: 018- - CBCD Performed By: #### L 500.2500, L100.0100, L501.9520 ####[facility] [address] [place], [address] MCHC (RBC) [Mass/Vol] 33.3 g/dL Normal 32-36 [facility] Comment on above: Order Comment: Order Date: 12/17/24Order Info: 0184-1 - CBCD Performed By: #### L 500.2500, L100.0100, L501.9520 ####[facility] [address] [place], [address] MCV (RBC) [Entitic vol] 89.4 fL Normal 80-94 [facility] Comment on above: Order Comment: Order Date: 12/17/24Order Info: 018- - CBCD Performed By: #### L 500.2500, L100.0100, L501.9520 ####[facility] [address] [place], [address] Monocytes/100 WBC (Bld) 9.1 % Normal 0-10 [facility] Comment on above: Order Comment: Order Date: 12/17/24Order Info: 018- - CBCD Performed By: #### L 500.2500, L100.0100, L501.9520 ####[facility] [address] [place], [address] Neutrophils/100 WBC (Bld) 65.1 % Normal 47-70 [facility] Comment on above: Order Comment: Order Date: 12/17/24Order Info: 018-1 - CBCD Performed By: #### L 500.2500, L100.0100, L501.9520 ####[facility] [address] [place], [address] Nucleated RBC (Bld) [#/Vol] 0 10*3/uL Normal 0-5 [facility] Comment on above: Order Comment: Order Date: 12/17/24Order Info: 0184-1 - CBCD Performed By: #### L 500.2500, L100.0100, L501.9520 ####[facility] [address] [place], [address] Platelet mean volume (Bld) [Entitic vol] 12.3 fL High 6.2-12.0 [facility] Comment on above: Order Comment: Order Date: 12/17/24Order Info: 0184-1 - CBCD Performed By: #### L 500.2500, L100.0100, L501.9520 ####[facility] [address] [place], [address] Platelets (Bld) [#/Vol] 225 10*3/uL Normal 150-450 [facility] Comment on above: Order Comment: Order Date: 12/17/24Order Info: 018- - CBCD Performed By: #### L 500.2500, L100.0100, L501.9520 ####[facility] [address] [place], [address] RBC (Bld) [#/Vol] 3.79 10*6/uL Low 4.6-6.2 [facility] Comment on above: Order Comment: Order Date: 12/17/24Order Info: 018- - CBCD Performed By: #### L 500.2500, L100.0100, L501.9520 ####[facility] [address] [place], [address] RDW SD 46.9 fl High 35.1-43.9 [facility] Comment on above: Order Comment: Order Date: 12/17/24Order Info: 0184-1 - CBCD Performed By: #### L 500.2500, L100.0100, L501.9520 ####[facility] [address] [place], [address] WBC (Bld) [#/Vol] 6.4 10*3/uL Normal 4.4-11.0 [facility] Comment on above: Order Comment: Order Date: 12/17/24Order Info: 0184-1 - CBCD Performed By: #### L 500.2500, L100.0100, L501.9520 ####[facility] [address] [place], [place], [id number] Carbon dioxide, total [Moles /volume] in Central venous bloodOrdered By: Juan Hairston on 12-19-2024 CO2 [Moles/Vol] 25.4 mmol/L 21.0-32.0 [facility] Chloride assayOrdered By: Enrique Hairston on 12-19-2024 Chloride [Moles/Vol] 100 mmol/L 98-108 [facility] Digoxin Levelon 12-19-2024 DIG 0.67 ng/mL Normal 0.00-2.00 [facility] Comment on above: Order Comment: ORDER ABLE Performed By: #### L 501.7510 ####[facility] [address] [place], [place], [id number] Eosinophil percentageOrdered By: Juan Hairston on 12-19-2024 Eosinophils/100 WBC (Bld) 1.3 % 0-5 [facility] Erythrocyte distribution wid th ratioOrdered By: Juan Hairston on 12-19-2024 Erythrocyte distribution width (RBC) [Ratio] 14.6 % 11.6-14.6 [facility] Erythrocyte distribution wid th standard deviationOrdered By: Juan Hairston on 12-19-2024 Erythrocyte distribution width (RBC) [Ratio] 46.9 fl High 35.1-43.9 [facility] Glomerular filtration rate ( GFR) estimation/1.73 sq m using serum, plasma, or whole bOrdered By: Juan Hairston on 12-19-2024 GFR/1.73 sq M.predicted among non-blacks MDRD (S/P/Bld) [Vol rate/Area] 69 mL/min/{1.73_m2} >60 [facility] Comment on above: mL/min/1.73m2 CKD-EP I Creatinine Equation (2020) Hematocrit Auto (Bld) [Volum e fraction]Ordered By: Juan Hairston on 12-19-2024 Hematocrit (Bld) [Volume fraction] 33.9 % Low 40-54 [facility] Hemoglobin measurementOrdere d By: Juan Hairston on 12-19-2024 Hemoglobin (Bld) [Mass/Vol] 11.3 g/dL Low 13.0-16.5 [facility] Immature granulocytes/100 WB C Auto (Bld)Ordered By: Juan Hairston on 12-19-2024 Immature granulocytes/100 WBC (Bld) 0.300 % 0.0-0.9 [facility] Comment on above: IG% - Immature Granu locytes (promyelocytes, myelocytes and metamyelocytes) > 1% indicates that a LEFT SHIFT is Present. MCV (mean corpuscular volume ) determinationOrdered By: Juan Hairston on 12-19-2024 MCV (RBC) [Entitic vol] 89.4 fL 80-94 [facility] Mean corpuscular hemoglobin (MCH) determinationOrdered By: Juan Hairston on 12-19-2024 MCH (RBC) [Entitic mass] 29.8 pg 27.0-32.0 [facility] Mean corpuscular hemoglobin concentration (MCHC) determinationOrdered By: Juan Hairston on 12-19-2024 MCHC (RBC) [Mass/Vol] 33.3 g/dL 32-36 [facility] Mean platelet volume determi nationOrdered By: Juan Hairston on 12-19-2024 Platelet mean volume (Bld) [Entitic vol] 12.3 fL High 6.2-12.0 [facility] Monocyte percentageOrdered B y: Juan Hairston on 12-19-2024 Monocytes/100 WBC (Bld) 9.1 % 0-10 [facility] Neutrophil percentageOrdered By: Juan Hairston on 12-19-2024 Neutrophils/100 WBC (Bld) 65.1 % 47-70 [facility] Nucleated red blood cell per centageOrdered By: Juan Hairston on 12-19-2024 Nucleated RBC/100 WBC (Bld) [Ratio] 0 % 0-5 [facility] Platelet countOrdered By: Enrique Hairston on 12-19-2024 Platelets (Bld) [#/Vol] 225 10*3/uL 150-450 [facility] Potassium measurement (mass/ volume)Ordered By: Juan Hairston on 12-19-2024 Potassium (Unsp spec) [Mass/Vol] 3.9 mmol/L 3.3-5.1 [facility] RBC Auto (Bld) [#/Vol]Ordere d By: Juan Hairston on 12-19-2024 RBC (Bld) [#/Vol] 3.79 10*6/uL Low 4.6-6.2 [facility] Serum creatinine measurement (mass/volume)Ordered By: Juan Hairston on 12-19-2024 Creatinine [Mass/Vol] 1.05 mg/dL 0.70-1.20 [facility] Serum glucose measurement (m ass/volume)Ordered By: Juan Hairston on 12-19-2024 Glucose [Mass/Vol] 93 mg/dL 70-99 [facility] Serum or plasma calcium mago urement (mass/volume)Ordered By: Juan Hairston on 12-19-2024 Calcium [Mass/Vol] 9.1 mg/dL 7.6-11.0 [facility] Serum or plasma digoxin mago urement (mass/volume)Ordered By: Juan Hairston on 12-19-2024 Digoxin [Mass/Vol] 0.67 ng/mL 0.00-2.00 [facility] Serum or plasma urea nitroge n measurement (mass/volume)Ordered By: Juan Hairston on 12-19-2024 Urea nitrogen [Mass/Vol] 16 mg/dL 4-19 [facility] Sodium levelOrdered By: Juan Hairston on 12-19-2024 Sodium [Moles/Vol] 136 mmol/L 133-145 [facility] TSH DL <= 0.005 mIU/L QnOrde red By: Juan Hairston on 12-19-2024 TSH Qn 0.092 uIU/mL Low 0.300-4.200 [facility] Thyroid Stim Hormone (TSH)on 12-19-2024 TSH 0.092 uIU/mL Low 0.300-4.200 [facility] Comment on above: Order Comment: Order Date: 12/17/24Order Info: [id number] - BMPOrder Info: [id number] - TSH Performed By: #### L 500.2500, L100.0100, L501.9520 ####[facility] [id number] [place], [address] White blood cell (WBC) count Ordered By: Juan Hairston on 12-19-2024 WBC (Bld) [#/Vol] 6.4 10*3/uL 4.4-11.0 [facility] PT D/C Summary (1)on 024 PT D/C Summary (1) [facility] [address] [place] [address] / REHABILITATION SERVICES DISCHARGE SUMMARY MR#: [id number] Acct: [id number] Name: LEO ROMAN Rep #: [id number] : 1935 88 From: Umer Islas PT, Cert. T, OCS Referring Dr.: Dr. Juan Hairston MD Status: REG R CR Insurance: [employer] Discharge Summary D/C summary: It has been my pleasure to treat LEO ROMAN referred by Dr. Juan Hairston MD, with the diagnosis of CERVICALGIA for a total of 8 visit(s). Discharge Date: 03/27/24 Please see the following information for a summary of their discharge status. Subjective Subjective: Patient doing well ,patient has more mpbility Overall Improvement % Improvement: 80 Objective Objective/Function: pOSTURE: mild forward posture mod thoracic kyphosis NEURO: denies paresthesia/tingling ,reflexes C5-6-7 1/3 BUE: AROM FLE MMT: [...] please feel free to call me at [phone]. Thank you for the referral of this patient. Sincerely, Umer Islas, PT, Cert MDT, OCS Balance/Gait/Functio nal tests Balance/Special Test Scores Oswestry Neck Score: 3 Improvement % Improvement: 80 03/27/24 1032 CC: Dr. Juan Hairston MD JLA Signed Normal [facility] Basophil percentageOrdered B y: Juan Hairston on 09-15-2023 Bilirubin [Mass/Vol] 0.50 mg/dL 0.20-1.00 [facility] Comment on above: For patients on eltr ombopag therapy, use of Dimension Godfrey TBIL is not recommended. Chloride [Moles/Vol] 102 mmol/L 98-107 [facility] Glucose [Mass/Vol] 103 mg/dL 74-106 [facility] Comment on above: Fasting Glucose resu lt from 100 to 125 mg/dL suggests IMPAIRED HOMEOSTASIS per A.D.A. criteria. Potassium [Moles/Vol] 4.2 mmol/L 3.5-5.1 [facility] Protein [Mass/Vol] 7.3 g/dL 6.4-8.2 [facility] Sodium [Moles/Vol] 136 mmol/L 136-145 [facility] Laboratory - Chemistry and C hemistry - challengeOrdered By: Juan Hairston on 09-15-2023 Albumin/Globulin [Mass ratio] 1.0 {ratio} 0.9-2.4 [facility] ALP [Catalytic activity/Vol] 95 U/L 45-117 [facility] ALT [Catalytic activity/Vol] 15 U/L 16-61 [facility] CO2 [Moles/Vol] 29.0 mmol/L 21.0-32.0 [facility] Globulin (S) [Mass/Vol] 3.6 g/dL 2.2-4.2 [facility] Urea nitrogen/Creatinine [Mass ratio] 15.7 mg/mg 10-20 [facility] No Panel InformationOrdered By: Juan Hairston on 09-15-2023 Digoxin Level 0.40 ng/mL 0.80-2.00 [facility] Estimated GFR (MDRD) Amer 73 mL/min >60 [facility] Comment on above: GFR Calc Estimated GFR (MDRD) Non-Af Amer 61 mL/min >60 [facility] Comment on above: Non- GFR Calc Serum or plasma calcium mago urement (mass/volume)Ordered By: Juan Hairston on 09-15-2023 Calcium [Mass/Vol] 8.9 mg/dL 8.5-10.1 [facility] Serum or plasma creatinine m easurement (mass/volume)Ordered By: Juan Hairston on 09-15-2023 Creatinine [Mass/Vol] 1.21 mg/dL 0.70-1.30 [facility] Comment on above: The validity of the calculated GFR & GFRAA in patients over 70 years has not been determined. Clinical correlation is essential. Serum or plasma thyroid stim ulating hormone (TSH) measurement (units/volume)Ordered By: Juan Hairston on 09-15-2023 TSH Qn 3.00 uIU/mL 0.358-3.74 [facility] Serum or plasma urea nitroge n measurement (mass/volume)Ordered By: Juan Hairston on 09-15-2023 Urea nitrogen [Mass/Vol] 19 mg/dL 7-18 [facility] Thin prep Papanicolaou smear with manual screeningOrdered By: Juan Hairston on 09-15-2023 Thin prep Papanicolaou smear with manual screening 3.7 g/dL 3.2-5.0 [facility] Thin prep Papanicolaou smear with manual screening 16 U/L 15-37 [facility] Thin prep Papanicolaou smear with manual screening 5 5-15 [facility] Thin prep Papanicolaou smear with manual screening 1.03 ng/dL 0.76-1.46 [facility] Absolute lymphocyte countOrd ered By: Saida Ochoa on 09-07-2023 Lymphocytes Auto (Unsp spec) [#/Vol] 2.18 10*3/uL 0.83-4.51 [facility] Automated lymphocyte count a s percentage of total leukocytesOrdered By: Saida Ochoa on 09-07-2023 Lymphocytes/100 WBC Auto (Unsp spec) 31.4 % 19-41 [facility] Basophil percentageOrdered B y: Saida Ochoa on 09-07-2023 Basophil percentage 0 SEEN /hpf 0-5 [facility] Basophils/100 WBC (Bld) 0.9 % 0-1 [facility] Chloride [Moles/Vol] 103 mmol/L 98-107 [facility] Eosinophils/100 WBC (Bld) 0.7 % 0-5 [facility] Glucose [Mass/Vol] 105 mg/dL 74-106 [facility] Comment on above: Fasting Glucose resu lt from 100 to 125 mg/dL suggests IMPAIRED HOMEOSTASIS per A.D.A. criteria. Hemoglobin (Bld) [Mass/Vol] 12.3 g/dL 13.0-16.5 [facility] Monocytes/100 WBC (Bld) 8.3 % 0-10 [facility] Neutrophils (Bld) [#/Vol] 4.1 10*3/uL 2.0-7.7 [facility] Neutrophils/100 WBC (Bld) 58.6 % 47-70 [facility] Potassium [Moles/Vol] 3.8 mmol/L 3.5-5.1 [facility] Sodium [Moles/Vol] 134 mmol/L 136-145 [facility] WBC (Bld) [#/Vol] 7.0 10*3/uL 4.4-11.0 [facility] Bilirubin Test strip Ql (U)O rdered By: Saida Ochoa on 09-07-2023 Bilirubin Ql (U) Negative Negative [facility] Determination of erythrocyte mean corpuscular volume (MCV)Ordered By: Saida Ochoa on 09-07-2023 MCV (RBC) [Entitic vol] 88.8 fL 80-94 [facility] Erythrocyte distribution wid th ratioOrdered By: Saida Ochoa on 09-07-2023 Erythrocyte distribution width (RBC) [Ratio] 13.2 % 11.6-14.6 [facility] Erythrocyte distribution wid th standard deviationOrdered By: Saida Ochoa on 09-07-2023 Erythrocyte distribution width (RBC) [Entitic vol] 43.1 fL 35.1-43.9 [facility] Hematocrit Auto (Bld) [Volum e fraction]Ordered By: Saida Ochoa on 09-07-2023 Hematocrit (Bld) [Volume fraction] 35.5 % 40-54 [facility] Immature granulocytes/100 WB C Auto (Bld)Ordered By: Saida Ochoa on 09-07-2023 Immature granulocytes/100 WBC (Bld) 0.100 % 0.0-0.9 [facility] Comment on above: IG% - Immature Granu locytes (promyelocytes, myelocytes and metamyelocytes) > 1% indicates that a LEFT SHIFT is Present. Ketones Test strip Ql (U)Ord ered By: Saida Ochoa on 09-07-2023 Ketones Ql (U) Negative Negative [facility] Laboratory - Chemistry and C hemistry - challengeOrdered By: Saida Ochoa on 09-07-2023 CO2 [Moles/Vol] 27.0 mmol/L 21.0-32.0 [facility] Urea nitrogen/Creatinine [Mass ratio] 14.8 mg/mg 10-20 [facility] Laboratory - Hematology and Cell countsOrdered By: Saida Ochoa on 09-07-2023 MCH (RBC) [Entitic mass] 30.8 pg 27.0-32.0 [facility] MCHC (RBC) [Mass/Vol] 34.6 g/dL 32-36 [facility] Nucleated RBC/100 WBC (Bld) [Ratio] 0 % 0-5 [facility] Platelet mean volume (Bld) [Entitic vol] 11.5 fL 6.2-12.0 [facility] Platelets (Bld) [#/Vol] 190 10*3/uL 150-450 [facility] Mucus LM Ql (Urine sed)Order ed By: Saida Ochoa on 09-07-2023 Mucus Ql (Urine sed) 0 SEEN /hpf [facility] Nitrite Test strip Ql (U)Ord ered By: Saida Ochoa on 09-07-2023 Nitrite Ql (U) Negative Negative [facility] No Panel InformationOrdered By: Saida Ochoa on 09-07-2023 Urine RBC 0 SEEN /hpf 0-5 [facility] Estimated Creatinine Clearance Calc 51.55 ml/min [facility] Estimated GFR (MDRD) Amer 78 mL/min >60 [facility] Comment on above: GFR Calc Estimated GFR (MDRD) Non-Af Amer 64 mL/min >60 [facility] Comment on above: Non- GFR Calc Protein Test strip Ql (U)Ord ered By: Saida Ochoa on 09-07-2023 Protein Ql (U) Negative Negative [facility] RBC Auto (Bld) [#/Vol]Ordere d By: Saida Ohcoa on 09-07-2023 RBC (Bld) [#/Vol] 4.00 10*6/uL 4.6-6.2 [facility] Serum or plasma calcium mago urement (mass/volume)Ordered By: Saida Ochoa on 09-07-2023 Calcium [Mass/Vol] 8.4 mg/dL 8.5-10.1 [facility] Serum or plasma creatinine m easurement (mass/volume)Ordered By: Saida Ochoa on 09-07-2023 Creatinine [Mass/Vol] 1.15 mg/dL 0.70-1.30 [facility] Comment on above: The validity of the calculated GFR & GFRAA in patients over 70 years has not been determined. Clinical correlation is essential. Serum or plasma urea nitroge n measurement (mass/volume)Ordered By: Saida Ochoa on 09-07-2023 Urea nitrogen [Mass/Vol] 17 mg/dL 7- [facility] Squamous epithelial cells de tection in urine sediment by light microscopyOrdered By: Saida Ochoa on 09-07-2023 Epithelial cells.squamous LM Ql (Urine sed) 0 SEEN /hpf 0-5 [facility] Thin prep Papanicolaou smear with manual screeningOrdered By: Saida Ochoa on 09-07-2023 Thin prep Papanicolaou smear with manual screening 4 5-15 [facility] Urine blood detectionOrdered By: Saida Ochoa on 09-07-2023 RBC Ql (U) 10 /ul Negative [facility] Urine clarityOrdered By: Kaylan Ochoa on 09-07-2023 Clarity (U) Clear Clear [facility] Urine color determinationOrd ered By: Saida Ochoa on 09-07-2023 Color (U) Yellow Yellow [facility] Urine glucose detectionOrder ed By: Saida Ochoa on 09-07-2023 Glucose Ql (U) Normal mg/dl Normal [facility] Urine leukocyte esterase det ection by dipstickOrdered By: Saida Ochoa on 09-07-2023 Leukocyte esterase Test strip Ql (U) Negative Negative [facility] Urine pHOrdered By: Saida Ochoa on 09-07-2023 pH (U) 7.0 [pH] 5.0 - 8.0 [facility] Urine sediment bacteria coun t by microscopy (number/high power field)Ordered By: Saida Ochoa on 09-07-2023 Bacteria LM.HPF (Urine sed) [#/Area] 0 /[HPF] None Seen [facility] Urine specific gravity measu rementOrdered By: Saida Ochoa on 09-07-2023 Specific gravity (U) [Rel density] 1.010 1.002-1.030 [facility] Urine urobilinogen measureme ntOrdered By: Saida Ochoa on 09-07-2023 Urobilinogen Ql (U) Normal mg/dl Normal [facility] Culture, urineOrdered By: Aaron Hayes on 03-03-2023 Bacteria identified Cx Nom (U) Escherichia coli [facility] Laboratory - Chemistry and C hemistry - challengeOrdered By: Juan Hairston on 03-03-2023 Free T4 [Mass/Vol] 1.02 ng/dL 0.76-1.46 [facility] No Panel InformationOrdered By: Juan Hairston on 03-03-2023 Thyroid Stimulating Hormone (TSH) 3.02 uIU/mL 0.358-3.74 [facility] Basophil percentageOrdered B y: Nnamdi Sellers on 11-23-2022 Basophil percentage < 0.9 mg/dL 0.70-1.30 [facility] Laboratory - Chemistry and C hemistry - challengeOrdered By: Juan Hairston on 11-23-2022 Free T4 [Mass/Vol] 0.96 ng/dL 0.76-1.46 [facility] No Panel InformationOrdered By: Juan Hairston on 11-23-2022 Thyroid Stimulating Hormone (TSH) 1.72 uIU/mL 0.358-3.74 [facility] No Panel InformationOrdered By: Nnamdi Sellers on 11-23-2022 Bedside Estimated GFR (eGFR) > 60.0000 mL/min >60 [facility] Absolute lymphocyte countOrd ered By: Raymundo Myles on 10-08-2022 Lymphocytes Auto (Unsp spec) [#/Vol] 1.88 10*3/uL 0.83-4.51 [facility] Basophil percentageOrdered B y: Raymundo Myles on 10-08-2022 Basophil percentage >100 SEEN /hpf 0-5 [facility] Basophils/100 WBC (Bld) 0.4 % 0-1 [facility] Chloride [Moles/Vol] 103 mmol/L 98-107 [facility] Eosinophils/100 WBC (Bld) 0.8 % 0-5 [facility] Glucose [Mass/Vol] 95 mg/dL 74-106 [facility] Neutrophils (Bld) [#/Vol] 7.2 10*3/uL 2.0-7.7 [facility] Neutrophils/100 WBC (Bld) 72.2 % 47-70 [facility] Potassium [Moles/Vol] 3.7 mmol/L 3.5-5.1 [facility] Sodium [Moles/Vol] 137 mmol/L 136-145 [facility] WBC (Bld) [#/Vol] 10.0 10*3/uL 4.4-11.0 [facility] Bilirubin Test strip Ql (U)O rdered By: Raymundo Myles on 10-08-2022 Bilirubin Ql (U) Negative Negative [facility] Blood erythrocytes count (nu mber/volume)Ordered By: Raymundo Myles on 10-08-2022 RBC (Bld) [#/Vol] 3.96 10*6/uL 4.6-6.2 [facility] Blood hemoglobin measurement (mass/volume)Ordered By: Raymundo Myles on 10-08-2022 Hemoglobin (Bld) [Mass/Vol] 12.4 g/dL 13.0-16.5 [facility] Blood lymphocytes/100 leukoc ytesOrdered By: Raymundo Myles on 10-08-2022 Lymphocytes/100 WBC (Bld) 18.7 % 19-41 [facility] Blood monocytes/100 leukocyt esOrdered By: Raymundo Myles on 10-08-2022 Monocytes/100 WBC (Bld) 7.5 % 0-10 [facility] Blood platelet mean volumeOr dered By: Raymundo Myles on 10-08-2022 Platelet mean volume (Bld) [Entitic vol] 10.6 fL 6.2-12.0 [facility] Culture, urineOrdered By: Ralph Omer on 10-08-2022 Bacteria identified Cx Nom (U) Klebsiella pneumoniae sp pneum [facility] Determination of erythrocyte mean corpuscular volume (MCV)Ordered By: Raymundo Myles on 10-08-2022 MCV (RBC) [Entitic vol] 91.7 fL 80-94 [facility] Hematocrit Auto (Bld) [Volum e fraction]Ordered By: Raymundo Myles on 10-08-2022 Hematocrit (Bld) [Volume fraction] 36.3 % 40-54 [facility] INR in Blood by Coagulation assayOrdered By: Raymundo Myles on 10-08-2022 INR Coag (Bld) [Relative time] 1.7 {INR} [facility] Ketones Test strip Ql (U)Ord ered By: Raymundo Myles on 10-08-2022 Ketones Ql (U) 5 mg/dl Negative [facility] Laboratory - Chemistry and C hemistry - challengeOrdered By: Raymundo Myles on 10-08-2022 CO2 [Moles/Vol] 28.0 mmol/L 21.0-32.0 [facility] Urea nitrogen/Creatinine [Mass ratio] 14.8 mg/mg 10-20 [facility] Laboratory - CoagulationOrde red By: Raymundo Myles on 10-08-2022 aPTT Coag (Bld) [Time] 39.2 s 24.1-36.2 [facility] PT Coag (PPP) [Time] 20.1 s 11.7-14.9 [facility] Laboratory - Hematology and Cell countsOrdered By: Raymundo Myles on 10-08-2022 Erythrocyte distribution width (RBC) [Entitic vol] 43.0 fL 35.1-43.9 [facility] Erythrocyte distribution width (RBC) [Ratio] 13.0 % 11.6-14.6 [facility] Immature granulocytes/100 WBC (Bld) 0.400 % 0.0-0.9 [facility] Comment on above: IG% - Immature Granu locytes (promyelocytes, myelocytes and metamyelocytes) > 1% indicates that a LEFT SHIFT is Present. MCH (RBC) [Entitic mass] 31.3 pg 27.0-32.0 [facility] Nucleated RBC/100 WBC (Bld) [Ratio] 0 % 0-5 [facility] MCHC Auto (RBC) [Mass/Vol]Or dered By: Raymundo Myles on 10-08-2022 MCHC (RBC) [Mass/Vol] 34.2 g/dL 32-36 [facility] Mucus LM Ql (Urine sed)Order ed By: Raymundo Myles on 10-08-2022 Mucus Ql (Urine sed) 0 SEEN /hpf [facility] Nitrite Test strip Ql (U)Ord ered By: Raymundo Myles on 10-08-2022 Nitrite Ql (U) Negative Negative [facility] No Panel InformationOrdered By: Raymundo Myles on 10-08-2022 Estimated Creatinine Clearance Calc 52.48 ml/min [facility] Estimated GFR (MDRD) Amer 78 mL/min >60 [facility] Comment on above: GFR Calc Estimated GFR (MDRD) Non-Af Amer 64 mL/min >60 [facility] Comment on above: Non- GFR Calc Platelets bldOrdered By: Rito Myles on 10-08-2022 Platelets (Bld) [#/Vol] 185 10*3/uL 150-450 [facility] Protein Test strip Ql (U)Ord ered By: Raymundo Myles on 10-08-2022 Protein Ql (U) 500 mg/dl Negative [facility] Serum or plasma calcium mago urement (mass/volume)Ordered By: Raymundo Myles on 10-08-2022 Calcium [Mass/Vol] 8.4 mg/dL 8.5-10.1 [facility] Serum or plasma creatinine m easurement (mass/volume)Ordered By: Raymundo Myles on 10-08-2022 Creatinine [Mass/Vol] 1.15 mg/dL 0.70-1.30 [facility] Comment on above: The validity of the calculated GFR & GFRAA in patients over 70 years has not been determined. Clinical correlation is essential. Serum or plasma urea nitroge n measurement (mass/volume)Ordered By: Raymundo Myles on 10-08-2022 Urea nitrogen [Mass/Vol] 17 mg/dL 7-18 [facility] Squamous epithelial cells de tection in urine sediment by light microscopyOrdered By: Raymundo Myles on 10-08-2022 Epithelial cells.squamous LM Ql (Urine sed) 0 SEEN /hpf 0-5 [facility] Thin prep Papanicolaou smear with manual screeningOrdered By: Raymundo Myles on 10-08-2022 Thin prep Papanicolaou smear with manual screening 6 5-15 [facility] Urine blood detectionOrdered By: Raymundo Myles on 10-08-2022 RBC Ql (U) 250 /ul Negative [facility] RBC Ql (U) > 100 SEEN /hpf 0-5 [facility] Comment on above: Microscopic field is filled. Other elements may be obscured. Urine clarityOrdered By: Rito Myles on 10-08-2022 Clarity (U) Turbid Clear [facility] Urine color determinationOrd ered By: Raymundo Myles on 10-08-2022 Color (U) Red Yellow [facility] Urine glucose detectionOrder ed By: Raymundo Myles on 10-08-2022 Glucose Ql (U) Normal mg/dl Normal [facility] Urine leukocyte esterase det ection by dipstickOrdered By: Raymundo Myles on 10-08-2022 Leukocyte esterase Test strip Ql (U) 100 /ul Negative [facility] Urine pHOrdered By: Raymundo lechuga on 10-08-2022 pH (U) 7.0 [pH] 5.0 - 8.0 [facility] Urine sediment bacteria coun t by microscopy (number/high power field)Ordered By: Raymundo Myles on 10-08-2022 Bacteria LM.HPF (Urine sed) [#/Area] 4 /[HPF] None Seen [facility] Urine specific gravity measu rementOrdered By: Raymundo Myles on 10-08-2022 Specific gravity (U) [Rel density] 1.010 1.002-1.030 [facility] Urobilinogen Auto test strip Ql (U)Ordered By: Raymundo Myles on 10-08-2022 Urobilinogen Ql (U) Normal mg/dl Normal [facility] Basophil percentageOrdered B y: Dr. Hairston on 09-09-2022 Bilirubin [Mass/Vol] 0.50 mg/dL 0.20-1.00 [facility] Comment on above: For patients on eltr ombopag therapy, use of Dimension Godfrey TBIL is not recommended. Chloride [Moles/Vol] 105 mmol/L 98-107 [facility] Glucose [Mass/Vol] 88 mg/dL 74-106 [facility] Potassium [Moles/Vol] 3.9 mmol/L 3.5-5.1 [facility] Protein [Mass/Vol] 7.0 g/dL 6.4-8.2 [facility] Sodium [Moles/Vol] 134 mmol/L 136-145 [facility] Laboratory - Chemistry and C hemistry - challengeOrdered By: Dr. Hairston on 09-09-2022 ALP [Catalytic activity/Vol] 68 U/L 45-117 [facility] ALT [Catalytic activity/Vol] 17 U/L 16-61 [facility] CO2 [Moles/Vol] 25.0 mmol/L 21.0-32.0 [facility] Free T4 [Mass/Vol] 1.18 ng/dL 0.76-1.46 [facility] Globulin (S) [Mass/Vol] 3.4 g/dL 2.2-4.2 [facility] Magnesium [Mass/Vol] 2.2 mg/dL 1.6-2.6 [facility] Urea nitrogen/Creatinine [Mass ratio] 13.5 mg/mg 10-20 [facility] No Panel InformationOrdered By: Dr. Hairston on 09-09-2022 Estimated GFR (MDRD) Amer 81 mL/min >60 [facility] Comment on above: GFR Calc Estimated GFR (MDRD) Non-Af Amer 67 mL/min >60 [facility] Comment on above: Non- GFR Calc Free Triiodothyronine (T3) pg/dL 2.8 pg/mL 2.18-3.98 [facility] Thyroid Stimulating Hormone (TSH) 0.32 uIU/mL 0.358-3.74 [facility] Serum or plasma albumin mago urement (mass/volume)Ordered By: Dr. Hairston on 09-09-2022 Albumin [Mass/Vol] 3.6 g/dL 3.2-5.0 [facility] Serum or plasma albumin/glob ulin mass ratioOrdered By: Dr. Hairston on 09-09-2022 Albumin/Globulin [Mass ratio] 1.1 {ratio} 0.9-2.4 [facility] Serum or plasma calcium mago urement (mass/volume)Ordered By: Dr. Hairston on 09-09-2022 Calcium [Mass/Vol] 8.7 mg/dL 8.5-10.1 [facility] Serum or plasma creatinine m easurement (mass/volume)Ordered By: Dr. Hairston on 09-09-2022 Creatinine [Mass/Vol] 1.11 mg/dL 0.70-1.30 [facility] Comment on above: The validity of the calculated GFR & GFRAA in patients over 70 years has not been determined. Clinical correlation is essential. Serum or plasma urea nitroge n measurement (mass/volume)Ordered By: Dr. Hairston on 09-09-2022 Urea nitrogen [Mass/Vol] 15 mg/dL 7-18 [facility] Thin prep Papanicolaou smear with manual screeningOrdered By: Dr. Hairston on 09-09-2022 Thin prep Papanicolaou smear with manual screening 19 U/L 15-37 [facility] Thin prep Papanicolaou smear with manual screening 4 5-15 [facility] Thin prep Papanicolaou smear with manual screening 6.2 mg/L NO RANGE EST. [facility] Laboratory - Chemistry and C hemistry - challengeon 04-08-2022 Free T4 [Mass/Vol] 1.03 ng/dL 0.76-1.46 [facility] Work Phone: No Panel Informationon 04-08 Prostate Specific Antigen Screen < 0.01 ng/mL 0.00-4.00 [facility] Work Phone: Comment on above: This test was perfor med using the TPSA assay method for the[facility] chemistry system. Values obtained with differentassay methods cannot be used interchangably.When changing PSA assays in the course of monitoring apatient, additional sequential testing should be carriedout to confirm baseline values. Thyroid Stimulating Hormone (TSH) 1.73 uIU/mL 0.358-3.74 [facility] Work Phone: Laboratory - Chemistry and C hemistry - challengeon 02-08-2022 Free T4 [Mass/Vol] 0.93 ng/dL 0.76-1.46 [facility] Work Phone: No Panel Informationon 02-08 Thyroid Stimulating Hormone (TSH) 3.83 uIU/mL 0.358-3.74 [facility] Work Phone: [phone] Laboratory - Chemistry and C hemistry - challengeon 11-12-2021 Free T4 [Mass/Vol] 0.86 ng/dL 0.76-1.46 [facility] Work Phone: No Panel Informationon 11-12 Thyroid Stimulating Hormone (TSH) 5.74 uIU/mL 0.358-3.74 [facility] Work Phone: Basophil percentageon 2021 Bilirubin [Mass/Vol] 0.70 mg/dL 0.20-1.00 [facility] Work Phone: Comment on above: For patients on eltr ombopag therapy, use of Dimension [place]frey TBIL is not recommended. Chloride [Moles/Vol] 105 mmol/L 98-107 [facility] Work Phone: Glucose [Mass/Vol] 79 mg/dL 74-106 [facility] Work Phone: Potassium [Moles/Vol] 3.9 mmol/L 3.5-5.1 [facility] Work Phone: Protein [Mass/Vol] 7.1 g/dL 6.4-8.2 [facility] Work Phone: Sodium [Moles/Vol] 137 mmol/L 136-145 [facility] Work Phone: Laboratory - Chemistry and C hemistry - challengeon 09-14-2021 ALP [Catalytic activity/Vol] 68 U/L 45-117 [facility] Work Phone: ALT [Catalytic activity/Vol] 20 U/L 16-61 [facility] Work Phone: CO2 [Moles/Vol] 28.0 mmol/L 21.0-32.0 [facility] Work Phone: Free T4 [Mass/Vol] 1.20 ng/dL 0.76-1.46 [facility] Work Phone: [phone] Globulin (S) [Mass/Vol] 3.5 g/dL 2.2-4.2 [facility] Work Phone: [phone] Magnesium [Mass/Vol] 2.2 mg/dL 1.6-2.6 [facility] Work Phone: [phone] Urea nitrogen/Creatinine [Mass ratio] 14.6 mg/mg 10-20 [facility] Work Phone: [phone] No Panel Informationon 09-14 Estimated GFR (MDRD) Amer 89 mL/min >60 [facility] Work Phone: Comment on above: GFR Calc Estimated GFR (MDRD) Non-Af Amer 73 mL/min >60 [facility] Work Phone: Comment on above: Non- GFR Calc Thyroid Stimulating Hormone (TSH) 0.18 uIU/mL 0.358-3.74 [facility] Work Phone: [phone] Serum or plasma albumin mago urement (mass/volume)on 09-14-2021 Albumin [Mass/Vol] 3.6 g/dL 3.2-5.0 [facility] Work Phone: [phone] Serum or plasma albumin/glob ulin mass ratioon 09-14-2021 Albumin/Globulin [Mass ratio] 1.0 {ratio} 0.9-2.4 [facility] Work Phone: [phone] Serum or plasma calcium mago urement (mass/volume)on 09-14-2021 Calcium [Mass/Vol] 8.5 mg/dL 8.5-10.1 [facility] Work Phone: [phone] Serum or plasma creatinine m easurement (mass/volume)on 09-14-2021 Creatinine [Mass/Vol] 1.03 mg/dL 0.70-1.30 [facility] Work Phone: [phone] Comment on above: The validity of the calculated GFR & GFRAA in patients over 70 years has not been determined. Clinical correlation is essential. 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 Left ventricular Ejection fraction 65 % Invalid Interpretation Code [facility] Work Phone: [phone] Office Visiton 04-01-2016 Documentation of current medications (procedure) Done Invalid Interpretation Code [facility] [place] Phone: [phone] Tobacco use CPHS Never smoker Invalid Interpretation Code [facility] Work Phone: [phone] Replaced Document: Jazmine Snyder CG Observationson 08-28-2015 EKG QRS axis 2 deg Invalid Interpretation Code [facility] Work Phone: [phone] Interpretation Sinus Bradycardia WITHIN NORMAL LIMITS Invalid Interpretation Code [facility] Work Phone: [phone] P [place] 29 deg Invalid Interpretation Code [facility] Work Phone: [phone] VA Interval 192 ms Invalid Interpretation Code [facility] Work Phone: [phone] Pulse (Heart Rate) 56 /min Invalid Interpretation Code [facility] Work Phone: [phone] QRS Duration 100 ms Invalid Interpretation Code [facility] Work Phone: [phone] QT Interval new path ms Invalid Interpretation Code [facility] Work Phone: [phone] QTc [place] 411 ms Invalid Interpretation Code [facility] Work Phone: [phone] T [place] 27 deg Invalid Interpretation Code [facility] Work Phone: [phone] Lab Report: CBC W/Diff, Auto matedon 09-04-2014 Absolute Neut 3.1 X10 3/UL Invalid Interpretation Code 2.0-7.7 [facility] Work Phone: [phone] Basophils/100 WBC Auto (Bld) 0.3 % Invalid Interpretation Code 0-1 [facility] Work Phone: [phone] Eosinophils/100 leukocytes 1.2 % Invalid Interpretation Code 0-5 [facility] Work Phone: [phone] Erythrocytes (RBC) 4.56 10*6/uL Critically low 4.6-6.2 [facility] Work Phone: [phone] Hematocrit (HCT) 40.6 % Invalid Interpretation Code 40-54 [facility] Work Phone: [phone] Hemoglobin mass conc (Bld) 13.9 g/dL Invalid Interpretation Code 13.0-16.5 [facility] Work Phone: [phone] Lymphocytes 2.10 X10 3/UL Invalid Interpretation Code 0.83-4.51 [facility] Phone: [phone] Lymphocytes/100 leukocytes 36.1 % Invalid Interpretation Code 19-41 [facility] Phone: [phone] MCH 30.5 pg Invalid Interpretation Code 27.0-32.0 [facility] Work Phone: [phone] MCHC mass conc (RBC) 34.2 G/GL Invalid Interpretation Code 32-36 [facility] Phone: [phone] MCV 89.0 fL Invalid Interpretation Code 80-94 [facility] Phone: [phone] Monocytes/100 leukocytes 8.4 % Invalid Interpretation Code 0-10 [facility] Phone: [phone] Neutrophils/100 WBC Auto (Bld) 53.8 % Invalid Interpretation Code 47-70 [facility] Work Phone: [phone] Platelets 186 10*3/mm3 Invalid Interpretation Code 150-450 [facility] Phone: [phone] PMV by Bev 11.1 fL Invalid Interpretation Code 6.2-12.0 [facility] Phone: [phone] WBC (Leukocytes) 5.8 10*3/uL Invalid Interpretation Code 4.4-11.0 [facility] Phone: [phone] Office Visiton 09-04-2014 cardiac risk group B Invalid Interpretation Code [facility] Work Phone: [phone] Dietary management education, guidance, and counseling (procedure) yes Invalid Interpretation Code [facility] Work Phone: [phone] General cardiovascular disease 10Y risk [#] MerigoldClintAilyn'Rigobertojose 33 % Invalid Interpretation Code [facility] Work Phone: [phone] Lab Report: BMP - copyon Calcium 8.4 mg/dL Low 8.5-10.1 [facility] Work Phone: [phone] Chloride 104 mmol/L Normal 98-107 [facility] Work Phone: [phone] Creatinine 1.1 mg/dL Normal 0.8-1.3 [facility] Work Phone: [phone] Glucose mass conc 85 mg/dL Normal 70-110 [facility] Work Phone: [phone] Potassium molar conc 3.9 mmol/L Normal 3.5-5.1 [facility] Work Phone: [phone] Sodium 137 mmol/L Normal 136-145 [facility] Work Phone: [phone] Urea nitrogen 16 mg/dL Normal 7-18 [facility] Work Phone: [phone] Lab Report: MG - copyon 03-22 Magnesium 1.8 mg/dL Normal 1.8-2.4 [facility] Work Phone: [phone] Lab Report: MIACRE- copyon 1 06-08-2012 Urine, creatinine 66.2 mg/dL Normal NO RANGE EST. [facility] Work Phone: [phone] Lab Report: TSH - copyon Thyroid stimulating hormone (TSH) 0.60 u[iU]/mL Normal 0.358-3.74 [facility] Work Phone: [phone] Lab Reporton 08-18-2011 Anion gap 8 mmol/L Invalid Interpretation Code [facility] Work Phone: [phone] BUN/Creatinine Ratio 13.6 mg/mg Invalid Interpretation Code [facility] Work Phone: [phone] CO2 28.0 mmol/L Invalid Interpretation Code [facility] Work Phone: [phone] Lab Reporton 01-25-2011 Cholesterol 171 mg/dL Invalid Interpretation Code [facility] Work Phone: [phone] HDL Cholesterol 30 mg/dL Invalid Interpretation Code [facility] Work Phone: [phone] LDL Cholesterol 109 mg/dL Invalid Interpretation Code [facility] Work Phone: [phone] Triglyceride 161 mg/dL Invalid Interpretation Code [facility] Work Phone: [phone] very low density lipoproteins 32 mg/dL Invalid Interpretation Code [facility] Work Phone: [phone] Lab Reporton 01-24-2011 basophils as percent of blood leukocytes, manual count 0.5 % Invalid Interpretation Code [facility] Work Phone: [phone] eosinophils as percent of blood leukocytes, manual count 1.5 % Invalid Interpretation Code [facility] Work Phone: [phone] neutrophils, band form as percent of blood leukocytes, manual count 67.2 % Invalid Interpretation Code [facility] Work Phone: [phone] Vital Signs Date Time Vital Sign Value Performing Clinician Faci lity 02-21-2025 05:29-0400 Body temperature 97.9 [degF] Dr. Juan Hairston MD Work Phone: [facility] 02-21-2025 05:29-0400 Diastolic blood pressure 81 mm[Hg] Dr. Juan Hairston MD Work Phone: [facility] 02-21-2025 05:29-0400 Heart rate 85 /min Dr. Juan Hairston MD Work Phone: [facility] 02-21-2025 05:29-0400 Respiratory rate 19 /min Dr. Juan Hairston MD Work Phone: [facility] 02-21-2025 05:29-0400 SaO2% (BldA) [Mass fraction] 97 % Dr. Juan Hairston MD Work Phone: [facility] 02-21-2025 05:29-0400 Systolic blood pressure 123 mm[Hg] Dr. Juan Hairston MD Work Phone: [facility] 02-21-2025 03:36-0400 Body height 182.[address] Juan Hairston MD Work Phone: [facility] 02-21-2025 03:36-0400 Body mass index (BMI) [Ratio] 22.2 kg/m2 Dr. Juan Hairston MD Work Phone: [facility] 02-21-2025 03:36-0400 Body weight 74.[address] Juan Hairston MD Work Phone: [facility] 09-11-2023 13:20-0400 Body height 182.[address] Juan Hairston Work Phone: [facility] 09-11-2023 13:20-0400 Body mass index (BMI) [Ratio] 24.8 kg/m2 Dr. Juan Hairston Work Phone: [facility] 09-11-2023 13:20-0400 Body weight [address] Juan Hairston Work Phone: [facility] 09-11-2023 13:20-0400 Diastolic blood pressure 83 mm[Hg] Dr. Juan Hairston Work Phone: [facility] 09-11-2023 13:20-0400 Heart rate 63 /min Dr. Juan Hairston Work Phone: [facility] 09-11-2023 13:20-0400 Respiratory rate 16 /min Dr. Juan Hairston Work Phone: [facility] 09-11-2023 13:20-0400 Systolic blood pressure 143 mm[Hg] Dr. Juan Hairston Work Phone: [facility] 09-07-2023 16:52-0400 Body temperature 97.6 [degF] [facility] 09-07-2023 16:52-0400 Diastolic blood pressure 86 mm[Hg] [facility] 09-07-2023 16:52-0400 Heart rate 54 /min [facility] 09-07-2023 16:52-0400 Respiratory rate 14 /min [facility] 09-07-2023 16:52-0400 SaO2% (BldA) [Mass fraction] 99 % [facility] 09-07-2023 16:52-0400 Systolic blood pressure 147 mm[Hg] [facility] 09-07-2023 13:55-0400 Body height 182.88 cm [facility] 09-07-2023 13:55-0400 Body mass index (BMI) [Ratio] 25 kg/m2 [facility] 09-07-2023 13:55-0400 Body weight 83.63 kg [facility] 10-08-2022 06:21-0400 Diastolic blood pressure 71 mm[Hg] [facility] 10-08-2022 06:21-0400 Heart rate 55 /min [facility] 10-08-2022 06:21-0400 Respiratory rate 15 /min [facility] 10-08-2022 06:21-0400 SaO2% (BldA) [Mass fraction] 98 % [facility] 10-08-2022 06:21-0400 Systolic blood pressure 143 mm[Hg] [facility] 10-08-2022 02:14-0400 Body height 182.88 cm [facility] 10-08-2022 02:14-0400 Body mass index (BMI) [Ratio] 25.3 kg/m2 [facility] 10-08-2022 02:14-0400 Body temperature 97.2 [degF] [facility] 10-08-2022 02:14-0400 Body weight 84.7 kg [facility] 12-27-2021 10:17-0400 Body height 182.[address] Juan Hairston Work Phone: [facility] Work Phone: 12-27-2021 10:17-0400 Body mass index (BMI) [Ratio] 25.2 kg/m2 Dr. Juan Hairston Work Phone: [facility] Work Phone: 12-27-2021 10:17-0400 Body weight 84.[address] Juan Hairston Work Phone: [facility] Work Phone: 12-27-2021 10:17-0400 Diastolic blood pressure 72 mm[Hg] Dr. Juan Hairston Work Phone: [facility] Work Phone: 12-27-2021 10:17-0400 Heart rate 58 /min Dr. Juan Hairston Work Phone: [facility] Work Phone: 12-27-2021 10:17-0400 Respiratory rate 16 /min Dr. Juan Hairston Work Phone: [facility] Work Phone: 12-27-2021 10:17-0400 Systolic blood pressure 138 mm[Hg] Dr. Juan Hairston Work Phone: [facility] Work Phone: 10-11-2021 09:43-0400 Body height 182.[address] Juan Hairston Work Phone: [facility] Work Phone: 10-11-2021 09:43-0400 Body mass index (BMI) [Ratio] 25.2 kg/m2 Dr. Juan Hairston Work Phone: [facility] Work Phone: 10-11-2021 09:43-0400 Body weight 84.[address] Juan Hairston Work Phone: [facility] Work Phone: 10-11-2021 09:43-0400 Diastolic blood pressure 75 mm[Hg] Dr. Juan Hairston Work Phone: [facility] Work Phone: 10-11-2021 09:43-0400 Heart rate 61 /min Dr. Juan Hairston Work Phone: [facility] Work Phone: 10-11-2021 09:43-0400 Respiratory rate 18 /min Dr. Juan Hairston Work Phone: [facility] Work Phone: 10-11-2021 09:43-0400 SaO2% (BldA) [Mass fraction] 97 % Dr. Juan Hairston Work Phone: [facility] Work Phone: 10-11-2021 09:43-0400 Systolic blood pressure 137 mm[Hg] Dr. Juan Hairston Work Phone: [facility] Work Phone: 10-11-2021 09:43-0400 Body height 182.[address] Juan Hairston Work Phone: [facility] Work Phone: 10-11-2021 09:43-0400 Body mass index (BMI) [Ratio] 25.2 kg/m2 Dr. Juan Hairston Work Phone: [facility] Work Phone: 10-11-2021 09:43-0400 Body weight 84.[address] Juan Hairston Work Phone: [facility] Work Phone: 10-11-2021 09:43-0400 Diastolic blood pressure 75 mm[Hg] Dr. Juan Hairston Work Phone: [facility] Work Phone: 10-11-2021 09:43-0400 Heart rate 61 /min Dr. Juan Hairston Work Phone: [facility] Work Phone: 10-11-2021 09:43-0400 Respiratory rate 18 /min Dr. Juan Hairston Work Phone: [facility] Work Phone: 10-11-2021 09:43-0400 SaO2% (BldA) [Mass fraction] 97 % Dr. Juan Hairston Work Phone: [facility] Work Phone: 10-11-2021 09:43-0400 Systolic blood pressure 137 mm[Hg] Dr. Juan Hairston Work Phone: [facility] Work Phone: 04-01-2016 14:33-0500 BMI (Body Mass Index) 24.27 kg/m2 [facility] Work Phone: 04-01-2016 14:33-0500 BP Diastolic 80 mm[Hg] Faustina Vaz RN [facility] Work Phone: 04-01-2016 14:33-0500 BP Systolic 140 mm[Hg] Faustina Vaz RN [facility] Work Phone: 04-01-2016 14:33-0500 BSA (Body Surface Area) 2.08 m2 Faustina Vaz RN [facility] Work Phone: 04-01-2016 14:33-0500 Height 185.42 cm Faustina Vaz RN [facility] Work Phone: 04-01-2016 14:33-0500 Pulse (Heart Rate) 58 /min [facility] Work Phone: 04-01-2016 14:33-0500 Respiratory Rate 16 /min [facility] Work Phone: 04-01-2016 14:33-0500 Weight 83.46 kg Faustina Vaz RN [facility] Work Phone: Encounters Encounter Date Encounter Type Care Provider Facility Start: 02-21-2025 End: 02-21-2025 Emergency department patient visit Dr. Juan Hairston MD Work Phone: -Emergency Department Work Phone: Start: 02-19-[address] Juan Hairston MD -[facility] Start: 02-19-2025 ambulatory Juan Hairston Facility:[facility] Start: 12-19-2024 End: 12-19-[address] Juan Hairston MD Work Phone: -[facility] Start: 12-19-2024 End: 12-19-[address] Juan Hairston MD -[facility] Work Phone: Start: 12-19-2024 End: 12-19-2024 ambulatory Juan Hairston Facility:[facility] Start: 03-27-2024 End: 03-27-2024 ambulatory Juan Hairston Facility:[facility] Start: 09-15-2023 End: 09-15-[address] Juan Hairston Work Phone: [facility] Work Phone: Start: 09-15-2023 End: 09-15-[address] Juan Hairston Work Phone: [facility] Work Phone: Start: 09-11-2023 End: 09-11-[address] Juan Hairston Work Phone: [facility] Work Phone: Start: 09-07-2023 End: 09-07-2023 Emergency department patient visit [facility] Work Phone: Start: 03-03-2023 End: 03-03-2023 ambulatory [facility] Work Phone: Start: 03-03-2023 End: 03-03-2023 Patient encounter procedure [facility] Start: 11-23-2022 End: 11-23-2022 ambulatory [facility] Work Phone: Start: 11-23-2022 End: 11-23-2022 Patient encounter procedure [facility] Work Phone: Start: 10-08-2022 End: 10-08-2022 Emergency department patient visit [facility] Work Phone: Start: 09-09-2022 End: 09-09-2022 ambulatory [facility] Work Phone: Start: 09-09-2022 End: 09-09-2022 Patient encounter procedure [facility] Start: 04-08-2022 End: 04-08-[address] Juan Hairston Work Phone: [facility] Work Phone: Start: 04-08-2022 End: 04-08-[address] Juan Hairston Work Phone: [facility] Start: 02-08-2022 End: 02-08-[address] Juan Hairston Work Phone: [facility] Work Phone: Start: 02-08-2022 End: 02-08-[address] Juan Hairston Work Phone: [facility] Start: 12-27-2021 End: 12-27-[address] Juan Hairston Work Phone: [facility] Start: 11-12-2021 End: 11-12-[address] Juan Hairston Work Phone: [facility] Start: 11-09-2021 Non-patient / Non-visit Dr. Enrique Hairston Work Phone: [facility] Start: 11-09-2021 End: 11-09-[address] Juan Hairston Work Phone: [facility] Start: 10-20-2021 End: 10-20-[address] Juan Hairston Work Phone: [facility] Start: 10-11-2021 End: 10-11-[address] Juan Hairston Work Phone: [facility] Start: 09-14-2021 End: 09-14-2021 Patient encounter procedure [facility] Start: 10-22-2015 End: 10-22-2015 Telephone encounter Jerrica HAQ Work Phone: Audiology Comment on above: Patient Update Procedures Date Procedure Procedure Detail Performing Clinician Start: 02-21-2025 Urnls dip stick/tabl et reagent auto microscopy Dr. Juan Hairston MD Work Phone: Start: 02-21-2025 CT of head without contrast Dr. Juan Hairston MD Work Phone: Start: 02-21-[address] Juan Hairston MD Work Phone: Start: 02-19-2025 Urnls dip stick/tabl et reagent auto microscopy Dr. Juan Hairston MD Work Phone: Start: 09-07-2023 CT of head without contrast [...] Navid Jamison MD Start: 03-18-2014 End: 03-18-2014 CLEARANCE REP Navid Jamison MD Start: 03-18-2014 End: 03-24-2014 Echocardiography Navid Jamison MD Start: 03-18-2014 End: 03-18-2014 Follow [...] Navid Jamison MD Start: 04-09-2013 End: 04-09-2013 CLEARANCE REP Navid Jamison MD Start: 04-09-2013 End: 04-09-2013 Ecg [...] Treatment Date Care Activity Detail Author Start: 02-21-2025 [facility] Start: 09-07-2023 [facility] Start: 10-08-2022 Removal of urinary catheter [facility] Start: 01-20-2021 Influenza vaccination INFLUENZA (Season Ended) [facility] Start: 03-28-2017 End: 03-28-2017 Appointment Appointment [facility] Work Phone: Start: 04-01-2016 End: 04-01-2016 [facility] Work Phone: Start: 04-01-2016 End: 04-01-2016 Follow Up Appt 6 months Follow Up Appt 6 months [facility] Work Phone: Start: 08-28-2015 End: 08-28-2015 Carotid duplex Carotid duplex [facility] Work Phone: Start: 08-28-2015 End: 08-28-2015 CLEARANCE REP CLEARANCE REP [facility] Work Phone: Start: 08-28-2015 End: 08-28-2015 Ecg routine ecg w/least 12 lds w/i&r EKG (In office) [facility] Work Phone: Start: 08-28-2015 End: 08-28-2015 Follow Up Appt 6 months Follow Up Appt 6 months [facility] Work Phone: Start: 09-04-2014 End: 09-04-2014 *CBC with Differential *CBC with Differential [facility] Work Phone: Start: 09-04-2014 End: 09-04-2014 CLEARANCE REP CLEARANCE REP [facility] Work Phone: Start: 09-04-2014 End: 09-04-2014 Follow Up Appt 1 year Follow Up Appt 1 year [facility] Work Phone: Start: 03-18-2014 End: 03-18-2014 CLEARANCE REP CLEARANCE REP [facility] Work Phone: Start: 03-18-2014 End: 03-18-2014 Echocardiography Echocardiogram (complete) [facility] Work Phone: Start: 03-18-2014 End: 03-18-2014 Follow Up Appt 6 months Follow Up Appt 6 months [facility] Work Phone: Start: 09-05-2013 End: 09-05-2013 Ambulatory BP Monitor 24 HR Ambulatory BP Monitor 24 HR [facility] Work Phone: Start: 09-05-2013 End: 09-05-2013 CLEARANCE REP CLEARANCE REP [facility] Work Phone: Start: 09-05-2013 End: 09-05-2013 Follow Up Appt 6 months Follow Up Appt 6 months [facility] Work Phone: Start: 07-09-2013 End: 07-09-2013 CLEARANCE REP CLEARANCE REP [facility] Work Phone: Start: 07-09-2013 End: 07-09-2013 Follow Up Appt 6 months Follow Up Appt 6 months [facility] Work Phone: Start: 04-09-2013 End: 04-09-2013 24 hour holter monitor 24 hour holter monitor [facility] Work Phone: Start: 04-09-2013 End: 04-09-2013 CLEARANCE REP CLEARANCE REP [facility] Work Phone: Start: 04-09-2013 End: 04-09-2013 Ecg routine ecg w/least 12 lds w/i&r EKG (In office) [facility] Work Phone: Start: 04-09-2013 End: 04-09-2013 Echocardiography Echocardiogram (complete) [facility] Work Phone: Start: 04-09-2013 End: 04-09-2013 Follow Up Appt 3 months Follow Up Appt 3 months [facility] Work Phone: Start: 01-31-2012 End: 01-31-2012 Follow Up Appt 1 year Follow Up Appt 1 year [facility] Work Phone: Start: 2011 End: 2011 24 hour holter monitor 24 hour holter monitor [facility] Work Phone: Start: 2011 End: 2011 Follow Up Appt 3 months Follow Up Appt 3 months [facility] Work Phone: Start: 2011 End: 2011 Stress Echocardiogram (treadmill) Stress Echocardiogram (treadmill) [facility] Work Phone: Start: 2002 ADVANCE DIRECTIVE DISCUSSION ADVANCE DIRECTIVE DISCUSSION [facility] Start: 2002 PNEUMOVAX AGE 65 AND OVER WITH 5YR LOOKBACK (#1) PNEUMOVAX AGE 65 AND OVER WITH 5YR LOOKBACK (#1) [facility] Start: 10-29-1987 SHINGRIX VACCINE (1 of 2) SHINGRIX VACCINE (1 of 2) [facility] Start: 1982 DIABETES SCREEN DIABETES SCREEN [facility] Start: 1956 Urine microalbumin profile DTAP,TDAP,TD (1 - Tdap) [facility] Colonoscopy [facility] Patient Education [facility] Work Phone: Patient referral [facility] Work Phone: Payers Date Payer Category Payer Private Health Insurance 101 [id number] 2024 Self-pay [id number] 2015 Medicare [employer] MEDICARE MELVI CHOICE PPO [id number] 2015-2018 PPO [id number] 2014 Medicare [id number] Unknown [id number] Unknown [id number] Unknown [id number] Unknown [id number] Social History Date Type Detail Facility Start: 09-29-2011 Tobacco smoking stat us NHIS Former smoker [facility] Start: 09-29-2011 Alcohol intake Current drinke r of alcohol (finding) [facility] Start: 1935 Sex Assigned At Not on file [facility] Start: 04-24-2021 End: 09-07-2023 Tobacco smoking status MTIS Unknown if ever smoked [facility] Start: 11-19-2020 None [facility] Start: 11-19-2020 Non-smoker [facility] Start: 1935 Sex Assigned At Male [facility] Start: 10-04-2023 End: 02-21-2025 Tobacco smoking status NHIS Never smoked tobacco (finding) [facility] Sex Male [facility] Mental Status Date Assessment Result Facility 02-21-2025 Cognitive function Level Of Consciousness Awake [facility] Work Phone: Radiology Diagnostic study note 02-21-2025 Note Date & Type Note Facility 02-21-2025 Radiology Diagnostic study note [facility] Imaging Services [address] [place], [place] [address] Brain/Head without Contrast MR#: [id number] Acct: [id number] Name: MAITELEO Moreau Rep #: [id number] : 1935 M 89 From: Yash Saleh MD PCP: Dr. Juan Hairston MD Status: REG ER Study:Brain/Head without Contrast Date of Exa m: 02/21/25 Exam# [id number] Ordering Dr: Chyna Roberts DO PROCEDURE: BRAIN/HEAD WITHOUT CONTRAST 02/21/2025 REASON FOR EXAM: CONFUSION TECHNIQUE: Procedure Code: CTBR Modality: CT Procedure: BRAIN/HEAD WITHOUT CONTRAST Coronal and Sagittal reconstruction series were provided. One or more dose reduction techniques were used (e.g., Automated exposure control, adjustment of the mA and/or kV according to patient size, use of iterative reconstruction technique. RADIATION DOSE SUMMARY: CTDI Vol 44.99 mGy DLP :846.73 mGycm COMPARISON: 07-Sep-2023 FINDINGS: Accentuated bilateral cerebral periventricular deep white matter hypodensities denoting hypoperfusion with bilateral cerebral periventricular and subcortical hypodense foci and patches. Marshall-white matter differentiation is maintained. Normal CT appearance of the posterior fossa structures. No intracerebral or extra axial hemorrhage. Dilated ventricular system, cortical sulci and extra-axial CSF spaces. No definite calvarial fractures. No midline shifts or deformity. The osseous structures in the skull base are unremarkable. Paranasal sinuses are unremarkable. Vascular atheromatous calcifications. CT/Brain/Head without Contrast IMPRESSION: No acute cerebrovascular abnormalities. If clinical symptoms persist, further evaluation with MRI may be considered as clinically warranted. No intra or extra-axial acute hemorrhage. Bilateral cerebral microvascular ischemic changes with brain involutional changes. Stable. Reading Location: [place] [address] CC: Dr. Juan Hairston MD; Satnam Roberts DO ~ [employer] Hand: Signed [facility] Discharge instructions 09-07-2023 Note Date & Type [...] to ED for worsening or concerning symptoms. [facility] Work Phone: Note 10-22-2015 Telephone Encounter - [...] he would appreciate you calling him at [phone]. Thank you documented in this encounter [facility] Evaluation note Note Date & Type Note Facility Evaluation note No assessment information availa ble [facility] Work Phone: Evaluation note Note Date & Type Note Facility Evaluation note Diagnosis Onset Date Essential (primary) hypertension chronic Paroxysmal atrial fibrillation chronic [facility] Work Phone: Evaluation note Note Date & Type Note Facility Evaluation note Diagnosis Onset Date Essential (primary) hypertension chronic Paroxysmal atrial fibrillation chronic Cardiac murmur noneactive [facility] Work Phone: Evaluation note Note Date & Type Note Facility Evaluation note Diagnosis Onset Date Personal history of colonic polyps acute [facility] Work Phone: Hospital Discharge instructions Note Date & Type Note Facility Hospital Discharge instructions Additional Instructions Your workup today revealed no sign of infection or stroke changes or clinically significant lab abnormalities. Please follow-up with your family doctor to discuss if your chronic medications could be leading to your symptoms and return to the ER should you have any further concerns [facility] Work Phone: Reason for referral (narrative) Note Date & Type Note Facility Reason for referral (narrative) No reason for referral information available [facility] Work Phone: Advance Directives No Advanced Directives Records FoundDocuments on File Type Date Recorded Patient Insurance Operations Rep Expl anation Advance Directive(s) 10/03/2011 4:33 PM Advance Directive Response Recorded Date/ Time Living Will No April 24 10:26am Power of Roller Printing Supervisor No April 24, 2021 10:26am Advance Directive Response Recorded Date/ Time Living Will No April 24 9:26am Power of Roller Printing Supervisor No April 24, 2021 9:26am Advance Directive Response Recorded Date/ Time Name of Medical Power of Roller Printing Supervisor NICHOLE TELLEZ October 08, 2022 2:17am Living Will Yes October 08, 2022 2 :17am Power of Roller Printing Supervisor Yes October 08, 2022 2:17am Advance Directive Response Recorded Date/ Time Living Will Yes October 08, 2022 2 :17am Power of Roller Printing Supervisor Yes October 08, 2022 2:17am Advance Directive Response Recorded Date/ Time Living Will No September 07, 2023 1:53pm Power of Roller Printing Supervisor No September 06 1:53pm Advance Directive Response Recorded Date/ Time Do you have a Healthcare Power of Roller Printing Supervisor? Yes February 21, 2025 3:41am Name of Medical Power of Roller Printing Supervisor --DONNELL ARANA February 21, 2025 3:41am Chief Complaint and Reason for Visit Chief Complaint EORDER Chief Complaint EORDER 6-9 M FU/WE RS FROM CLEARANCE REP 4/7 MURMUR Reason for Visit Essential (primary) hypertension Paroxysmal atrial fibrillation Chief Complaint EORDER 6-9 M FU/WE RS FROM CLEARANCE REP 4/7 MURMUR AFIB E ORDER Reason for Visit Essential (primary) hypertension Paroxysmal atrial fibrillation Cardiac murmur Chief Complaint MURMUR AFIB E ORDER 3 M FU EORDER Reason for Visit Essential (primary) hypertension Paroxysmal atrial fibrillation Cardiac murmur Chief Complaint 3 M FU EORDER EORDERS- THYROID-HAIRSTON/ PSA-BARKMAN Reason for Visit Essential (primary) hypertension Paroxysmal atrial fibrillation Cardiac murmur Chief Complaint hematuria GROSS HEMATURIA Chief Complaint GROSS HEMATURIA Chief Complaint sob Chief Complaint sob C-SCOPE Reason for Visit Personal history of colonic polyps Chief Complaint Admit Date CONFUSION February 21, 2025 3: 35am Family History No Family History Records Found [...] or prosecute any alcohol or drug abuse patient.[facility] Reason for Visit (unrecogniz ed section and [...] Juan Hairston MD Primary Care Provider, Attending P romilan Active Team Status: Inactive Member Role Status [...] Care Provider, Referring P rovider Active Dr. Cesar Johnson MD Attending Provider Active Team Status: [...] December 19, 2024 End: December 19, 2024 Team Status: Active Member Role/Relationship Status Dates Dr. Juan Hairston MD Primary care physician Active Team Status: Inactive Member Role/Relationship Status Dates Dr. Juan Hairston MD Primary care physician Active Start: December 19, 2024 End: December 19, 2024 Dr. Juan Hairston MD Attending physician Active S tart: December 19, 2024 End: December 19, 2024 Dr. Juan Hairston MD Referring Provider Active St art: December 19, 2024 End: December 19, 2024 Team Status: Active Member Role/Relationship Status Dates Dr. Juan Hairston MD Primary care physician Active Start: February 19, 2025 Dr. Juan Hairston MD Attending physician Active S tart: February 19, 2025 Team Status: Inactive Member Role/Relationship Status Dates Dr. Juan Hairston MD Primary care physician Active Start: February 21, 2025 End: February 21, 2025 Dr. Satnam Roberts DO Emergency Department Physician A ctive Start: February 21, 2025 End: February 21, 2025 (unrecognized sect ion and content) No Status Records Found INFORMATION SOURCE (unrecogn ized section and content) DATE CREATED AUTHOR 03/06/2025 [facility] FOR RECORDS PERTAINING TO PATIENTS WHO ARE [...] BE BASED ON THE PRIMARY CLINICAL RECORDS. [facility]. provides no warranty or guarantee of the accuracy or completeness of information in this document.
[2025-03-09 19:30] LABS: Mucous, Urine 0 SEEN /hpf (<or=2+)
[2025-03-09 19:32] LABS: Hematocrit 32.0 % (40-54); Hemoglobin 10.8 g/dL (13.0-16.5); Immature Granulocytes Count 0.060 X10^3/uL (0.0-0.0); Mean Corp Hgb Conc 33.8 g/dL (32-36); Mean Corpuscular Volume 86.0 fL (80-94); Mean Platelet Vol. 10.0 fl (6.2-12.0); NRBC Flagged by Analyzer 0 % (0-5); Platelet Count 342 K/mm3 (150-450); RBC Distribution Width CV 14.0 % (11.6-14.6); RBC Distribution Width SD 43.7 fl (35.1-43.9); Red Blood Count 3.72 M/mm3 (4.6-6.2); White Blood Count 10.3 K/mm3 (4.4-11.0)
[2025-03-09 19:32] LABS: Color, Urine Yellow (Yellow); Glucose, Dipstick Normal (Normal); Ketone-Dipstick Negative (Negative); Leukocyte Esterase-Dipstick Negative /ul (Negative); Nitrite-Dipstick Negative (Negative); Occult Blood-Urine 150 /ul (Negative); Protein-Dipstick 15 mg/dl (Negative); Specific Gravity, Urine 1.010 (1.002-1.030); Urine Bilirubin Dipstick Negative (Negative)
[2025-03-09 19:45] LABS: Red Blood Cells-Urine 25-50 SEEN /hpf (0-5); Squamous Epithelial Cells - UA 0-5 SEEN /hpf (0-5)
[2025-03-09 20:00] VITALS: BP 143/83; PULSE 88; O2SAT 97
[2025-03-09 20:09] LABS: AST(SGOT) 16 U/L (<=37); Alanine Aminotransfer ALT/SGPT 11 U/L (<=46); Albumin, Serum 4.0 g/dL (3.4-4.8); Alkaline Phosphatase 114 U/L (40-129); Anion Gap 12 (5-15); BUN 15 mg/dL (4-19); BUN/Creat Ratio 17.8 RATIO (10-20); Calcium,Total 8.8 mg/dL (7.6-11.0); Carbon Dioxide 23.8 mmol/L (21.0-32.0); Chloride 93 mmol/L (98-108); Estimated Creatinine Clearance 67.20 ml/min (50-250); Globulin 2.7 g/dL (2.2-4.2); Glucose 119 mg/dL (70-99); Potassium 4.0 mmol/L (3.3-5.1)
[2025-03-09 21:00] VITALS: BP 143/83; PULSE 90; O2SAT 98
[2025-03-09 21:22] VITALS: BP 143/83; PULSE 90; RESP 18; TEMP 36.8; O2SAT 98
== END 2025-03-09 21:26 | disposition home or self-care (01) ==
PROVIDERS: Emergency Provider Emergency Medicine; PCP Family Medicine; Visit Provider Emergency Medicine
DX: R41.0 Disorientation, unspecified (principal); I48.0 Paroxysmal atrial fibrillation; E87.1 Hypo-osmolality and hyponatremia; I10 Essential (primary) hypertension; Z79.01 Long term (current) use of anticoagulants; Z85.850 Personal history of malignant neoplasm of thyroid; Z90.79 Acquired absence of other genital organ(s); Z85.46 Personal history of malignant neoplasm of prostate; Z86.73 Personal history of transient ischemic attack (TIA), and cerebral infarction without residual deficits; E03.9 Hypothyroidism, unspecified; Z79.890 Hormone replacement therapy; Z79.899 Other long term (current) drug therapy; Z86.39 Personal history of other endocrine, nutritional and metabolic disease
CPT/HCPCS: 70450; 71046; 80053; 80162; 81001; 84443; 85025; 93005; 99283; A4216

== ENCOUNTER → 2025-03-11 | Outpatient (CLI) | payer MEDICARE, SELFPAY ==
--- OUTSIDE RECORDS SUMMARY | 2025-03-11 21:22 | XMS RPT_ITS | CCD ---
Author Organization [facility] Care Team Providers Care Dermatology Teacher Name Role Phone Milind YIN, Faustina De La Garza Unavailable Juan Hairston Primary Care Provider Dr. Juan Hairston Primary Care Provider Dr. Juan Hairston Referring Provider Klaudia CABRERA, PA Faustina Cameron Attending Provider Dr. Navid Jamison Attending Provider Dr. Juan Hairston Primary Care Provider Dr. Juan Hairston Referring Provider Klaudia CABRERA, PA Faustina Cameron Attending Provider Dr. Juan Hairston Primary Care Provider Dr. Juan Hairston Referring Provider Klaudia CABRERA, PA Faustina Cameron Attending Provider Dr. Juan Hairston Primary Care Provider [phone] Juan Hairston Referring Provider Dr. Cesar Johnson Attending Provider Dr. Juan Hairston MD Primary Care Provider Dr. Juan Hairston MD Attending Provider [phone] Juan aHirston MD Referring Provider [phone] Juan Hairston MD Primary Care Physician Dr. Juan Hairston MD Attending Physician [phone] Satnam Roberts DO Emergency Department Physic roxana Satnam Roberts Attending Unavailable Juan Hairston Primary Care Unavailable Lorenzo Rivera Attending Unavailable Juan Hairston Primary Care Unavailable Juan Hairston Attending Unavailable Juan Hairston Primary Care Unavailable Juan Hairston Attending Unavailable Juan Hairston Primary Care Unavailable Juan Hairston Referring Unavailable Juan Hairston Attending Unavailable Juan Hairston Primary Care Unavailable Allergies Allergy Classification Reported Allergen(s) Allergy Type Date of Onset Reaction(s) Facility (1 source) amLODIPine Drug Allergy 08-28-2015 ankle edema [facility] Work Phone: (2 sources) NKDA; Translations: [NKDA] propensity to adverse reactions 04-09-2013 [facility] Work Phone: (11 sources) amLODIPine Drug Allergy 04-24-2021 ankle edema [facility] Medications Current Medications Medication Drug Class(es) [...] One tablet by mouth daily LEVOTHYROXINE SODIUM [id number] Navid Jamison MD Start: 10-26-2011 SYNTHROID 175 MCG TABS LEVOTHYROXINE SODIUM [id number] Janie Washburn RN LEVOTHYROXINE SO DIUM (SYNTHROID ORAL) Take by mouth. 0 Active Comment on above: Take by mouth. Completed/Discontinued Medications Medication Drug Class(es) Dates Sig (Normalized) Sig (Original) aspirin 81 mg oral tablet (3 sources) Nonsteroidal Anti-inflammatory Drug Start: 10-26-2011 End: 09-05-2013 take 1 tablet by mouth once daily ASPIRIN 81 MG TABS One tablet by mouth daily ASPIRIN [id number] Navid Jamison MD Comment on above: Take [...] TABS One-half tablet by mouth daily CHLORTHALIDONE [id number] Navid Jamison MD COENZYME Q10 (4 sources) Start: 07-09-2013 take 1 tablet by mouth once daily CO Q-10 100 MG CAPS One tablet by mouth daily COENZYME Q10 [id number] Navid Jamison MD Start: 07-09-2013 End: 09-05-2013 take 1 tablet by mouth once daily CO Q-10 100 MG CAPS One tablet by mouth daily COENZYME Q10 97813941501 Navid Jamison MD Start: 10-26-2011 End: 2011 take 1 tablet by mouth once daily CO Q-10 100 MG CAPS One tablet by mouth daily COENZYME Q10 67589243987 Navid Jamison MD Start: 10-26-2011 take 1 tablet by hallie once daily CO Q-10 100 MG CAPS One tablet by mouth daily COENZYME Q10 54038419601 Janie Washburn RN dilTIAZem hydrochloride 30 mg [...] IBUPROFEN 200 MG TABS as needed IBUPROFEN 81686270971 Navid Jamison MD lisinopril 20 mg oral tablet (2 sources) Angiotensin Converting Enzyme Inhibitor Start: 04-09-2013 End: 07-09-2013 take 1 tablet by mouth once daily LISINOPRIL 20 MG TABS One tablet by mouth daily LISINOPRIL 78028239192 Navid Jamison MD losartan potassium 100 mg [...] One tablet by mouth daily LOSARTAN POTASSIUM 87459845150 Navid Jamison MD melatonin 3 mg oral tablet (2 sources) Start: 10-26-2011 End: 2011 take 1 tablet by mouth at bedtime as needed MELATONIN 3 MG TABS One tablet by mouth at bedtime. As needed MELATONIN 26861283397 Navid Jamison MD metoprolol tartrate 50 mg oral tablet (2 sources) beta-Adrenergic Ramesh Start: 10-26-2011 End: 2011 take 0.5 tablet by mouth twice daily LOPRESSOR 50 MG TABS 1/2 tablet by mouth twice daily METOPROLOL TARTRATE 11792241477 Janie Washburn RN rivaroxaban 20 mg oral [...] Test Name Value Interpretation Reference Range Facility 12 Lead EKGon 03-09-2025 12 Lead EKG [facility] Cardiovascular Services [address] [place] [address] 12 Lead EKG 03/09/251942 MR#: [id number] Acct: [id number] Name: LEO ROMAN Rep #: [id number] : 1935 89 From: Navid Jamison MD Attending Dr: Status: DEP ER Ordering Dr: Lorenzo Rivera MD Date: 03/09/25 Location: ED Sex: M C Admitted: Test Reason : DYSRHYTHMIA Blood Pressure : */* mmHG Vent. 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 Juan Hairston MD; Dr. Lorenzo Rivera MD Signed Normal [facility] Brain/Head without Contrasto n 03-09-2025 Brain/Head without Contrast [facility] Imaging Services [address] [place] [address] Brain/Head without Contrast MR#: [id number] Acct: [id number] Name: LEO ROMAN Rep #: [id number] : 1935 89 From: Robe Ventura MD PCP: Dr. Juan Hairston MD Status: REG ER Study: Brain/Head without Contrast Date of Exam: 02/19 02/13 Exam# [id number] Ordering Dr: Lorenzo Rivera MD PROCEDURE: CT BRAIN/HEAD WITHOUT CONTRAST 03/09/2025 REASON FOR EXAM: CONFUSION TECHNIQUE: Procedure Code: CTBR Modality: CT Procedure: BRAIN/HEAD WITHOUT CONTRAST Coronal and Sagittal reconstruction series were provided. One or more dose reduction techniques were used (e.g., Automated exposure control, adjustment of the mA and/or kV according to patient size, use of iterative reconstruction technique. RADIATION DOSE SUMMARY: CTDlvol: 44.99 mGy DLP: 897.35 mGycm COMPARISON: 02/21/2025 FINDINGS: No acute intracranial hemorrhage, extra-axial collection, mass effect or evidence of acute infarct. 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 Absent [place] ocular lenses. Intact skull base and calvarium. Clear paranasal sinuses and mastoid air cells. CT/Brain/Head without Contrast IMPRESSION: No acute intracranial abnormality. Moderate parenchymal volume loss and chronic microangiopathic changes. Reading Location: [id number] CC: Dr. Juan Hairston MD; Dr. Lorenzo Rivera MD [employer]: Signed Normal [facility] CBC W/Diff, Automatedon 02-19 Absolute Lymph 1.78 X10 3/uL Normal 0.83-4.51 [facility] Comment on above: Performed By: #### L 500.4050, L501.7510, L400.0001, L100.0100 #### [facility] [address] [place], [address] Absolute Neut 7.6 X10 3/uL Normal 2.0-7.7 [facility] Comment on above: Performed By: #### L 500.4050, L501.7510, L400.0001, L100.0100 #### [facility] [address] [place], [address] Basophils/100 WBC (Bld) 0.3 % Normal 0-1 [facility] Comment on above: Performed By: #### L 500.4050, L501.7510, L400.0001, L100.0100 #### [facility] [address] [place], [address] Eosinophils/100 WBC (Bld) 0.6 % Normal 0-5 [facility] Comment on above: Performed By: #### L 500.4050, L501.7510, L400.0001, L100.0100 #### [facility] [address] [place], [address] Erythrocyte distribution width (RBC) [Ratio] 14.0 % Normal 11.6-14.6 [facility] Comment on above: Performed By: #### L 500.4050, L501.7510, L400.0001, L100.0100 #### [facility] [address] [place], [address] Hematocrit (Bld) [Volume fraction] 32.0 % Low 40-54 [facility] Comment on above: Performed By: #### L 500.4050, L501.7510, L400.0001, L100.0100 #### [facility] [address] [place], [address] Hemoglobin (Bld) [Mass/Vol] 10.8 g/dL Low 13.0-16.5 [facility] Comment on above: Performed By: #### L 500.4050, L501.7510, L400.0001, L100.0100 #### [facility] [address] [place], [address] IG% 0.600 Normal 0.0-0.9 [facility] Comment on above: Result Comment: IG% - Immature Granulocytes (promyelocytes, myelocytes and metamyelocytes) > 1% indicates that a LEFT SHIFT is Present. Performed By: #### L 500.4050, L501.7510, L400.0001, L100.0100 #### [facility] [address] [place], [address] Lymphocytes/100 WBC (Bld) 17.2 % Low 19-41 [facility] Comment on above: Performed By: #### L 500.4050, L501.7510, L400.0001, L100.0100 #### [facility] [address] [place], [address] MCH (RBC) [Entitic mass] 29.0 pg Normal 27.0-32.0 [facility] Comment on above: Performed By: #### L 500.4050, L501.7510, L400.0001, L100.0100 #### [facility] [address] [place], [address] MCHC (RBC) [Mass/Vol] 33.8 g/dL Normal 32-36 [facility] Comment on above: Performed By: #### L 500.4050, L501.7510, L400.0001, L100.0100 #### [facility] [address] [place], [address] MCV (RBC) [Entitic vol] 86.0 fL Normal 80-94 [facility] Comment on above: Performed By: #### L 500.4050, L501.7510, L400.0001, L100.0100 #### [facility] [address] [place], [address] Monocytes/100 WBC (Bld) 7.7 % Normal 0-10 [facility] Comment on above: Performed By: #### L 500.4050, L501.7510, L400.0001, L100.0100 #### [facility] [address] [place], [address] Neutrophils/100 WBC (Bld) 73.6 % High 47-70 [facility] Comment on above: Performed By: #### L 500.4050, L501.7510, L400.0001, L100.0100 #### [facility] [address] [place], [address] Nucleated RBC (Bld) [#/Vol] 0 10*3/uL Normal 0-5 [facility] Comment on above: Performed By: #### L 500.4050, L501.7510, L400.0001, L100.0100 #### [facility] [address] [place], [address] Platelet mean volume (Bld) [Entitic vol] 10.0 fL Normal 6.2-12.0 [facility] Comment on above: Performed By: #### L 500.4050, L501.7510, L400.0001, L100.0100 #### [facility] [address] [place], [address] Platelets (Bld) [#/Vol] 342 10*3/uL Normal 150-450 [facility] Comment on above: Performed By: #### L 500.4050, L501.7510, L400.0001, L100.0100 #### [facility] [address] [place], [address] RBC (Bld) [#/Vol] 3.72 10*6/uL Low 4.6-6.2 [facility] Comment on above: Performed By: #### L 500.4050, L501.7510, L400.0001, L100.0100 #### [facility] [address] [place], [address] RDW SD 43.7 fl Normal 35.1-43.9 [facility] Comment on above: Performed By: #### L 500.4050, L501.7510, L400.0001, L100.0100 #### [facility] [address] [place], [address] WBC (Bld) [#/Vol] 10.3 10*3/uL Normal 4.4-11.0 [facility] Comment on above: Performed By: #### L 500.4050, L501.7510, L400.0001, L100.0100 #### [facility] [address] [place], [address] Chest PA and Lateralon 03-09 Chest PA and Lateral [facility] Imaging Services [address] [place] [address] Chest PA and Lateral MR#: [id number] Acct: [id number] Name: LEO ROMAN Rep #: [id number] : 1935 M 89 From: Dale White MD PCP: Dr. Juan Hairston MD Status: REG ER Study: Chest PA and Lateral Date of Exam: 03/09/25 Exam# [id number] Ordering Dr: Lorenzo Rivera MD PROCEDURE: CHEST PA AND LATERAL 03/09/2025 REASON FOR EXAM: ALOC TECHNIQUE: Procedure Code: RADCXR Modality: DX Procedure: CHEST PA AND LATERAL FINDINGS: The heart is normal in size. The lungs are clear. No acute osseous abnormalities. RAD/Chest PA and Lateral IMPRESSION: NO ACUTE FINDINGS. Reading Location: [address] CC: Dr. Juan Hairston MD; Dr. Lorenzo Rivera MD [employer]: Signed Normal [facility] Comprehensive Metabolic Prof ilon 03-09-2025 Albumin [Mass/Vol] 4.0 g/dL Normal 3.4-4.8 [facility] Comment on above: Performed By: #### L 500.4050, L501.7510, L400.0001, L100.0100 #### [facility] [address] [place], [address] Albumin/Globulin [Mass ratio] 1.5 {ratio} Normal 0.9-2.4 [facility] Comment on above: Performed By: #### L 500.4050, L501.7510, L400.0001, L100.0100 #### [facility] [address] [place], [address] ALK PHOS 114 U/L Normal 40-129 [facility] Comment on above: Performed By: #### L 500.4050, L501.7510, L400.0001, L100.0100 #### [facility] [address] [place], [address] ALT [Catalytic activity/Vol] 11 U/L Normal <=46 [facility] Comment on above: Performed By: #### L 500.4050, L501.7510, L400.0001, L100.0100 #### [facility] [address] [place], [address] AST [Catalytic activity/Vol] 16 U/L Normal <=37 [facility] Comment on above: Performed By: #### L 500.4050, L501.7510, L400.0001, L100.0100 #### [facility] [address] [place], [address] Bilirubin [Mass/Vol] 0.33 mg/dL Normal 0.00-1.30 [facility] Comment on above: Performed By: #### L 500.4050, L501.7510, L400.0001, L100.0100 #### [facility] [address] [place], [address] BUN/CRE 17.8 RATIO Normal 10-20 [facility] Comment on above: Performed By: #### L 500.4050, L501.7510, L400.0001, L100.0100 #### [facility] [address] [place], [address] Calcium [Mass/Vol] 8.8 mg/dL Normal 7.6-11.0 [facility] Comment on above: Performed By: #### L 500.4050, L501.7510, L400.0001, L100.0100 #### [facility] [address] [place], [address] Chloride [Moles/Vol] 93 mmol/L Low 98-108 [facility] Comment on above: Performed By: #### L 500.4050, L501.7510, L400.0001, L100.0100 #### [facility] [address] [place], [address] CO2 [Moles/Vol] 23.8 mmol/L Normal 21.0-32.0 [facility] Comment on above: Performed By: #### L 500.4050, L501.7510, L400.0001, L100.0100 #### [facility] [address] [place], [address] Creatinine [Mass/Vol] 0.85 mg/dL Normal 0.70-1.20 [facility] Comment on above: Performed By: #### L 500.4050, L501.7510, L400.0001, L100.0100 #### [facility] [address] [place], [address] ECRCL 67.20 ml/min Normal 50-250 [facility] Comment on above: Performed By: #### L 500.4050, L501.7510, L400.0001, L100.0100 #### [facility] [address] [place], [address] GAP 12 Normal 5-15 [facility] Comment on above: Performed By: #### L 500.4050, L501.7510, L400.0001, L100.0100 #### [facility] [address] [place], [address] GFR/1.73 sq M.predicted among non-blacks MDRD (S/P/Bld) [Vol rate/Area] 84 mL/min/{1.73_m2} Normal >60 [facility] Comment on above: Result Comment: mL/m in/1.73m2 CKD-EPI Creatinine Equation (2020) Performed By: #### L 500.4050, L501.7510, L400.0001, L100.0100 #### [facility] [address] [place], [address] Globulin (S) [Mass/Vol] 2.7 g/dL Normal 2.2-4.2 [facility] Comment on above: Performed By: #### L 500.4050, L501.7510, L400.0001, L100.0100 #### [facility] [address] [place], [address] Glucose [Mass/Vol] 119 mg/dL High 70-99 [facility] Comment on above: Performed By: #### L 500.4050, L501.7510, L400.0001, L100.0100 #### [facility] [address] [place], [address] Potassium [Moles/Vol] 4.0 mmol/L Normal 3.3-5.1 [facility] Comment on above: Performed By: #### L 500.4050, L501.7510, L400.0001, L100.0100 #### [facility] [address] [place], [address] Sodium [Moles/Vol] 128 mmol/L Low 133-145 [facility] Comment on above: Performed By: #### L 500.4050, L501.7510, L400.0001, L100.0100 #### [facility] [address] [place], [address] T PROT 6.7 g/dL Normal 5.9-8.4 [facility] Comment on above: Performed By: #### L 500.4050, L501.7510, L400.0001, L100.0100 #### [facility] [address] [place], [address] Urea nitrogen [Mass/Vol] 15 mg/dL Normal -19 [facility] Comment on above: Performed By: #### L 500.4050, L501.7510, L400.0001, L100.0100 #### [facility] [address] [place], [address] Digoxin Levelon 03-09-2025 DIG 0.63 ng/mL Normal 0.00-2.00 [facility] Comment on above: Performed By: #### L 500.4050, L501.7510, L400.0001, L100.0100 #### [facility] [address] [place], [address] Emergency Department Summary on 03-09-2025 Emergency Department Summary [facility] Medical Records Department [address] [place] [address] Emergency Department Summary 03/09/25 MR#: [id number] Acct: [id number] Name: LEO ROMAN Rep #: [id number] : 1935 89 From: Lorenzo Rivera MD PCP: Dr. Juan Hairston MD Status:DEP ER Location: ED HPI History of Present Illness Chief Complaint: Confusion Informant: patient, spouse/S.O. and family (Daughter at bedside.) Onset/Context/Timing Onset: Weeks Context: Gradual Onset Timing: Continuous Current Severity: Mild Maximum Severity: Mild Narrative Narrative: 89-year-old male history of hypertension, hypothyroidism prior thyroid resection due to thyroid cancer, A-fib and prior prostatectomy due to prostate cancer. On Xarelto due to the A-fib. Patient is here with his , daughter and granddaughter. They state over the last month he has had worsening confusion worse over the last week. Has also had increased thirst. Is tired all the time. No recent falls or head injury. He has had some weight loss. He denies any vomiting or diarrhea. Denies any fever or chills. He denies any headache or abdominal pain. He denies any dysuria. Prior similar symptoms: Yes Recent Illness/Hospitalizat ion: No PFSH PFSH Medical History Wears hearing aid Wears dentures Wears glasses [...] / Time No Known Allergies Allergy Verified 03/09/25 17:43 Family History Brother Colon cancer Hypertension Father [...] safe at home: Yes ROS ROS ED ROS Narrative No recent illness. Constitutional Constitutional ED: Denies chills or fever(s) Eyes Eyes: Denies blurry vision ENT ENT ED: Denies ear pain Cardiovascular Cardiovascular: Denies chest pain Respiratory/Chest Respiratory/Chest: Denies cough or dyspnea Gastrointestinal Gastrointestinal: Denies abdominal pain Genitourinary Genitourinary ED: Denies dysuria or hematuria Musculoskeletal Musculoskeletal: Denies arthralgias or back pain Integumentary Denies abscess or Abrasions Neurologic Neurologic: Denies headache(s) Psychiatric Psychiatric: Denies anxiety or depression Endocrine Endocrinology: Denies cold intolerance Hematologic/Lymphati c Hematologic/Lymphati c: Reports none Allergic/Immunologic Allergic/Immunologic ED: Denies mouth swelling, tongue swelling or urticaria EXAM Physical Exam Narrative Exam Narrative: Well-appearing 89-year-old male. Vital signs stable afebrile. No acute distress. Pulse ox 100% on room air no signs hypoxia. Multiple family members present. H EENT exam pupils round react light. Moist mucous membranes. Neck nontender no JVD. No lymphadenopathy. Lungs clear to auscultation bilaterally. Heart A-fib rate about 95. Chest wall ribs nontender. Abdomen soft nontender. Pelvic girdle intact. Moving all 4 extremities. Trace edema both ankles. Calves nontender no cords. Normal dorsi plantarflexion. Normal inside upholsterer strength. Neurologically is awake and alert. Answering quest (more content not included)... Normal [facility] Thyroid Stim Hormone (TSH)on 03-09-2025 TSH 1.040 uIU/mL Normal 0.300-4.200 [facility] Comment on above: Performed By: #### L 500.4050, L501.7510, L400.0001, L100.0100 #### [facility] [address] [place], [address] Urinalysis, Completeon 03-09 EPI,SQUAMOUS 0-5 SEEN Normal 0-5 [facility] Comment on above: Order Comment: CLEAN CATCH Performed By: #### L 400.0001 #### [facility] [address] [place], [address] RBC 25-50 SEEN Normal 0-5 [facility] Comment on above: Order Comment: CLEAN CATCH Performed By: #### L 400.0001 #### [facility] [address] [place], [address] WBC 0-5 SEEN Normal 0-5 [facility] Comment on above: Order Comment: CLEAN CATCH Performed By: #### L 400.0001 #### [facility] [address] [place], [address] BACTERIA 0 SEEN Normal None Seen [facility] Comment on above: Order Comment: CLEAN CATCH Performed By: #### L 400.0001 #### [facility] [address] [place], [place], [id number] Mucus Ql (Urine sed) 0 SEEN Normal [facility] Comment on above: Order Comment: CLEAN CATCH Performed By: #### L 400.0001 #### [facility] [address] [place], [address] Absolute lymphocyte countOrd ered By: Satnam Roberts on 02-21-2025 Lymphocytes Auto (Unsp spec) [#/Vol] 2.20 10*3/uL 0.83-4.51 [facility] Absolute neutrophil countOrd ered By: Satnam Roberts on 02-21-2025 Neutrophils (Bld) [#/Vol] 5.6 10*3/uL 2.0-7.7 [facility] Ammoniaon 02-21-2025 Ammonia (P) [Moles/Vol] 13.8 umol/L Low 16-60 [facility] Comment on above: Performed By: #### L 500.4050, L501.7510, L400.0001, L100.0100 #### [facility] [address] [place], [place], [address] Anion gap in Serum or Plasma Ordered By: Satnam Roberts on 02-21-2025 Anion gap [Moles/Vol] 12 mmol/L 5-15 [facility] Automated lymphocyte count a s percentage of total leukocytesOrdered By: Satnam Roberts on 02-21-2025 Lymphocytes/100 WBC Auto (Unsp spec) 25.0 % 19-41 [facility] BUN/creatinine ratioOrdered By: Satnam Roberts on 02-21-2025 Urea nitrogen/Creatinine [Mass ratio] 20.4 mg/mg High 03-10 [facility] Basic Metabolic Profile (BMP )on 02-21-2025 BUN/CRE 20.4 RATIO High 03-10 [facility] Comment on above: Performed By: #### L 503.5510, L501.9520, L500.3400, L500.2500, L501.7510, L501.5200, L100.0100 #### [facility] [address] [place], [address] Calcium [Mass/Vol] 8.8 mg/dL Normal 7.6-11.0 [facility] Comment on above: Performed By: #### L 503.5510, L501.9520, L500.3400, L500.2500, L501.7510, L501.5200, L100.0100 #### [facility] [address] [place], [address] Chloride [Moles/Vol] 100 mmol/L Normal 98-108 [facility] Comment on above: Performed By: #### L 503.5510, L501.9520, L500.3400, L500.2500, L501.7510, L501.5200, L100.0100 #### [facility] [address] [place], [address] CO2 [Moles/Vol] 23.9 mmol/L Normal 21.0-32.0 [facility] Comment on above: Performed By: #### L 503.5510, L501.9520, L500.3400, L500.2500, L501.7510, L501.5200, L100.0100 #### [facility] [address] [place], [address] Creatinine [Mass/Vol] 0.94 mg/dL Normal 0.70-1.20 [facility] Comment on above: Performed By: #### L 503.5510, L501.9520, L500.3400, L500.2500, L501.7510, L501.5200, L100.0100 #### [facility] [address] [place], [address] ECRCL 58.26 ml/min Normal 50-250 [facility] Comment on above: Performed By: #### L 503.5510, L501.9520, L500.3400, L500.2500, L501.7510, L501.5200, L100.0100 #### [facility] [address], [address] GAP 12 Normal 5-15 [facility] Comment on above: Performed By: #### L 503.5510, L501.9520, L500.3400, L500.2500, L501.7510, L501.5200, L100.0100 #### [facility] [address] [place], [address] GFR/1.73 sq M.predicted among non-blacks MDRD (S/P/Bld) [Vol rate/Area] 78 mL/min/{1.73_m2} Normal >60 [facility] Comment on above: Result Comment: mL/m in/1.73m2 CKD-EPI Creatinine Equation (2020) Performed By: #### L 503.5510, L501.9520, L500.3400, L500.2500, L501.7510, L501.5200, L100.0100 #### [facility] [address] [place], [address] Glucose [Mass/Vol] 156 mg/dL High 70-99 [facility] Comment on above: Performed By: #### L 503.5510, L501.9520, L500.3400, L500.2500, L501.7510, L501.5200, L100.0100 #### [facility] [address] [place], [address] Potassium [Moles/Vol] 3.9 mmol/L Normal 3.3-5.1 [facility] Comment on above: Performed By: #### L 503.5510, L501.9520, L500.3400, L500.2500, L501.7510, L501.5200, L100.0100 #### [facility] [address] [place], [address] Sodium [Moles/Vol] 136 mmol/L Normal 133-145 [facility] Comment on above: Performed By: #### L 503.5510, L501.9520, L500.3400, L500.2500, L501.7510, L501.5200, L100.0100 #### [facility] [address] [place], [address] Urea nitrogen [Mass/Vol] 19 mg/dL Normal 4-19 [facility] Comment on above: Performed By: #### L 503.5510, L501.9520, L500.3400, L500.2500, L501.7510, L501.5200, L100.0100 #### [facility] [address] [place], [address] Basophil percentageOrdered B y: Satnam Roberts on 02-21-2025 Basophils/100 WBC (Bld) 0.5 % 0-1 [facility] Bedside Glucoseon 02-21-2025 FINGERSTICK GLU 147 mg/dL High 74-106 [facility] Comment on above: Result Comment: AMISHA SCHNEIDER OF PATIENT CARE PER NURSING PROTOCOL Performed By: #### L 500.4050, L501.7510, L400.0001, L100.0100 #### [facility] [address] [place], [address] Bilirubin Test strip Ql (U)O rdered By: Satnam Roberts on 02-21-2025 Bilirubin Ql (U) Negative Negative [facility] Bilirubin directOrdered By: Satnam Roberts on 02-21-2025 Bilirubin.direct [Mass/Vol] 0.14 mg/dL 0.00-0.30 [facility] Bilirubin, totalOrdered By: Satnam Roberts on 02-21-2025 Bilirubin [Mass/Vol] 0.28 mg/dL 0.00-1.30 [facility] Brain/Head without Contrasto n 02-21-2025 Brain/Head without Contrast [facility] Imaging Services [address] [place] [address] Brain/Head without Contrast MR#: [id number] Acct: [id number] Name: LEO ROMAN Rep #: [id number] : 1935 M 89 From: Jarvis burnette MD PCP: Dr. Juan Hairston MD Status: REG ER Study: Brain/Head without Contrast Date of Exam: 08/13 Exam# [id number] Ordering Dr: Satnam Roberts DO PROCEDURE: BRAIN/HEAD [...] with brain involutional changes. Stable. Reading Location: [place] [address] CC: Dr. Juan Hairston MD; Satnam Roberts DO [employer]: Signed Normal [facility] CBC W/Diff, Automatedon Absolute Lymph 2.20 X10 3/uL Normal 0.83-4.51 [facility] Comment on above: Performed By: #### L 503.5510, L501.9520, L500.3400, L500.2500, L501.7510, L501.5200, L100.0100 #### [facility] [address] [place], [address] Absolute Neut 5.6 X10 3/uL Normal 2.0-7.7 [facility] Comment on above: Performed By: #### L 503.5510, L501.9520, L500.3400, L500.2500, L501.7510, L501.5200, L100.0100 #### [facility] [address] [place], [address] Basophils/100 WBC (Bld) 0.5 % Normal 0-1 [facility] Comment on above: Performed By: #### L 503.5510, L501.9520, L500.3400, L500.2500, L501.7510, L501.5200, L100.0100 #### [facility] [address] [place], [address] Eosinophils/100 WBC (Bld) 1.3 % Normal 0-5 [facility] Comment on above: Performed By: #### L 503.5510, L501.9520, L500.3400, L500.2500, L501.7510, L501.5200, L100.0100 #### [facility] [address] [place], [address] Erythrocyte distribution width (RBC) [Ratio] 14.5 % Normal 11.6-14.6 [facility] Comment on above: Performed By: #### L 503.5510, L501.9520, L500.3400, L500.2500, L501.7510, L501.5200, L100.0100 #### [facility] [address] [place], [address] Hematocrit (Bld) [Volume fraction] 33.0 % Low 40-54 [facility] Comment on above: Performed By: #### L 503.5510, L501.9520, L500.3400, L500.2500, L501.7510, L501.5200, L100.0100 #### [facility] [address] [place], [address] Hemoglobin (Bld) [Mass/Vol] 10.9 g/dL Low 13.0-16.5 [facility] Comment on above: Performed By: #### L 503.5510, L501.9520, L500.3400, L500.2500, L501.7510, L501.5200, L100.0100 #### [facility] [address] [place], [address] IG% 0.600 Normal 0.0-0.9 [facility] Comment on above: Result Comment: IG% - Immature Granulocytes (promyelocytes, myelocytes and metamyelocytes) > 1% indicates that a LEFT SHIFT is Present. Performed By: #### L 503.5510, L501.9520, L500.3400, L500.2500, L501.7510, L501.5200, L100.0100 #### [facility] [address] [place], [address] Lymphocytes/100 WBC (Bld) 25.0 % Normal 19-41 [facility] Comment on above: Performed By: #### L 503.5510, L501.9520, L500.3400, L500.2500, L501.7510, L501.5200, L100.0100 #### [facility] [address] [place], [address] MCH (RBC) [Entitic mass] 29.4 pg Normal 27.0-32.0 [facility] Comment on above: Performed By: #### L 503.5510, L501.9520, L500.3400, L500.2500, L501.7510, L501.5200, L100.0100 #### [facility] [address] [place], [address] MCHC (RBC) [Mass/Vol] 33.0 g/dL Normal 32-36 [facility] Comment on above: Performed By: #### L 503.5510, L501.9520, L500.3400, L500.2500, L501.7510, L501.5200, L100.0100 #### [facility] [address] [place], [address] MCV (RBC) [Entitic vol] 88.9 fL Normal 80-94 [facility] Comment on above: Performed By: #### L 503.5510, L501.9520, L500.3400, L500.2500, L501.7510, L501.5200, L100.0100 #### [facility] [address] [place], [address] Monocytes/100 WBC (Bld) 9.3 % Normal 0-10 [facility] Comment on above: Performed By: #### L 503.5510, L501.9520, L500.3400, L500.2500, L501.7510, L501.5200, L100.0100 #### [facility] [address] [place], [address] Neutrophils/100 WBC (Bld) 63.3 % Normal 47-70 [facility] Comment on above: Performed By: #### L 503.5510, L501.9520, L500.3400, L500.2500, L501.7510, L501.5200, L100.0100 #### [facility] [address] [place], [address] Nucleated RBC (Bld) [#/Vol] 0 10*3/uL Normal 0-5 [facility] Comment on above: Performed By: #### L 503.5510, L501.9520, L500.3400, L500.2500, L501.7510, L501.5200, L100.0100 #### [facility] [address] [place], [address] Platelet mean volume (Bld) [Entitic vol] 11.0 fL Normal 6.2-12.0 [facility] Comment on above: Performed By: #### L 503.5510, L501.9520, L500.3400, L500.2500, L501.7510, L501.5200, L100.0100 #### [facility] [address] [place], [address] Platelets (Bld) [#/Vol] 259 10*3/uL Normal 150-450 [facility] Comment on above: Performed By: #### L 503.5510, L501.9520, L500.3400, L500.2500, L501.7510, L501.5200, L100.0100 #### [facility] [address] [place], [address] RBC (Bld) [#/Vol] 3.71 10*6/uL Low 4.6-6.2 [facility] Comment on above: Performed By: #### L 503.5510, L501.9520, L500.3400, L500.2500, L501.7510, L501.5200, L100.0100 #### [facility] [address] [place], [address] RDW SD 46.2 fl High 35.1-43.9 [facility] Comment on above: Performed By: #### L 503.5510, L501.9520, L500.3400, L500.2500, L501.7510, L501.5200, L100.0100 #### [facility] [address] [place], [address] WBC (Bld) [#/Vol] 8.8 10*3/uL Normal 4.4-11.0 [facility] Comment on above: Performed By: #### L 503.5510, L501.9520, L500.3400, L500.2500, L501.7510, L501.5200, L100.0100 #### [facility] [address] [place], [address] Carbon dioxide, total [Moles /volume] in Central venous bloodOrdered By: Satnam Roberts on 02-21-2025 CO2 [Moles/Vol] 23.9 mmol/L 21.0-32.0 [facility] Chloride assayOrdered By: Chyna Roberts on 02-21-2025 Chloride [Moles/Vol] 100 mmol/L 98-108 [facility] Digoxin Levelon 02-21-2025 DIG 0.55 ng/mL Normal 0.00-2.00 [facility] Comment on above: Performed By: #### L 500.4050, L501.7510, L400.0001, L100.0100 #### [facility] [address] [place], [place], [address] Emergency Department Summary on 02-21-2025 Emergency Department Summary [facility] Medical Records Department [address] [place] [address] Emergency Department Summary 02/21/25 MR#: [id number] Acct: [id number] Name: LEO ROMAN Rep #: [id number] : 1935 89 From: Satnam Roberts DO PCP: Dr. Juan Hairston MD Status:DEP ER Location: ED HPI History of Present Illness Chief Complaint: Confusion Informant: patient Narrative Narrative: Patient is an 89-year-old male with past medical history of hypertension hypothyroidism and paroxysmal atrial fibrillation currently on Xarelto. He states he was up this morning and just did not feel right". He states he felt "confused". He states that he did not notice any focal extremity weakness or slurred speech but reports he just felt off which concerned him for potential stroke as he does have a history of atrial fibrillation and therefore he comes in for evaluation [facility] Medical History (Updated 02/25/25 @ 02:[address] Satnam Roberts, DO) Wears hearing aid Wears dentures Wears [...] masses GI (more content not included)... Normal [facility] Eosinophil percentageOrdered By: Satnam Roberts on 02-21-2025 Eosinophils/100 WBC (Bld) 1.3 % 0-5 [facility] Erythrocyte distribution wid th ratioOrdered By: Satnam Roberts on 02-21-2025 Erythrocyte distribution width (RBC) [Ratio] 14.5 % 11.6-14.6 [facility] Erythrocyte distribution wid th standard deviationOrdered By: Satnam Roberts on 02-21-2025 Erythrocyte distribution width (RBC) [Ratio] 46.2 fl High 35.1-43.9 [facility] Glomerular filtration rate ( GFR) estimation/1.73 sq m using serum, plasma, or whole bOrdered By: Satnam Roberts on 02-21-2025 GFR/1.73 sq M.predicted among non-blacks MDRD (S/P/Bld) [Vol rate/Area] 78 mL/min/{1.73_m2} >60 [facility] Comment on above: mL/min/1.73m2 CKD-EP I Creatinine Equation (2020) Hematocrit Auto (Bld) [Volum e fraction]Ordered By: Satnam Roberts on 02-21-2025 Hematocrit (Bld) [Volume fraction] 33.0 % Low 40-54 [facility] Hemoglobin measurementOrdere d By: Satnam Roberts on 02-21-2025 Hemoglobin (Bld) [Mass/Vol] 10.9 g/dL Low 13.0-16.5 [facility] Immature granulocytes/100 WB C Auto (Bld)Ordered By: Satnam Roberts on 02-21-2025 Immature granulocytes/100 WBC (Bld) 0.600 % 0.0-0.9 [facility] Comment on above: IG% - Immature Granu locytes (promyelocytes, myelocytes and metamyelocytes) > 1% indicates that a LEFT SHIFT is Present. Ketones Test strip Ql (U)Ord ered By: Satnam Roberts on 02-21-2025 Ketones Ql (U) Negative Negative [facility] - Chemistry and C hemistry - challengeOrdered By: Satnam Roberts on 02-21-2025 AST [Catalytic activity/Vol] 19 U/L <38 [facility] Liver Profileon 02-21-2025 Albumin [Mass/Vol] 4.0 g/dL Normal 3.4-4.8 [facility] Comment on above: Performed By: #### L 503.5510, L501.9520, L500.3400, L500.2500, L501.7510, L501.5200, L100.0100 #### [facility] [address] [place], [address] ALK PHOS 104 U/L Normal 40-129 [facility] Comment on above: Performed By: #### L 503.5510, L501.9520, L500.3400, L500.2500, L501.7510, L501.5200, L100.0100 #### [facility] [address] [place], [address] ALT [Catalytic activity/Vol] 10 U/L Normal <=46 [facility] Comment on above: Performed By: #### L 503.5510, L501.9520, L500.3400, L500.2500, L501.7510, L501.5200, L100.0100 #### [facility] [address] [place], [address] AST [Catalytic activity/Vol] 19 U/L Normal <=37 [facility] Comment on above: Performed By: #### L 503.5510, L501.9520, L500.3400, L500.2500, L501.7510, L501.5200, L100.0100 #### [facility] [address] [place], [address] Bilirubin [Mass/Vol] 0.28 mg/dL Normal 0.00-1.30 [facility] Comment on above: Performed By: #### L 503.5510, L501.9520, L500.3400, L500.2500, L501.7510, L501.5200, L100.0100 #### [facility] [address] [place], [address] Bilirubin.direct [Mass/Vol] 0.14 mg/dL Normal 0.00-0.30 [facility] Comment on above: Performed By: #### L 503.5510, L501.9520, L500.3400, L500.2500, L501.7510, L501.5200, L100.0100 #### [facility] [address] [place], [address] Globulin (S) [Mass/Vol] 2.6 g/dL Normal 2.2-4.2 [facility] Comment on above: Performed By: #### L 503.5510, L501.9520, L500.3400, L500.2500, L501.7510, L501.5200, L100.0100 #### [facility] [address] [place], [address] T PROT 6.5 g/dL Normal 5.9-8.4 [facility] Comment on above: Performed By: #### L 503.5510, L501.9520, L500.3400, L500.2500, L501.7510, L501.5200, L100.0100 #### [facility] [address] [place], [address] MCV (mean corpuscular volume ) determinationOrdered By: Satnam Roberts on 02-21-2025 MCV (RBC) [Entitic vol] 88.9 fL 80-94 [facility] Magnesiumon 02-21-2025 Magnesium [Mass/Vol] 2.0 mg/dL Normal 1.5-2.2 [facility] Comment on above: Performed By: #### L 503.5510, L501.9520, L500.3400, L500.2500, L501.7510, L501.5200, L100.0100 #### [facility] [address] [facility] [place], [address] Magnesium measurement (mass/ volume)Ordered By: Satnam Roberts on 02-21-2025 Magnesium (Unsp spec) [Mass/Vol] 2.0 mg/dL 1.5-2.2 [facility] Mean corpuscular hemoglobin (MCH) determinationOrdered By: Satnam Roberts on 02-21-2025 MCH (RBC) [Entitic mass] 29.4 pg 27.0-32.0 [facility] Mean corpuscular hemoglobin concentration (MCHC) determinationOrdered By: Satnam Roberts on 02-21-2025 MCHC (RBC) [Mass/Vol] 33.0 g/dL 32-36 [facility] Mean platelet volume determi nationOrdered By: Satnam Roberts on 02-21-2025 Platelet mean volume (Bld) [Entitic vol] 11.0 fL 6.2-12.0 [facility] Microscopic analysis of urin e for red blood cells (RBC)Ordered By: Satnam Roberts on 02-21-2025 Microscopic analysis of urine for red blood cells (RBC) 0 SEEN /hpf 0-5 [facility] Monocyte percentageOrdered B y: Satnam Roberts on 02-21-2025 Monocytes/100 WBC (Bld) 9.3 % 0-10 [facility] Mucus LM Ql (Urine sed)Order ed By: Satnam Roberts on 02-21-2025 Mucus Ql (Urine sed) 0 SEEN /hpf [facility] Neutrophil percentageOrdered By: Satnam Roberts on 02-21-2025 Neutrophils/100 WBC (Bld) 63.3 % 47-70 [facility] Nitrite Test strip Ql (U)Ord ered By: Satnam Roberts on 02-21-2025 Nitrite Ql (U) Negative Negative [facility] Nucleated red blood cell per centageOrdered By: Satnam Roberts on 02-21-2025 Nucleated RBC/100 WBC (Bld) [Ratio] 0 % 0-5 [facility] Platelet countOrdered By: Chyna Roberts on 02-21-2025 Platelets (Bld) [#/Vol] 259 10*3/uL 150-450 [facility] Potassium measurement (mass/ volume)Ordered By: Satnam Roberts on 02-21-2025 Potassium (Unsp spec) [Mass/Vol] 3.9 mmol/L 3.3-5.1 [facility] Protein Test strip Ql (U)Ord ered By: Satnam Roberts on 02-21-2025 Protein Ql (U) 15 mg/dl High Negative [facility] RBC Auto (Bld) [#/Vol]Ordere d By: Satnam Roberts on 02-21-2025 RBC (Bld) [#/Vol] 3.71 10*6/uL Low 4.6-6.2 [facility] Serum creatinine measurement (mass/volume)Ordered By: Satnam Roberts on 02-21-2025 Creatinine [Mass/Vol] 0.94 mg/dL 0.70-1.20 [facility] Serum globulin measurementOr dered By: Satnam Roberts on 02-21-2025 Globulin (S) [Mass/Vol] 2.6 g/dL 2.2-4.2 [facility] Serum glucose measurement (m ass/volume)Ordered By: Satnam Roberts on 02-21-2025 Glucose [Mass/Vol] 156 mg/dL High 70-99 [facility] Serum or plasma alanine kay otransferase (ALT) measurementOrdered By: Satnam Roberts on 02-21-2025 ALT [Catalytic activity/Vol] 10 U/L <47 [facility] Serum or plasma albumin mago urement (mass/volume)Ordered By: Satnam Roberts on 02-21-2025 Albumin [Mass/Vol] 4.0 g/dL 3.4-4.8 [facility] Serum or plasma alkaline enrike sphatase measurementOrdered By: Satnam Roberts on 02-21-2025 ALP [Catalytic activity/Vol] 104 U/L 40-129 [facility] Serum or plasma calcium mago urement (mass/volume)Ordered By: Satnam Roberts on 02-21-2025 Calcium [Mass/Vol] 8.8 mg/dL 7.6-11.0 [facility] Serum or plasma digoxin mago urement (mass/volume)Ordered By: Satnam Roberts on 02-21-2025 Digoxin [Mass/Vol] 0.55 ng/mL 0.00-2.00 [facility] Serum or plasma urea nitroge n measurement (mass/volume)Ordered By: Satnam Roberts on 02-21-2025 Urea nitrogen [Mass/Vol] 19 mg/dL 4-19 [facility] Sodium levelOrdered By: Ralph Roberts on 02-21-2025 Sodium [Moles/Vol] 136 mmol/L 133-145 [facility] Squamous epithelial cells de tection in urine sediment by light microscopyOrdered By: Satnam Roberts on 02-21-2025 Epithelial cells.squamous LM Ql (Urine sed) 0 SEEN /hpf 0-5 [facility] TSH DL <= 0.005 mIU/L QnOrde red By: Satnam Roberts on 02-21-2025 TSH Qn 0.837 uIU/mL 0.300-4.200 [facility] Thyroid Stim Hormone (TSH)on 02-21-2025 TSH 0.837 uIU/mL Normal 0.300-4.200 [facility] Comment on above: Performed By: #### L 500.4050, L501.7510, L400.0001, L100.0100 #### [facility] [address] [place], [address] Total proteinOrdered By: Lul Roberts on 02-21-2025 Protein [Mass/Vol] 6.5 g/dL 5.9-8.4 [facility] Urinalysis, Completeon 02-21 BACTERIA 0 SEEN Normal None Seen [facility] Comment on above: Order Comment: KIT GUTHRIE COMMENT-ESR Order Date: 02/18/25 Order Info: [id number] - CMP Order Info: [id number] - TSH Order Date: 12/20/24 Order Info: 3024-7 - T4F Performed By: #### L 500.4050, L501.7510, L400.0001, L100.0100 #### [facility] [address] [place], [address] EPI,SQUAMOUS 0 SEEN Normal 0-5 [facility] Comment on above: Order Comment: KIT GUTHRIE COMMENT-ESR Order Date: 02/18/25 Order Info: [id number] - CMP Order Info: [id number] - TSH Order Date: 12/20/24 Order Info: 3024-7 - T4F Performed By: #### L 500.4050, L501.7510, L400.0001, L100.0100 #### [facility] [address] [place], [address] Mucus Ql (Urine sed) 0 SEEN Normal [facility] Comment on above: Order Comment: KIT GUTHRIE COMMENT-ESR Order Date: 02/18/25 Order Info: [id number] - CMP Order Info: [id number] - TSH Order Date: 12/20/24 Order Info: 3024-7 - T4F Performed By: #### L 500.4050, L501.7510, L400.0001, L100.0100 #### [facility] [address] [place], [address] RBC 0 SEEN Normal 0-5 [facility] Comment on above: Order Comment: PER I NTERFACE COMMENT-ESR Order Date: 02/18/25 Order Info: [id number] - CMP Order Info: [id number] - TSH Order Date: 12/20/24 Order Info: 3024-7 - T4F Performed By: #### L 500.4050, L501.7510, L400.0001, L100.0100 #### [facility] [address] [place], [address] WBC 0 SEEN Normal 0-5 [facility] Comment on above: Order Comment: PER Emily NTERFASILVESTRE COMMENT-ESR Order Date: 02/18/25 Order Info: [id number] - CMP Order Info: [id number] - TSH Order Date: 12/20/24 Order Info: [id number] - T4F Performed By: #### L 500.4050, L501.7510, L400.0001, L100.0100 #### [facility] [address] [place], [address] Urine clarityOrdered By: Lul Roberts on 02-21-2025 Clarity (U) Clear Clear [facility] Urine color determinationOrd ered By: Satnam Roberts on 02-21-2025 Color (U) Yellow Yellow [facility] Urine glucose detectionOrder ed By: Satnam Roberts on 02-21-2025 Glucose Ql (U) Normal mg/dl Normal [facility] Urine leukocyte esterase det ection by dipstickOrdered By: Satnam Roberts on 02-21-2025 Leukocyte esterase Test strip Ql (U) Negative Negative [facility] Urine pHOrdered By: Satnam ayoub on 02-21-2025 pH (U) 6.5 [pH] 5.0 - 8.0 [facility] Urine sediment bacteria coun t by microscopy (number/high power field)Ordered By: Satnam Roberts on 02-21-2025 Bacteria LM.HPF (Urine sed) [#/Area] 0 /[HPF] None Seen [facility] Urine specific gravity measu rementOrdered By: Satnam Roberts on 02-21-2025 Specific gravity (U) [Rel density] 1.010 1.002-1.030 [facility] Urine urobilinogen measureme ntOrdered By: Satnam Roberts on 02-21-2025 Urobilinogen Ql (U) Normal mg/dl Normal [facility] Venous blood ammonia measure mentOrdered By: Satnam Roberts on 02-21-2025 Ammonia (P) [Moles/Vol] 13.8 umol/L Low 16-60 [facility] White blood cell (WBC) count Ordered By: Satnam Roberts on 02-21-2025 WBC (Bld) [#/Vol] 8.8 10*3/uL 4.4-11.0 [facility] White blood cell countOrdere d By: Satnam Roberts on 02-21-2025 White blood cell count 0 SEEN /hpf 0-5 [facility] Absolute lymphocyte countOrd ered By: Juan Hairston on 02-19-2025 Lymphocytes Auto (Unsp spec) [#/Vol] 1.64 10*3/uL 0.83-4.51 [facility] Absolute neutrophil countOrd ered By: Juan Hairston on 02-19-2025 Neutrophils (Bld) [#/Vol] 6.6 10*3/uL 2.0-7.7 [facility] Anion gap in Serum or Plasma Ordered By: Juan Hairston on 02-19-2025 Anion gap [Moles/Vol] 12 mmol/L 5-15 [facility] Automated lymphocyte count a s percentage of total leukocytesOrdered By: Juan Hairston on 02-19-2025 Lymphocytes/100 WBC Auto (Unsp spec) 17.9 % Low 19-41 [facility] BUN/creatinine ratioOrdered By: Juan Hairston on 02-19-2025 Urea nitrogen/Creatinine [Mass ratio] 17.8 mg/mg 10-20 [facility] Basophil percentageOrdered B y: Juan Hairston on 02-19-2025 Basophils/100 WBC (Bld) 0.3 % 0-1 [facility] Bilirubin Test strip Ql (U)O rdered By: Juan Hairston on 02-19-2025 Bilirubin Ql (U) Negative Negative [facility] Bilirubin, totalOrdered By: Juan Hairston on 02-19-2025 Bilirubin [Mass/Vol] 0.35 mg/dL 0.00-1.30 [facility] CBC W/Diff, Automatedon 10-0 Absolute Lymph 1.64 X10 3/uL Normal 0.83-4.51 [facility] Comment on above: Order Comment: PER Emily GUTHRIE COMMENT-ESR Order Date: 02/18/25 Order Info: 0184-1 - CBCD Performed By: #### L 500.4050, L501.7510, L400.0001, L100.0100 #### [facility] [address] [place], [address] Absolute Neut 6.6 X10 3/uL Normal 2.0-7.7 [facility] Comment on above: Order Comment: PER Emily GUTHRIE COMMENT-ESR Order Date: 02/18/25 Order Info: 0184-1 - CBCD Performed By: #### L 500.4050, [id number], L400.0001, L100.0100 #### [facility] [address] [place], [address] Basophils/100 WBC (Bld) 0.3 % Normal 0-1 [facility] Comment on above: Order Comment: PER Emily GUTHRIE COMMENT-ESR Order Date: 02/18/25 Order Info: 0184-1 - CBCD Performed By: #### L 500.4050, [id number], L400.0001, L100.0100 #### [facility] [address] [place], [address] Eosinophils/100 WBC (Bld) 0.3 % Normal 0-5 [facility] Comment on above: Order Comment: PER Emily GUTHRIE COMMENT-ESR Order Date: 02/18/25 Order Info: 0184-1 - CBCD Performed By: #### L 500.4050, [id number], L400.0001, L100.0100 #### [facility] [address] [place], [address] Erythrocyte distribution width (RBC) [Ratio] 14.6 % Normal 11.6-14.6 [facility] Comment on above: Order Comment: PER I BRIANERАНДРЕЙ COMMENT-ESR Order Date: 02/18/25 Order Info: 01808-20 - CBCD Performed By: #### L 500.4050, [id number], L400.0001, L100.0100 #### [facility] [address] [place], [address] Hematocrit (Bld) [Volume fraction] 34.1 % Low 40-54 [facility] Comment on above: Order Comment: PER Emily TORRESERАНДРЕЙ COMMENT-ESR Order Date: 02/18/25 Order Info: 0184 - CBCD Performed By: #### L 500.4050, [id number], L400.0001, L100.0100 #### [facility] [address] [place], [address] Hemoglobin (Bld) [Mass/Vol] 11.2 g/dL Low 13.0-16.5 [facility] Comment on above: Order Comment: PER Emily TORRESERАНДРЕЙ COMMENT-ESR Order Date: 02/18/25 Order Info: 0184- - CBCD Performed By: #### L 500.4050, [id number], L400.0001, L100.0100 #### [facility] [address] [place], [address] IG% 0.800 Normal 0.0-0.9 [facility] Comment on above: Order Comment: PER Emily TORRESERАНДРЕЙ COMMENT-ESR Order Date: 02/18/25 Order Info: 0184- - CBCD Result Comment: IG% - Immature Granulocytes (promyelocytes, myelocytes and metamyelocytes) > 1% indicates that a LEFT SHIFT is Present. Performed By: #### L 500.4050, L501.7510, L400.0001, L100.0100 #### [facility] [address] [place], [address] Lymphocytes/100 WBC (Bld) 17.9 % Low 19-41 [facility] Comment on above: Order Comment: PER I NTERFACE COMMENT-ESR Order Date: 02/18/25 Order Info: 0184-1 - CBCD Performed By: #### L 500.4050, [id number], L400.0001, L100.0100 #### [facility] [address] [place], [address] MCH (RBC) [Entitic mass] 29.6 pg Normal 27.0-32.0 [facility] Comment on above: Order Comment: PER I NTERFACE COMMENT-ESR Order Date: 02/18/25 Order Info: 0184- - CBCD Performed By: #### L 500.4050, [id number], L400.0001, L100.0100 #### [facility] [address] [place], [address] MCHC (RBC) [Mass/Vol] 32.8 g/dL Normal 32-36 [facility] Comment on above: Order Comment: PER I NTERFASILVESTRE COMMENT-ESR Order Date: 02/18/25 Order Info: 0184- - CBCD Performed By: #### L 500.4050, [id number], L400.0001, L100.0100 #### [facility] [address] [place], [address] MCV (RBC) [Entitic vol] 90.0 fL Normal 80-94 [facility] Comment on above: Order Comment: PER I NTERFACE COMMENT-ESR Order Date: 02/18/25 Order Info: 0184-1 - CBCD Performed By: #### L 500.4050, [id number], L400.0001, L100.0100 #### [facility] [address] [place], [address] Monocytes/100 WBC (Bld) 8.3 % Normal 0-10 [facility] Comment on above: Order Comment: KIT GUTHRIE COMMENT-ESR Order Date: 02/18/25 Order Info: 0184-1 - CBCD Performed By: #### L 500.4050, [id number], L400.0001, L100.0100 #### [facility] [address] [place], [address] Neutrophils/100 WBC (Bld) 72.4 % High 47-70 [facility] Comment on above: Order Comment: KIT GUTHRIE COMMENT-ESR Order Date: 02/18/25 Order Info: 0184- - CBCD Performed By: #### L 500.4050, [id number], L400.0001, L100.0100 #### [facility] [address] [place], [address] Nucleated RBC (Bld) [#/Vol] 0 10*3/uL Normal 0-5 [facility] Comment on above: Order Comment: KIT GUTHRIE COMMENT-ESR Order Date: 02/18/25 Order Info: 0184-1 - CBCD Performed By: #### L 500.4050, [id number], L400.0001, L100.0100 #### [facility] [address] [place], [address] Platelet mean volume (Bld) [Entitic vol] 11.3 fL Normal 6.2-12.0 [facility] Comment on above: Order Comment: KIT GUTHRIE COMMENT-ESR Order Date: 02/18/25 Order Info: 0184- - CBCD Performed By: #### L 500.4050, [id number], L400.0001, L100.0100 #### [facility] [address] [place], [address] Platelets (Bld) [#/Vol] 250 10*3/uL Normal 150-450 [facility] Comment on above: Order Comment: PER I [place] COMMENT-ESR Order Date: 02/18/25 Order Info: 0184-1 - CBCD Performed By: #### L 500.4050, [id number], L400.0001, L100.0100 #### [facility] [address] [place], [address] RBC (Bld) [#/Vol] 3.79 10*6/uL Low 4.6-6.2 [facility] Comment on above: Order Comment: PER I [place] COMMENT-ESR Order Date: 02/18/25 Order Info: 0184-1 - CBCD Performed By: #### L 500.4050, [id number], L400.0001, L100.0100 #### [facility] [address] [place], [address] RDW SD 48.5 fl High 35.1-43.9 [facility] Comment on above: Order Comment: PER I BRIANERАНДРЕЙ COMMENT-ESR Order Date: 02/18/25 Order Info: 0184-1 - CBCD Performed By: #### L 500.4050, [id number], L400.0001, L100.0100 #### [facility] [address] [place], [address] WBC (Bld) [#/Vol] 9.2 10*3/uL Normal 4.4-11.0 [facility] Comment on above: Order Comment: PER I BRIANERАНДРЕЙ COMMENT-ESR Order Date: 02/18/25 Order Info: 0184-1 - CBCD Performed By: #### L 500.4050, L501.7510, L400.0001, L100.0100 #### [facility] [address] [place], [address] Carbon dioxide, total [Moles /volume] in Central venous bloodOrdered By: Juan Hairston on 02-19-2025 CO2 [Moles/Vol] 23.4 mmol/L 21.0-32.0 [facility] Chloride assayOrdered By: Enrique Hairston on 02-19-2025 Chloride [Moles/Vol] 101 mmol/L 98-108 [facility] Comprehensive Metabolic Prof ilon 02-19-2025 Albumin [Mass/Vol] 3.8 g/dL Normal 3.4-4.8 [facility] Comment on above: Order Comment: PER Emily TORRESERАНДРЕЙ COMMENT-ESR Order Date: 02/18/25 Order Info: 0786-1 - CMP Order Info: 3016-3 - TSH Order Date: 12/20/24 Order Info: 3024-7 - T4F Performed By: #### L 500.4050, L501.7510, L400.0001, L100.0100 #### [facility] [address] [place], [address] Albumin/Globulin [Mass ratio] 1.5 {ratio} Normal 0.9-2.4 [facility] Comment on above: Order Comment: PER Emily TORRESERАНДРЕЙ COMMENT-ESR Order Date: 02/18/25 Order Info: 0786-1 - CMP Order Info: 3016-3 - TSH Order Date: 12/20/24 Order Info: 3024-7 - T4F Performed By: #### L 500.4050, L501.7510, L400.0001, L100.0100 #### [facility] [address] [place], [address] ALK PHOS 97 U/L Normal 40-129 [facility] Comment on above: Order Comment: KIT TORRESERАНДРЕЙ COMMENT-ESR Order Date: 02/18/25 Order Info: 0786-1 - CMP Order Info: 3016-3 - TSH Order Date: 12/20/24 Order Info: 3024-7 - T4F Performed By: #### L 500.4050, L501.7510, L400.0001, L100.0100 #### [facility] [address] [place], [address] ALT [Catalytic activity/Vol] 10 U/L Normal <=46 [facility] Comment on above: Order Comment: PER Emily TORRESERАНДРЕЙ COMMENT-ESR Order Date: 02/18/25 Order Info: 0786-1 - CMP Order Info: 3016-3 - TSH Order Date: 12/20/24 Order Info: 3024-7 - T4F Performed By: #### L 500.4050, L501.7510, L400.0001, L100.0100 #### [facility] [address] [place], [address] AST [Catalytic activity/Vol] 18 U/L Normal <=37 [facility] Comment on above: Order Comment: PER Emily TORRESERАНДРЕЙ COMMENT-ESR Order Date: 02/18/25 Order Info: 0786-1 - CMP Order Info: 3015-3 - TSH Order Date: 12/20/24 Order Info: 3024-7 - T4F Performed By: #### L 500.4050, [id number], L400.0001, L100.0100 #### [facility] [address] [place], [address] Bilirubin [Mass/Vol] 0.35 mg/dL Normal 0.00-1.30 [facility] Comment on above: Order Comment: PER Emily GUTHRIE COMMENT-ESR Order Date: 02/18/25 Order Info: 0786-1 - CMP Order Info: 3 - TSH Order Date: 12/20/24 Order Info: 3024-7 - T4F Performed By: #### L 500.4050, [id number], L400.0001, L100.0100 #### [facility] [address] [place], [address] BUN/CRE 17.8 RATIO Normal 10-20 [facility] Comment on above: Order Comment: PER Emily GUTHRIE COMMENT-ESR Order Date: 02/18/25 Order Info: 0786-1 - CMP Order Info: 3 - TSH Order Date: 12/20/24 Order Info: 3024-7 - T4F Performed By: #### L 500.4050, L501.7510, L400.0001, L100.0100 #### [facility] [address] [place], [address] Calcium [Mass/Vol] 8.8 mg/dL Normal 7.6-11.0 [facility] Comment on above: Order Comment: PER Emily NTERАНДРЕЙ COMMENT-ESR Order Date: 02/18/25 Order Info: 0786-1 - CMP Order Info: 3016-3 - TSH Order Date: 12/20/24 Order Info: 3024-7 - T4F Performed By: #### L 500.4050, [id number], L400.0001, L100.0100 #### [facility] [address] [place], [address] Chloride [Moles/Vol] 101 mmol/L Normal 98-108 [facility] Comment on above: Order Comment: PER Emily GUTHRIE COMMENT-ESR Order Date: 02/18/25 Order Info: 07-1 - CMP Order Info: 3015-3 - TSH Order Date: 12/20/24 Order Info: 3024-7 - T4F Performed By: #### L 500.4050, [id number], L400.0001, L100.0100 #### [facility] [address] [place], [address] CO2 [Moles/Vol] 23.4 mmol/L Normal 21.0-32.0 [facility] Comment on above: Order Comment: PER Emily NTERАНДРЕЙ COMMENT-ESR Order Date: 02/18/25 Order Info: 0786-1 - CMP Order Info: 3016-3 - TSH Order Date: 12/20/24 Order Info: 3024-7 - T4F Performed By: #### L 500.4050, [id number], L400.0001, L100.0100 #### [facility] [address] [place], [address] Creatinine [Mass/Vol] 0.94 mg/dL Normal 0.70-1.20 [facility] Comment on above: Order Comment: PER I BRIANERАНДРЕЙ COMMENT-ESR Order Date: 02/18/25 Order Info: 0786-1 - CMP Order Info: 3015-07 - TSH Order Date: 12/20/24 Order Info: 3024-7 - T4F Performed By: #### L 500.4050, [id number], L400.0001, L100.0100 #### [facility] [address] [place], [address] GAP 12 Normal 5-15 [facility] Comment on above: Order Comment: PER I NTERАНДРЕЙ COMMENT-ESR Order Date: 02/18/25 Order Info: 0786- - CMP Order Info: 3015-07 - TSH Order Date: 12/20/24 Order Info: 3024-7 - T4F Performed By: #### L 500.4050, L501.7510, L400.0001, L100.0100 #### [facility] [address] [place], [address] GFR/1.73 sq M.predicted among non-blacks MDRD (S/P/Bld) [Vol rate/Area] 78 mL/min/{1.73_m2} Normal >60 [facility] Comment on above: Order Comment: PER I BRIANERАНДРЕЙ COMMENT-ESR Order Date: 02/18/25 Order Info: 0786-1 - CMP Order Info: 3015-07 - TSH Order Date: 12/20/24 Order Info: 3024-7 - T4F Result Comment: mL/m in/1.73m2 CKD-EPI Creatinine Equation (2020) Performed By: #### L 500.4050, L501.7510, L400.0001, L100.0100 #### [facility] [address] [place], [address] Globulin (S) [Mass/Vol] 2.6 g/dL Normal 2.2-4.2 [facility] Comment on above: Order Comment: PER I NTERFACE COMMENT-ESR Order Date: 02/18/25 Order Info: 86-1 - CMP Order Info: 3015-3 - TSH Order Date: 12/20/24 Order Info: 3024-7 - T4F Performed By: #### L 500.4050, L501.7510, L400.0001, L100.0100 #### [facility] [address] [place], [address] Glucose [Mass/Vol] 76 mg/dL Normal 70-99 [facility] Comment on above: Order Comment: PER Emily GUTHRIE COMMENT-ESR Order Date: 02/18/25 Order Info: 785-1 - CMP Order Info: 3 - TSH Order Date: 12/20/24 Order Info: 3024-7 - T4F Performed By: #### L 500.4050, L501.7510, L400.0001, L100.0100 #### [facility] [address] [place], [address] Potassium [Moles/Vol] 4.0 mmol/L Normal 3.3-5.1 [facility] Comment on above: Order Comment: KIT MULLEN-ESR Order Date: 02/18/25 Order Info: 785-1 - CMP Order Info: 3016-3 - TSH Order Date: 12/20/24 Order Info: 3024-7 - T4F Performed By: #### L 500.4050, L501.7510, L400.0001, L100.0100 #### [facility] [address] [place], [address] Sodium [Moles/Vol] 136 mmol/L Normal 133-145 [facility] Comment on above: Order Comment: KIT GUTHRIE COMMENT-ESR Order Date: 02/18/25 Order Info: 0786-1 - CMP Order Info: 3016-3 - TSH Order Date: 12/20/24 Order Info: 3024-7 - T4F Performed By: #### L 500.4050, L501.7510, L400.0001, L100.0100 #### [facility] [address] [place], [address] T PROT 6.4 g/dL Normal 5.9-8.4 [facility] Comment on above: Order Comment: PER Emily GUTHRIE COMMENT-ESR Order Date: 02/18/25 Order Info: 0786-1 - CMP Order Info: 3016-3 - TSH Order Date: 12/20/24 Order Info: 3024-7 - T4F Performed By: #### L 500.4050, L501.7510, L400.0001, L100.0100 #### [facility] [address] [place], [address] Urea nitrogen [Mass/Vol] 17 mg/dL Normal 4-19 [facility] Comment on above: Order Comment: PER Emily GUTHRIE COMMENT-ESR Order Date: 02/18/25 Order Info: 0786-1 - CMP Order Info: 3016-3 - TSH Order Date: 12/20/24 Order Info: 3024-7 - T4F Performed By: #### L 500.4050, L501.7510, L400.0001, L100.0100 #### [facility] [address] [place], [address] Digoxin Levelon 02-19-2025 DIG 0.94 ng/mL Normal 0.00-2.00 [facility] Comment on above: Order Comment: PER Emily GUTHRIE COMMENT-ESR Order Date: 02/18/25 Order Info: [id number] - DIG Performed By: #### L 500.4050, L501.7510, L400.0001, L100.0100 #### [facility] [address] [place], [address] Eosinophil percentageOrdered By: Juan Hairston on 02-19-2025 Eosinophils/100 WBC (Bld) 0.3 % 0-5 [facility] Erythrocyte Sed Rateon 02-19 SED RATE 9 mm/hr Normal 0-20 [facility] Comment on above: Order Comment: PER I NTERFACE COMMENT-ESR Order Date: 02/18/25 Order Info: 0184-1 - CBCD Performed By: #### L 500.4050, L501.7510, L400.0001, L100.0100 #### [facility] [address] [place], [address] Erythrocyte distribution wid th ratioOrdered By: Juan Hairston on 02-19-2025 Erythrocyte distribution width (RBC) [Ratio] 14.6 % 11.6-14.6 [facility] Erythrocyte distribution wid th standard deviationOrdered By: Juan Hairston on 02-19-2025 Erythrocyte distribution width (RBC) [Ratio] 48.5 fl High 35.1-43.9 [facility] Erythrocyte sedimentation ra teOrdered By: Juan Hairston on 02-19-2025 ESR (Bld) [Velocity] 9 mm/h 0-20 [facility] Glomerular filtration rate ( GFR) estimation/1.73 sq m using serum, plasma, or whole bOrdered By: Juan Hairston on 02-19-2025 GFR/1.73 sq M.predicted among non-blacks MDRD (S/P/Bld) [Vol rate/Area] 78 mL/min/{1.73_m2} >60 [facility] Comment on above: mL/min/1.73m2 CKD-EP I Creatinine Equation (2020) Hematocrit Auto (Bld) [Volum e fraction]Ordered By: Juan Hairston on 02-19-2025 Hematocrit (Bld) [Volume fraction] 34.1 % Low 40-54 [facility] Hemoglobin measurementOrdere d By: Juan Hairston on 02-19-2025 Hemoglobin (Bld) [Mass/Vol] 11.2 g/dL Low 13.0-16.5 [facility] Immature granulocytes/100 WB C Auto (Bld)Ordered By: Juan Hairston on 02-19-2025 Immature granulocytes/100 WBC (Bld) 0.800 % 0.0-0.9 [facility] Comment on above: IG% - Immature Granu locytes (promyelocytes, myelocytes and metamyelocytes) > 1% indicates that a LEFT SHIFT is Present. Ketones Test strip Ql (U)Ord ered By: Juan Hairston on 02-19-2025 Ketones Ql (U) Negative Negative [facility] - Chemistry and C hemistry - challengeOrdered By: Juan Hairston on 02-19-2025 AST [Catalytic activity/Vol] 18 U/L <38 [facility] MCV (mean corpuscular volume ) determinationOrdered By: Juan Hairston on 02-19-2025 MCV (RBC) [Entitic vol] 90.0 fL 80-94 [facility] Mean corpuscular hemoglobin (MCH) determinationOrdered By: Juan Hairston on 02-19-2025 MCH (RBC) [Entitic mass] 29.6 pg 27.0-32.0 [facility] Mean corpuscular hemoglobin concentration (MCHC) determinationOrdered By: Juan Hairston on 02-19-2025 MCHC (RBC) [Mass/Vol] 32.8 g/dL 32-36 [facility] Mean platelet volume determi nationOrdered By: Juan Hairston on 02-19-2025 Platelet mean volume (Bld) [Entitic vol] 11.3 fL 6.2-12.0 [facility] Microscopic analysis of urin e for red blood cells (RBC)Ordered By: Juan Hairston on 02-19-2025 Microscopic analysis of urine for red blood cells (RBC) 0-5 SEEN /hpf 0-5 [facility] Comment on above: Previous reported re sult: 0 SEEN /hpfEdited by: VERNON on 02/19/25:2330 AMENDED REPORT 02/19/25 2330 RBC-UA previously reported as: 0 SEEN /hpf Monocyte percentageOrdered B y: Juan Hairston on 02-19-2025 Monocytes/100 WBC (Bld) 8.3 % 0-10 [facility] Mucus LM Ql (Urine sed)Order ed By: Juan Hairston on 02-19-2025 Mucus Ql (Urine sed) 0 SEEN /hpf [facility] Neutrophil percentageOrdered By: Juan Hairston on 02-19-2025 Neutrophils/100 WBC (Bld) 72.4 % High 47-70 [facility] Nitrite Test strip Ql (U)Ord ered By: Juan Hairston on 02-19-2025 Nitrite Ql (U) Negative Negative [facility] Nucleated red blood cell per centageOrdered By: Juan Hairston on 02-19-2025 Nucleated RBC/100 WBC (Bld) [Ratio] 0 % 0-5 [facility] Platelet countOrdered By: Enrique Hairston on 02-19-2025 Platelets (Bld) [#/Vol] 250 10*3/uL 150-450 [facility] Potassium measurement (mass/ volume)Ordered By: Juan Hairston on 02-19-2025 Potassium (Unsp spec) [Mass/Vol] 4.0 mmol/L 3.3-5.1 [facility] Protein Test strip Ql (U)Ord ered By: Juan Hairston on 02-19-2025 Protein Ql (U) 30 mg/dl High Negative [facility] RBC Auto (Bld) [#/Vol]Ordere d By: Juan Hairston on 02-19-2025 RBC (Bld) [#/Vol] 3.79 10*6/uL Low 4.6-6.2 [facility] Serum creatinine measurement (mass/volume)Ordered By: Juan Hairston on 02-19-2025 Creatinine [Mass/Vol] 0.94 mg/dL 0.70-1.20 [facility] Serum globulin measurementOr dered By: Juan Hairston on 02-19-2025 Globulin (S) [Mass/Vol] 2.6 g/dL 2.2-4.2 [facility] Serum glucose measurement (m ass/volume)Ordered By: Juan Hairston on 02-19-2025 Glucose [Mass/Vol] 76 mg/dL 70-99 [facility] Serum or plasma alanine kay otransferase (ALT) measurementOrdered By: Juan Hairston on 02-19-2025 ALT [Catalytic activity/Vol] 10 U/L <47 [facility] Serum or plasma albumin mago urement (mass/volume)Ordered By: Juan Hairston on 02-19-2025 Albumin [Mass/Vol] 3.8 g/dL 3.4-4.8 [facility] Serum or plasma albumin/glob ulin mass ratioOrdered By: Juan Hairston on 02-19-2025 Albumin/Globulin [Mass ratio] 1.5 {ratio} 0.9-2.4 [facility] Serum or plasma alkaline enrike sphatase measurementOrdered By: Juan Hairston on 02-19-2025 ALP [Catalytic activity/Vol] 97 U/L 40-129 [facility] Serum or plasma calcium mago urement (mass/volume)Ordered By: Juan Hairston on 02-19-2025 Calcium [Mass/Vol] 8.8 mg/dL 7.6-11.0 [facility] Serum or plasma digoxin mago urement (mass/volume)Ordered By: Juan Hairston on 02-19-2025 Digoxin [Mass/Vol] 0.94 ng/mL 0.00-2.00 [facility] Serum or plasma urea nitroge n measurement (mass/volume)Ordered By: Juan Hairston on 02-19-2025 Urea nitrogen [Mass/Vol] 17 mg/dL 4-19 [facility] Sodium levelOrdered By: Juan Hairston on 02-19-2025 Sodium [Moles/Vol] 136 mmol/L 133-145 [facility] Squamous epithelial cells de tection in urine sediment by light microscopyOrdered By: Juan Hairston on 02-19-2025 Epithelial cells.squamous LM Ql (Urine sed) 0 SEEN /hpf 0-5 [facility] T4 Free Directon 02-19-2025 T4 FREE DIRECT 1.40 ng/dL Normal 0.76-1.46 [facility] Comment on above: Order Comment: KIT GUTHRIE COMMENT-ESR Order Date: 02/18/25 Order Info: 0786-1 - CMP Order Info: 3016-3 - TSH Order Date: 12/20/24 Order Info: 3024-7 - T4F Performed By: #### L 500.4050, L501.7510, L400.0001, L100.0100 #### [facility] [address] [place], [address] T4 freeOrdered By: Juan mitchell on 02-19-2025 Free T4 [Mass/Vol] 1.40 ng/dL 0.76-1.46 [facility] TSH DL <= 0.005 mIU/L QnOrde red By: Juan Hairston on 02-19-2025 TSH Qn 0.386 uIU/mL 0.300-4.200 [facility] Thyroid Stim Hormone (TSH)on 02-19-2025 TSH 0.386 uIU/mL Normal 0.300-4.200 [facility] Comment on above: Order Comment: KIT GUTHRIE COMMENT-ESR Order Date: 02/18/25 Order Info: 0786-1 - CMP Order Info: 3016-3 - TSH Order Date: 12/20/24 Order Info: 3024-7 - T4F Performed By: #### L 500.4050, L501.7510, L400.0001, L100.0100 #### [facility] [address] [place], [address] Total proteinOrdered By: Monique Hairston on 02-19-2025 Protein [Mass/Vol] 6.4 g/dL 5.9-8.4 [facility] Urinalysis, Completeon 02-19 BACTERIA 1+ /hpf Normal None Seen [facility] Comment on above: Order Comment: Order Date: 02/18/25 Order Info: [id number] - [facility] TRANSLATOR/INTERPRETER TO SPECIFY Result Comment: AMENDED REPORT 02/19/252329 BACTERIA previously reported as: 3+ /hpf Performed By: #### L 500.4050, L501.7510, L400.0001, L100.0100 #### [facility] [address] [place], [address] RBC 0-5 SEEN Normal 0-5 [facility] Comment on above: Order Comment: Order Date: 02/18/25 Order Info: [id number] - [facility] TRANSLATOR/INTERPRETER TO SPECIFY Result Comment: AMENDED REPORT 02/19/252329 RBC-UA previously reported as: 0 SEEN /hpf Performed By: #### L 500.4050, L501.7510, L400.0001, L100.0100 #### [facility] [address] [place], [address] Urine clarityOrdered By: Monique Hairston on 02-19-2025 Clarity (U) Clear Clear [facility] Urine color determinationOrd ered By: Juan Hairston on 02-19-2025 Color (U) Yellow Yellow [facility] Urine glucose detectionOrder ed By: Juan Hairston on 02-19-2025 Glucose Ql (U) Normal mg/dl Normal [facility] Urine leukocyte esterase det ection by dipstickOrdered By: Juan Hairston on 02-19-2025 Leukocyte esterase Test strip Ql (U) Negative Negative [facility] Urine pHOrdered By: Juan aragon on 02-19-2025 pH (U) 6.5 [pH] 5.0 - 8.0 [facility] Urine sediment bacteria coun t by microscopy (number/high power field)Ordered By: Juan Hairston on 02-19-2025 Bacteria LM.HPF (Urine sed) [#/Area] 1 /[HPF] None Seen [facility] Comment on above: Previous reported re sult: 3+ /hpfEdited by: VERNON on 02/19/25:2330 AMENDED REPORT 02/19/250 BACTERIA previously reported as: 3+ /hpf Urine specific gravity measu rementOrdered By: Juan Hairston on 02-19-2025 Specific gravity (U) [Rel density] 1.010 1.002-1.030 [facility] Urine urobilinogen measureme ntOrdered By: Juan Hairston on 02-19-2025 Urobilinogen Ql (U) 1 mg/dl High Normal [facility] White blood cell (WBC) count Ordered By: Juan Hairston on 02-19-2025 WBC (Bld) [#/Vol] 9.2 10*3/uL 4.4-11.0 [facility] White blood cell countOrdere d By: Juan Hairston on 02-19-2025 White blood cell count 0 SEEN /hpf 0-5 [facility] Absolute lymphocyte countOrd ered By: Juan Hairston on 12-19-2024 Lymphocytes Auto (Unsp spec) [#/Vol] 1.51 10*3/uL 0.83-4.51 [facility] Absolute neutrophil countOrd ered By: Juan Hairston on 12-19-2024 Neutrophils (Bld) [#/Vol] 4.2 10*3/uL 2.0-7.7 [facility] Anion gap in Serum or Plasma Ordered By: Juan Hairston on 12-19-2024 Anion gap [Moles/Vol] 10 mmol/L 5-15 [facility] Automated lymphocyte count a s percentage of total leukocytesOrdered By: Juan Hairston on 12-19-2024 Lymphocytes/100 WBC Auto (Unsp spec) 23.7 % - [facility] BUN/creatinine ratioOrdered By: Juan Hairston on 12-19-2024 Urea nitrogen/Creatinine [Mass ratio] 15.1 mg/mg 10- [facility] Basic Metabolic Profile (BMP )on 12-19-2024 BUN/CRE 15.1 RATIO Normal - [facility] Comment on above: Order Comment: PER Emily GUTHRIE COMMENT-ESR Order Date: 02/18/25 Order Info: [id number] - DIG Performed By: #### L 500.4050, L501.7510, L400.0001, L100.0100 #### [facility] [address] [place], [address] Calcium [Mass/Vol] 9.1 mg/dL Normal 7.6-11.0 [facility] Comment on above: Order Comment: PER I [place] COMMENT-ESR Order Date: 02/18/25 Order Info: [id number] - DIG Performed By: #### L 500.4050, L501.7510, L400.0001, L100.0100 #### [facility] [address] [place], [address] Chloride [Moles/Vol] 100 mmol/L Normal 98-108 [facility] Comment on above: Order Comment: PER Emily TORRESERАНДРЕЙ COMMENT-ESR Order Date: 02/18/25 Order Info: [id number] - DIG Performed By: #### L 500.4050, L501.7510, L400.0001, L100.0100 #### [facility] [address] [place], [address] CO2 [Moles/Vol] 25.4 mmol/L Normal 21.0-32.0 [facility] Comment on above: Order Comment: PER I BRIANERFACE COMMENT-ESR Order Date: 02/18/25 Order Info: [id number] - DIG Performed By: #### L 500.4050, L501.7510, L400.0001, L100.0100 #### [facility] [address] [place], [address] Creatinine [Mass/Vol] 1.05 mg/dL Normal 0.70-1.20 [facility] Comment on above: Order Comment: KIT GUTHRIE COMMENT-ESR Order Date: 02/18/25 Order Info: [id number] - DIG Performed By: #### L 500.4050, L501.7510, L400.0001, L100.0100 #### [facility] [address] [place], [address] GAP 10 Normal 5-15 [facility] Comment on above: Order Comment: KIT GUTHRIE COMMENT-ESR Order Date: 02/18/25 Order Info: [id number] - DIG Performed By: #### L 500.4050, L501.7510, L400.0001, L100.0100 #### [facility] [address] [place], [address] GFR/1.73 sq M.predicted among non-blacks MDRD (S/P/Bld) [Vol rate/Area] 69 mL/min/{1.73_m2} Normal >60 [facility] Comment on above: Order Comment: KIT GUTHRIE COMMENT-ESR Order Date: 02/18/25 Order Info: [id number] - DIG Result Comment: mL/m in/1.73m2 CKD-EPI Creatinine Equation (2020) Performed By: #### L 500.4050, L501.7510, L400.0001, L100.0100 #### [facility] [address] [place], [address] Glucose [Mass/Vol] 93 mg/dL Normal 70-99 [facility] Comment on above: Order Comment: PER Emily GUTHRIE COMMENT-ESR Order Date: 02/18/25 Order Info: [id number] - DIG Performed By: #### L 500.4050, L501.7510, L400.0001, L100.0100 #### [facility] [address] [place], [address] Potassium [Moles/Vol] 3.9 mmol/L Normal 3.3-5.1 [facility] Comment on above: Order Comment: KIT TORRESERАНДРЕЙ COMMENT-ESR Order Date: 02/18/25 Order Info: [id number] - DIG Performed By: #### L 500.4050, L501.7510, L400.0001, L100.0100 #### [facility] [address] [place], [address] Sodium [Moles/Vol] 136 mmol/L Normal 133-145 [facility] Comment on above: Order Comment: KIT TORRESERАНДРЕЙ COMMENT-ESR Order Date: 02/18/25 Order Info: [id number] - DIG Performed By: #### L 500.4050, L501.7510, L400.0001, L100.0100 #### [facility] [address] [place], [address] Urea nitrogen [Mass/Vol] 16 mg/dL Normal 4-19 [facility] Comment on above: Order Comment: KIT GUTHRIE COMMENT-ESR Order Date: 02/18/25 Order Info: [id number] - DIG Performed By: #### L 500.4050, L501.7510, L400.0001, L100.0100 #### [facility] [address] [place], [address] Basophil percentageOrdered B y: Juan Hairston on 12-19-2024 Basophils/100 WBC (Bld) 0.5 % 0-1 [facility] CBC W/Diff, Automatedon 07-3 Absolute Lymph 1.51 X10 3/uL Normal 0.83-4.51 [facility] Comment on above: Order Comment: PER Emily TORRESERАНДРЕЙ COMMENT-ESR Order Date: 02/18/25 Order Info: [id number] - DIG Performed By: #### L 500.4050, L501.7510, L400.0001, L100.0100 #### [facility] [address] [place], [address] Absolute Neut 4.2 X10 3/uL Normal 2.0-7.7 [facility] Comment on above: Order Comment: PER Eimly TORRESERАНДРЕЙ COMMENT-ESR Order Date: 02/18/25 Order Info: [id number] - DIG Performed By: #### L 500.4050, L501.7510, L400.0001, L100.0100 #### [facility] [address] [place], [address] Basophils/100 WBC (Bld) 0.5 % Normal 0-1 [facility] Comment on above: Order Comment: PER Emily TORRESERАНДРЕЙ COMMENT-ESR Order Date: 02/18/25 Order Info: [id number] - DIG Performed By: #### L 500.4050, L501.7510, L400.0001, L100.0100 #### [facility] [address] [place], [address] Eosinophils/100 WBC (Bld) 1.3 % Normal 0-5 [facility] Comment on above: Order Comment: PER Emily TORRESERАНДРЕЙ COMMENT-ESR Order Date: 02/18/25 Order Info: [id number] - DIG Performed By: #### L 500.4050, L501.7510, L400.0001, L100.0100 #### [facility] [address] [place], [address] Erythrocyte distribution width (RBC) [Ratio] 14.6 % Normal 11.6-14.6 [facility] Comment on above: Order Comment: PER Emily TORRESERАНДРЕЙ COMMENT-ESR Order Date: 02/18/25 Order Info: [id number] - DIG Performed By: #### L 500.4050, L501.7510, L400.0001, L100.0100 #### [facility] [address] [place], [address] Hematocrit (Bld) [Volume fraction] 33.9 % Low 40-54 [facility] Comment on above: Order Comment: PER I NTERFASILVESTRE COMMENT-ESR Order Date: 02/18/25 Order Info: [id number] - DIG Performed By: #### L 500.4050, L501.7510, L400.0001, L100.0100 #### [facility] [address] [place], [address] Hemoglobin (Bld) [Mass/Vol] 11.3 g/dL Low 13.0-16.5 [facility] Comment on above: Order Comment: PER Emily NTERFACE COMMENT-ESR Order Date: 02/18/25 Order Info: [id number] - DIG Performed By: #### L 500.4050, L501.7510, L400.0001, L100.0100 #### [facility] [address] [place], [address] IG% 0.300 Normal 0.0-0.9 [facility] Comment on above: Order Comment: PER I NTERАНДРЕЙ COMMENT-ESR Order Date: 02/18/25 Order Info: [id number] - DIG Result Comment: IG% - Immature Granulocytes (promyelocytes, myelocytes and metamyelocytes) > 1% indicates that a LEFT SHIFT is Present. Performed By: #### L 500.4050, L501.7510, L400.0001, L100.0100 #### [facility] [address] [place], [address] Lymphocytes/100 WBC (Bld) 23.7 % Normal 19-41 [facility] Comment on above: Order Comment: PER I NTERАНДРЕЙ COMMENT-ESR Order Date: 02/18/25 Order Info: [id number] - DIG Performed By: #### L 500.4050, L501.7510, L400.0001, L100.0100 #### [facility] [address] [place], [address] MCH (RBC) [Entitic mass] 29.8 pg Normal 27.0-32.0 [facility] Comment on above: Order Comment: PER Emily GUTHRIE COMMENT-ESR Order Date: 02/18/25 Order Info: [id number] - DIG Performed By: #### L 500.4050, L501.7510, L400.0001, L100.0100 #### [facility] [address] [place], [address] MCHC (RBC) [Mass/Vol] 33.3 g/dL Normal 32-36 [facility] Comment on above: Order Comment: PER Emily TORRESERАНДРЕЙ COMMENT-ESR Order Date: 02/18/25 Order Info: [id number] - DIG Performed By: #### L 500.4050, L501.7510, L400.0001, L100.0100 #### [facility] [address] [place], [address] MCV (RBC) [Entitic vol] 89.4 fL Normal 80-94 [facility] Comment on above: Order Comment: PER Emily TORRESERАНДРЕЙ COMMENT-ESR Order Date: 02/18/25 Order Info: [id number] - DIG Performed By: #### L 500.4050, L501.7510, L400.0001, L100.0100 #### [facility] [address] [place], [address] Monocytes/100 WBC (Bld) 9.1 % Normal 0-10 [facility] Comment on above: Order Comment: PER Emily TORRESERАНДРЕЙ COMMENT-ESR Order Date: 02/18/25 Order Info: [id number] - DIG Performed By: #### L 500.4050, L501.7510, L400.0001, L100.0100 #### [facility] [address] [place], [address] Neutrophils/100 WBC (Bld) 65.1 % Normal 47-70 [facility] Comment on above: Order Comment: KIT GUTHRIE COMMENT-ESR Order Date: 02/18/25 Order Info: [id number] - DIG Performed By: #### L 500.4050, L501.7510, L400.0001, L100.0100 #### [facility] [address] [place], [address] Nucleated RBC (Bld) [#/Vol] 0 10*3/uL Normal 0-5 [facility] Comment on above: Order Comment: KIT GUTHRIE COMMENT-ESR Order Date: 02/18/25 Order Info: [id number] - DIG Performed By: #### L 500.4050, L501.7510, L400.0001, L100.0100 #### [facility] [address] [place], [address] Platelet mean volume (Bld) [Entitic vol] 12.3 fL High 6.2-12.0 [facility] Comment on above: Order Comment: PER Emily GUTHRIE COMMENT-ESR Order Date: 02/18/25 Order Info: [id number] - DIG Performed By: #### L 500.4050, L501.7510, L400.0001, L100.0100 #### [facility] [address] [place], [address] Platelets (Bld) [#/Vol] 225 10*3/uL Normal 150-450 [facility] Comment on above: Order Comment: PER Emily GUTHRIE COMMENT-ESR Order Date: 02/18/25 Order Info: [id number] - DIG Performed By: #### L 500.4050, L501.7510, L400.0001, L100.0100 #### [facility] [address] [place], [address] RBC (Bld) [#/Vol] 3.79 10*6/uL Low 4.6-6.2 [facility] Comment on above: Order Comment: PER I NTERFACE COMMENT-ESR Order Date: 02/18/25 Order Info: [id number] - DIG Performed By: #### L 500.4050, L501.7510, L400.0001, L100.0100 #### [facility] [address] [place], [address] RDW SD 46.9 fl High 35.1-43.9 [facility] Comment on above: Order Comment: PER I NTERCE COMMENT-ESR Order Date: 02/18/25 Order Info: [id number] - DIG Performed By: #### L 500.4050, L501.7510, L400.0001, L100.0100 #### [facility] [address] [place], [address] WBC (Bld) [#/Vol] 6.4 10*3/uL Normal 4.4-11.0 [facility] Comment on above: Order Comment: PER I NTERSILVESTRE COMMENT-ESR Order Date: 02/18/25 Order Info: [id number] - DIG Performed By: #### L 500.4050, L501.7510, L400.0001, L100.0100 #### [facility] [address] [place], [address] Carbon dioxide, total [Moles /volume] in Central venous bloodOrdered By: Juan Hairston on 12-19-2024 CO2 [Moles/Vol] 25.4 mmol/L 21.0-32.0 [facility] Chloride assayOrdered By: Enrique Hairston on 12-19-2024 Chloride [Moles/Vol] 100 mmol/L 98-108 [facility] Digoxin Levelon 12-19-2024 DIG 0.67 ng/mL Normal 0.00-2.00 [facility] Comment on above: Order Comment: ORDER ABLE Performed By: #### L 501.7510 #### [facility] [address] [place], [address] Eosinophil percentageOrdered By: Juan Hairston on 12-19-2024 Eosinophils/100 WBC (Bld) 1.3 % 0-5 [facility] Erythrocyte distribution wid th ratioOrdered By: Juan Hairston on 12-19-2024 Erythrocyte distribution width (RBC) [Ratio] 14.6 % 11.6-14.6 [facility] Erythrocyte distribution wid th standard deviationOrdered By: Juan Hairston on 12-19-2024 Erythrocyte distribution width (RBC) [Ratio] 46.9 fl High 35.1-43.9 [facility] Glomerular filtration rate ( GFR) estimation/1.73 sq m using serum, plasma, or whole bOrdered By: Juan Hairston on 12-19-2024 GFR/1.73 sq M.predicted among non-blacks MDRD (S/P/Bld) [Vol rate/Area] 69 mL/min/{1.73_m2} >60 [facility] Comment on above: mL/min/1.73m2 CKD-EP I Creatinine Equation (2020) Hematocrit Auto (Bld) [Volum e fraction]Ordered By: Juan Hairston on 12-19-2024 Hematocrit (Bld) [Volume fraction] 33.9 % Low 40-54 [facility] Hemoglobin measurementOrdere d By: Juan Hairston on 12-19-2024 Hemoglobin (Bld) [Mass/Vol] 11.3 g/dL Low 13.0-16.5 [facility] Immature granulocytes/100 WB C Auto (Bld)Ordered By: Juan Hairston 12-19-2024 Immature granulocytes/100 WBC (Bld) 0.300 % 0.0-0.9 [facility] Comment on above: IG% - Immature Granu locytes (promyelocytes, myelocytes and metamyelocytes) > 1% indicates that a LEFT SHIFT is Present. MCV (mean corpuscular volume ) determinationOrdered By: Juan Hairston on 12-19-2024 MCV (RBC) [Entitic vol] 89.4 fL 80-94 [facility] Mean corpuscular hemoglobin (MCH) determinationOrdered By: Juan Hairston 12-19-2024 MCH (RBC) [Entitic mass] 29.8 pg 27.0-32.0 [facility] Mean corpuscular hemoglobin concentration (MCHC) determinationOrdered By: Juan Hairston on 12-19-2024 MCHC (RBC) [Mass/Vol] 33.3 g/dL 32-36 [facility] Mean platelet volume determi nationOrdered By: Juan Hairston on 12-19-2024 Platelet mean volume (Bld) [Entitic vol] 12.3 fL High 6.2-12.0 [facility] Monocyte percentageOrdered B y: Juan Hairston on 12-19-2024 Monocytes/100 WBC (Bld) 9.1 % 0-10 [facility] Neutrophil percentageOrdered By: Juan Hairston on 12-19-2024 Neutrophils/100 WBC (Bld) 65.1 % 47-70 [facility] Nucleated red blood cell per centageOrdered By: Juan Hairston on 12-19-2024 Nucleated RBC/100 WBC (Bld) [Ratio] 0 % 0-5 [facility] Platelet countOrdered By: Enrique Hairston on 12-19-2024 Platelets (Bld) [#/Vol] 225 10*3/uL 150-450 [facility] Potassium measurement (mass/ volume)Ordered By: Juan Hairston on 12-19-2024 Potassium (Unsp spec) [Mass/Vol] 3.9 mmol/L 3.3-5.1 [facility] RBC Auto (Bld) [#/Vol]Ordere d By: Juan Hairston on 12-19-2024 RBC (Bld) [#/Vol] 3.79 10*6/uL Low 4.6-6.2 [facility] Serum creatinine measurement (mass/volume)Ordered By: Juan Hairston on 12-19-2024 Creatinine [Mass/Vol] 1.05 mg/dL 0.70-1.20 [facility] Serum glucose measurement (m ass/volume)Ordered By: Juan Hairston on 12-19-2024 Glucose [Mass/Vol] 93 mg/dL 70-99 [facility] Serum or plasma calcium mago urement (mass/volume)Ordered By: Juan Hairston on 12-19-2024 Calcium [Mass/Vol] 9.1 mg/dL 7.6-11.0 [facility] Serum or plasma digoxin mago urement (mass/volume)Ordered By: Juan Hairston on 12-19-2024 Digoxin [Mass/Vol] 0.67 ng/mL 0.00-2.00 [facility] Serum or plasma urea nitroge n measurement (mass/volume)Ordered By: Juan Hairston on 12-19-2024 Urea nitrogen [Mass/Vol] 16 mg/dL 4-19 [facility] Sodium levelOrdered By: Juan Hairston on 12-19-2024 Sodium [Moles/Vol] 136 mmol/L 133-145 [facility] TSH DL <= 0.005 mIU/L QnOrde red By: uJan Hairston on 12-19-2024 TSH Qn 0.092 uIU/mL Low 0.300-4.200 [facility] Thyroid Stim Hormone (TSH)on 12-19-2024 TSH 0.092 uIU/mL Low 0.300-4.200 [facility] Comment on above: Order Comment: PER I NTERFASILVESTRE COMMENT-ESR Order Date: 02/18/25 Order Info: [id number] - DIG Performed By: #### L 500.4050, L501.7510, L400.0001, L100.0100 #### [facility] [address] [place], [address] White blood cell (WBC) count Ordered By: Juan Hairston on 12-19-2024 WBC (Bld) [#/Vol] 6.4 10*3/uL 4.4-11.0 [facility] PT D/C Summary (1)on 024 PT D/C Summary (1) [facility] [address] [place] [address] / REHABILITATION SERVICES DISCHARGE SUMMARY MR#: [id number] Acct: [id number] Name: LEO ROMAN Rep #: [id number] : 1935 88 From: Umer Islas PT, Cert. T, OCS Referring Dr.: Dr. Juan Hairston MD Status: REG R CR Insurance: [facility] [employer] Discharge Summary D/C summary: [...] please feel free to call me at [phone]. Thank you for the referral of this patient. Sincerely, Umer Islas, PT, Cert MDT, OCS Balance/Gait/Functio nal tests Balance/Special Test Scores Oswestry Neck Score: 3 Improvement % Improvement: 80 03/27/24 1032 CC: Dr. Juan Hairston MD JLA Signed Normal [facility] Basophil percentageOrdered B y: Juan Hairston on 09-15-2023 Bilirubin [Mass/Vol] 0.50 mg/dL 0.20-1.00 [facility] Comment on above: For patients on eltr ombopag therapy, use of Dimension [place] TBIL is not recommended. Chloride [Moles/Vol] 102 mmol/L 98-107 [facility] Glucose [Mass/Vol] 103 mg/dL 74-106 [facility] Comment on above: Fasting Glucose resu lt from 100 to 125 mg/dL suggests IMPAIRED HOMEOSTASIS per A.D.A. criteria. Potassium [Moles/Vol] 4.2 mmol/L 3.5-5.1 [facility] Protein [Mass/Vol] 7.3 g/dL 6.4-8.2 [facility] Sodium [Moles/Vol] 136 mmol/L 136-145 [facility] Laboratory - Chemistry and C hemistry - challengeOrdered By: Juan Hairston on 09-15-2023 Albumin/Globulin [Mass ratio] 1.0 {ratio} 0.9-2.4 [facility] ALP [Catalytic activity/Vol] 95 U/L 45-117 [facility] ALT [Catalytic activity/Vol] 15 U/L 16-61 [facility] CO2 [Moles/Vol] 29.0 mmol/L 21.0-32.0 [facility] Globulin (S) [Mass/Vol] 3.6 g/dL 2.2-4.2 [facility] Urea nitrogen/Creatinine [Mass ratio] 15.7 mg/mg 10-20 [facility] No Panel InformationOrdered By: Juan Hairston on 09-15-2023 Digoxin Level 0.40 ng/mL 0.80-2.00 [facility] Estimated GFR (MDRD) Amer 73 mL/min >60 [facility] Comment on above: GFR Calc Estimated GFR (MDRD) Non-Af Amer 61 mL/min >60 [facility] Comment on above: Non- GFR Calc Serum or plasma calcium mago urement (mass/volume)Ordered By: Juan Hairston on 09-15-2023 Calcium [Mass/Vol] 8.9 mg/dL 8.5-10.1 [facility] Serum or plasma creatinine m easurement (mass/volume)Ordered By: Juan Hairston on 09-15-2023 Creatinine [Mass/Vol] 1.21 mg/dL 0.70-1.30 [facility] Comment on above: The validity of the calculated GFR & GFRAA in patients over 70 years has not been determined. Clinical correlation is essential. Serum or plasma thyroid stim ulating hormone (TSH) measurement (units/volume)Ordered By: Juan Hairston on 09-15-2023 TSH Qn 3.00 uIU/mL 0.358-3.74 [facility] Serum or plasma urea nitroge n measurement (mass/volume)Ordered By: Juan Hairston on 09-15-2023 Urea nitrogen [Mass/Vol] 19 mg/dL 7-18 [facility] Thin prep Papanicolaou smear with manual screeningOrdered By: Juan Hairston on 09-15-2023 Thin prep Papanicolaou smear with manual screening 3.7 g/dL 3.2-5.0 [facility] Thin prep Papanicolaou smear with manual screening 16 U/L 15-37 [facility] Thin prep Papanicolaou smear with manual screening 5 5-15 [facility] Thin prep Papanicolaou smear with manual screening 1.03 ng/dL 0.76-1.46 [facility] Absolute lymphocyte countOrd ered By: Saida Ochoa on 09-07-2023 Lymphocytes Auto (Unsp spec) [#/Vol] 2.18 10*3/uL 0.83-4.51 [facility] Automated lymphocyte count a s percentage of total leukocytesOrdered By: Saida Ochoa on 09-07-2023 Lymphocytes/100 WBC Auto (Unsp spec) 31.4 % 19-41 [facility] Basophil percentageOrdered B y: Saida Ochoa on 09-07-2023 Basophil percentage 0 SEEN /hpf 0-5 [facility] Basophils/100 WBC (Bld) 0.9 % 0-1 [facility] Chloride [Moles/Vol] 103 mmol/L 98-107 [facility] Eosinophils/100 WBC (Bld) 0.7 % 0-5 [facility] Glucose [Mass/Vol] 105 mg/dL 74-106 [facility] Comment on above: Fasting Glucose resu lt from 100 to 125 mg/dL suggests IMPAIRED HOMEOSTASIS per A.D.A. criteria. Hemoglobin (Bld) [Mass/Vol] 12.3 g/dL 13.0-16.5 [facility] Monocytes/100 WBC (Bld) 8.3 % 0-10 [facility] Neutrophils (Bld) [#/Vol] 4.1 10*3/uL 2.0-7.7 [facility] Neutrophils/100 WBC (Bld) 58.6 % 47-70 [facility] Potassium [Moles/Vol] 3.8 mmol/L 3.5-5.1 [facility] Sodium [Moles/Vol] 134 mmol/L 136-145 [facility] WBC (Bld) [#/Vol] 7.0 10*3/uL 4.4-11.0 [facility] Bilirubin Test strip Ql (U)O rdered By: Saida Ochoa on 09-07-2023 Bilirubin Ql (U) Negative Negative [facility] Determination of erythrocyte mean corpuscular volume (MCV)Ordered By: Saida Ochoa on 09-07-2023 MCV (RBC) [Entitic vol] 88.8 fL 80-94 [facility] Erythrocyte distribution wid th ratioOrdered By: Saida Ochoa on 09-07-2023 Erythrocyte distribution width (RBC) [Ratio] 13.2 % 11.6-14.6 [facility] Erythrocyte distribution wid th standard deviationOrdered By: Saida Ochoa on 09-07-2023 Erythrocyte distribution width (RBC) [Entitic vol] 43.1 fL 35.1-43.9 [facility] Hematocrit Auto (Bld) [Volum e fraction]Ordered By: Saida Ochoa on 09-07-2023 Hematocrit (Bld) [Volume fraction] 35.5 % 40-54 [facility] Immature granulocytes/100 WB C Auto (Bld)Ordered By: Saida Ochoa on 09-07-2023 Immature granulocytes/100 WBC (Bld) 0.100 % 0.0-0.9 [facility] Comment on above: IG% - Immature Granu locytes (promyelocytes, myelocytes and metamyelocytes) > 1% indicates that a LEFT SHIFT is Present. Ketones Test strip Ql (U)Ord ered By: Saida Ochoa on 09-07-2023 Ketones Ql (U) Negative Negative [facility] - Chemistry and C hemistry - challengeOrdered By: Saida Ochoa on 09-07-2023 CO2 [Moles/Vol] 27.0 mmol/L 21.0-32.0 [facility] Urea nitrogen/Creatinine [Mass ratio] 14.8 mg/mg 10-20 [facility] - Hematology and Cell countsOrdered By: Saida Ochoa on 09-07-2023 MCH (RBC) [Entitic mass] 30.8 pg 27.0-32.0 [facility] MCHC (RBC) [Mass/Vol] 34.6 g/dL 32-36 [facility] Nucleated RBC/100 WBC (Bld) [Ratio] 0 % 0-5 [facility] Platelet mean volume (Bld) [Entitic vol] 11.5 fL 6.2-12.0 [facility] Platelets (Bld) [#/Vol] 190 10*3/uL 150-450 [facility] Mucus LM Ql (Urine sed)Order ed By: Saida cOhoa on 09-07-2023 Mucus Ql (Urine sed) 0 SEEN /hpf [facility] Nitrite Test strip Ql (U)Ord ered By: Saida Ochoa on 09-07-2023 Nitrite Ql (U) Negative Negative [facility] No Panel InformationOrdered By: Saida Ochoa on 09-07-2023 Urine RBC 0 SEEN /hpf 0-5 [facility] Estimated Creatinine Clearance Calc 51.55 ml/min [facility] Estimated GFR (MDRD) Amer 78 mL/min >60 [facility] Comment on above: GFR Calc Estimated GFR (MDRD) Non-Af Amer 64 mL/min >60 [facility] Comment on above: Non- GFR Calc Protein Test strip Ql (U)Ord ered By: Saida Ochoa on 09-07-2023 Protein Ql (U) Negative Negative [facility] RBC Auto (Bld) [#/Vol]Ordere d By: Saida Ochoa on 09-07-2023 RBC (Bld) [#/Vol] 4.00 10*6/uL 4.6-6.2 [facility] Serum or plasma calcium mago urement (mass/volume)Ordered By: Saida Ochoa on 09-07-2023 Calcium [Mass/Vol] 8.4 mg/dL 8.5-10.1 [facility] Serum or plasma creatinine m easurement (mass/volume)Ordered By: Saida Ochoa on 09-07-2023 Creatinine [Mass/Vol] 1.15 mg/dL 0.70-1.30 [facility] Comment on above: The validity of the calculated GFR & GFRAA in patients over 70 years has not been determined. Clinical correlation is essential. Serum or plasma urea nitroge n measurement (mass/volume)Ordered By: Saida Ochoa on 09-07-2023 Urea nitrogen [Mass/Vol] 17 mg/dL 12-06 [facility] Squamous epithelial cells de tection in urine sediment by light microscopyOrdered By: Saida Ochoa on 09-07-2023 Epithelial cells.squamous LM Ql (Urine sed) 0 SEEN /hpf 0-5 [facility] Thin prep Papanicolaou smear with manual screeningOrdered By: Saida Ochoa on 09-07-2023 Thin prep Papanicolaou smear with manual screening 4 5-15 [facility] Urine blood detectionOrdered By: Saida Ochoa on 09-07-2023 RBC Ql (U) 10 /ul Negative [facility] Urine clarityOrdered By: Kaylan Ochoa on 09-07-2023 Clarity (U) Clear Clear [facility] Urine color determinationOrd ered By: Saida Ochoa on 09-07-2023 Color (U) Yellow Yellow [facility] Urine glucose detectionOrder ed By: Saida Ochoa on 09-07-2023 Glucose Ql (U) Normal mg/dl Normal [facility] Urine leukocyte esterase det ection by dipstickOrdered By: Saida Ochoa on 09-07-2023 Leukocyte esterase Test strip Ql (U) Negative Negative [facility] Urine pHOrdered By: Saida Ochoa on 09-07-2023 pH (U) 7.0 [pH] 5.0 - 8.0 [facility] Urine sediment bacteria coun t by microscopy (number/high power field)Ordered By: Saida Ochoa on 09-07-2023 Bacteria LM.HPF (Urine sed) [#/Area] 0 /[HPF] None Seen [facility] Urine specific gravity measu rementOrdered By: Saida Ochoa on 09-07-2023 Specific gravity (U) [Rel density] 1.010 1.002-1.030 [facility] Urine urobilinogen measureme ntOrdered By: Saida Ochoa on 09-07-2023 Urobilinogen Ql (U) Normal mg/dl Normal [facility] Culture, urineOrdered By: Aaron Hayes on 03-03-2023 Bacteria identified Cx Nom (U) Escherichia coli [facility] - Chemistry and C hemistry - challengeOrdered By: Juan Hairston on 03-03-2023 Free T4 [Mass/Vol] 1.02 ng/dL 0.76-1.46 [facility] No Panel InformationOrdered By: Juan Hairston on 03-03-2023 Thyroid Stimulating Hormone (TSH) 3.02 uIU/mL 0.358-3.74 [facility] Basophil percentageOrdered B y: Nnamdi Sellers on 11-23-2022 Basophil percentage < 0.9 mg/dL 0.70-1.30 [facility] Laboratory - Chemistry and C hemistry - challengeOrdered By: Juan Hairston on 11-23-2022 Free T4 [Mass/Vol] 0.96 ng/dL 0.76-1.46 [facility] No Panel InformationOrdered By: Juan Hairston on 11-23-2022 Thyroid Stimulating Hormone (TSH) 1.72 uIU/mL 0.358-3.74 [facility] No Panel InformationOrdered By: Nnamdi Sellers on 11-23-2022 Bedside Estimated GFR (eGFR) > 60.0000 mL/min >60 [facility] Absolute lymphocyte countOrd ered By: Raymundo Myles on 10-08-2022 Lymphocytes Auto (Unsp spec) [#/Vol] 1.88 10*3/uL 0.83-4.51 [facility] Basophil percentageOrdered B y: Raymundo Myles on 10-08-2022 Basophil percentage >100 SEEN /hpf 0-5 [facility] Basophils/100 WBC (Bld) 0.4 % 0-1 [facility] Chloride [Moles/Vol] 103 mmol/L 98-107 [facility] Eosinophils/100 WBC (Bld) 0.8 % 0-5 [facility] Glucose [Mass/Vol] 95 mg/dL 74-106 [facility] Neutrophils (Bld) [#/Vol] 7.2 10*3/uL 2.0-7.7 [facility] Neutrophils/100 WBC (Bld) 72.2 % 47-70 [facility] Potassium [Moles/Vol] 3.7 mmol/L 3.5-5.1 [facility] Sodium [Moles/Vol] 137 mmol/L 136-145 [facility] WBC (Bld) [#/Vol] 10.0 10*3/uL 4.4-11.0 [facility] Bilirubin Test strip Ql (U)O rdered By: Raymundo Myles on 10-08-2022 Bilirubin Ql (U) Negative Negative [facility] Blood erythrocytes count (nu mber/volume)Ordered By: Raymundo Myles on 10-08-2022 RBC (Bld) [#/Vol] 3.96 10*6/uL 4.6-6.2 [facility] Blood hemoglobin measurement (mass/volume)Ordered By: Raymundo Myles on 10-08-2022 Hemoglobin (Bld) [Mass/Vol] 12.4 g/dL 13.0-16.5 [facility] Blood lymphocytes/100 leukoc ytesOrdered By: Raymundo Myles on 10-08-2022 Lymphocytes/100 WBC (Bld) 18.7 % 19-41 [facility] Blood monocytes/100 leukocyt esOrdered By: Raymundo Myles on 10-08-2022 Monocytes/100 WBC (Bld) 7.5 % 0-10 [facility] Blood platelet mean volumeOr dered By: Raymundo Myles on 10-08-2022 Platelet mean volume (Bld) [Entitic vol] 10.6 fL 6.2-12.0 [facility] Culture, urineOrdered By: Ralph Omer on 10-08-2022 Bacteria identified Cx Nom (U) Klebsiella pneumoniae sp pneum [facility] Determination of erythrocyte mean corpuscular volume (MCV)Ordered By: Raymundo Myles on 10-08-2022 MCV (RBC) [Entitic vol] 91.7 fL 80-94 [facility] Hematocrit Auto (Bld) [Volum e fraction]Ordered By: Raymundo Myles on 10-08-2022 Hematocrit (Bld) [Volume fraction] 36.3 % 40-54 [facility] INR in Blood by Coagulation assayOrdered By: Raymundo Myles on 10-08-2022 INR Coag (Bld) [Relative time] 1.7 {INR} [facility] Ketones Test strip Ql (U)Ord ered By: Raymundo Myles on 10-08-2022 Ketones Ql (U) 5 mg/dl Negative [facility] Laboratory - Chemistry and C hemistry - challengeOrdered By: Raymundo Myles on 10-08-2022 CO2 [Moles/Vol] 28.0 mmol/L 21.0-32.0 [facility] Urea nitrogen/Creatinine [Mass ratio] 14.8 mg/mg 10-20 [facility] Laboratory - CoagulationOrde red By: Raymundo Myles on 10-08-2022 aPTT Coag (Bld) [Time] 39.2 s 24.1-36.2 [facility] PT Coag (PPP) [Time] 20.1 s 11.7-14.9 [facility] Laboratory - Hematology and Cell countsOrdered By: Raymundo Myles on 10-08-2022 Erythrocyte distribution width (RBC) [Entitic vol] 43.0 fL 35.1-43.9 [facility] Erythrocyte distribution width (RBC) [Ratio] 13.0 % 11.6-14.6 [facility] Immature granulocytes/100 WBC (Bld) 0.400 % 0.0-0.9 [facility] Comment on above: IG% - Immature Granu locytes (promyelocytes, myelocytes and metamyelocytes) > 1% indicates that a LEFT SHIFT is Present. MCH (RBC) [Entitic mass] 31.3 pg 27.0-32.0 [facility] Nucleated RBC/100 WBC (Bld) [Ratio] 0 % 0-5 [facility] MCHC Auto (RBC) [Mass/Vol]Or dered By: Raymundo Myles on 10-08-2022 MCHC (RBC) [Mass/Vol] 34.2 g/dL 32-36 [facility] Mucus LM Ql (Urine sed)Order ed By: Raymundo Myles on 10-08-2022 Mucus Ql (Urine sed) 0 SEEN /hpf [facility] Nitrite Test strip Ql (U)Ord ered By: Raymundo Myles on 10-08-2022 Nitrite Ql (U) Negative Negative [facility] No Panel InformationOrdered By: Raymundo Myles on 10-08-2022 Estimated Creatinine Clearance Calc 52.48 ml/min [facility] Estimated GFR (MDRD) Amer 78 mL/min >60 [facility] Comment on above: GFR Calc Estimated GFR (MDRD) Non-Af Amer 64 mL/min >60 [facility] Comment on above: Non- GFR Calc Platelets bldOrdered By: Rito Myles on 10-08-2022 Platelets (Bld) [#/Vol] 185 10*3/uL 150-450 [facility] Protein Test strip Ql (U)Ord ered By: Raymundo Myles on 10-08-2022 Protein Ql (U) 500 mg/dl Negative [facility] Serum or plasma calcium mago urement (mass/volume)Ordered By: Raymundo Myles on 10-08-2022 Calcium [Mass/Vol] 8.4 mg/dL 8.5-10.1 [facility] Serum or plasma creatinine m easurement (mass/volume)Ordered By: Raymundo Myles on 10-08-2022 Creatinine [Mass/Vol] 1.15 mg/dL 0.70-1.30 [facility] Comment on above: The validity of the calculated GFR & GFRAA in patients over 70 years has not been determined. Clinical correlation is essential. Serum or plasma urea nitroge n measurement (mass/volume)Ordered By: Raymundo Myles on 10-08-2022 Urea nitrogen [Mass/Vol] 17 mg/dL 7-18 [facility] Squamous epithelial cells de tection in urine sediment by light microscopyOrdered By: Raymundo Myles on 10-08-2022 Epithelial cells.squamous LM Ql (Urine sed) 0 SEEN /hpf 0-5 [facility] Thin prep Papanicolaou smear with manual screeningOrdered By: Raymundo Myles on 10-08-2022 Thin prep Papanicolaou smear with manual screening 6 5-15 [facility] Urine blood detectionOrdered By: Raymundo Myles on 10-08-2022 RBC Ql (U) 250 /ul Negative [facility] RBC Ql (U) > 100 SEEN /hpf 0-5 [facility] Comment on above: Microscopic field is filled. Other elements may be obscured. Urine clarityOrdered By: Rito Myles on 10-08-2022 Clarity (U) Turbid Clear [facility] Urine color determinationOrd ered By: Raymundo Myles on 10-08-2022 Color (U) Red Yellow [facility] Urine glucose detectionOrder ed By: Raymundo Myles on 10-08-2022 Glucose Ql (U) Normal mg/dl Normal [facility] Urine leukocyte esterase det ection by dipstickOrdered By: Raymundo Myles on 10-08-2022 Leukocyte esterase Test strip Ql (U) 100 /ul Negative [facility] Urine pHOrdered By: Raymundo lechuga on 10-08-2022 pH (U) 7.0 [pH] 5.0 - 8.0 [facility] Urine sediment bacteria coun t by microscopy (number/high power field)Ordered By: Raymundo Myles on 10-08-2022 Bacteria LM.HPF (Urine sed) [#/Area] 4 /[HPF] None Seen [facility] Urine specific gravity measu rementOrdered By: Raymundo Myles on 10-08-2022 Specific gravity (U) [Rel density] 1.010 1.002-1.030 [facility] Urobilinogen Auto test strip Ql (U)Ordered By: Raymundo Myles on 10-08-2022 Urobilinogen Ql (U) Normal mg/dl Normal [facility] Basophil percentageOrdered B y: Dr. Hairston on 09-09-2022 Bilirubin [Mass/Vol] 0.50 mg/dL 0.20-1.00 [facility] Comment on above: For patients on eltr ombopag therapy, use of [employer] TBIL is not recommended. Chloride [Moles/Vol] 105 mmol/L 98-107 [facility] Glucose [Mass/Vol] 88 mg/dL 74-106 [facility] Potassium [Moles/Vol] 3.9 mmol/L 3.5-5.1 [facility] Protein [Mass/Vol] 7.0 g/dL 6.4-8.2 [facility] Sodium [Moles/Vol] 134 mmol/L 136-145 [facility] Laboratory - Chemistry and C hemistry - challengeOrdered By: Dr. Hairston on 09-09-2022 ALP [Catalytic activity/Vol] 68 U/L 45-117 [facility] ALT [Catalytic activity/Vol] 17 U/L 16-61 [facility] CO2 [Moles/Vol] 25.0 mmol/L 21.0-32.0 [facility] Free T4 [Mass/Vol] 1.18 ng/dL 0.76-1.46 [facility] Globulin (S) [Mass/Vol] 3.4 g/dL 2.2-4.2 [facility] Magnesium [Mass/Vol] 2.2 mg/dL 1.6-2.6 [facility] Urea nitrogen/Creatinine [Mass ratio] 13.5 mg/mg 10-20 [facility] No Panel InformationOrdered By: Dr. Hairston on 09-09-2022 Estimated GFR (MDRD) Amer 81 mL/min >60 [facility] Comment on above: GFR Calc Estimated GFR (MDRD) Non-Af Amer 67 mL/min >60 [facility] Comment on above: Non- GFR Calc Free Triiodothyronine (T3) pg/dL 2.8 pg/mL 2.18-3.98 [facility] Thyroid Stimulating Hormone (TSH) 0.32 uIU/mL 0.358-3.74 [facility] Serum or plasma albumin mago urement (mass/volume)Ordered By: Dr. Hairston on 09-09-2022 Albumin [Mass/Vol] 3.6 g/dL 3.2-5.0 [facility] Serum or plasma albumin/glob ulin mass ratioOrdered By: Dr. Hairston on 09-09-2022 Albumin/Globulin [Mass ratio] 1.1 {ratio} 0.9-2.4 [facility] Serum or plasma calcium mago urement (mass/volume)Ordered By: Dr. Hairston on 09-09-2022 Calcium [Mass/Vol] 8.7 mg/dL 8.5-10.1 [facility] Serum or plasma creatinine m easurement (mass/volume)Ordered By: Dr. Hairston on 09-09-2022 Creatinine [Mass/Vol] 1.11 mg/dL 0.70-1.30 [facility] Comment on above: The validity of the calculated GFR & GFRAA in patients over 70 years has not been determined. Clinical correlation is essential. Serum or plasma urea nitroge n measurement (mass/volume)Ordered By: Dr. Hairston on 09-09-2022 Urea nitrogen [Mass/Vol] 15 mg/dL 7-18 [facility] Thin prep Papanicolaou smear with manual screeningOrdered By: Dr. Hairston on 09-09-2022 Thin prep Papanicolaou smear with manual screening 19 U/L 15-37 [facility] Thin prep Papanicolaou smear with manual screening 4 5-15 [facility] Thin prep Papanicolaou smear with manual screening 6.2 mg/L NO RANGE EST. [facility] Laboratory - Chemistry and C hemistry - challengeon 04-08-2022 Free T4 [Mass/Vol] 1.03 ng/dL 0.76-1.46 [facility] Work Phone: No Panel Informationon 04-08 Prostate Specific Antigen Screen < 0.01 ng/mL 0.00-4.00 [facility] Work Phone: Comment on above: This test was perfor med using the TPSA assay method for [employer] chemistry system. Values obtained with differentassay methods cannot be used interchangably.When changing PSA assays in the course of monitoring apatient, additional sequential testing should be carriedout to confirm baseline values. Thyroid Stimulating Hormone (TSH) 1.73 uIU/mL 0.358-3.74 [facility] Work Phone: Laboratory - Chemistry and C hemistry - challengeon 02-08-2022 Free T4 [Mass/Vol] 0.93 ng/dL 0.76-1.46 [facility] Work Phone: No Panel Informationon 02-08 Thyroid Stimulating Hormone (TSH) 3.83 uIU/mL 0.358-3.74 [facility] Work Phone: Laboratory - Chemistry and C hemistry - challengeon 11-12-2021 Free T4 [Mass/Vol] 0.86 ng/dL 0.76-1.46 [facility] Work Phone: No Panel Informationon 11-12 Thyroid Stimulating Hormone (TSH) 5.74 uIU/mL 0.358-3.74 [facility] Work Phone: Basophil percentageon 2021 Bilirubin [Mass/Vol] 0.70 mg/dL 0.20-1.00 [facility] Work Phone: Comment on above: For patients on eltr ombopag therapy, use of [employer] TBIL is not recommended. Chloride [Moles/Vol] 105 mmol/L 98-107 [facility] Work Phone: Glucose [Mass/Vol] 79 mg/dL 74-106 [facility] Work Phone: Potassium [Moles/Vol] 3.9 mmol/L 3.5-5.1 [facility] Work Phone: Protein [Mass/Vol] 7.1 g/dL 6.4-8.2 [facility] Work Phone: Sodium [Moles/Vol] 137 mmol/L 136-145 [facility] Work Phone: Laboratory - Chemistry and C hemistry - challengeon 09-14-2021 ALP [Catalytic activity/Vol] 68 U/L 45-117 [facility] Work Phone: ALT [Catalytic activity/Vol] 20 U/L 16-61 [facility] Work Phone: CO2 [Moles/Vol] 28.0 mmol/L 21.0-32.0 [facility] Work Phone: Free T4 [Mass/Vol] 1.20 ng/dL 0.76-1.46 [facility] Work Phone: Globulin (S) [Mass/Vol] 3.5 g/dL 2.2-4.2 [facility] Work Phone: Magnesium [Mass/Vol] 2.2 mg/dL 1.6-2.6 [facility] Work Phone: Urea nitrogen/Creatinine [Mass ratio] 14.6 mg/mg 10-20 [facility] Work Phone: No Panel Informationon 09-14 Estimated GFR (MDRD) Amer 89 mL/min >60 [facility] Work Phone: [phone] Comment on above: GFR Calc Estimated GFR (MDRD) Non-Af Amer 73 mL/min >60 [facility] Work Phone: Comment on above: Non- GFR Calc Thyroid Stimulating Hormone (TSH) 0.18 uIU/mL 0.358-3.74 [facility] Work Phone: Serum or plasma albumin mago urement (mass/volume)on 09-14-2021 Albumin [Mass/Vol] 3.6 g/dL 3.2-5.0 [facility] Work Phone: Serum or plasma albumin/glob ulin mass ratioon 09-14-2021 Albumin/Globulin [Mass ratio] 1.0 {ratio} 0.9-2.4 [facility] Work Phone: Serum or plasma calcium mago urement (mass/volume)on 09-14-2021 Calcium [Mass/Vol] 8.5 mg/dL 8.5-10.1 [facility] Work Phone: Serum or plasma creatinine m easurement (mass/volume)on 09-14-2021 Creatinine [Mass/Vol] 1.03 mg/dL 0.70-1.30 [facility] Work Phone: Comment on above: The validity of the calculated GFR & GFRAA in patients over 70 years has not been determined. Clinical correlation is essential. 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 Left ventricular Ejection fraction 65 % Invalid Interpretation Code [facility] Work Phone: [phone] Office Visiton 04-01-2016 Documentation of current medications (procedure) Done Invalid Interpretation Code [facility] Work Phone: [phone] Tobacco use CPHS Never smoker Invalid Interpretation Code [facility] Work Phone: [phone] Replaced Document: Jazmine Panon 08-28-2015 EKG QRS axis 2 deg Invalid Interpretation Code [facility] Work Phone: [phone] Interpretation Sinus Bradycardia WITHIN NORMAL LIMITS Invalid Interpretation Code [facility] Work Phone: [phone] P [place] 29 deg Invalid Interpretation Code [facility] Work Phone: [phone] AR Interval 192 ms Invalid Interpretation Code [facility] Work Phone: [phone] Pulse (Heart Rate) 56 /min Invalid Interpretation Code [facility] Phone: [phone] QRS Duration 100 ms Invalid Interpretation Code [facility] Phone: [phone] QT Interval new path ms Invalid Interpretation Code [facility] Phone: [phone] QTc [place] 411 ms Invalid Interpretation Code [facility] Work Phone: [phone] T [place] 27 deg Invalid Interpretation Code [facility] Work Phone: [phone] Lab Report: CBC W/Diff, Auto matedon 09-04-2014 Absolute Neut 3.1 X10 3/UL Invalid Interpretation Code 2.0-7.7 [facility] Phone: [phone] Basophils/100 WBC Auto (Bld) 0.3 % Invalid Interpretation Code 0-1 [facility] Phone: [phone] Eosinophils/100 leukocytes 1.2 % Invalid Interpretation Code 0-5 [facility] Work Phone: [phone] Erythrocytes (RBC) 4.56 10*6/uL Critically low 4.6-6.2 [facility] Work Phone: [phone] Hematocrit (HCT) 40.6 % Invalid Interpretation Code 40-54 [facility] Phone: [phone] Hemoglobin mass conc (Bld) 13.9 g/dL Invalid Interpretation Code 13.0-16.5 [facility] Phone: [phone] Lymphocytes 2.10 X10 3/UL Invalid Interpretation Code 0.83-4.51 [facility] Phone: [phone] Lymphocytes/100 leukocytes 36.1 % Invalid Interpretation Code 19-41 [facility] Work Phone: [phone] MCH 30.5 pg Invalid Interpretation Code 27.0-32.0 [facility] Phone: [phone] MCHC mass conc (RBC) 34.2 G/GL Invalid Interpretation Code 32-36 [facility] Work Phone: [phone] MCV 89.0 fL Invalid Interpretation Code 80-94 [facility] Phone: [phone] Monocytes/100 leukocytes 8.4 % Invalid Interpretation Code 0-10 [facility] Phone: [phone] Neutrophils/100 WBC Auto (Bld) 53.8 % Invalid Interpretation Code 47-70 [facility] Phone: [phone] Platelets 186 10*3/mm3 Invalid Interpretation Code 150-450 [facility] Phone: [phone] PMV by Bev 11.1 fL Invalid Interpretation Code 6.2-12.0 [facility] Phone: [phone] WBC (Leukocytes) 5.8 10*3/uL Invalid Interpretation Code 4.4-11.0 [facility] Phone: [phone] Office Visiton 09-04-2014 cardiac risk group B Invalid Interpretation Code [facility] Phone: [phone] Dietary management education, guidance, and counseling (procedure) yes Invalid Interpretation Code [facility] Phone: [phone] General cardiovascular disease 10Y risk [#] [place] 33 % Invalid Interpretation Code [facility] Phone: [phone] Lab Report: BMP - copyon Calcium 8.4 mg/dL Low 8.5-10.1 [facility] Work Phone: [phone] Chloride 104 mmol/L Normal 98-107 [facility] Work Phone: [phone] Creatinine 1.1 mg/dL Normal 0.8-1.3 [facility] Work Phone: [phone] Glucose mass conc 85 mg/dL Normal 70-110 [facility] Work Phone: [phone] Potassium molar conc 3.9 mmol/L Normal 3.5-5.1 [facility] Work Phone: [phone] Sodium 137 mmol/L Normal 136-145 [facility] Work Phone: [phone] Urea nitrogen 16 mg/dL Normal 7-18 [facility] Work Phone: [phone]) Lab Report: MG - copyon 03-22 Magnesium 1.8 mg/dL Normal 1.8-2.4 [facility] Work Phone: [phone] Lab Report: MIACRE- copyon 06-08-2012 Urine, creatinine 66.2 mg/dL Normal NO RANGE EST. [facility] Work Phone: [phone] Lab Report: TSH - copyon Thyroid stimulating hormone (TSH) 0.60 u[iU]/mL Normal 0.358-3.74 [facility] Work Phone: [phone] Lab Reporton 08-18-2011 Anion gap 8 mmol/L Invalid Interpretation Code [facility] Work Phone: [phone] BUN/Creatinine Ratio 13.6 mg/mg Invalid Interpretation Code [facility] Work Phone: [phone] CO2 28.0 mmol/L Invalid Interpretation Code [facility] Work Phone: [phone] Lab Reporton 01-25-2011 Cholesterol 171 mg/dL Invalid Interpretation Code [facility] Work Phone: [phone] HDL Cholesterol 30 mg/dL Invalid Interpretation Code [facility] Work Phone: [phone] LDL Cholesterol 109 mg/dL Invalid Interpretation Code [facility] Work Phone: [phone] Triglyceride 161 mg/dL Invalid Interpretation Code [facility] Work Phone: [phone] very low density lipoproteins 32 mg/dL Invalid Interpretation Code [facility] Work Phone: [phone] Lab Reporton 01-24-2011 basophils as percent of blood leukocytes, manual count 0.5 % Invalid Interpretation Code [facility] Work Phone: [phone] eosinophils as percent of blood leukocytes, manual count 1.5 % Invalid Interpretation Code [facility] Work Phone: [phone] neutrophils, band form as percent of blood leukocytes, manual count 67.2 % Invalid Interpretation Code [facility] Work Phone: [phone] Vital Signs Date Time Vital Sign Value Performing Clinician [place] 02-21-2025 05:29-0400 Body temperature 97.9 [degF] Dr. Juan Hairston MD Work Phone: 1(064)606-666398 [place] [address] 02-21-2025 05:29-0400 Diastolic blood pressure 81 mm[Hg] Dr. Juan Hairston MD Work Phone: 4(500)453-571698 [place] [address] 02-21-2025 05:29-0400 Heart rate 85 /min Dr. Juan Hairston MD Work Phone: 7(407)736-958398 [place] [address] 02-21-2025 05:29-0400 Respiratory rate 19 /min Dr. Juan Hairston MD Work Phone: 3(992)413-585598 [place] [address] 02-21-2025 05:29-0400 SaO2% (BldA) [Mass fraction] 97 % Dr. Juan Hairston MD Work Phone: 3(261)801-207398 [place] [address] 02-21-2025 05:29-0400 Systolic blood pressure 123 mm[Hg] Dr. Juan Hairston MD Work Phone: 6(898)100-572298 [place] [address] 02-21-2025 03:36-0400 Body height 182.[address] Juan Hairston MD Work Phone: 7(594)319-577598 [place] [address] 02-21-2025 03:36-0400 Body mass index (BMI) [Ratio] 22.2 kg/m2 Dr. Juna Hairston MD Work Phone: 9(771)893-062498 [place] [address] 02-21-2025 03:36-0400 Body weight 74.[address] Juan Hairston MD Work Phone: 2(101)195-336198 [place] [address] 09-11-2023 13:20-0400 Body height 182.[address] Juan Hairston Work Phone: 4(499)939-698498 [place] [address] 09-11-2023 13:20-0400 Body mass index (BMI) [Ratio] 24.8 kg/m2 Dr. Juan Hairston Work Phone: [facility] 09-11-2023 13:20-0400 Body weight [address] Juan Hairston Work Phone: [facility] 09-11-2023 13:20-0400 Diastolic blood pressure 83 mm[Hg] Dr. Juan Hairston Work Phone: [facility] 09-11-2023 13:20-0400 Heart rate 63 /min Dr. Juan Hairston Work Phone: [facility] 09-11-2023 13:20-0400 Respiratory rate 16 /min Dr. Juan Hairston Work Phone: [facility] 09-11-2023 13:20-0400 Systolic blood pressure 143 mm[Hg] Dr. Juan Hairston Work Phone: [facility] 09-07-2023 16:52-0400 Body temperature 97.6 [degF] [facility] 09-07-2023 16:52-0400 Diastolic blood pressure 86 mm[Hg] [facility] 09-07-2023 16:52-0400 Heart rate 54 /min [facility] 09-07-2023 16:52-0400 Respiratory rate 14 /min [facility] 09-07-2023 16:52-0400 SaO2% (BldA) [Mass fraction] 99 % [facility] 09-07-2023 16:52-0400 Systolic blood pressure 147 mm[Hg] [facility] 09-07-2023 13:55-0400 Body height 182.88 cm [facility] 09-07-2023 13:55-0400 Body mass index (BMI) [Ratio] 25 kg/m2 [facility] 09-07-2023 13:55-0400 Body weight 83.63 kg [facility] 10-08-2022 06:21-0400 Diastolic blood pressure 71 mm[Hg] [facility] 10-08-2022 06:21-0400 Heart rate 55 /min [facility] 10-08-2022 06:21-0400 Respiratory rate 15 /min [facility] 10-08-2022 06:21-0400 SaO2% (BldA) [Mass fraction] 98 % [facility] 10-08-2022 06:21-0400 Systolic blood pressure 143 mm[Hg] [facility] 10-08-2022 02:14-0400 Body height 182.88 cm [facility] 10-08-2022 02:14-0400 Body mass index (BMI) [Ratio] 25.3 kg/m2 [facility] 10-08-2022 02:14-0400 Body temperature 97.2 [degF] [facility] 10-08-2022 02:140400 Body weight 84.7 kg [facility] 12-27-2021 10:17-0400 Body height 182.[address] Juan Hairston Work Phone: [facility] Work Phone: 12-27-2021 10:17-0400 Body mass index (BMI) [Ratio] 25.2 kg/m2 Dr. Juan Hairston Work Phone: [facility] Work Phone: 12-27-2021 10:17-0400 Body weight 84.[address] Juan Hairston Work Phone: [facility] Work Phone: 12-27-2021 10:17-0400 Diastolic blood pressure 72 mm[Hg] Dr. Juan Hairston Work Phone: [facility] Work Phone: 12-27-2021 10:17-0400 Heart rate 58 /min Dr. Juan Hairston Work Phone: [facility] Work Phone: 12-27-2021 10:17-0400 Respiratory rate 16 /min Dr. Juan Hairston Work Phone: [facility] Work Phone: 12-27-2021 10:17-0400 Systolic blood pressure 138 mm[Hg] Dr. Juan Hairston Work Phone: [facility] Work Phone: 10-11-2021 09:43-0400 Body height 182.[address] Juan Hairston Work Phone: [facility] Work Phone: 10-11-2021 09:43-0400 Body mass index (BMI) [Ratio] 25.2 kg/m2 Dr. Juan Hairston Work Phone: [facility] Work Phone: 10-11-2021 09:43-0400 Body weight 84.[address] Juan Hairston Work Phone: [facility] Work Phone: 10-11-2021 09:43-0400 Diastolic blood pressure 75 mm[Hg] Dr. Juan Hairston Work Phone: [facility] Work Phone: 10-11-2021 09:43-0400 Heart rate 61 /min Dr. Juan Hairston Work Phone: [facility] Work Phone: 10-11-2021 09:43-0400 Respiratory rate 18 /min Dr. Juan Hairston Work Phone: [facility] Work Phone: 10-11-2021 09:43-0400 SaO2% (BldA) [Mass fraction] 97 % Dr. Juan Hairston Work Phone: [facility] Work Phone: 10-11-2021 09:43-0400 Systolic blood pressure 137 mm[Hg] Dr. Juan Hairston Work Phone: [facility] Work Phone: 10-11-2021 09:43-0400 Body height 182.[address] Juan Hairston Work Phone: [facility] Work Phone: 10-11-2021 09:43-0400 Body mass index (BMI) [Ratio] 25.2 kg/m2 Dr. Juan Hairston Work Phone: [facility] Work Phone: 10-11-2021 09:43-0400 Body weight 84.[address] Juan Hairston Work Phone: [facility] Work Phone: 10-11-2021 09:43-0400 Diastolic blood pressure 75 mm[Hg] Dr. Juan Hairston Work Phone: [facility] Work Phone: 10-11-2021 09:43-0400 Heart rate 61 /min Dr. Juan Hairston Work Phone: [facility] Work Phone: 10-11-2021 09:43-0400 Respiratory rate 18 /min Dr. Juan Hairston Work Phone: [facility] Work Phone: 10-11-2021 09:43-0400 SaO2% (BldA) [Mass fraction] 97 % Dr. Juan Hairston Work Phone: [facility] Work Phone: 10-11-2021 09:43-0400 Systolic blood pressure 137 mm[Hg] Dr. Juan Hairston Work Phone: [facility] Work Phone: 04-01-2016 14:33-0500 BMI (Body Mass Index) 24.27 kg/m2 [facility] Work Phone: 04-01-2016 14:33-0500 BP Diastolic 80 mm[Hg] [facility] Work Phone: 04-01-2016 14:33-0500 BP Systolic 140 mm[Hg] [facility] Work Phone: 04-01-2016 14:33-0500 BSA (Body Surface Area) 2.08 m2 [facility] Work Phone: 04-01-2016 14:33-0500 Height 185.42 cm [facility] Work Phone: 04-01-2016 14:33-0500 Pulse (Heart Rate) 58 /min [facility] Work Phone: 04-01-2016 14:33-0500 Respiratory Rate 16 /min [facility] Work Phone: 04-01-2016 14:33-0500 Weight 83.46 kg [facility] Work Phone: Encounters Encounter Date Encounter Type Care Provider Facility Start: 03-09-2025 End: 03-09-2025 Emergency department patient visit [facility] Facility:[facility] Start: 02-21-2025 End: 02-21-2025 Emergency department patient visit Dr. Juan Hairston MD Work Phone: -Emergency Department Work Phone: Start: 02-19-[address] Juan Hairston MD -[facility] Start: 02-19-2025 ambulatory Juan Hairston Facility:[facility] Start: 12-19-2024 End: 12-19-[address] Juan Hairston MD Work Phone: -[facility] Start: 12-19-2024 End: 12-19-[address] Juan Hairston MD -[facility] Work Phone: Start: 12-19-2024 End: 12-19-2024 ambulatory Juan Hairston Facility:[facility] Start: 03-27-2024 End: 03-27-2024 ambulatory Juan Hairston Facility:[facility] Start: 09-15-2023 End: 09-15-[address] Juan Hairston Work Phone: [facility] Work Phone: Start: 09-15-2023 End: 09-15-[address] Juan Hairston Work Phone: [facility] Work Phone: Start: 09-11-2023 End: 09-11-[address] Juan Hairston Work Phone: [facility] Work Phone: Start: 09-07-2023 End: 09-07-2023 Emergency department patient visit [facility]Emergency Department Work Phone: Start: 03-03-2023 End: 03-03-2023 ambulatory [facility] Work Phone: Start: 03-03-2023 End: 03-03-2023 Patient encounter procedure [facility] Start: 11-23-2022 End: 11-23-2022 ambulatory [facility] Work Phone: Start: 11-23-2022 End: 11-23-2022 Patient encounter procedure [facility] Work Phone: Start: 10-08-2022 End: 10-08-2022 Emergency department patient visit [facility] Work Phone: Start: 09-09-2022 End: 09-09-2022 ambulatory [facility] Work Phone: Start: 09-09-2022 End: 09-09-2022 Patient encounter procedure [facility] Start: 04-08-2022 End: 04-08-[address] Juan Hairston Work Phone: [facility] Work Phone: Start: 04-08-2022 End: 04-08-[address] Juan Hairston Work Phone: [facility] Start: 02-08-2022 End: 02-08-[address] Juan Hairston Work Phone: [facility] Work Phone: Start: 02-08-2022 End: 02-08-[address] Juan Hairston Work Phone: [facility] Start: 12-27-2021 End: 12-27-[address] Juan Hairston Work Phone: [facility] Start: 11-12-2021 End: 11-12-[address] Juan Hairston Work Phone: [facility] Start: 11-09-2021 Non-patient / Non-visit Dr. Enrique Hairston Work Phone: [facility] Start: 11-09-2021 End: 11-09-[address] [facility] Start: 10-20-2021 End: 10-20-[address] [facility] Start: 10-11-2021 End: 10-11-[address] Juan Hairston Work Phone: [facility] Start: 09-14-2021 End: 09-14-2021 Patient encounter procedure [facility] Start: 10-22-2015 End: 10-22-2015 Telephone encounter Jerrica [...] BRANDON Jamison MD Start: 03-18-2014 End: 03-24-2014 Echocardiography [...] Date Care Activity Detail Author Start: 02-21-2025 [facility] Start: 09-07-2023 [facility] Start: 10-08-2022 Removal of urinary catheter [facility] Start: 01-20-2021 Influenza vaccination INFLUENZA (Season Ended) [facility] Start: 03-28-2017 End: 03-28-2017 Appointment Appointment [facility] Work Phone: Start: 04-01-2016 End: 04-01-2016 [facility] Work Phone: Start: 04-01-2016 End: 04-01-2016 Follow Up Appt 6 months Follow Up Appt 6 months [facility] Work Phone: Start: 08-28-2015 End: 08-28-2015 Carotid duplex Carotid duplex [facility] Work Phone: Start: 08-28-2015 End: 08-28-2015 [facility] Work Phone: Start: 08-28-2015 End: 08-28-2015 Ecg routine ecg w/least 12 lds w/i&r EKG (In office) [facility] Work Phone: Start: 08-28-2015 End: 08-28-2015 Follow Up Appt 6 months Follow Up Appt 6 months [facility] Work Phone: Start: 09-04-2014 End: 09-04-2014 *CBC with Differential *CBC with Differential [facility] Work Phone: Start: 09-04-2014 End: 09-04-2014 [facility] Work Phone: Start: 09-04-2014 End: 09-04-2014 Follow Up Appt 1 year Follow Up Appt 1 year [facility] Work Phone: Start: 03-18-2014 End: 03-18-2014 [facility] Work Phone: Start: 03-18-2014 End: 03-18-2014 Echocardiography Echocardiogram (complete) [facility] Work Phone: Start: 03-18-2014 End: 03-18-2014 Follow Up Appt 6 months Follow Up Appt 6 months [facility] Work Phone: Start: 09-05-2013 End: 09-05-2013 Ambulatory BP Monitor 24 HR Ambulatory BP Monitor 24 HR [facility] Work Phone: Start: 09-05-2013 End: 09-05-2013 [facility] Work Phone: Start: 09-05-2013 End: 09-05-2013 Follow Up Appt 6 months Follow Up Appt 6 months [facility] Work Phone: Start: 07-09-2013 End: 07-09-2013 [facility] Work Phone: Start: 07-09-2013 End: 07-09-2013 Follow Up Appt 6 months Follow Up Appt 6 months [facility] Work Phone: Start: 04-09-2013 End: 04-09-2013 24 hour holter monitor 24 hour holter monitor [facility] Work Phone: Start: 04-09-2013 End: 04-09-2013 [facility] Work Phone: Start: 04-09-2013 End: 04-09-2013 Ecg routine ecg w/least 12 lds w/i&r EKG (In office) [facility] Work Phone: Start: 04-09-2013 End: 04-09-2013 Echocardiography Echocardiogram (complete) [facility] Work Phone: Start: 04-09-2013 End: 04-09-2013 Follow Up Appt 3 months Follow Up Appt 3 months [facility] Work Phone: Start: 01-31-2012 End: 01-31-2012 Follow Up Appt 1 year Follow Up Appt 1 year [facility] Work Phone: Start: 2011 End: 2011 24 hour holter monitor 24 hour holter monitor [facility] Work Phone: Start: 2011 End: 2011 Follow Up Appt 3 months Follow Up Appt 3 months [facility] Work Phone: Start: 2011 End: 2011 Stress Echocardiogram (treadmill) Stress Echocardiogram (treadmill) [facility] Work Phone: Start: 2002 ADVANCE DIRECTIVE DISCUSSION ADVANCE DIRECTIVE DISCUSSION [facility] Start: 2002 PNEUMOVAX AGE 65 AND OVER WITH 5YR LOOKBACK (#1) PNEUMOVAX AGE 65 AND OVER WITH 5YR LOOKBACK (#1) [facility] Start: 10-29-1987 SHINGRIX VACCINE (1 of 2) SHINGRIX VACCINE (1 of 2) [facility] Start: 1982 DIABETES SCREEN DIABETES SCREEN [facility] Start: 1956 Urine microalbumin profile DTAP,TDAP,TD (1 - Tdap) [facility] Colonoscopy [facility] Patient Education [facility] Work Phone: Patient referral [facility] Work Phone: Payers Date Payer Category Payer Private Health Insurance 101 [id number] 2024 Self-pay [id number] 2015 Medicare [employer] MEDICARE MELVI CHOICE PPO [id number] 2015-2018 [facility] [id number] 2014 Medicare [id number] Unknown [id number] Unknown [id number] Unknown [id number] Unknown [id number] Unknown [id number] Social History Date Type Detail Facility Start: 09-29-2011 Tobacco smoking stat us NHIS Former smoker [facility] Start: 09-29-2011 Alcohol intake Current drinke r of alcohol (finding) [facility] Start: 1935 Sex Assigned At Not on file C [facility] Start: 04-24-2021 End: 09-07-2023 Tobacco smoking status MEIS Unknown if ever smoked [facility] Start: 11-19-2020 None [facility] Start: 11-19-2020 Non-smoker [facility] Start: 1935 Sex Assigned At Male [facility] Start: 10-04-2023 End: 02-21-2025 Tobacco smoking status NHIS Never smoked tobacco (finding) [facility] Sex Male [facility] Mental Status Date Assessment Result Facility 02-21-2025 Cognitive function Level Of Consciousness Awake [facility] Work Phone: Radiology Diagnostic study note 02-21-2025 Note Date & Type Note Facility 02-21-2025 Radiology Diagnostic study note [facility] Imaging Services [address] [place] [address] Brain/Head without Contrast MR#: [id number] Acct: [id number] Name: LEO ROMAN Rep #: [id number] : [id number] M [id number] From: Yash Saleh MD PCP: Dr. Juan Hairston MD Status: REG ER Study:Brain/Head without Contrast Date of Exa m: 02/21/25 Exam# [id number] Ordering Dr: Chyna Roberts DO PROCEDURE: BRAIN/HEAD [...] with brain involutional changes. Stable. Reading Location: [place] [address] CC: Dr. Juan Hairston MD; Satnam Roberts DO ~ [employer]: Signed [facility] Discharge instructions 09-07-2023 Note Date & [...] to ED for worsening or concerning symptoms. [facility] Work Phone: Note 10-22-2015 Telephone Encounter [...] he would appreciate you calling him at [phone]. Thank you documented in this encounter [facility] Evaluation note Note Date & Type Note Facility Evaluation note No assessment information availa ble [facility] Work Phone: Evaluation note Note Date & Type Note Facility Evaluation note Diagnosis Onset Date Essential (primary) hypertension chronic Paroxysmal atrial fibrillation chronic [facility] Work Phone: Evaluation note Note Date & Type Note Facility Evaluation note Diagnosis Onset Date Essential (primary) hypertension chronic Paroxysmal atrial fibrillation chronic Cardiac murmur noneactive [facility] Work Phone: Evaluation note Note Date & Type Note Facility Evaluation note Diagnosis Onset Date Personal history of colonic polyps acute [facility] Work Phone: Hospital Discharge instructions Note Date & Type Note Facility Hospital Discharge instructions Additional Instructions Your workup today revealed no sign of infection or stroke changes or clinically significant lab abnormalities. 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 Advance Directive(s) 10/03/2011 4:33 PM Advance Directive Response Recorded Date/ Time Living Will No April 24 10:26am Power of Sheet Pile Driver Operator No April 24, 2021 10:26am Advance Directive Response Recorded Date/ Time Living Will No April 24 9:26am Power of Sheet Pile Driver Operator No April 24, 2021 9:26am Advance Directive Response Recorded Date/ Time Name of Medical Power of Sheet Pile Driver Operator NICHOLE TELLEZ October 08, 2022 2:17am Living Will Yes October 08, 2022 2 :17am Power of Sheet Pile Driver Operator Yes October 08, 2022 2:17am Advance Directive Response Recorded Date/ Time Living Will Yes October 08, 2022 2 :17am Power of Sheet Pile Driver Operator Yes October 08, 2022 2:17am Advance Directive Response Recorded Date/ Time Living Will No September 07, 2023 1:53pm Power of Sheet Pile Driver Operator No September 06 1:53pm Advance Directive Response Recorded Date/ Time Do you have a Healthcare Power of Sheet Pile Driver Operator? Yes February 21, 2025 3:41am Name of Medical Power of Sheet Pile Driver Operator --DONNELL ARANA February 21, 2025 3:41am Chief Complaint and Reason for Visit Chief Complaint EORDER Chief Complaint EORDER 6-9 M FU/WE RS [facility] 4/7 [facility] Reason for Visit Essential (primary) hypertension Paroxysmal atrial fibrillation Chief Complaint EORDER 6-9 M FU/WE RS FROM [facility] 4/7 [facility] AFIB E ORDER Reason for [...] or prosecute any alcohol or drug abuse patient.[facility] Reason for Visit (unrecogniz ed section [...] Hairston MD Primary Care Provider, Attending P rovider Active Team Status: Inactive Member Role Status [...] ized section and content) DATE CREATED AUTHOR 03/11/2025 [facility] FOR RECORDS PERTAINING TO PATIENTS WHO [...] BE BASED ON THE PRIMARY CLINICAL RECORDS. [facility] [employer] provides no warranty or guarantee of the accuracy or completeness of information in this document.
[2025-03-11 21:49] LABS: PTHIN 48 pg/mL (11-61)
[2025-03-11 22:38] LABS: CPK Total, Creatine Kinase 64 U/L (24-195); CRP 29.00 mg/L (0.0-3.0); Free T3 1.9 pg/mL (2.18-3.98)
[2025-03-11 23:29] LABS: Osmolality, Serum 276 mOsm/KG (280-301); Osmolality, Urine 628 mOsm/KG
[2025-03-13 17:08] LABS: Cytoplasmic Ab (C-ANCA) <1:20 titer (Neg:<1:20); Lyme Scn Total Ab w/Rflx Negative (Negative); PROEL- A/G Ratio 1.1 (0.7-1.7); PROEL- Albumin 3.4 g/dL (2.9-4.4); PROEL- Alpha-1 Globulin 0.3 g/dL (0.0-0.4); PROEL- Alpha-2 Globulin 0.8 g/dL (0.4-1.0); PROEL- Beta Globulin 0.8 g/dL (0.7-1.3); PROEL- Gamma Globulin 1.0 g/dL (0.4-1.8); PROEL- Globulin, Total 3.0 g/dL (2.2-3.9); PROEL- TOTAL PROTEIN 6.4 g/dL (6.0-8.5); PROEL-M-Spike Comment: g/dL (Not Observed); Perinuclear Ab (P-ANCA) <1:20 titer (Neg:<1:20); RPR, RFX QN Non Reactive (Non Reactive)
[2025-03-13 18:08] LABS: ANA- Smooth Homogeneous 1:80 (.)
[2025-03-13 23:41] LABS: RPR INTERPRETATION NONREACTIVE
== END | disposition home or self-care (01) ==
PROVIDERS: PCP Family Medicine; Visit Provider Family Medicine
DX: E03.9 Hypothyroidism, unspecified (principal); E87.1 Hypo-osmolality and hyponatremia; R41.82 Altered mental status, unspecified; R79.82 Elevated C-reactive protein (CRP); I67.9 Cerebrovascular disease, unspecified
CPT/HCPCS: 36415; 82550; 83930; 83935; 83970; 84165; 84300; 84439; 84481; 85652; 86037; 86038; 86140; 86618

== ENCOUNTER → 2025-03-18 | Outpatient (CLI) | payer MEDICARE, SELFPAY ==
--- NOTE | 2025-03-18 14:12 | US_ITS ---
PROCEDURE: US/Kidney and Bladder
[2025-03-20 15:08] LABS: Cytoplasmic Ab (C-ANCA) <1:20 titer (Neg:<1:20); Perinuclear Ab (P-ANCA) <1:20 titer (Neg:<1:20)
== END | disposition home or self-care (01) ==
PROVIDERS: PCP Family Medicine; Referring Provider Family Medicine; Visit Provider Family Medicine
DX: E87.1 Hypo-osmolality and hyponatremia (principal); R79.82 Elevated C-reactive protein (CRP)
CPT/HCPCS: 36415; 76770; 86037

== ENCOUNTER → 2025-03-19 | Outpatient (CLI) | payer MEDICARE, SELFPAY ==
--- NOTE | 2025-03-19 15:46 | MRI_ITS ---
PROCEDURE: MRI/Brain W/WO Contrast
--- NOTE | 2025-03-19 15:55 | CT_ITS ---
PROCEDURE: CT/Chest WITH Contrast
== END | disposition home or self-care (01) ==
PROVIDERS: PCP Family Medicine; Referring Provider Family Medicine; Visit Provider Family Medicine
DX: R41.82 Altered mental status, unspecified (principal); R79.82 Elevated C-reactive protein (CRP)
CPT/HCPCS: 70553; 71260; A9575; Q9967

== ENCOUNTER → 2025-04-07 | Outpatient (CLI) | payer MEDICARE, SELFPAY ==
[2025-04-07 11:59] LABS: Osmolality, Urine 525 mOsm/KG
== END | disposition home or self-care (01) ==
LOC: LABSPEC 10:58
PROVIDERS: PCP Family Medicine; Referring Provider Family Medicine; Visit Provider Family Medicine
DX: E22.2 Syndrome of inappropriate secretion of antidiuretic hormone (principal)
CPT/HCPCS: 83935; 84300

== ENCOUNTER → 2025-04-14 | Outpatient (CLI) | payer MEDICARE, SELFPAY ==
[2025-04-14 19:24] LABS: Osmolality, Urine 475 mOsm/KG
== END | disposition home or self-care (01) ==
LOC: LABSPEC 15:28
PROVIDERS: PCP Family Medicine; Visit Provider Family Medicine
DX: E87.1 Hypo-osmolality and hyponatremia (principal)
CPT/HCPCS: 83935; 84300

== ENCOUNTER → 2025-04-21 | Outpatient (CLI) | payer MEDICARE, SELFPAY ==
[2025-04-21 18:10] LABS: Anion Gap 11 (5-15); BUN 13 mg/dL (4-19); BUN/Creat Ratio 14.3 RATIO (10-20); Calcium,Total 8.5 mg/dL (7.6-11.0); Carbon Dioxide 29.5 mmol/L (21.0-32.0); Chloride 90 mmol/L (98-108); Glucose 86 mg/dL (70-99); Potassium 3.2 mmol/L (3.3-5.1)
[2025-04-21 18:41] LABS: Osmolality, Serum 271 mOsm/KG (280-301); Osmolality, Urine 645 mOsm/KG
== END | disposition home or self-care (01) ==
LOC: MTLAB 14:29
PROVIDERS: PCP Family Medicine; Referring Provider Family Medicine; Visit Provider Family Medicine
DX: E22.2 Syndrome of inappropriate secretion of antidiuretic hormone (principal)
CPT/HCPCS: 36415; 80048; 83930; 83935; 84300